=== PATIENT | male | born 1950 | race Caucasian/White ===

== ENCOUNTER 2017-04-13 09:53 | Inpatient (IN) | payer MEDICARE ==
[2017-04-13 11:23] LABS: Basophils # (A) 0.1 k/uL (0-0.2); Basophils % (A) 1 %; Eosinophils # (A) 0.4 k/uL (0-0.7); Eosinophils % (A) 2 %; HCT 37.6 % (39.0-53.0); HGB 11.6 gm/dL (13.0-17.5); Hypochromasia Slight; Lymphocytes # (A) 0.9 k/uL (1.0-4.8); Lymphocytes % (A) 6 %; MCH 28.6 pg (25.0-35.0); MCHC 30.7 g/dL (31.0-37.0); Mean Platelet Volume 7.8; Monocytes # (A) 0.9 k/uL (0-1.0); Monocytes % (A) 6 %; Neutrophils # (A) 11.9 k/uL (1.3-7.7); Neutrophils % (A) 84 %; Platelet Count 211 k/uL (150-450); RBC 4.04 m/uL (4.30-5.90); RDW 14.7 % (11.5-15.5); WBC 14.3 k/uL (3.8-10.6)
[2017-04-13 11:35] LABS: Albumin 3.3 g/dL (3.5-5.0); Calcium 9.5 mg/dL (8.4-10.2); Potassium 5.4 mmol/L (3.5-5.1); Total Bilirubin 0.5 mg/dL (0.2-1.3); Total Protein 6.1 g/dL (6.3-8.2)
[2017-04-13] MEDS: methylPREDNISolone SOD SUCCI 125 MG/2 ML VIAL IV SCH ×3 (12:45→23:51)
[2017-04-13] MEDS ORDERED: HYDROcodone/APAP 7.5-325MG 1 EACH TAB PO PRN (12:45)
[2017-04-13 13:02] LABS: Glucose,Whole Blood 105 mg/dL (75-99)
[2017-04-13] MEDS: LEVOFLOXACIN 250MG-D5W PMX 250 MG in DEXTROSE/WATER 1 50ML.BAG IVPB SCH (14:10)
[2017-04-13] MEDS: IPRATROPIUM-ALBUTEROL 3 ML NEB INHALATION SCH ×3 (15:46→20:05)
[2017-04-13] MEDS: SYMBICORT 160-4.5 MCG INHALER INHALATION SCH ×3 (15:48→20:10)
[2017-04-13] MEDS: PIPERACILLIN-TAZOBACTAM 3.375 GM in DEXTROSE/WATER 1 50ML.BAG IVPB SCH ×2 (15:50→23:51)
[2017-04-13] MEDS: SODIUM CHLORIDE 0.9% 1,000 ML IV SCH (15:50)
[2017-04-13] MEDS: guaiFENesin 600 MG TABLET.ER PO SCH ×2 (15:52→20:50)
[2017-04-13] MEDS ORDERED: ONDANSETRON 4 MG/2 ML VIAL IVP PRN (17:05)
[2017-04-13] MEDS ORDERED: LORazepam 0.5 MG TAB PO PRN (17:05)
[2017-04-13] MEDS ORDERED: NALOXONE 0.4 MG/ML 1 ML VIAL IV PRN (17:05)
[2017-04-13] MEDS ORDERED: MELATONIN 3 MG TABLET PO PRN (17:05)
[2017-04-13] MEDS ORDERED: traMADol 50 MG TAB PO PRN (17:05)
[2017-04-13] MEDS ORDERED: CALCIUM CARBONATE 500 MG CHEWABLE PO PRN (17:05)
[2017-04-13] MEDS ORDERED: LACTULOSE 20 GM/30 ML CUP PO PRN (17:05)
[2017-04-13] MEDS ORDERED: ACETAMINOPHEN TAB 325 MG TAB PO PRN (17:05)
--- NOTE | 2017-04-13 17:10 | XR ---
EXAMINATION TYPE: XR chest 2V DATE OF EXAM: 04/13/2017 COMPARISON: 05/09/2010 HISTORY: Weakness and short of breath TECHNIQUE: Frontal and lateral views of the chest are obtained. FINDINGS: There are bilateral moderate patchy pulmonary infiltrates. Pulmonary vascularity is diffic ult to evaluate because of the lung disease. There is slight blunting of costophrenic angles. Thoraci c aorta is atheromatous. IMPRESSION: New bilateral patchy pulmonary infiltrates compared to old exam and probably due to pneu monia. Congestive heart failure is possible.
[2017-04-13 17:31] LABS: Glucose,Whole Blood 117 mg/dL (75-99)
[2017-04-13] MEDS: INSULIN ASPART 100 UNIT/ML 1 ML 10 ML VIAL SQ SCH ×2 (17:46→20:51)
[2017-04-13] MEDS: GABAPENTIN 300 MG CAP PO SCH ×2 (18:03→21:03)
--- NOTE | 2017-04-13 18:17 | HP ---
HISTORY AND PHYSICAL DATE OF ADMISSION: April 13, 2017. PRESENTING COMPLAINT: Short of breath and cough. HISTORY OF PRESENTING COMPLAINT: This is a pleasant 66-year-old patient of Dr. Yin. Also follows with Dr. Jensen. The patient's chronic stable medical conditions include diabetes, GERD, hypertension, osteoarthritis, pretty much uses a wheelchair, peripheral neuropathy, chronic kidney disease, iron deficiency anemia. The patient does use 2 L of oxygen at home. The patient is here with his . For about 2 weeks, patient has been having an increasing amount of cough, clear sputum, some blood in the same. Denies any fever. Decreased appetite, tired, run down. The patient has chronic edema in the lower extremity, but much getting worse recently. Patient is an ex-smoker. The patient was sent down for admission as he is getting worse. REVIEW OF SYSTEMS: Constitutional: Weak and tired. HEENT none. Respiratory as above. Cardiovascular as above. No chest pain. Gastrointestinal none. Genitourinary none. Musculoskeletal: Aches and pains in different joints. Dermatological: The patient has some weeping from lower extremities. Hematologic, lymphatics none. Psychiatry none. Neurological: Numbness and tingling in the feet. PAST MEDICAL HISTORY: COPD, diabetes, GERD, hypertension, osteoarthritis, peripheral neuropathy, chronic kidney disease, iron deficiency anemia, chronic hypoxic respiratory failure, medical debility, uses a wheelchair. PAST SURGICAL HISTORY: Right-sided diaphragm surgery done at [facility] in 2008, vocal cord polyps removed, fatty tumor removed from back, debridement of right leg ulcer, cyst removed from 1 ankle, colonoscopy, fluid removed from the right eye. SOCIAL HISTORY: Lives with his , use oxygen at night. Has a rolling walker and a wheelchair, pretty much uses a wheelchair. The patient smoked for about 22 years. Stopped in 1984. No alcohol. FAMILY HISTORY: Diabetes, liver disease. Father was an alcoholic. HOME MEDICATIONS: 1. Lasix 20 mg p.o. daily. 2. Humalog Mix 75/25 3 times a day. 3. Calcitriol 0.25 mcg at 6:00 pm. 4. Guaifenesin 1 tab q.12h p.r.n. 5. Norvasc 5 mg p.o. b.i.d. 6. Aldactone 12.5 p.o. daily. 7. Silvadene cream topical daily p.r.n. 8. Promethazine with codeine 5 mL q.i.d. p.r.n. 9. Prilosec 20 mg p.o. daily. 10.Nystatin 5-10 mL daily p.r.n. 11.Dulera 200/5 2 puffs b.i.d. 12.Toprol-XL 25 mg p.o. daily. 13.Magnesium oxide 800 mg p.o. daily. 14.DuoNeb q.4h p.r.n. 15.Humalog quick pen q.h.s. 16.[place] 7.5 one tab q.8h p.r.n. 17.Neurontin 300 mg p.o. b.i.d. 18.Lasix 40 mg p.o. daily. 19.Proscar mg p.o. daily. 20.Iron 325 p.o. b.i.d. 21.Clotrimazole 1% topical daily p.r.n. 22.Clobetasol 1 application topical daily p.r.n. 23.Vitamin D3 2000 units p.o. with supper. 24.Aspirin 81 mg p.o. daily. 25.Allopurinol 200 mg p.o. daily. ALLERGIES: TO IBUPROFEN. PHYSICAL EXAMINATION: Temperature 97.4, pulse 91, respiratory 18, blood pressure 125/86, pulse ox 96% on 2 L. well built, BMI 43.5 sitting up, tired appearing. Eyes pupils equal. Conjunctivae normal. HEENT: External appearance of nose and ears normal. Oral cavity normal. Neck: Short thick, JVD unable to assess. Mass not palpable. RESPIRATORY: Effort increased. LUNGS: Diminished breath sounds. Cardiovascular: HEART: Heart sounds muffled. Gross edema present. Abdomen distended, soft, liver and spleen not palpable. Lymphatics: No lymph nodes palpable in the neck or axilla. Psychiatry: Alert and oriented x3. Mood and affect normal. Neurological: Pupils equal. Cranial nerves grossly intact. Decreased sensation distally. Dermatological: Patient has got superficial bruising of both lower extremities with some oozing of the fluid. INVESTIGATIONS: White count 14.3, hemoglobin 11.6, potassium 5.4, BUN 99, creatinine 2.10, lactic acid 0.5, albumin 3.3. Chest x-ray pending. ASSESSMENT: 1. This is a patient who presents with pneumonia with cough, sputum production for 2 weeks. Some blood in the sputum, suspect gram-negative organism. 2. Acute chronic obstructive pulmonary disease exacerbation in an ex-smoker. 3. Suspect underlying cor pulmonale. 4. Primary osteoarthritis multiple joints, especially the knees. 5. Chronic gait dysfunction, pretty much uses seat and a walker. 6. Diabetes mellitus type 2, chronically on insulin. 7. Gastroesophageal reflux disease. 8. Essential hypertension. 9. Peripheral neuropathy secondary to diabetes. 10.Chronic kidney disease stage 3 from diabetic nephropathy and hypertensive nephrosclerosis. 11.Chronic iron deficiency anemia. 12.Morbid obesity BMI 43.5. 13.Chronic hypoxic respiratory failure secondary to underlying chronic obstructive pulmonary disease. PLAN: The patient was seen earlier by Dr. Prince. The patient has been put on IV Solu-Medrol, nebulized bronchodilators, IV Zosyn and IV Levaquin Levaquin. We will get a 2-D echocardiogram. We will DC patient's Aldactone given that patient's potassium is 5.4. Patient will be put on a renal diet. Copy to Dr. Yin and Dr. Jensen. MMODL / IJN: [id number] /
[2017-04-13] MEDS ORDERED: NYSTATIN 100,000 UNIT/ML SUSP 500,000 UNIT/5 ML CUP PO PRN (18:35)
[2017-04-13 20:44] LABS: Hemoglobin A1C 6.4 % (4.0-6.0)
[2017-04-13 20:48] LABS: Glucose,Whole Blood 231 mg/dL (75-99)
[2017-04-13] MEDS: HEPARIN SODIUM,PORCINE 5,000 UNIT/ML 1 ML VIAL SQ SCH (20:50)
[2017-04-13] MEDS: FUROSEMIDE 10 MG/ML 4 ML VIAL IV SCH (20:51)
[2017-04-14] MEDS: methylPREDNISolone SOD SUCCI 125 MG/2 ML VIAL IV SCH ×2 (05:38→13:03)
[2017-04-14 07:01] LABS: Glucose,Whole Blood 228 mg/dL (75-99)
[2017-04-14] MEDS: SYMBICORT 160-4.5 MCG INHALER INHALATION SCH ×4 (07:25→20:47)
[2017-04-14] MEDS: IPRATROPIUM-ALBUTEROL 3 ML NEB INHALATION SCH ×4 (07:26→20:05)
[2017-04-14] MEDS: PIPERACILLIN-TAZOBACTAM 3.375 GM in DEXTROSE/WATER 1 50ML.BAG IVPB SCH ×3 (07:53→23:51)
[2017-04-14] MEDS: PANTOPRAZOLE 40 MG TABLET PO SCH (07:53)
[2017-04-14] MEDS: METOPROLOL TARTRATE 25 MG TAB PO SCH (07:54)
[2017-04-14] MEDS: INSULIN ASPART 100 UNIT/ML 1 ML 10 ML VIAL SQ SCH ×4 (07:54→20:48)
[2017-04-14] MEDS: HEPARIN SODIUM,PORCINE 5,000 UNIT/ML 1 ML VIAL SQ SCH ×2 (07:54→20:48)
[2017-04-14] MEDS: FINASTERIDE 5 MG TAB PO SCH (07:55)
[2017-04-14] MEDS: FUROSEMIDE 10 MG/ML 4 ML VIAL IV SCH (07:55)
[2017-04-14] MEDS: ASPIRIN 81 MG PO SCH (07:55)
[2017-04-14] MEDS: amLODIPine 5 MG TAB PO SCH (07:55)
[2017-04-14] MEDS: TAMSULOSIN 0.4 MG CAP.ER.24H PO SCH (07:55)
[2017-04-14] MEDS: guaiFENesin 600 MG TABLET.ER PO SCH ×2 (07:56→20:47)
[2017-04-14] MEDS: GABAPENTIN 300 MG CAP PO SCH ×3 (07:56→21:19)
--- NOTE | 2017-04-14 08:41 | US ---
EXAMINATION TYPE: US kidneys/renal and bladder DATE OF EXAM: 04/14/2017 COMPARISON: NONE CLINICAL HISTORY: renal failure. Difficult study due to patient body habitus and patient's inability to take a deep breath in and hold EXAM MEASUREMENTS: Right Kidney: 11.4 x 5.9 x 5.8 cm Left Kidney: 12.5 x 5.6 x 4.7 cm Right Kidney: No hydronephrosis. Echogenic focus measuring 0.7 cm at the midpole level the renal pelv is Left Kidney: No hydronephrosis or masses seen Bladder: Not distended, patient states he had just emptied his bladder Bilateral Jets seen: No Cortical medullary differentiation is maintained. There is cortical thinning bilaterally. IMPRESSION: Suspect right nephrolithiasis. Cortical thinning bilaterally.
[2017-04-14] MEDS ORDERED: SPIRONOLACTONE 25 MG TAB PO SCH (09:00)
--- NOTE | 2017-04-14 10:06 | P.CNPUL ---
History of Present Illness Consult date: 04/14/17 Reason for consult: dyspnea, cough, hypoxemia, pneumonia Chief complaint: Shortness of breath and cough, hemoptysis, pneumonia. History of present illness: Consult dated 04/14/2017 This is a 66-year-old male who sees one of the family doctors in [place]. He also sees my partner for his chronic lung disease. The patient presented to my office yesterday with complaints of shortness of breath coughing chest congestion phlegm production the phlegm was yellow green. In addition, he had maybe half-dozen episodes of bright red hemoptysis. There about dime size. When my partner saw him, the patient was admitted to the hospital. We actually saw him yesterday in the emergency room. The patient was on oxygen therapy. He is in room 15 in the ER. Still coughing up a little bit of blood. This morning, he still coughing up phlegm. Is clearly yellow. He has a sample on his desk in front of him. There is a small amount of bright red blood-tinged with it. He is feeling better. Chest x-ray reveals bilateral patchy infiltrates. Another chest x-ray was ordered for today. The patient was admitted to the hospital service. The patient states that he is feeling a bit better. He is on nasal O2. He uses at home as well. His appetite is poor. States he just feels fatigued and weak. No fever no chills. The patient denies any chest pain or chest discomfort. No palpitations. No nausea vomiting or diarrhea. He is an ex-smoker. Review of Systems A 12 point review of system is positive for cough shortness of breath chest congestion phlegm production and hemoptysis. In addition, the patient's feels weak and fatigued. Past Medical History Past Medical History: Asthma, COPD, Diabetes Mellitus, Eye Disorder, GERD/Reflux , Hypertension, Osteoarthritis (OA), Pneumonia, Renal Disease Additional Past Medical History / Comment(s): Bronchitis, R lung not able to fully expand so had R sided diaphragm repair at [facility], home O2 normally prn but the past 2 weeks ATC, sleeps in a recliner, IDDM type II, bilateral foot numbness and R hand finger numbness, chronic kidney disease, iron deficiency anemia with iron infusions prn, bilateral lower leg edema, current bilateral lower leg blisters, gout bilateral feet/knees, arthritis multiple joints, past R leg ulcer-treated in [facility], past sacral ulcer, abdominal hernia, bilateral cataracts forming and believes he has been told 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 History of Any Multi-Drug Resistant Organisms: None Reported Additional Past Surgical History / Comment(s): R side of diaphragm surgery done at [facility] in 2008, vocal cord polyps removed, fatty tumor removed from back, debridements R leg ulcer, cyst removed from one ankle (laterality unknown), colonoscopies, fluid removed from R eye. Past Anesthesia/Blood Transfusion Reactions: No Reported Reaction Smoking Status: Former smoker - Past Family History Father Family Medical History: Diabetes Mellitus, Liver Disease Additional Family Medical History / Comment(s): Father was an alcoholic and smoked. He at the age of 55 yrs. Mother Family Medical History: CVA/TIA Medications and Allergies Home Medications Medication Instructions Recorded Confirmed Type Allopurinol [Zyloprim] 200 mg PO DAILY 08/03/16 04/13/17 History Aspirin 81 mg PO DAILY 08/03/16 04/13/17 History Calcitriol 0.25 mcg PO SA@1800 08/03/16 04/13/17 History Cholecalciferol (Vitamin D3) 2,000 units PO W/SUPPER 08/03/16 04/13/17 History [Vitamin D3] Clobetasol Propionate/Emoll 1 applic TOPICAL DAILY PRN 08/03/16 04/13/17 History [Olux-E 0.05% Foam] Clotrimazole [Clotrimazole 1%] 1 cream TOPICAL DAILY PRN 08/03/16 04/13/17 History Finasteride 1 mg PO DAILY 08/03/16 04/13/17 History Furosemide [Lasix] 40 mg PO DAILY 08/03/16 04/13/17 History HYDROcodone/APAP 7.5-325MG [[place] 1 tab PO Q8H PRN 08/03/16 04/13/17 History 7.5-325] Insulin Lispro Protamin/Lispro See Protocol SQ AC-TID 08/03/16 04/13/17 History [humaLOG Mix 75-25 Kwikpen] Insulin Lispro [humaLOG Kwikpen] 4 - 15 unit SQ HS 08/03/16 04/13/17 History Ipratropium-Albuterol Nebulize 3 ml INHALATION RT-Q4H PRN 08/03/16 04/13/17 History [Duoneb 0.5 mg-3 mg/3 ml Soln] Magnesium Oxide 400 mg PO DAILY 08/03/16 04/13/17 History Metoprolol Succinate (ER) [Toprol 25 mg PO DAILY 08/03/16 04/13/17 History XL] Mometasone/Formoterol [Dulera 200 2 inhaler INHALATION RT-BID 08/03/16 04/13/17 History Mcg/5 Mcg Inhaler] Nystatin 5 - 10 ml PO DAILY PRN 08/03/16 04/13/17 History Omeprazole [PriLOSEC] 20 mg PO DAILY 08/03/16 04/13/17 History Promethazine/Phenyleph/Codeine 5 ml PO QID PRN 08/03/16 04/13/17 History [Promethazine Vc-Codeine Syrup] SILVER sulfADIAZINE CREAM 1 applic TOPICAL DAILY PRN 08/03/16 04/13/17 History [Silvadene Cream] Spironolactone 12.5 mg PO DAILY 08/03/16 04/13/17 History amLODIPine [Norvasc] 5 mg PO BID 08/03/16 04/13/17 History guaiFENesin-DM 600/30MG [Mucinex 1 tab PO Q12H PRN 08/03/16 04/13/17 History Dm] Ferrous Sulfate [Feosol] 325 mg PO BID 01/21/17 04/13/17 History Furosemide [Lasix] 20 mg PO DAILY@1500 04/13/17 04/13/17 History Gabapentin [Neurontin] 300 mg PO BID 04/13/17 04/13/17 History Insulin Lispro Protamin/Lispro See Protocol SQ PC-TID 04/13/17 04/13/17 History [humaLOG Mix 75-25 Kwikpen] Allergies Allergy/AdvReac Type Severity Reaction Status Date / Time ibuprofen [From Motrin] AdvReac Confusion Verified 04/13/17 10:12 Physical Exam Osteopathic Statement: *. No significant issues noted on an osteopathic structural exam other than those noted in the History and Physical/Consult. Vitals: Vital Signs Temp Pulse Pulse Resp BP BP Pulse Ox 04/14/17 07:42 96 04/14/17 07:26 92 02/28/18 07:00 98 16 159/103 92 L 04/13/17 23:00 97.4 F L 94 16 159/80 91 L 04/13/17 20:16 88 04/13/17 20:04 84 04/13/17 16:00 86 96 04/13/17 15:47 88 04/13/17 15:00 97.6 F 90 20 176/77 92 L 04/13/17 14:40 97.4 F L 91 18 125/86 96 04/13/17 14:11 96.7 F L 81 20 165/77 96 04/13/17 13:20 84 20 160/77 95 04/13/17 12:57 97.1 F L 80 19 176/79 96 04/13/17 11:49 84 20 173/83 94 L Intake and Output 04/13/17 04/14/17 04/14/17 22:59 06:59 14:59 Intake Total 35 90 Balance 35 90 Intake: Intake, IV Titration 35 90 Amount Piperacillin-Tazobactam 3 50 .375 gm In Dextrose/Water 1 50ml.bag @ 12.5 mls/hr IVPB Q8HR EVELYNE Rx#: [id number] Sodium Chloride 0.9% 1, 35 40 000 ml @ 10 mls/hr IV . Q24H EVELYNE Rx#:[id number] Other: # Voids 2 3 No acute distress, oriented 3. Nasal O2 in place. HEENT examination is grossly unremarkable. Mucous membranes are moist. No oral lesions. Neck supple. Full range of motion. No adenopathy thyromegaly or neck vein distention. Cardiovascular examination reveals regular rhythm rate. S1-S2 normal. No S3 or S4. No discernible murmur noted. Lungs reveal coarse expiratory rhonchi. No wheezes. A few scattered crackles bilaterally. Breath sounds are equal. Slight prolongation on forced maneuver. The patient coughs on forced maneuver.. Abdomen soft bowel sounds are heard. No masses or tenderness. Extremities are intact. No cyanosis clubbing or edema. Skin is without rash or lesion. Neurologic examination is brief but nonfocal. Results - Laboratory Findings CBC and BMP: 04/13/17 10:46 04/13/17 10:46 Abnormal lab findings: Abnormal Labs 04/13/17 04/13/17 04/13/17 10:46 10:46 10:46 WBC 14.3 H RBC 4.04 L Hgb 11.6 L Hct 37.6 L MCHC 30.7 L Neutrophils # 11.9 H Lymphocytes # 0.9 L Potassium 5.4 H Carbon Dioxide 32 H BUN 99 H* Creatinine 2.10 H POC Glucose (mg/dL) Hemoglobin A1c Plasma Lactic Acid Barrett 0.5 L Total Protein 6.1 L Albumin 3.3 L 04/13/17 04/13/17 04/13/17 10:46 12:59 17:29 WBC RBC Hgb Hct MCHC Neutrophils # Lymphocytes # Potassium Carbon Dioxide BUN Creatinine POC Glucose (mg/dL) 105 H 117 H Hemoglobin A1c 6.4 H Plasma Lactic Acid Barrett Total Protein Albumin 04/13/17 04/14/17 20:41 06:59 WBC RBC Hgb Hct MCHC Neutrophils # Lymphocytes # Potassium Carbon Dioxide BUN Creatinine POC Glucose (mg/dL) 231 H 228 H Hemoglobin A1c Plasma Lactic Acid Brarett Total Protein Albumin - Diagnostic Findings Chest x-ray: image reviewed (X-ray labs and medications are all reviewed.) Assessment and Plan Assessment: Assessment COPD exacerbation complicated by bilateral patchy pneumonia. Her graft mild hemoptysis, improved Previous history of tobacco use History of GERD History of hypertension History of DJD 4 neuropathy. Chronic kidney disease Iron deficiency anemia Obesity Chronic hypoxemic respiratory failure General medical debility Plan: Plan dated 04/14/2017 Chest x-rays reviewed. It does reveal bilateral patchy infiltrates.. This is consistent with pneumonia. The patient's hemoptysis seems to have settled down. My partner road all the orders yesterday. They were put in by my nurse practitioner. We'll continue to follow. Prognosis is guarded. Hopeful discharge on Wednesday. No additional recommendations are made. Time with Patient: Greater than 30
[2017-04-14] MEDS ORDERED: ARTIFICIAL TEARS-HYPROMELLOSE DROPS 15 ML BTL BOTH EYES PRN (10:15)
[2017-04-14 11:27] LABS: Glucose,Whole Blood 394 mg/dL (75-99)
--- NOTE | 2017-04-14 11:28 | XR ---
EXAMINATION TYPE: XR chest 1V portable DATE OF EXAM: 04/14/2017 COMPARISON: Prior chest x-ray 04/13/2017 HISTORY: Pain TECHNIQUE: Single frontal view of the chest is obtained. FINDINGS: Patchy bilateral airspace disease is again noted as on prior. Lung volumes are low and the patient is rotated. Cardiomediastinal silhouette, pulmonary vascularity and prema are stable. IMPRESSION: There is no significant change. Correlate for pneumonia, pulmonary edema not excluded, c orrelate for congestive heart failure.
[2017-04-14] MEDS: NYSTATIN 100,000 UNIT/ML SUSP 500,000 UNIT/5 ML CUP PO SCH ×3 (11:48→20:48)
[2017-04-14 11:55] VITALS: BMI 43.4
[2017-04-14] MEDS: LEVOFLOXACIN 250MG-D5W PMX 250 MG in DEXTROSE/WATER 1 50ML.BAG IVPB SCH (11:56)
[2017-04-14] MEDS ORDERED: INSULIN NPH/REG INSULIN 70/30 300 UNIT/3 ML VIAL SQ ONE (12:25)
[2017-04-14] MEDS ORDERED: INSULN ASP PRT/INSULIN ASPART 100 UNIT/ML 10 ML VIAL SQ ONE (13:15)
[2017-04-14] MEDS ORDERED: SILVER sulfADIAZINE Cream 400 GM 1 APPLIC APPLIC TOPICAL PRN (13:42)
[2017-04-14] MEDS: SODIUM CHLORIDE 0.9% 1,000 ML IV SCH (16:05)
[2017-04-14] MEDS: CEVIMELINE 30 MG CAP PO SCH ×2 (16:16→20:47)
[2017-04-14 16:57] LABS: Glucose,Whole Blood 101 mg/dL (75-99)
[2017-04-14] MEDS: SILVER sulfADIAZINE Cream 400 GM 1 APPLIC APPLIC TOPICAL SCH ×2 (17:02→20:49)
[2017-04-14] MEDS: FUROSEMIDE 10 MG/ML 10 ML VIAL IV SCH ×2 (17:02→23:51)
--- NOTE | 2017-04-14 17:14 | PN ---
PROGRESS NOTE DATE OF SERVICE: 04/14/17 PRESENTING COMPLAINT: Short of breath, cough. INTERVAL HISTORY: This patient admitted with pneumonia. Cough is slightly better. Decreased sputum. Still has edema lower extremity. Also felt to have COPD exacerbation. 2D echo is pending. Did tolerate a diet. REVIEW OF SYSTEMS: Done for constitutional, cardiovascular, GI, pulmonary; relevant findings as above. CURRENT MEDICATIONS: Reviewed that include DuoNeb, p.o. Levaquin, IV Zosyn. EXAMINATION: On examination, temperature 97.8, pulse 83, respirations 16, blood pressure 115/77, pulse ox 94% on 2 L. GENERAL APPEARANCE: Sitting up in a chair. EYES: Pupils equal. Conjunctivae normal. HEENT: External appearance of nose and ears normal. Oral cavity normal. NECK: Short, thick, JVD unable to assess. Mass not palpable. RESPIRATORY: Effort increased. Lungs, diminished breath sounds. CARDIOVASCULAR: Heart sounds muffled. Gross edema present. ABDOMEN: Distended, soft, liver and spleen not palpable. PSYCHIATRY: Alert and oriented x3. Mood and affect normal. LOWER EXTREMITY: Superficial bruising with oozing of clear fluid. INVESTIGATIONS: Accu-Cheks are noted. BMP is pending. ASSESSMENT: 1. Pneumonia suspect gram-negative organism, present on admission. 2. Acute chronic obstructive pulmonary disease exacerbation in an ex-smoker. 3. Primary osteoarthritis multiple joints especially the knees. 4. Possible acute congestive heart failure exacerbation. Ejection fraction not known. 5. Chronic gait dysfunction, pretty much uses a seat walker. 6. Diabetes mellitus type 2, chronically on insulin. 7. Gastroesophageal reflux disease. 8. Essential hypertension. 9. Peripheral neuropathy secondary to diabetes. 10.Chronic kidney disease stage III from diabetic nephropathy and hypertensive nephrosclerosis. 11.Chronic iron deficiency anemia. 12.Morbid obesity, BMI 43.5. 13.Chronic hypoxic respiratory failure secondary to underlying chronic obstructive pulmonary disease. PLAN: We will increase patient's IV Lasix to 80 q.8. BMP from today is pending. Awaiting 2D echocardiogram results. We will also put the patient on some fluid restriction. Use Silvadene cream with Kerlix and Yonny wrap of lower extremities. Do strict I and Os. Also get a nephrology opinion. MMODL / IJN: [id number] /
[2017-04-14 17:18] LABS: Calcium 9.6 mg/dL (8.4-10.2)
[2017-04-14] MEDS ORDERED: INSULIN NPH/REG INSULIN 70/30 300 UNIT/3 ML VIAL SQ SCH ×2 (17:30)
[2017-04-14] MEDS: INSULN ASP PRT/INSULIN ASPART 100 UNIT/ML 10 ML VIAL SQ SCH (18:04)
[2017-04-14 20:23] LABS: Glucose,Whole Blood 218 mg/dL (75-99)
[2017-04-14] MEDS: methylPREDNISolone SOD SUCCI 40 MG/ML 1 ML VIAL IV SCH (23:51)
[2017-04-15 00:12] LABS: Glucose,Whole Blood 313 mg/dL (75-99)
[2017-04-15 07:11] LABS: Glucose,Whole Blood 211 mg/dL (75-99)
[2017-04-15] MEDS: IPRATROPIUM-ALBUTEROL 3 ML NEB INHALATION SCH ×4 (07:25→18:57)
[2017-04-15] MEDS: SYMBICORT 160-4.5 MCG INHALER INHALATION SCH ×5 (07:25→19:10)
[2017-04-15 07:40] LABS: Calcium 9.4 mg/dL (8.4-10.2); Potassium 5.1 mmol/L (3.5-5.1)
[2017-04-15] MEDS: INSULIN ASPART 100 UNIT/ML 1 ML 10 ML VIAL SQ SCH ×4 (08:08→21:25)
[2017-04-15] MEDS: LEVOFLOXACIN 250 MG TAB PO SCH (08:10)
[2017-04-15] MEDS: NYSTATIN 100,000 UNIT/ML SUSP 500,000 UNIT/5 ML CUP PO SCH ×4 (08:11→21:28)
[2017-04-15] MEDS: CEVIMELINE 30 MG CAP PO SCH ×3 (08:12→21:27)
[2017-04-15] MEDS: FUROSEMIDE 10 MG/ML 10 ML VIAL IV SCH ×2 (08:14→21:26)
[2017-04-15] MEDS: guaiFENesin 600 MG TABLET.ER PO SCH ×2 (08:15→21:30)
[2017-04-15] MEDS: GABAPENTIN 300 MG CAP PO SCH ×3 (08:15→21:32)
[2017-04-15] MEDS: HEPARIN SODIUM,PORCINE 5,000 UNIT/ML 1 ML VIAL SQ SCH ×2 (08:15→21:31)
[2017-04-15] MEDS: FINASTERIDE 5 MG TAB PO SCH (08:16)
[2017-04-15] MEDS: ASPIRIN 81 MG PO SCH (08:16)
[2017-04-15] MEDS: PANTOPRAZOLE 40 MG TABLET PO SCH (08:16)
[2017-04-15] MEDS: TAMSULOSIN 0.4 MG CAP.ER.24H PO SCH (08:17)
[2017-04-15] MEDS: amLODIPine 5 MG TAB PO SCH ×2 (08:18→21:30)
[2017-04-15] MEDS: INSULN ASP PRT/INSULIN ASPART 100 UNIT/ML 10 ML VIAL SQ SCH ×2 (08:25→17:46)
[2017-04-15] MEDS: PIPERACILLIN-TAZOBACTAM 3.375 GM in DEXTROSE/WATER 1 50ML.BAG IVPB SCH ×3 (08:26→23:31)
[2017-04-15] MEDS: METOPROLOL TARTRATE 25 MG TAB PO SCH (08:34)
[2017-04-15] MEDS: methylPREDNISolone SOD SUCCI 40 MG/ML 1 ML VIAL IV SCH ×3 (08:35→23:31)
[2017-04-15] MEDS: SILVER sulfADIAZINE Cream 400 GM 1 APPLIC APPLIC TOPICAL SCH ×2 (08:38→21:31)
[2017-04-15] MEDS ORDERED: hydrALAZINE HCL 20 MG/ML 1 ML VIAL IVP PRN (10:13)
--- NOTE | 2017-04-15 10:15 | P.NPCON ---
History of Present Illness - Reason for Consult acute renal failure, chronic renal failure - History of Present Illness Reason for consultation: Acute kidney injury on chronic kidney disease History of present illness: Patient is a 66-year-old male seen in renal consultation for acute kidney injury on chronic kidney disease. Patient has chronic kidney disease stage IIIB secondary to biopsy-proven diabetic kidney disease with baseline creatinine in the range of 2-2.5. His creatinine today is 2.62. Patient presented to the hospital with dyspnea and a productive cough with yellow sputum. He was also having hemoptysis prior to admission. Overall he is feeling better. He denies any further hemoptysis. His cough is now nonproductive in nature. He does have lower extremity edema. He is currently maintained on Lasix 80 mg IV every 8 hours. Admits to good urine output. No vomiting or diarrhea. Oral intake is good. Denies chest pain. Denies use of NSAIDs. He is currently afebrile. Vital signs are stable. General: The patient appeared well nourished and normally developed. HEENT: Head exam is unremarkable. Neck is without jugular venous distension. LUNGS: Lungs are clear to auscultation and percussion. Breath sounds decreased. HEART: Rate and Rhythm are regular. First and second heart sounds normal. No murmurs, rubs or gallops. ABDOMEN: Abdominal exam reveals normal bowel sounds. Non-tender and non- distended. No evidence of peritonitis. EXTREMITITES: 1+ edema. Past Medical History Past Medical History: Asthma, COPD, Diabetes Mellitus, Eye Disorder, GERD/Reflux , Hypertension, Osteoarthritis (OA), Pneumonia, Renal Disease Additional Past Medical History / Comment(s): Bronchitis, R lung not able to fully expand so had R sided diaphragm repair at [facility], home O2 normally prn but the past 2 weeks ATC, sleeps in a recliner, IDDM type II, bilateral foot numbness and R hand finger numbness, chronic kidney disease, iron deficiency anemia with iron infusions prn, bilateral lower leg edema, current bilateral lower leg blisters, gout bilateral feet/knees, arthritis multiple joints, past R leg ulcer-treated in [facility], past sacral ulcer, abdominal hernia, bilateral cataracts forming and believes he has been told 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 History of Any Multi-Drug Resistant Organisms: None Reported Additional Past Surgical History / Comment(s): R side of diaphragm surgery done at [facility] in 2008, vocal cord polyps removed, fatty tumor removed from back, debridements R leg ulcer, cyst removed from one ankle (laterality unknown), colonoscopies, fluid removed from R eye. Past Anesthesia/Blood Transfusion Reactions: No Reported Reaction Smoking Status: Former smoker - Past Family History Father Family Medical History: Diabetes Mellitus, Liver Disease Additional Family Medical History / Comment(s): Father was an alcoholic and smoked. He at the age of 55 yrs. Mother Family Medical History: CVA/TIA Medications and Allergies Home Medications Medication Instructions Recorded Confirmed Type Allopurinol [Zyloprim] 200 mg PO DAILY 08/03/16 04/13/17 History Aspirin 81 mg PO DAILY 08/03/16 04/13/17 History Calcitriol 0.25 mcg PO SA@1800 08/03/16 04/13/17 History Cholecalciferol (Vitamin D3) 2,000 units PO W/SUPPER 08/03/16 04/13/17 History [Vitamin D3] Clobetasol Propionate/Emoll 1 applic TOPICAL DAILY PRN 08/03/16 04/13/17 History [Olux-E 0.05% Foam] Clotrimazole [Clotrimazole 1%] 1 cream TOPICAL DAILY PRN 08/03/16 04/13/17 History Finasteride 1 mg PO DAILY 08/03/16 04/13/17 History Furosemide [Lasix] 40 mg PO DAILY 08/03/16 04/13/17 History HYDROcodone/APAP 7.5-325MG [[place] 1 tab PO Q8H PRN 08/03/16 04/13/17 History 7.5-325] Insulin Lispro Protamin/Lispro See Protocol SQ AC-TID 08/03/16 04/13/17 History [humaLOG Mix 75-25 Kwikpen] Insulin Lispro [humaLOG Kwikpen] 4 - 15 unit SQ HS 08/03/16 04/13/17 History Ipratropium-Albuterol Nebulize 3 ml INHALATION RT-Q4H PRN 08/03/16 04/13/17 History [Duoneb 0.5 mg-3 mg/3 ml Soln] Magnesium Oxide 400 mg PO DAILY 08/03/16 04/13/17 History Metoprolol Succinate (ER) [Toprol 25 mg PO DAILY 08/03/16 04/13/17 History XL] Mometasone/Formoterol [Dulera 200 2 inhaler INHALATION RT-BID 08/03/16 04/13/17 History Mcg/5 Mcg Inhaler] Nystatin 5 - 10 ml PO DAILY PRN 08/03/16 04/13/17 History Omeprazole [PriLOSEC] 20 mg PO DAILY 08/03/16 04/13/17 History Promethazine/Phenyleph/Codeine 5 ml PO QID PRN 08/03/16 04/13/17 History [Promethazine Vc-Codeine Syrup] SILVER sulfADIAZINE CREAM 1 applic TOPICAL DAILY PRN 08/03/16 04/13/17 History [Silvadene Cream] Spironolactone 12.5 mg PO DAILY 08/03/16 04/13/17 History amLODIPine [Norvasc] 5 mg PO BID 08/03/16 04/13/17 History guaiFENesin-DM 600/30MG [Mucinex 1 tab PO Q12H PRN 08/03/16 04/13/17 History Dm] Ferrous Sulfate [Feosol] 325 mg PO BID 01/21/17 04/13/17 History Furosemide [Lasix] 20 mg PO DAILY@1500 04/13/17 04/13/17 History Gabapentin [Neurontin] 300 mg PO BID 04/13/17 04/13/17 History Insulin Lispro Protamin/Lispro See Protocol SQ PC-TID 04/13/17 04/13/17 History [humaLOG Mix 75-25 Kwikpen] Allergies Allergy/AdvReac Type Severity Reaction Status Date / Time ibuprofen [From Motrin] AdvReac Confusion Verified 04/13/17 10:12 Physical Exam Vitals: Vital Signs Temp Pulse Pulse Resp BP Pulse Ox 04/15/17 07:37 82 04/15/17 07:27 82 04/15/17 07:00 97.5 F L 98 18 179/90 97 04/14/17 20:24 76 04/14/17 20:05 72 04/14/17 20:00 96.6 F L 103 H 20 165/81 92 L 04/14/17 16:50 76 04/14/17 16:39 78 04/14/17 16:00 83 16 04/14/17 15:00 97.8 F 83 16 161/77 94 L 04/14/17 11:13 80 04/14/17 11:03 76 Intake and Output 04/14/17 04/15/17 04/15/17 22:59 06:59 14:59 Other: Voiding Method Toilet Toilet Weight 89 kg Results - Lab Results Most recent lab results Calcium 9.4 mg/dL (8.4-10.2) 04/15/17 06:46 04/13/17 10:46 04/15/17 06:46 Assessment and Plan Plan: assessment: #1. Acute kidney injury mostly prerenal secondary to diuresis. Creatinine 2.62 today. #2. Chronic kidney disease stage IIIB/4 secondary to biopsy-proven diabetic kidney disease. #3. Insulin-dependent diabetes mellitus. #4. Dyspnea secondary to pneumonia maintained on antibiotics. #5. Lower extremity edema maintained on diuretics. #6. Hypertension with chronic kidney disease. Partially related to IV steroids. Plan: I will decrease Lasix to 60 mg IV twice daily. Encouraged oral intake. Maintain low salt diet. Follow-up cultures. Continue with antibiotics. Increase amlodipine to 5 mg twice a day. Add hydralazine 10 mg IV every 4 hours if needed for systolic blood pressure greater than 160. Thank you for the consultation. I will continue to follow the patient with you during his hospital stay.
[2017-04-15 11:10] LABS: Glucose,Whole Blood 191 mg/dL (75-99)
--- NOTE | 2017-04-15 11:32 | P.PN ---
Subjective Progress Note Date: 04/15/17 Principal diagnosis: Acute COPD exacerbation complicated by bilateral patchy pneumonia Consult dated 04/14/2017 This is a 66-year-old male who sees one of the family doctors in [place]. He also sees my partner for his chronic lung disease. The patient presented to my office yesterday with complaints of shortness of breath coughing chest congestion phlegm production the phlegm was yellow green. In addition, he had maybe half-dozen episodes of bright red hemoptysis. There about dime size. When my partner saw him, the patient was admitted to the hospital. We actually saw him yesterday in the emergency room. The patient was on oxygen therapy. He is in room 15 in the ER. Still coughing up a little bit of blood. This morning, he still coughing up phlegm. Is clearly yellow. He has a sample on his desk in front of him. There is a small amount of bright red blood-tinged with it. He is feeling better. Chest x-ray reveals bilateral patchy infiltrates. Another chest x-ray was ordered for today. The patient was admitted to the hospital service. The patient states that he is feeling a bit better. He is on nasal O2. He uses at home as well. His appetite is poor. States he just feels fatigued and weak. No fever no chills. The patient denies any chest pain or chest discomfort. No palpitations. No nausea vomiting or diarrhea. He is an ex-smoker. On 04/15/2017 patient is seen in follow-up on medical surgical floor. Reports significant improvement in terms of his dyspnea. Means on 2 L per nasal cannula with O2 sat at 97%. He is hemodynamically stable, afebrile. Blood culture shows no growth at the 24-hour bran. Today's lab work showed normal electrolyte panel, however there is further worsening of his renal function, BUN is up to 106, and creatinine is up to 2.62. Nephrology consultation was noted. His Lasix was decreased to 60 mg IV twice daily. Patient is maintaining good oral intake. Patient continues on oral Levaquin, IV Zosyn, IV steroids, nebulized treatments. He is requesting to go home today, from pulmonary standpoint he is stable to go home, pending clearance from other consultants and admitting doctor. Objective - Vital Signs Vital signs: Vital Signs Temp 97.5 F L 04/15/17 07:00 Pulse 88 04/15/17 11:18 Resp 18 04/15/17 07:00 BP 124/75 04/15/17 10:48 Pulse Ox 97 04/15/17 07:00 Intake & Output 04/14/17 04/15/17 04/15/17 18:59 06:59 18:59 Intake Total 580 Balance 580 Weight 118.5 kg 89 kg Intake: Intake, IV Titration 220 Amount Levofloxacin 250Mg-D5w 50 Pmx 250 mg In Dextrose/ Water 1 50ml.bag @ 50 mls /hr IVPB DAILY [facility] Rx#: [id number] Piperacillin-Tazobactam 3 50 .375 gm In Dextrose/Water 1 50ml.bag @ 12.5 mls/hr IVPB Q8HR EVELYNE Rx#: [id number] Sodium Chloride 0.9% 1, 120 000 ml @ 10 mls/hr IV . Q24H EVELYNE Rx#:[id number] Oral 360 Other: Voiding Method Toilet Toilet Toilet # Voids 3 - Exam No acute distress, oriented 3. Nasal O2 in place. HEENT examination is grossly unremarkable. Mucous membranes are moist. No oral lesions. Neck supple. Full range of motion. No adenopathy thyromegaly or neck vein distention. Cardiovascular examination reveals regular rhythm rate. S1-S2 normal. No S3 or S4. No discernible murmur noted. Lungs reveal a few scattered rales. No wheezes. No rhonchi. Breath sounds are equal. Slight prolongation on forced maneuver. The patient coughs on forced maneuver.. Abdomen soft bowel sounds are heard. No masses or tenderness. Extremities are intact. No cyanosis clubbing. 1+ edema, Chronic venous stasis changes noted in bilateral lower extremities Skin is without rash or lesion. Neurologic examination is brief but nonfocal. - Labs CBC & Chem 7: 04/13/17 10:46 04/15/17 06:46 Labs: Abnormal Lab Results - Last 24 Hours (Table) 04/14/17 04/14/17 04/14/17 Range/Units 11:23 16:53 16:55 BUN 104 H* (9-20) mg/dL Creatinine 2.40 H (0.66-1.25) mg/dL Glucose 108 H (74-99) mg/dL POC Glucose (mg/dL) 394 H 101 H (75-99) mg/dL 04/14/17 04/15/17 04/15/17 Range/Units 20:22 00:04 06:46 BUN 106 H* (9-20) mg/dL Creatinine 2.62 H (0.66-1.25) mg/dL Glucose 228 H (74-99) mg/dL POC Glucose (mg/dL) 218 H 313 H (75-99) mg/dL 04/15/17 04/15/17 Range/Units 07:07 11:07 BUN (9-20) mg/dL Creatinine (0.66-1.25) mg/dL Glucose (74-99) mg/dL POC Glucose (mg/dL) 211 H 191 H (75-99) mg/dL Microbiology - Last 24 Hours (Table) 04/13/17 10:46 Blood Culture - Preliminary Blood No Growth after 24 hours Assessment and Plan Plan: Assessment: COPD exacerbation complicated by bilateral patchy pneumonia. Hemoptysis, mild, improved Previous history of tobacco use History of GERD History of hypertension History of DJD Diabetic neuropathy. Chronic kidney disease Iron deficiency anemia Obesity Chronic hypoxemic respiratory failure General medical debility Plan: Plan dated 04/14/2017 Chest x-rays reviewed. It does reveal bilateral patchy infiltrates.. This is consistent with pneumonia. The patient's hemoptysis seems to have settled down. My partner road all the orders yesterday. They were put in by my nurse practitioner. We'll continue to follow. Prognosis is guarded. Hopeful discharge on Wednesday. No additional recommendations are made. Plan dated 04/15/2017 Patient is improving, reports less dyspnea, the hemoptysis has resolved. Vital signs are stable, patient is afebrile. Continues on a combination of Levaquin and Zosyn. Lung sounds are only positive for some minimal crackles, no wheezes , no rhonchi, no signs of chest congestion, no fever, no chills, no chest wall tenderness. Continue with current plan of treatment, from pulmonary standpoint patient could be considered for discharge home today or tomorrow, pending clearance from other consultants. I performed a history & physical examination of the patient and discussed their management with my nurse practitioner, Cherry Lee. I reviewed the nurse practitioner's note and agree with the documented findings and plan of care. Lung sounds are positive for minimal crackles. The findings and the impression was discussed with the patient. I attest to the documentation by the nurse practitioner. Time with Patient: Less than 30
--- NOTE | 2017-04-15 11:35 | ECHOF ---
Referral Reason:chf MEASUREMENTS -------- HEIGHT: 165.1 cm WEIGHT: 127.0 kg BP: 173/79 RVIDd: 3.9 cm (< 3.3) IVSd: 1.4 cm (0.6 - 1.1) LVIDd: 6.4 cm (3.9 - 5.3) LVPWd: 1.4 cm (0.6 - 1.1) IVSs: 2.1 cm LVIDs: 3.8 cm LVPWs: 2.2 cm LA Diam: 3.8 cm (2.7 - 3.8) LAESV Index (A-L): 32.72 ml/m Ao Diam: 3.6 cm (2.0 - 3.7) AV Cusp: 1.5 cm (1.5 - 2.6) MV EXCURSION: 17.961 mm (> 18.000) MV EF SLOPE: 90 mm/s (70 - 150) EPSS: 1.1 cm MV E Femi: 1.00 m/s MV DecT: 208 ms MV A Femi: 0.99 m/s MV E/A Ratio: 1.01 AV maxP.73 mmHg AV meanP.81 mmHg RAP: 15.00 mmHg RVSP: 31.56 mmHg FINDINGS -------- Sinus rhythm with extra systolic beats. This was a technically difficult study with suboptimal views. The left ventricle is moderately dilated. There is moderate concentric left ventricular hypertrophy . Overall left ventricular systolic function is low-normal with, an EF between 50 - 55 %. The right ventricle is mild to moderately enlarged. LA is midly dilated 29-33ml/m2. The right atrium is normal in size. There is mild aortic valve sclerosis. There is mild aortic stenosis present. Peak/mean gradient a cross the Aortic Valve is 15.73mmHg / 7.81mmHg. Mild mitral annular calcification present. Mild tricuspid regurgitation present. Right ventricular systolic pressure is normal at < 35 mmHg. The pulmonic valve was not well visualized. The aortic root size is normal. The inferior vena cava is dilated with no significant inspiratory collapse which is consistent estima tia right atrial pressure of >20 mmHg. There is no pericardial effusion. CONCLUSIONS -------- 1. Sinus rhythm with extra systolic beats. 2. This was a technically difficult study with suboptimal views. 3. The left ventricle is moderately dilated. 4. There is moderate concentric left ventricular hypertrophy. 5. Overall left ventricular systolic function is low-normal with, an EF between 50 - 55 %. 6. The right ventricle is mild to moderately enlarged. 7. LA is midly dilated 29-33ml/m2. 8. The right atrium is normal in size. 9. 10. There is mild aortic valve sclerosis. 11. There is mild aortic stenosis present. 12. Peak/mean gradient across the Aortic Valve is 15.73mmHg / 7.81mmHg. 13. Mild mitral annular calcification present. 14. Mild tricuspid regurgitation present. 15. Right ventricular systolic pressure is normal at < 35 mmHg. 16. The pulmonic valve was not well visualized. 17. The aortic root size is normal. 18. The inferior vena cava is dilated with no significant inspiratory collapse which is consistent es timated right atrial pressure of >20 mmHg. 19. There is no pericardial effusion. [employer]ING [employer] HELPER: Lizeth Valentin RDCS
[2017-04-15 17:08] LABS: Glucose,Whole Blood 295 mg/dL (75-99)
[2017-04-15] MEDS: SODIUM CHLORIDE 0.9% 1,000 ML IV SCH (17:32)
[2017-04-15 20:24] LABS: Glucose,Whole Blood 222 mg/dL (75-99)
--- NOTE | 2017-04-15 21:04 | PN ---
PROGRESS NOTE DATE OF SERVICE: 04/15/2017. PRESENT COMPLAINT: Tired. INTERVAL HISTORY: This patient is admitted with pneumonia and also fluid overload and COPD exacerbation. 2D echo showed preserved LV function and no evidence of cor pulmonale. The patient did diurese well with IV Lasix. Edema did go down. Cough is much improved. at the bedside. REVIEW OF SYSTEMS: Done for constitutional, cardiovascular, GI, pulmonary; relevant findings as above. CURRENT MEDICATIONS: Reviewed that include: 1. IV Zosyn. 2. Levaquin. 3. IV Lasix 60 mg b.i.d. EXAMINATION: Temperature 97.5, pulse 90, respirations 18, blood pressure 139/90, pulse ox 97% on 2L. GENERAL APPEARANCE: Sitting up at the edge of the bed, more comfortable, breathing better. EYES: Pupils equal. Conjunctivae normal. HEENT: External nose and ears normal. Oral cavity normal. NECK: JVD unable to assess. Mass not palpable. Respiratory effort increased. LUNGS: Diminished breath sounds. CARDIOVASCULAR: Heart sounds muffled. Decreased edema. ABDOMEN: Distended, soft. Liver, spleen not palpable. PSYCHIATRY: Alert and oriented x3. Mood and affect normal. INVESTIGATION: 2D echocardiogram shows preserved LV function. No evidence of pulmonary hypertension. The patient's BUN is 106, creatinine is 2.62, up from 2.10. ASSESSMENT: 1. Pneumonia suspect gram-negative organism, present on admission with clinical improvement. The patient's cough and sputum production have gone down. 2. Acute chronic obstructive pulmonary disease exacerbation in an ex-smoker. 3. Primary osteoarthritis in multiple joints, especially the knees. 4. Acute congestive heart failure from diastolic dysfunction. Ejection fraction 55% with clinical improvement. 5. Chronic gait dysfunction, uses a walker. 6. Diabetes mellitus type 2, chronically on insulin. 7. Gastroesophageal reflux disease. 8. Essential hypertension. 9. Peripheral neuropathy secondary to diabetes. 10.Chronic kidney disease stage 3 from diabetic nephropathy and hypertensive nephrosclerosis. 11.Chronic iron deficiency anemia. 12.Morbid obesity, BMI of 43.5. 13.Chronic hypoxic respiratory failure secondary to chronic obstructive pulmonary disease. PLAN: Patient's Lasix has been cut back to 60 q.12h. Keep a close eye on the patient's renal function. Silvadene continues to the lower extremity. Care was discussed with the patient and . Follow electrolytes closely. Follow. MMODL / IJN: [id number] /
[2017-04-16 07:42] LABS: Glucose,Whole Blood 207 mg/dL (75-99)
[2017-04-16] MEDS: INSULN ASP PRT/INSULIN ASPART 100 UNIT/ML 10 ML VIAL SQ SCH ×2 (07:43→17:33)
[2017-04-16] MEDS: INSULIN ASPART 100 UNIT/ML 1 ML 10 ML VIAL SQ SCH ×4 (07:43→22:27)
[2017-04-16 07:59] VITALS: RESP 16
[2017-04-16] MEDS: NYSTATIN 100,000 UNIT/ML SUSP 500,000 UNIT/5 ML CUP PO SCH ×4 (08:00→22:28)
[2017-04-16] MEDS: guaiFENesin 600 MG TABLET.ER PO SCH ×2 (08:01→22:27)
[2017-04-16] MEDS: GABAPENTIN 300 MG CAP PO SCH ×3 (08:01→22:28)
[2017-04-16] MEDS: amLODIPine 5 MG TAB PO SCH ×2 (08:02→22:27)
[2017-04-16] MEDS: LEVOFLOXACIN 250 MG TAB PO SCH (08:02)
[2017-04-16] MEDS: HEPARIN SODIUM,PORCINE 5,000 UNIT/ML 1 ML VIAL SQ SCH ×2 (08:02→22:27)
[2017-04-16] MEDS: METOPROLOL TARTRATE 25 MG TAB PO SCH (08:02)
[2017-04-16] MEDS: TAMSULOSIN 0.4 MG CAP.ER.24H PO SCH (08:03)
[2017-04-16] MEDS: ASPIRIN 81 MG PO SCH (08:03)
[2017-04-16] MEDS: FINASTERIDE 5 MG TAB PO SCH (08:03)
[2017-04-16] MEDS: FUROSEMIDE 10 MG/ML 10 ML VIAL IV SCH (08:03)
[2017-04-16] MEDS: CEVIMELINE 30 MG CAP PO SCH ×3 (08:03→22:28)
[2017-04-16] MEDS: PANTOPRAZOLE 40 MG TABLET PO SCH (08:04)
[2017-04-16] MEDS: PIPERACILLIN-TAZOBACTAM 3.375 GM in DEXTROSE/WATER 1 50ML.BAG IVPB SCH ×3 (08:05→23:47)
[2017-04-16 08:37] LABS: Calcium 9.4 mg/dL (8.4-10.2); Potassium 4.5 mmol/L (3.5-5.1)
--- NOTE | 2017-04-16 09:39 | P.PN ---
Subjective Patient is seen in follow-up for acute kidney injury on chronic kidney disease. Patient has chronic kidney disease stage IV with baseline creatinine in the range of 2-2.5 secondary to biopsy-proven diabetic kidney disease. Patient presented to the hospital with dyspnea and cough. He is currently being treated for pneumonia. He was receiving Lasix 80 mg IV 3 times daily which was decreased to 60 mg IV twice daily yesterday. His creatinine is up to 3.1 today. Admits to good urine output. Oral intake is good. Dyspnea is improved. No vomiting or diarrhea. Vital signs are stable. General: The patient appeared well nourished and normally developed. HEENT: Head exam is unremarkable. Neck is without jugular venous distension. LUNGS: Lungs are clear to auscultation and percussion. Breath sounds decreased. HEART: Rate and Rhythm are regular. First and second heart sounds normal. No murmurs, rubs or gallops. ABDOMEN: Abdominal exam reveals normal bowel sounds. Non-tender and non- distended. No evidence of peritonitis. EXTREMITITES: 1+edema. Lower extremities wrapped. Objective - Vital Signs Vital signs: Vital Signs Temp 97.7 F 04/16/17 07:00 Pulse 98 04/16/17 07:00 Resp 16 04/16/17 07:00 BP 136/76 04/16/17 07:00 Pulse Ox 95 04/16/17 07:00 Intake & Output 04/15/17 04/16/17 04/16/17 18:59 06:59 18:59 Weight 89 kg Other: Voiding Method Toilet Toilet Toilet - Labs CBC & Chem 7: 04/13/17 10:46 04/16/17 07:28 Labs: Abnormal Lab Results - Last 24 Hours (Table) 04/15/17 04/15/17 04/15/17 Range/Units 11:07 17:05 20:18 Chloride (98-107) mmol/L Carbon Dioxide (22-30) mmol/L BUN (9-20) mg/dL Creatinine (0.66-1.25) mg/dL Glucose (74-99) mg/dL POC Glucose (mg/dL) 191 H 295 H 222 H (75-99) mg/dL 04/16/17 04/16/17 Range/Units 07:24 07:28 Chloride 97 L (98-107) mmol/L Carbon Dioxide 33 H (22-30) mmol/L BUN 119 H* (9-20) mg/dL Creatinine 3.11 H (0.66-1.25) mg/dL Glucose 199 H (74-99) mg/dL POC Glucose (mg/dL) 207 H (75-99) mg/dL Microbiology - Last 24 Hours (Table) 04/13/17 10:46 Blood Culture - Preliminary Blood No Growth after 48 hours Assessment and Plan Plan: assessment: #1. Acute kidney injury mostly prerenal secondary to diuresis. Creatinine up to 3.1 today. Rule out urinary retention. Elevated BUN related to acute kidney injury as well as IV steroids. No evidence of GI bleed. #2. Chronic kidney disease stage IIIB/4 secondary to biopsy-proven diabetic kidney disease. #3. Insulin-dependent diabetes mellitus. #4. Dyspnea secondary to pneumonia maintained on antibiotics. #5. Lower extremity edema maintained on diuretics. #6. Hypertension with chronic kidney disease. Partially related to IV steroids. Plan: I will decrease Lasix to 40 mg orally twice daily. Encouraged oral intake. Maintain low salt diet. Follow-up cultures. Continue with antibiotics. Maintain current antihypertensives. Dose of amlodipine was increased on April 15. Repeat electrolytes in the morning.
[2017-04-16] MEDS: methylPREDNISolone SOD SUCCI 40 MG/ML 1 ML VIAL IV SCH (10:01)
[2017-04-16] MEDS: SILVER sulfADIAZINE Cream 400 GM 1 APPLIC APPLIC TOPICAL SCH ×2 (10:02→22:28)
[2017-04-16] MEDS: SYMBICORT 160-4.5 MCG INHALER INHALATION SCH ×2 (10:38→19:17)
[2017-04-16] MEDS: IPRATROPIUM-ALBUTEROL 3 ML NEB INHALATION SCH ×4 (10:38→19:16)
[2017-04-16 12:18] LABS: Glucose,Whole Blood 109 mg/dL (75-99)
--- NOTE | 2017-04-16 12:21 | P.PN ---
Subjective Progress Note Date: 04/16/17 Principal diagnosis: Acute COPD exacerbation complicated by bilateral patchy pneumonia Consult dated 04/14/2017 This is a 66-year-old male who sees one of the family doctors in [place]. He also sees my partner for his chronic lung disease. The patient presented to my office yesterday with complaints of shortness of breath coughing chest congestion phlegm production the phlegm was yellow green. In addition, he had maybe half-dozen episodes of bright red hemoptysis. There about dime size. When my partner saw him, the patient was admitted to the hospital. We actually saw him yesterday in the emergency room. The patient was on oxygen therapy. He is in room 15 in the ER. Still coughing up a little bit of blood. This morning, he still coughing up phlegm. Is clearly yellow. He has a sample on his desk in front of him. There is a small amount of bright red blood-tinged with it. He is feeling better. Chest x-ray reveals bilateral patchy infiltrates. Another chest x-ray was ordered for today. The patient was admitted to the hospital service. The patient states that he is feeling a bit better. He is on nasal O2. He uses at home as well. His appetite is poor. States he just feels fatigued and weak. No fever no chills. The patient denies any chest pain or chest discomfort. No palpitations. No nausea vomiting or diarrhea. He is an ex-smoker. On 04/15/2017 patient is seen in follow-up on medical surgical floor. Reports significant improvement in terms of his dyspnea. Means on 2 L per nasal cannula with O2 sat at 97%. He is hemodynamically stable, afebrile. Blood culture shows no growth at the 24-hour bran. Today's lab work showed normal electrolyte panel, however there is further worsening of his renal function, BUN is up to 106, and creatinine is up to 2.62. Nephrology consultation was noted. His Lasix was decreased to 60 mg IV twice daily. Patient is maintaining good oral intake. Patient continues on oral Levaquin, IV Zosyn, IV steroids, nebulized treatments. He is requesting to go home today, from pulmonary standpoint he is stable to go home, pending clearance from other consultants and admitting doctor. On 04/16/2017 patient seen in follow-up. Denies any acute distress, his dyspnea is continuing to improve. Lung sounds are diminished, with only a few rails at the bases, no wheezing or rhonchi noted. He is on 3 L per nasal cannula with O2 sat 95%. Remains afebrile. Blood culture shows no growth at the 48 hour bran. Patient remains on Levaquin, IV Solu-Medrol, nebulized treatments. He is renal profile continues to worsen, with BUN up to 119, and creatinine at 3.11 today. Nephrology is following. Objective - Vital Signs Vital signs: Vital Signs Temp 97.7 F 04/16/17 07:00 Pulse 94 04/16/17 11:38 Resp 16 04/16/17 07:00 BP 136/76 04/16/17 07:00 Pulse Ox 95 04/16/17 11:25 Intake & Output 04/15/17 04/16/17 04/16/17 18:59 06:59 18:59 Weight 89 kg Other: Voiding Method Toilet Toilet Toilet - Exam No acute distress, oriented 3. Nasal O2 in place. HEENT examination is grossly unremarkable. Mucous membranes are moist. No oral lesions. Neck supple. Full range of motion. No adenopathy thyromegaly or neck vein distention. Cardiovascular examination reveals regular rhythm rate. S1-S2 normal. No S3 or S4. No discernible murmur noted. Lungs reveal a few scattered rales. No wheezes. No rhonchi. Breath sounds are equal. Slight prolongation on forced maneuver. The patient coughs on forced maneuver.. Abdomen soft bowel sounds are heard. No masses or tenderness. Extremities are intact. No cyanosis clubbing. 1+ edema, Chronic venous stasis changes noted in bilateral lower extremities Skin is without rash or lesion. Neurologic examination is brief but nonfocal. - Labs CBC & Chem 7: 04/13/17 10:46 04/16/17 07:28 Labs: Abnormal Lab Results - Last 24 Hours (Table) 04/15/17 04/15/17 04/16/17 Range/Units 17:05 20:18 07:24 Chloride (98-107) mmol/L Carbon Dioxide (22-30) mmol/L BUN (9-20) mg/dL Creatinine (0.66-1.25) mg/dL Glucose (74-99) mg/dL POC Glucose (mg/dL) 295 H 222 H 207 H (75-99) mg/dL 04/16/17 Range/Units 07:28 Chloride 97 L (98-107) mmol/L Carbon Dioxide 33 H (22-30) mmol/L BUN 119 H* (9-20) mg/dL Creatinine 3.11 H (0.66-1.25) mg/dL Glucose 199 H (74-99) mg/dL POC Glucose (mg/dL) (75-99) mg/dL Microbiology - Last 24 Hours (Table) 04/13/17 10:46 Blood Culture - Preliminary Blood No Growth after 48 hours Assessment and Plan Plan: Assessment: COPD exacerbation complicated by bilateral patchy pneumonia. Hemoptysis, mild, improved Previous history of tobacco use History of GERD History of hypertension History of DJD Diabetic neuropathy. Chronic kidney disease Iron deficiency anemia Obesity Chronic hypoxemic respiratory failure General medical debility Plan: Plan dated 04/14/2017 Chest x-rays reviewed. It does reveal bilateral patchy infiltrates.. This is consistent with pneumonia. The patient's hemoptysis seems to have settled down. My partner road all the orders yesterday. They were put in by my nurse practitioner. We'll continue to follow. Prognosis is guarded. Hopeful discharge on Wednesday. No additional recommendations are made. Plan dated 04/15/2017 Patient is improving, reports less dyspnea, the hemoptysis has resolved. Vital signs are stable, patient is afebrile. Continues on a combination of Levaquin and Zosyn. Lung sounds are only positive for some minimal crackles, no wheezes , no rhonchi, no signs of chest congestion, no fever, no chills, no chest wall tenderness. Continue with current plan of treatment, from pulmonary standpoint patient could be considered for discharge home today or tomorrow, pending clearance from other consultants. Plan dated 04/16/2017 Patient denies any dyspnea, denies any hemoptysis. Able to tolerate ambulation without significant respiratory distress. Blood culture remains negative. Nephrology is following regarding the worsening renal failure, patient is nonoliguric, tolerating oral intake. From pulmonary standpoint he remains stable, and continues to improve. We will discontinue the Solu-Medrol, and switch the patient to oral prednisone. Continue on Levaquin, continue nebulized treatments. Patient could be considered for discharge home once cleared by nephrology. I performed a history & physical examination of the patient and discussed their management with my nurse practitioner, Cherry Lee. I reviewed the nurse practitioner's note and agree with the documented findings and plan of care. Lung sounds are positive for minimal crackles. The findings and the impression was discussed with the patient. I attest to the documentation by the nurse practitioner. Time with Patient: Less than 30
[2017-04-16] MEDS: FUROSEMIDE 40 MG TAB PO SCH (16:06)
[2017-04-16] MEDS: SODIUM CHLORIDE 0.9% 1,000 ML IV SCH (16:11)
--- NOTE | 2017-04-16 16:25 | PN ---
PROGRESS NOTE DATE OF SERVICE: April 16, 2017. PRESENTING COMPLAINT: Tired. INTERVAL HISTORY: Patient admitted with pneumonia and also fluid overload and COPD exacerbation. Cor pulmonale was ruled out. The patient's renal function has been worsening with diuresis. Respiratory matias, patient doing much better. Cough is greatly improved. The patient's edema carlos also gone down. REVIEW OF SYSTEMS: Done for constitutional, cardiovascular, GI, pulmonary, relevant findings as above. Patient has been tolerating his diet rather well. CURRENT MEDICATIONS: Reviewed. Lasix was decreased to 40 p.o. b.i.d. EXAMINATION: Temperature 97.7, pulse 98, respirations 16, blood pressure 136/76, pulse ox 95% on 3 L. General appearance sitting on bed, comfortable. Eyes: Pupils equal. Conjunctivae normal. HEENT external appearance of nose and ears normal. Oral cavity normal. Neck JVD not raised. Mass not palpable. Respiratory effort increased. LUNGS: Diminished breath sounds cardiovascular. HEART: Heart sounds muffled. Decreased edema. Abdomen distended, soft. Liver and spleen not palpable. Psychiatry: Alert and oriented x3. Mood and affect normal. INVESTIGATIONS: Potassium 4.5, BUN 109, creatinine 3.11. ASSESSMENT: 1. Pneumonia suspect gram-negative organism present on admission much improved. 2. Acute chronic obstructive pulmonary disease exacerbation in an ex-smoker, improved. 3. Primary osteoarthritis of multiple joints specially the knees. 4. Acute congestive heart failure from diastolic dysfunction. EF 55%, now clinically stabilized. 5. Chronic gait dysfunction uses a walker. 6. Diabetes mellitus type 2, chronically on insulin. 7. Gastroesophageal reflux disease. 8. Essential hypertension. 9. Peripheral neuropathy secondary to diabetes. 10.Chronic kidney stage 3 from diabetic nephropathy and hypertensive nephrosclerosis. 11.Chronic iron deficiency anemia. 12.Morbid obesity BMI 43.5. 13.Chronic hypoxic respiratory failure secondary to chronic obstructive pulmonary disease. 14.Acute renal failure. Creatinine has gone from 2.1-3.11, likely prerenal from diuresis. PLAN: Lasix has been cut back by Nephrology to 40 b.i.d. Continue to use Silvadene on the lower extremity. Care was discussed with the patient and . Follow with Nephrology. MMODL / IJN: [id number] /
[2017-04-16 16:48] LABS: Glucose,Whole Blood 277 mg/dL (75-99)
[2017-04-16 20:31] LABS: Glucose,Whole Blood 236 mg/dL (75-99)
[2017-04-17 06:26] LABS: Potassium 4.1 mmol/L (3.5-5.1)
[2017-04-17 07:06] LABS: Glucose,Whole Blood 75 mg/dL (75-99)
[2017-04-17] MEDS: INSULIN ASPART 100 UNIT/ML 1 ML 10 ML VIAL SQ SCH ×2 (07:41→13:00)
[2017-04-17 07:53] LABS: Glucose,Whole Blood 76 mg/dL (75-99)
[2017-04-17 07:56] VITALS: TEMP 97.8
[2017-04-17] MEDS: FINASTERIDE 5 MG TAB PO SCH (08:45)
[2017-04-17] MEDS: ASPIRIN 81 MG PO SCH (08:45)
[2017-04-17] MEDS: CEVIMELINE 30 MG CAP PO SCH (08:45)
[2017-04-17] MEDS: PIPERACILLIN-TAZOBACTAM 3.375 GM in DEXTROSE/WATER 1 50ML.BAG IVPB SCH (08:46)
[2017-04-17] MEDS: amLODIPine 5 MG TAB PO SCH (08:46)
[2017-04-17] MEDS: GABAPENTIN 300 MG CAP PO SCH (08:46)
[2017-04-17] MEDS: HEPARIN SODIUM,PORCINE 5,000 UNIT/ML 1 ML VIAL SQ SCH (08:46)
[2017-04-17] MEDS: NYSTATIN 100,000 UNIT/ML SUSP 500,000 UNIT/5 ML CUP PO SCH ×2 (08:46→13:03)
[2017-04-17] MEDS: guaiFENesin 600 MG TABLET.ER PO SCH (08:46)
[2017-04-17] MEDS: FUROSEMIDE 40 MG TAB PO SCH (08:46)
[2017-04-17] MEDS: TAMSULOSIN 0.4 MG CAP.ER.24H PO SCH (08:46)
[2017-04-17] MEDS: PANTOPRAZOLE 40 MG TABLET PO SCH (08:46)
[2017-04-17] MEDS: METOPROLOL TARTRATE 25 MG TAB PO SCH (08:46)
[2017-04-17] MEDS: LEVOFLOXACIN 250 MG TAB PO SCH (08:46)
[2017-04-17] MEDS ORDERED: predniSONE 20 MG TAB PO SCH (09:00)
[2017-04-17 09:30] LABS: Glucose,Whole Blood 170 mg/dL (75-99)
[2017-04-17] MEDS: INSULN ASP PRT/INSULIN ASPART 100 UNIT/ML 10 ML VIAL SQ SCH (09:57)
[2017-04-17] MEDS: SILVER sulfADIAZINE Cream 400 GM 1 APPLIC APPLIC TOPICAL SCH (09:59)
[2017-04-17] MEDS: SYMBICORT 160-4.5 MCG INHALER INHALATION SCH (10:18)
[2017-04-17] MEDS: IPRATROPIUM-ALBUTEROL 3 ML NEB INHALATION SCH ×3 (10:18→15:25)
--- NOTE | 2017-04-17 10:51 | P.PN ---
Subjective Principal diagnosis: Patient is seen in follow-up for acute kidney injury on chronic kidney disease. Patient has chronic kidney disease stage IV with baseline creatinine in the range of 2-2.5 secondary to biopsy-proven diabetic kidney disease. Patient presented to the hospital with dyspnea and cough. He is currently being treated for pneumonia. He was receiving Lasix 80 mg IV 3 times daily which was decreased to 60 mg IV twice daily yesterday. His creatinine is up to 3.1 today. Admits to good urine output. Oral intake is good. Dyspnea is improved. No vomiting or diarrhea. Since admission creatinine has continued to worsen. Is up to 3.24 this morning. Subjectively though he is feeling better less short of breath has cough with dark brown sputum. No blood. No dizziness incontinence. No nausea vomiting diarrhea appetite is good. Is able to walk without any difficulty. Vital signs have been stable. Objective - Vital Signs Vital signs: Vital Signs Temp 97.8 F 04/17/17 07:00 Pulse 113 H 04/17/17 07:00 Resp 16 04/17/17 07:00 BP 149/79 04/17/17 07:00 Pulse Ox 96 04/17/17 07:00 Intake & Output 04/16/17 04/17/17 04/17/17 18:59 06:59 18:59 Intake Total 966 Balance 966 Weight 121.54 kg Intake: Oral 966 Other: Voiding Method Toilet Toilet On examination is awake alert oriented somewhat obese HEENT exam no JVP neck is supple no facial asymmetry Lungs are clear to auscultate and percussion in spite of bilateral pneumonia seen on x-ray. Heart sounds are unremarkable for any murmur rub gallop Abdomen soft nontender obese protuberant Extremity exam was no edema Neurologically awake alert oriented no asterixis. - Labs CBC & Chem 7: 04/13/17 10:46 04/17/17 05:24 Labs: Abnormal Lab Results - Last 24 Hours (Table) 04/16/17 04/16/17 04/16/17 Range/Units 12:17 16:45 20:30 Carbon Dioxide (22-30) mmol/L BUN (9-20) mg/dL Creatinine (0.66-1.25) mg/dL Glucose (74-99) mg/dL POC Glucose (mg/dL) 109 H 277 H 236 H (75-99) mg/dL 04/17/17 04/17/17 Range/Units 05:24 09:26 Carbon Dioxide 31 H (22-30) mmol/L BUN 132 H* (9-20) mg/dL Creatinine 3.24 H (0.66-1.25) mg/dL Glucose 68 L (74-99) mg/dL POC Glucose (mg/dL) 170 H (75-99) mg/dL Microbiology - Last 24 Hours (Table) 04/13/17 10:46 Blood Culture - Preliminary Blood No Growth after 72 hours Assessment and Plan Assessment: Impression 1. Acute kidney injury from pneumonia and likely ATN, creatinine went up 3.24 this morning. No evidence of uremic symptoms or signs. 2. Chronic kidney disease biopsy-proven diabetic nephropathy baseline creatinine is about 2.1 dated 04/13/2017. 3. Bilateral pneumonia subjectively better. 4. Anemia of chronic kidney disease, hemoglobin 11.6 on admission. Recommendation. 1. Patient is worried about his insurance coverage and the cost of staying in the hospital and would like to be discharged. 2. As long as he can come back for a office visit on Wednesday 2 days from now I am comfortable allowing him to go home. 3. I discussed with him the need for renal replacement therapy possibly in the near future in the next few weeks if his creatinine does not go up. He is aware of it. Again there are some financial constraints that he is expressing. I told him that we can see him in spite of this and adjust to his needs accordingly. 4. If he is in the hospital, and on discharge we'll repeat his labs tomorrow. 5. Hold any Lasix. 6. Check orthostatic changes 7. Check bladder scan.
[2017-04-17 11:27] VITALS: PULSE 105
[2017-04-17 11:37] LABS: Glucose,Whole Blood 90 mg/dL (75-99)
[2017-04-17 12:31] VITALS: BP 167/84
--- NOTE | 2017-04-17 15:37 | P.PN ---
Subjective Progress Note Date: 04/17/17 Principal diagnosis: Acute COPD exacerbation, complicated by bilateral patchy pneumonia Consult dated 04/14/2017 This is a 66-year-old male who sees one of the family doctors in [place]. He also sees my partner for his chronic lung disease. The patient presented to my office yesterday with complaints of shortness of breath coughing chest congestion phlegm production the phlegm was yellow green. In addition, he had maybe half-dozen episodes of bright red hemoptysis. There about dime size. When my partner saw him, the patient was admitted to the hospital. We actually saw him yesterday in the emergency room. The patient was on oxygen therapy. He is in room 15 in the ER. Still coughing up a little bit of blood. This morning, he still coughing up phlegm. Is clearly yellow. He has a sample on his desk in front of him. There is a small amount of bright red blood-tinged with it. He is feeling better. Chest x-ray reveals bilateral patchy infiltrates. Another chest x-ray was ordered for today. The patient was admitted to the hospital service. The patient states that he is feeling a bit better. He is on nasal O2. He uses at home as well. His appetite is poor. States he just feels fatigued and weak. No fever no chills. The patient denies any chest pain or chest discomfort. No palpitations. No nausea vomiting or diarrhea. He is an ex-smoker. On 04/15/2017 patient is seen in follow-up on medical surgical floor. Reports significant improvement in terms of his dyspnea. Means on 2 L per nasal cannula with O2 sat at 97%. He is hemodynamically stable, afebrile. Blood culture shows no growth at the 24-hour bran. Today's lab work showed normal electrolyte panel, however there is further worsening of his renal function, BUN is up to 106, and creatinine is up to 2.62. Nephrology consultation was noted. His Lasix was decreased to 60 mg IV twice daily. Patient is maintaining good oral intake. Patient continues on oral Levaquin, IV Zosyn, IV steroids, nebulized treatments. He is requesting to go home today, from pulmonary standpoint he is stable to go home, pending clearance from other consultants and admitting doctor. On 04/16/2017 patient seen in follow-up. Denies any acute distress, his dyspnea is continuing to improve. Lung sounds are diminished, with only a few rails at the bases, no wheezing or rhonchi noted. He is on 3 L per nasal cannula with O2 sat 95%. Remains afebrile. Blood culture shows no growth at the 48 hour bran. Patient remains on Levaquin, IV Solu-Medrol, nebulized treatments. He is renal profile continues to worsen, with BUN up to 119, and creatinine at 3.11 today. Nephrology is following. The patient is seen again today 04/17/2017 in follow-up on the regular medical floor. He is currently sitting up at the bedside. He is awake and alert in no acute distress. He states he is nearly back to his baseline. He is anxious to go home. He is maintaining good O2 saturations in the upper 90s on 2 L/m per nasal cannula. He is afebrile. Blood and sputum cultures reveal no growth. Objective - Vital Signs Vital signs: Vital Signs Temp 97.8 F 04/17/17 07:00 Pulse 105 H 04/17/17 11:26 Resp 16 04/17/17 08:00 BP 159/87 04/17/17 12:30 Pulse Ox 97 04/17/17 11:15 Intake & Output 04/16/17 04/17/17 04/17/17 18:59 06:59 18:59 Intake Total 966 Balance 966 Weight 121.54 kg Intake: Oral 966 Other: Voiding Method Toilet Toilet Toilet - Exam No acute distress, oriented 3. Nasal O2 in place. HEENT examination is grossly unremarkable. Mucous membranes are moist. No oral lesions. Neck supple. Full range of motion. No adenopathy thyromegaly or neck vein distention. Cardiovascular examination reveals regular rhythm rate. S1-S2 normal. No S3 or S4. No discernible murmur noted. Lungs reveal a few scattered rales. No wheezes. No rhonchi. Breath sounds are equal. Slight prolongation on forced maneuver. The patient coughs on forced maneuver.. Abdomen soft bowel sounds are heard. No masses or tenderness. Extremities are intact. No cyanosis clubbing. 1+ edema, Chronic venous stasis changes noted in bilateral lower extremities Skin is without rash or lesion. Neurologic examination is brief but nonfocal. - Labs CBC & Chem 7: 02/27/18 10:46 04/17/17 05:24 Labs: Abnormal Lab Results - Last 24 Hours (Table) 04/16/17 04/16/17 04/17/17 Range/Units 16:45 20:30 05:24 Carbon Dioxide 31 H (22-30) mmol/L BUN 132 H* (9-20) mg/dL Creatinine 3.24 H (0.66-1.25) mg/dL Glucose 68 L (74-99) mg/dL POC Glucose (mg/dL) 277 H 236 H (75-99) mg/dL 04/17/17 Range/Units 09:26 Carbon Dioxide (22-30) mmol/L BUN (9-20) mg/dL Creatinine (0.66-1.25) mg/dL Glucose (74-99) mg/dL POC Glucose (mg/dL) 170 H (75-99) mg/dL Microbiology - Last 24 Hours (Table) 04/17/17 11:20 Gram Stain - Final Sputum Sputum Culture - Final 04/13/17 10:46 Blood Culture - Preliminary Blood No Growth after 96 hours Assessment and Plan Assessment: Assessment: COPD exacerbation complicated by bilateral patchy pneumonia. Hemoptysis, mild, improved Previous history of tobacco use History of GERD History of hypertension History of DJD Diabetic neuropathy. Chronic kidney disease Iron deficiency anemia Obesity Chronic hypoxemic respiratory failure General medical debility Plan: The patient was seen and evaluated by Dr. Loza. He is cleared for discharge from the pulmonary standpoint. He'll complete his course of antibiotics and prednisone taper. Continue his home pulmonary medications. He should follow- up with Dr. Jensen in 1-2 weeks' time. He and his are both encouraged however to call sooner with any further questions or concerns. I, the cosigning physician, performed a history & physical examination of the patient. Lungs sounds are clear. Maintaining good O2 saturations in the 90s on 2 L/m per nasal cannula air. I discussed the assessment and plan of care with my nurse practitioner, Sarah oG. I attest to the above note as dictated by her.
[2017-04-17] MEDS: SODIUM CHLORIDE 0.9% 1,000 ML IV SCH (16:09)
--- NOTE | 2017-04-18 00:15 | DS ---
DISCHARGE SUMMARY DATE OF SERVICE: 04/17/2017. FINAL DIAGNOSES: 1. Pneumonia possibly gram-negative, improving. 2. Chronic obstructive pulmonary disease acute exacerbation. 3. History of nicotine dependence. 4. History of degenerative joint disease. 5. Congestive heart failure acute exacerbation. 6. Acute on chronic diastolic dysfunction, ejection fraction 50-55%. 7. Chronic gait dysfunction. 8. Diabetes type 2. 9. Gastroesophageal reflux disease. 10.Hypertension. 11.History of peripheral neuropathy secondary to diabetes. 12.Chronic kidney stage 3 from diabetic nephropathy and hypertensive nephrosclerosis. 13.Chronic iron deficiency anemia. 14.Morbid obesity. 15.Chronic hypoxic respiratory failure. 16.Acute renal failure. DISCHARGE DISPOSITION: The patient is being discharged in stable condition with guarded prognosis. HISTORY OF PRESENT ILLNESS: This 66-year-old with past medical history of multiple medical problems, admitted with features of feeling tired and weak and also some shortness of breath. Pneumonia was suspected. Treated conditions with Dr. Prince, improved simply. On exam, vitals are stable. Cardiovascular System: S1, S2. Respiration: A few rhonchi. Nervous system: No focal deficits. DISCHARGE ADVICE AND MEDICATIONS: 1. Diet is cardiac. 2. Activity limited until followup. 3. Follow up with Dr. Prince. 4. Follow up with Dr. Yin in 1 week. 5. Follow up with Dr. Caballero as advised. MEDICATIONS ARE: 1. Tylenol 650 q.6h p.r.n. 2. Zyloprim 100 mg p.o. 3. Norvasc 5 mg p.o. daily. 4. Aspirin 81 mg. 5. Symbicort 160/4.5 two puffs b.i.d. 6. Calcitriol 0.5 mg. 7. Vitamin D3 2000 daily. 8. Clobetasol 1 application daily. 9. Clotrimazole 30 mL t.i.d. p.r.n. 10.Iron sulfate 325 mg p.o. daily. 11.Finasteride 1 mg p.o. daily. 12.Lasix 40 mg p.o. b.i.d. 13.Neurontin 200 mg b.i.d. 14.Guaifenesin 1 p.o. b.i.d. 15.Tuttle 7.5 q.8h p.r.n. 16.Lispro for 4-5 units once daily. 17.Albuterol and Atrovent updraft q.i.d. and p.r.n. 18.Cephulac 20 mg p.o. daily. 19.Levaquin 250 mg p.o. daily for 5 days. 20.Magnesium oxide 400 mg p.o. 21.metoprolol 25 mg p.o. daily. 22.Dulera 2 puffs q.i.d. p.r.n. 23.Nystatin p.r.n. 24.Prilosec 20 mg p.o. daily. 25.Prednisone taper, that will be 40 mg daily for three days, 20 for three days , 10 for three days and then stop. 26.silvadene. 27.Aldactone 12.5 mg daily. 28.Flomax 0.4 daily. Please send a copy to my office, Dr. Yin's office. Followup labs CBC, BMP with Dr. Yin. Patient being discharged in stable condition with guarded prognosis. Total time taken 35 minutes. MMPALL / DENNYN: [id number] / MTDD
== END 2017-04-17 16:10 | disposition home or self-care (01) | DRG 177 ==
LOC: EC 09:53 → 5MS5E 14:09
PROVIDERS: ADMIT Hospitalist; ATTEND Hospitalist
DX: J15.6 Pneumonia due to other Gram-negative bacteria (principal); N17.0 Acute kidney failure with tubular necrosis; I50.33 Acute on chronic diastolic (congestive) heart failure; J96.11 Chronic respiratory failure with hypoxia; I13.0 Hypertensive heart and chronic kidney disease with heart failure and stage 1 through stage 4 chronic kidney disease, or unspecified chronic kidney disease; J44.0 Chronic obstructive pulmonary disease with (acute) lower respiratory infection; J44.1 Chronic obstructive pulmonary disease with (acute) exacerbation; N18.4 Chronic kidney disease, stage 4 (severe); E11.21 Type 2 diabetes mellitus with diabetic nephropathy; E11.42 Type 2 diabetes mellitus with diabetic polyneuropathy; D50.9 Iron deficiency anemia, unspecified; D63.1 Anemia in chronic kidney disease; E11.22 Type 2 diabetes mellitus with diabetic chronic kidney disease; E66.01 Morbid (severe) obesity due to excess calories; K21.9 Gastro-esophageal reflux disease without esophagitis; M15.9 Polyosteoarthritis, unspecified; T38.0X5A Adverse effect of glucocorticoids and synthetic analogues, initial encounter; T50.2X5A Adverse effect of carbonic-anhydrase inhibitors, benzothiadiazides and other diuretics, initial encounter; Z79.4 Long term (current) use of insulin; Z79.51 Long term (current) use of inhaled steroids; Z79.82 Long term (current) use of aspirin; Z79.899 Other long term (current) drug therapy; Z81.1 Family history of alcohol abuse and dependence; Z83.3 Family history of diabetes mellitus; Z87.891 Personal history of nicotine dependence; Z99.81 Dependence on supplemental oxygen; Z88.6 Allergy status to analgesic agent
CPT/HCPCS: 36415; 71045; 71046; 76770; 80048; 80053; 83036; 83605; 83880; 85025; 87040; 87070; 87205; 87449; 93005; 93306; 94640; 94760

== ENCOUNTER 2018-11-29 16:44 | Inpatient (IN) | payer MEDICARE ==
[2018-11-29] MEDS ORDERED: IPRATROPIUM 0.5 MG/2.5 ML NEBU INHALATION STA (17:45)
[2018-11-29] MEDS ORDERED: PIPERACILLIN-TAZOBACTAM 3.375 GM in SODIUM CHLORIDE 0.9% 100 ML IVPB STA (17:45)
[2018-11-29] MEDS ORDERED: ALBUTEROL NEBULIZED 2.5 MG/3 ML INHALATION STA (17:45)
[2018-11-29] MEDS ORDERED: methylPREDNISolone SOD SUCCI 125 MG/2 ML VIAL IV STA (17:45)
[2018-11-29 18:16] LABS: Anisocytosis Slight; Basophils # (A) 0.1 k/uL (0-0.2); Basophils % (A) 1 %; Eosinophils # (A) 0.5 k/uL (0-0.7); Eosinophils % (A) 5 %; HCT 32.1 % (39.0-53.0); Hypochromasia Marked; Lymphocytes # (A) 1.2 k/uL (1.0-4.8); Lymphocytes % (A) 12 %; MCH 27.9 pg (25.0-35.0); MCHC 31.1 g/dL (31.0-37.0); MCV 89.5 fL (80.0-100.0); Mean Platelet Volume 7.9; Monocytes # (A) 0.7 k/uL (0-1.0); Monocytes % (A) 7 %; Neutrophils # (A) 7.1 k/uL (1.3-7.7); Neutrophils % (A) 73 %; Platelet Count 206 k/uL (150-450); RBC 3.59 m/uL (4.30-5.90); RDW 16.8 % (11.5-15.5); WBC 9.8 k/uL (3.8-10.6)
--- NOTE | 2018-11-29 18:20 | ED ---
General Adult HPI - General Chief complaint: Shortness of Breath Stated complaint: SOB Time Seen by Provider: 11/29/18 17:00 Source: patient, RN notes reviewed Mode of arrival: wheelchair Limitations: no limitations - History of Present Illness Initial comments: This is a 68-year-old male who presents emergency Department with a complaint of shortness of breath. 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 Patient also has a history of COPD and diabetes. Patient denies any chest pain or palpitations. Patient denies any fever chills. Patient states he does have a cough but he has had no sputum production. Patient denies abdominal pain patient denies any nausea vomiting diarrhea. Patient denies lightheadedness dizziness or near syncopal episode. Patient denies headache patient denies numbness weakness. - Related Data Home Medications Medication Instructions Recorded Confirmed Allopurinol [Zyloprim] 200 mg PO QAM 08/03/16 11/29/18 Aspirin 81 mg PO HS 08/03/16 11/29/18 Calcitriol 0.25 mcg PO Q48H 08/03/16 11/29/18 Cholecalciferol (Vitamin D3) 2,000 units PO W/LUNCH 08/03/16 11/29/18 [Vitamin D3] Clobetasol Propionate/Emoll 1 applic TOPICAL DAILY PRN 08/03/16 11/29/18 [Olux-E 0.05% Foam] Clotrimazole [Clotrimazole 1%] 1 cream TOPICAL DAILY PRN 08/03/16 11/29/18 Finasteride 1 mg PO W/SUPPER 08/03/16 11/29/18 HYDROcodone/APAP 7.5-325MG [[place] 1 tab PO Q8H PRN 08/03/16 11/29/18 7.5-325] Insulin Lispro Protamin/Lispro 15 - 25 unit SQ PC-BID 08/03/16 11/29/18 [humaLOG Mix 75-25 Kwikpen] Insulin Lispro [humaLOG Kwikpen] 4 - 15 unit SQ DAILY 08/03/16 11/29/18 Ipratropium-Albuterol Nebulize 3 ml INHALATION RT-Q4H PRN 08/03/16 11/29/18 [Duoneb 0.5 mg-3 mg/3 ml Soln] Magnesium Oxide 400 mg PO QAM 08/03/16 11/29/18 Metoprolol Succinate (ER) [Toprol 25 mg PO BID 08/03/16 11/29/18 XL] Mometasone/Formoterol [Dulera 200 2 puff INHALATION RT-BID 08/03/16 11/29/18 Mcg/5 Mcg Inhaler] Omeprazole [PriLOSEC] 20 mg PO W/SUPPER 08/03/16 11/29/18 Promethazine/Phenyleph/Codeine 5 ml PO QID PRN 08/03/16 11/29/18 [Promethazine Vc-Codeine Syrup] SILVER sulfADIAZINE CREAM 1 applic TOPICAL DAILY PRN 08/03/16 11/29/18 [Silvadene Cream] guaiFENesin-DM 600/30MG [Mucinex 1 tab PO Q12H PRN 08/03/16 11/29/18 Dm] Ferrous Sulfate [Feosol] 325 mg PO BID 01/21/17 11/29/18 Gabapentin [Neurontin] 300 mg PO BID 04/13/17 11/29/18 Insulin Lispro Protamin/Lispro 20 - 25 unit SQ AC-BID 04/13/17 11/29/18 [humaLOG Mix 75-25 Kwikpen] Atorvastatin [Lipitor] 20 mg PO HS 11/29/18 11/29/18 Cetirizine HCl [Zyrtec] 10 mg PO W/LUNCH 11/29/18 11/29/18 Ergocalciferol [Vitamin D2] 50,000 unit PO Q14D 11/29/18 11/29/18 Furosemide [Lasix] 40 mg PO QAM 11/29/18 11/29/18 Nystatin 100,000 Unit/ml Susp 500,000 unit PO QID PRN 11/29/18 11/29/18 [Mycostatin Oral Susp] Sodium Bicarbonate Tab 650 mg PO QAM 11/29/18 11/29/18 Soothe Lubricant Eye Drops 1 drop BOTH EYES DAILY PRN 11/29/18 11/29/18 Tamsulosin [Flomax] 0.4 mg PO QAM 11/29/18 11/29/18 amLODIPine [Norvasc] 10 mg PO W/LUNCH 11/29/18 11/29/18 Previous Rx's Medication Instructions Recorded Lactulose [Cephulac] 20 gm PO DAILY PRN #200 ml 04/17/17 Allergies Allergy/AdvReac Type Severity Reaction Status Date / Time ibuprofen [From Motrin] AdvReac Confusion Verified 11/29/18 17:29 Review of Systems ROS Statement: Those systems with pertinent positive or pertinent negative responses have been documented in the HPI. ROS Other: All systems not noted in ROS Statement are negative. Past Medical History Past Medical History: Asthma, COPD, Diabetes Mellitus, Eye Disorder, GERD/Reflux, Hypertension, Osteoarthritis (OA), Pneumonia, Renal Disease Additional Past Medical History / Comment(s): Bronchitis, R lung not able to fully expand so had R sided diaphragm repair at [facility], home O2 normally prn but the past 2 weeks ATC, sleeps in a recliner, IDDM type II, bilateral foot numbness and R hand finger numbness, chronic kidney disease, iron deficiency anemia with iron infusions prn, bilateral lower leg edema, current bilateral lower leg blisters, gout bilateral feet/knees, arthritis multiple joints, past R leg ulcer-treated in [facility], past sacral ulcer, abdominal hernia, bilateral cataracts forming and believes he has been told 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 History of Any Multi-Drug Resistant Organisms: None Reported Additional Past Surgical History / Comment(s): R side of diaphragm surgery done at [facility] in 2008, vocal cord polyps removed, fatty tumor removed from back, debridements R leg ulcer, cyst removed from one ankle (laterality unknown), colonoscopies, fluid removed from R eye. Past Anesthesia/Blood Transfusion Reactions: No Reported Reaction Past Psychological History: No Psychological Hx Reported Smoking Status: Former smoker - Past Family History Father Family Medical History: Diabetes Mellitus, Liver Disease Additional Family Medical History / Comment(s): Father was an alcoholic and smoked. He at the age of 55 yrs. Mother Family Medical History: CVA/TIA General Exam - General Exam Comments Initial Comments: GENERAL: Patient is well-developed and well-nourished. Patient is nontoxic and well- hydrated and is in mild distress. Patient's pulse ox is 88 on 2 L. ENT: Neck is soft and supple. No significant lymphadenopathy is noted. Oropharynx is clear. Moist mucous membranes. Neck has full range of motion without eliciting any pain. EYES: The sclera were anicteric and conjunctiva were pink and moist. Extraocular movements were intact and pupils were equal round and reactive to light. Eyelids were unremarkable. PULMONARY: Patient has diminished breath sounds throughout. Symmetric very wheezing and crackles bilaterally CARDIOVASCULAR: There is a regular rate and rhythm without any murmurs gallops or rubs. ABDOMEN: Soft and nontender with normal bowel sounds. No palpable organomegaly was noted. There is no palpable pulsatile mass. SKIN: Skin is clear with no lesions or rashes and otherwise unremarkable. NEUROLOGIC: Patient is alert and oriented x3. Cranial nerves II through XII are grossly intact. Motor and sensory are also intact. Normal speech, volume and content. Symmetrical smile. MUSCULOSKELETAL: Normal extremities with adequate strength and full range of motion. No lower extremity swelling or edema. No calf tenderness. LYMPHATICS: No significant lymphadenopathy is noted PSYCHIATRIC: Normal psychiatric evaluation. Limitations: no limitations Course Vital Signs 11/29/18 11/29/18 11/29/18 16:54 18:12 18:31 Temperature 97.3 F L Pulse Rate 87 87 Respiratory 24 20 Rate Blood Pressure 118/63 O2 Sat by Pulse 91 L Oximetry 11/29/18 11/29/18 18:39 19:32 Temperature Pulse Rate 87 92 Respiratory 20 Rate Blood Pressure 127/63 O2 Sat by Pulse 89 L Oximetry Medical Decision Making - Medical Decision Making EKG shows sinus rhythm at 85 bpm [place] interval 334 QRS is 150 QT interval 442 QTC is 525. Patient's EKG shows right bundle branch block. There is no ST segment elevation or depression. Chest x-ray showed possible infiltrate as well as congestive heart failure. Dr. Jensen and sent the patient over from his office and told the patient that he had pneumonia. I started the patient on Zosyn. Patient was given albuterol and Solu-Medrol. I went into the room to reevaluate him. He was oxygenating at 94% on 2 L at this point and feeling better. I gave the patient Lasix and Nitropaste after I saw the chest x-ray. I spoke with Dr. Navarro he agreed to admit the patient admitted the patient wrote admitting orders I consulted Dr. Jensen - Lab Data Result diagrams: 11/29/18 17:56 11/29/18 17:56 Lab Results 10/15/19 10/15/19 10/15/19 Range/Units 17:56 17:56 17:56 WBC 9.8 (3.8-10.6) k/uL RBC 3.59 L (4.30-5.90) m/uL Hgb 10.0 L (13.0-17.5) gm/dL Hct 32.1 L (39.0-53.0) % MCV 89.5 (80.0-100.0) fL MCH 27.9 (25.0-35.0) pg MCHC 31.1 (31.0-37.0) g/dL RDW 16.8 H (11.5-15.5) % Plt Count 206 (150-450) k/uL Neutrophils % 73 % Lymphocytes % 12 % Monocytes % 7 % Eosinophils % 5 % Basophils % 1 % Neutrophils # 7.1 (1.3-7.7) k/uL Lymphocytes # 1.2 (1.0-4.8) k/uL Monocytes # 0.7 (0-1.0) k/uL Eosinophils # 0.5 (0-0.7) k/uL Basophils # 0.1 (0-0.2) k/uL Hypochromasia Marked Anisocytosis Slight PT (9.0-12.0) sec INR (<1.2) APTT (22.0-30.0) sec Sodium 138 (137-145) mmol/L Potassium 5.1 (3.5-5.1) mmol/L Chloride 98 (98-107) mmol/L Carbon Dioxide 29 (22-30) mmol/L Anion Gap 11 mmol/L BUN 106 H* (9-20) mg/dL Creatinine 3.80 H (0.66-1.25) mg/dL Est GFR (CKD-EPI)AfAm 17 (>60 ml/min/1.73 sqM) Est GFR (CKD-EPI)NonAf 15 (>60 ml/min/1.73 sqM) Glucose 122 H (74-99) mg/dL Plasma Lactic Acid Barrett (0.7-2.0) mmol/L Calcium 9.0 (8.4-10.2) mg/dL Magnesium 2.8 H (1.6-2.3) mg/dL Total Bilirubin 0.4 (0.2-1.3) mg/dL AST 25 (17-59) U/L ALT 21 (21-72) U/L Alkaline Phosphatase 125 (38-126) U/L Troponin I (0.000-0.034) ng/mL NT-Pro-B Natriuret Pep 8940 pg/mL Total Protein 6.5 (6.3-8.2) g/dL Albumin 3.4 L (3.5-5.0) g/dL 11/29/18 11/29/18 11/29/18 Range/Units 17:56 17:56 17:56 WBC (3.8-10.6) k/uL RBC (4.30-5.90) m/uL Hgb (13.0-17.5) gm/dL Hct (39.0-53.0) % MCV (80.0-100.0) fL MCH (25.0-35.0) pg MCHC (31.0-37.0) g/dL RDW (11.5-15.5) % Plt Count (150-450) k/uL Neutrophils % % Lymphocytes % % Monocytes % % Eosinophils % % Basophils % % Neutrophils # (1.3-7.7) k/uL Lymphocytes # (1.0-4.8) k/uL Monocytes # (0-1.0) k/uL Eosinophils # (0-0.7) k/uL Basophils # (0-0.2) k/uL Hypochromasia Anisocytosis PT 10.7 (9.0-12.0) sec INR 1.0 (<1.2) APTT 30.0 (22.0-30.0) sec Sodium (137-145) mmol/L Potassium (3.5-5.1) mmol/L Chloride (98-107) mmol/L Carbon Dioxide (22-30) mmol/L Anion Gap mmol/L BUN (9-20) mg/dL Creatinine (0.66-1.25) mg/dL Est GFR (CKD-EPI)AfAm (>60 ml/min/1.73 sqM) Est GFR (CKD-EPI)NonAf (>60 ml/min/1.73 sqM) Glucose (74-99) mg/dL Plasma Lactic Acid Barrett 0.8 (0.7-2.0) mmol/L Calcium (8.4-10.2) mg/dL Magnesium (1.6-2.3) mg/dL Total Bilirubin (0.2-1.3) mg/dL AST (17-59) U/L ALT (21-72) U/L Alkaline Phosphatase (38-126) U/L Troponin I <0.012 (0.000-0.034) ng/mL NT-Pro-B Natriuret Pep pg/mL Total Protein (6.3-8.2) g/dL Albumin (3.5-5.0) g/dL Critical Care Time Critical Care Time: Yes Total Critical Care Time: 35 Disposition Clinical Impression: Pneumonia, Pulmonary edema, acute, COPD with acute exacerbation Disposition: ADMITTED IP TO THIS HOSP Referrals: Derrick Yin MD [Primary Care Provider] - 1-2 days Time of Disposition: 20:09
[2018-11-29 18:25] LABS: Prothrombin Time 10.7 sec (9.0-12.0)
[2018-11-29 18:28] LABS: Albumin 3.4 g/dL (3.5-5.0); Magnesium 2.8 mg/dL (1.6-2.3); Potassium 5.1 mmol/L (3.5-5.1); Total Bilirubin 0.4 mg/dL (0.2-1.3); Total Protein 6.5 g/dL (6.3-8.2)
--- NOTE | 2018-11-29 19:54 | XR ---
EXAMINATION TYPE: XR chest 2V DATE OF EXAM: 11/29/2018 COMPARISON: Prior chest x-ray June 07, 2018. HISTORY: Difficulty in breathing. History of COPD and diaphragm are clear. TECHNIQUE: Frontal and lateral views of the chest are obtained. FINDINGS: Exam suboptimal due to patient's large body habitus. Persistent cardiomegaly without descr ibed thoracic aorta. Persistent low lung volumes with poor inspiration versus prior study. New right hilar opacity. Small bilateral pleural effusions appreciated on lateral view with additional left bas ilar opacity. IMPRESSION: Suspected CHF exacerbation as there is cardiomegaly with new small bilateral pleural eff usions. Correlate clinically. In addition there is suspicious right hilar and left basilar acute infi ltrate and/or atelectasis noted.
[2018-11-29] MEDS ORDERED: NITROGLYCERIN OINT 1 INCH/GM PACKET TOPICAL STA (20:04)
[2018-11-29] MEDS ORDERED: FUROSEMIDE 10 MG/ML 4 ML VIAL IV STA (20:04)
[2018-11-29] MEDS ORDERED: ASPIRIN 325 MG TAB PO STA (20:10)
[2018-11-29] MEDS ORDERED: IPRATROPIUM-ALBUTEROL 3 ML NEB INHALATION PRN (20:13)
[2018-11-29 21:10] LABS: Glucose,Whole Blood 175 mg/dL (75-99)
[2018-11-29 22:20] LABS: Glucose,Whole Blood 219 mg/dL (75-99)
[2018-11-29] MEDS: NITROGLYCERIN OINT 1 INCH/GM PACKET TOPICAL SCH (22:25)
[2018-11-29] MEDS ORDERED: ASPIRIN 81 MG ONE (22:59)
[2018-11-29] MEDS ORDERED: PANTOPRAZOLE 40 MG TABLET PO ONE (23:01)
[2018-11-29] MEDS: METOPROLOL SUCCINATE (ER) 25 MG TAB.ER.24H PO SCH (23:02)
[2018-11-29] MEDS: GABAPENTIN 300 MG CAP PO SCH (23:03)
[2018-11-29] MEDS: PANTOPRAZOLE 40 MG TABLET PO SCH (23:03)
[2018-11-29] MEDS: ASPIRIN 81 MG PO SCH (23:03)
[2018-11-29] MEDS: methylPREDNISolone SOD SUCCI 125 MG/2 ML VIAL IV SCH (23:03)
[2018-11-29] MEDS: ATORVASTATIN 20 MG TAB PO SCH (23:04)
[2018-11-30] MEDS ORDERED: FUROSEMIDE 10 MG/ML 4 ML VIAL ONE (06:00)
[2018-11-30] MEDS ORDERED: methylPREDNISolone SOD SUCCI 125 MG/2 ML VIAL ONE (06:00)
[2018-11-30 07:18] LABS: Glucose,Whole Blood 272 mg/dL (75-99)
[2018-11-30] MEDS ORDERED: INSULIN ASPART (NovoLOG) 100 UNIT/ML VIAL SQ SCH (07:30)
--- NOTE | 2018-11-30 07:49 | P.HPIM ---
History of Present Illness H&P Date: 11/29/18 Chief Complaint: SOB Patient has chronic hypoxic respiratory failure on 2 L [place] home oxygen. He reports that he has been having worsening SOB over the past couple weeks , and got worse for the past week as now he is having SOB with minimal exertion. He cant sleep flat for other reasons, so cant comment on orthopnea. These symptoms has been associated with some occasional coughing that has been worsening but non productive, denies any hemoptysis or recent traveling. Denies any calf tenderness. He also reports wheezing and feeling congested. He went to see his PCP who sent him to pulmonary , Dr. Jensen saw him and suspected pneumonia and sent him to the hospital for further evaluation. In the ED, he was found to be hyopoxic despite supplemental oxygen , CXR suggested pulmonary edema. Patient denies any history of CHF, most recent LVEF 50-55% 2017. Labs showed anemia, VINNIE on CKD. Patient responded to breathing treatment and his oxygenation improved. He was admitted for IV diuresis , pulmonary and cardiology evaluation for CHF. Patient otherwise, denies any fevers, chills, recent hospitalization , recent use of ABx, sick contact, chest pain, headache, focal neuro deficits, sore throat, abd pain, urinary or bowel changes. Review of Systems Pertinent positives as noted in HPI. All other systems were reviewed and are negative Past Medical History Past Medical History: Asthma, COPD, Diabetes Mellitus, Eye Disorder, GERD/Reflux, Hypertension, Osteoarthritis (OA), Pneumonia, Renal Disease Additional Past Medical History / Comment(s): Bronchitis, R lung not able to fully expand so had R sided diaphragm repair at [facility], home O2 normally prn but the past 2 weeks ATC, sleeps in a recliner, IDDM type II, bilateral foot numbness and R hand finger numbness, chronic kidney disease, iron deficiency anemia with iron infusions prn, bilateral lower leg edema, current bilateral lower leg blisters, gout bilateral feet/knees, arthritis multiple joints, past R leg ulcer-treated in [facility], past sacral ulcer, abdominal hernia, bilateral cataracts forming and believes he has been told 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 History of Any Multi-Drug Resistant Organisms: None Reported Additional Past Surgical History / Comment(s): R side of diaphragm surgery done at [facility] in 2008, vocal cord polyps removed, fatty tumor removed from back, debridements R leg ulcer, cyst removed from one ankle (laterality unknown), colonoscopies, fluid removed from R eye. Past Anesthesia/Blood Transfusion Reactions: No Reported Reaction Past Psychological History: No Psychological Hx Reported Additional Psychological History / Comment(s): Pt resides with his spouse. He uses O2 prn but the past couple weeks he has used it ATC. He has a rolling walker, a standard walker and a wheelchair. He has not driven lately, spouse drives. Smoking Status: Former smoker Past Alcohol Use History: None Reported Additional Past Alcohol Use History / Comment(s): Pt started smoking in 1962 and quit in 1984. Past Drug Use History: None Reported - Past Family History Father Family Medical History: Diabetes Mellitus, Liver Disease Additional Family Medical History / Comment(s): Father was an alcoholic and smoked. He at the age of 55 yrs. Mother Family Medical History: CVA/TIA Medications and Allergies Home Medications Medication Instructions Recorded Confirmed Type Allopurinol [Zyloprim] 200 mg PO QAM 08/03/16 11/29/18 History Aspirin 81 mg PO HS 08/03/16 11/29/18 History Calcitriol 0.25 mcg PO Q48H 08/03/16 11/29/18 History Cholecalciferol (Vitamin D3) 2,000 units PO W/LUNCH 08/03/16 11/29/18 History [Vitamin D3] Clobetasol Propionate/Emoll 1 applic TOPICAL DAILY PRN 08/03/16 11/29/18 History [Olux-E 0.05% Foam] Clotrimazole [Clotrimazole 1%] 1 cream TOPICAL DAILY PRN 08/03/16 11/29/18 History Finasteride 1 mg PO W/SUPPER 08/03/16 11/29/18 History HYDROcodone/APAP 7.5-325MG [[place] 1 tab PO Q8H PRN 08/03/16 11/29/18 History 7.5-325] Insulin Lispro Protamin/Lispro 15 - 25 unit SQ PC-BID 08/03/16 11/29/18 History [humaLOG Mix 75-25 Kwikpen] Insulin Lispro [humaLOG Kwikpen] 4 - 15 unit SQ DAILY 08/03/16 11/29/18 History Ipratropium-Albuterol Nebulize 3 ml INHALATION RT-Q4H PRN 08/03/16 11/29/18 History [Duoneb 0.5 mg-3 mg/3 ml Soln] Magnesium Oxide 400 mg PO QAM 08/03/16 11/29/18 History Metoprolol Succinate (ER) [Toprol 25 mg PO BID 08/03/16 11/29/18 History XL] Mometasone/Formoterol [Dulera 200 2 puff INHALATION RT-BID 08/03/16 11/29/18 History Mcg/5 Mcg Inhaler] Omeprazole [PriLOSEC] 20 mg PO W/SUPPER 08/03/16 11/29/18 History Promethazine/Phenyleph/Codeine 5 ml PO QID PRN 08/03/16 11/29/18 History [Promethazine Vc-Codeine Syrup] SILVER sulfADIAZINE CREAM 1 applic TOPICAL DAILY PRN 08/03/16 11/29/18 History [Silvadene Cream] guaiFENesin-DM 600/30MG [Mucinex 1 tab PO Q12H PRN 08/03/16 11/29/18 History Dm] Ferrous Sulfate [Feosol] 325 mg PO BID 01/21/17 11/29/18 History Gabapentin [Neurontin] 300 mg PO BID 04/13/17 11/29/18 History Insulin Lispro Protamin/Lispro 20 - 25 unit SQ AC-BID 04/13/17 11/29/18 History [humaLOG Mix 75-25 Kwikpen] Lactulose [Cephulac] 20 gm PO DAILY PRN #200 ml 04/17/17 11/29/18 Rx Atorvastatin [Lipitor] 20 mg PO HS 11/29/18 11/29/18 History Cetirizine HCl [Zyrtec] 10 mg PO W/LUNCH 11/29/18 11/29/18 History Ergocalciferol [Vitamin D2] 50,000 unit PO Q14D 11/29/18 11/29/18 History Furosemide [Lasix] 40 mg PO QAM 11/29/18 11/29/18 History Nystatin 100,000 Unit/ml Susp 500,000 unit PO QID PRN 11/29/18 11/29/18 History [Mycostatin Oral Susp] Sodium Bicarbonate Tab 650 mg PO QAM 11/29/18 11/29/18 History Soothe Lubricant Eye Drops 1 drop BOTH EYES DAILY PRN 11/29/18 11/29/18 History Tamsulosin [Flomax] 0.4 mg PO QAM 11/29/18 11/29/18 History amLODIPine [Norvasc] 10 mg PO W/LUNCH 11/29/18 11/29/18 History Allergies Allergy/AdvReac Type Severity Reaction Status Date / Time ibuprofen [From Motrin] AdvReac Confusion Verified 11/29/18 17:29 Physical Exam Vitals: Vital Signs Temp Pulse Resp BP Pulse Ox 11/29/18 21:05 92 20 133/64 95 11/29/18 19:32 92 20 127/63 89 L 11/29/18 18:39 87 11/29/18 18:31 20 11/29/18 18:12 87 11/29/18 16:54 97.3 F L 87 24 118/63 91 L Intake and Output 11/29/18 11/29/18 11/29/18 06:59 14:59 22:59 Output Total 100 Balance -100 Output: Urine 100 Other: Weight 131.542 kg Constitutional: No acute distress, conversant, pleasant, on oxygen via NC Eyes: Anicteric sclerae, moist conjunctiva, no lid-lag Pupils equal round reactive to light ENMT: NC/AT Oropharynx clear, no erythema, exudates Neck: Supple, FROM, no masses, or JVD No carotid bruits No thyromegaly Lungs: decrease breath sounds throughout, with expiratory wheezing Clear to percussion Normal respiratory effort, no accessory muscle use Cardiovascular: Heart regular in rate and rhythm, No murmurs, gallops, or rubs +2 peripheral edema bilaterally Abdominal: Soft Nontender, no guarding, rebound or rigidity Abdomen moving with respiration Normoactive bowel sounds No hepatomegaly, No splenomegaly No palpable mass No abdominal wall hernia noted Skin: chronic skin changes over bilateral lower third of the legs Normal temperature, tone, texture, turgor No induration No subcutaneous nodules No rash, lesions No ulcers Extremities: No digital cyanosis No clubbing Pedal pulses intact and symmetrical Radial pulses intact and symmetrical No calf tenderness Psychiatric: Alert and oriented to person, place and time Appropriate affect fair judgment Neuro Muscles Strength 5/5 in all 4 extremities Sensation to light touch grossly present throughout Cranial nerves II-XII grossly intact No focal sensory deficits Lymphatics: no palpable cervical or supraclavicular , or inguinal lymph nodes Results CBC & Chem 7: 11/29/18 17:56 11/29/18 17:56 Labs: Abnormal Lab Results - Last 24 Hours (Table) 11/29/18 11/29/18 11/29/18 Range/Units 17:56 17:56 21:08 RBC 3.59 L (4.30-5.90) m/uL Hgb 10.0 L (13.0-17.5) gm/dL Hct 32.1 L (39.0-53.0) % RDW 16.8 H (11.5-15.5) % BUN 106 H* (9-20) mg/dL Creatinine 3.80 H (0.66-1.25) mg/dL Glucose 122 H (74-99) mg/dL POC Glucose (mg/dL) 175 H (75-99) mg/dL Magnesium 2.8 H (1.6-2.3) mg/dL Albumin 3.4 L (3.5-5.0) g/dL 11/29/18 Range/Units 22:19 RBC (4.30-5.90) m/uL Hgb (13.0-17.5) gm/dL Hct (39.0-53.0) % RDW (11.5-15.5) % BUN (9-20) mg/dL Creatinine (0.66-1.25) mg/dL Glucose (74-99) mg/dL POC Glucose (mg/dL) 219 H (75-99) mg/dL Magnesium (1.6-2.3) mg/dL Albumin (3.5-5.0) g/dL Thrombosis Risk Factor Assmnt - Choose All That Apply Any of the Below Risk Factors Present?: Yes Each Factor Represents 1 point: Abnormal pulmonary function (COPD), Medical pt on bed rest, Obesity (BMI >25), Swollen legs (current) Other Risk Factors: Yes Each Risk Factor Represents 2 Points: Age 61-74 years Other congenital or acquired thrombophilia - If yes, enter type in comment: No Thrombosis Risk Factor Assessment Total Risk Factor Score: 6 Thrombosis Risk Factor Assessment Level: High Risk Assessment and Plan Assessment: 68 year old male with history of COPD and chronic hypoxic respiratory failure on home oxygen . admitted as inpatient with anticipated length of stay more than two midnights. for acute on chronic hypoxic respiratory failure with copd exacerbation and possible underlying pneumonia. CXR showed some component of pulmonary edema , most recent echo showed LVEF of 50-55% 2018. patient responded well to breathing treatment and lasix, admitted for pulm eval and cardiology evaluation. 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 Follow up vital signs DM , with hyperglycemia Insulin sliding scale Anemia of chronic disease Monitor hgb No evidence of bleeding at this point VINNIE on CKD Avoid nephrotoxic meds Monitor urine output DVT PPX heparin sc tid Preformed a thorough record review from recent hospitalization echocardiogram back in 2018 showed LVEF of 50-55% CODE STATUS full code Discussed with: Patient, ER, RN Anticipated length of stay more than [address]: home A total of 60 minutes was spent on the care of this complex patient more than 50% of the time was spent in counseling and care coordination.
[2018-11-30] MEDS: FUROSEMIDE 10 MG/ML 4 ML VIAL IV SCH ×2 (07:51→14:01)
[2018-11-30] MEDS: methylPREDNISolone SOD SUCCI 125 MG/2 ML VIAL IV SCH ×2 (07:51→12:08)
[2018-11-30] MEDS: HEPARIN SODIUM,PORCINE 5,000 UNIT/ML 1 ML VIAL SQ SCH ×3 (07:51→16:41)
[2018-11-30] MEDS: PIPERACILLIN-TAZOBACTAM 3.375 GM in SODIUM CHLORIDE 0.9% 100 ML IVPB SCH ×2 (07:53→17:39)
[2018-11-30 08:04] LABS: Albumin 3.4 g/dL (3.5-5.0); Potassium 5.4 mmol/L (3.5-5.1); Total Bilirubin 0.3 mg/dL (0.2-1.3); Total Protein 6.5 g/dL (6.3-8.2)
[2018-11-30 08:05] LABS: Anisocytosis Slight; Basophils % (A) 0 %; Eosinophils % (A) 0 %; HCT 30.6 % (39.0-53.0); HGB 9.3 gm/dL (13.0-17.5); Hypochromasia Marked; Lymphocytes # (A) 0.3 k/uL (1.0-4.8); Lymphocytes % (A) 5 %; MCH 27.5 pg (25.0-35.0); MCHC 30.5 g/dL (31.0-37.0); MCV 90.2 fL (80.0-100.0); Mean Platelet Volume 7.9; Monocytes # (A) 0.1 k/uL (0-1.0); Monocytes % (A) 2 %; Neutrophils # (A) 5.9 k/uL (1.3-7.7); Neutrophils % (A) 92 %; Platelet Count 177 k/uL (150-450); RBC 3.39 m/uL (4.30-5.90); RDW 16.2 % (11.5-15.5); WBC 6.5 k/uL (3.8-10.6)
[2018-11-30] MEDS: INSULIN ASPART (NovoLOG) 100 UNIT/ML VIAL SQ SCH ×4 (08:10→20:48)
[2018-11-30] MEDS: TAMSULOSIN 0.4 MG CAP.ER.24H PO SCH (08:11)
[2018-11-30] MEDS: FERROUS SULFATE 325 MG TAB PO SCH ×2 (08:11→20:43)
[2018-11-30] MEDS: CALCITRIOL 0.25 MCG CAP PO SCH (08:11)
[2018-11-30] MEDS: SODIUM BICARBONATE TAB 650 MG TAB PO SCH (08:11)
[2018-11-30] MEDS: NITROGLYCERIN OINT 1 INCH/GM PACKET TOPICAL SCH ×2 (08:11→12:08)
[2018-11-30] MEDS: GABAPENTIN 300 MG CAP PO SCH ×2 (08:11→20:43)
[2018-11-30] MEDS: METOPROLOL SUCCINATE (ER) 25 MG TAB.ER.24H PO SCH ×2 (08:11→20:43)
[2018-11-30] MEDS: SYMBICORT 160-4.5 MCG INHALER INHALATION SCH ×2 (08:34→19:50)
[2018-11-30] MEDS: IPRATROPIUM-ALBUTEROL 3 ML NEB INHALATION SCH ×4 (08:34→19:50)
--- NOTE | 2018-11-30 08:56 | CDI ---
Documentation Clarification Form Date: 11/30/2018 8:28:43 AM From: Deena Jacob RN CCDS Admit Date: 11/29/2018 8:10:00 PM Patient Name: Garcia Huff Visit Number: [id number] Discharge Date: ATTENTION: The Clinical Documentation Specialists (CDI) and [facility] Coding Staff appreciate your assistance in clarifying documentation. Please respond to the clarification below the line at the bottom and electronically sign. The CDI & [facility] Coding staff will review the response and follow-up if needed. Please note: Queries are made part of the Legal Health Record. If you have any questions, please contact the author of this message via ITS. Dr. Daniel Navarro Pulmonary edema, 2/2 underlying diastolic CHF is documented in your H & P 11/29/2018 History/Risk Factors: 68-year-old male presents to the ED via EMS for Shortness of Breath with exertion. Medical History Diastolic CHF; COPD Clinical Indicators: VS/Pulse OX: 11/29/2018 118/63 87 97.3 24 91% 2L nc BNP: 8940 Echocardiogram Results: per H & P most recent echo showed LVEF of 50-55% 2018. Chest X Ray: 11/29/2018 some component of pulmonary edema Treatment: 11/29/2018 ED Lasix 40 mg Ivp x1; Scheduled meds Toprol Xl 25mg Bid; Lasix 40mg Ivp q 8 Hrs In your professional opinion, can you please clarify the acuity and type of CHF if known? * Acute on Chronic Diastolic Heart Failure * Chronic Diastolic Heart Failure * Unable to Determine * Other, please specify (Last Revision: May 2017) unable to determine , repeat echocardiogram needed to rule out new onset systolic CHF , vs diastolic chf MTDD
[2018-11-30] MEDS ORDERED: ASPIRIN 325 MG TAB PO SCH (09:00)
[2018-11-30 11:39] LABS: Glucose,Whole Blood 333 mg/dL (75-99)
[2018-11-30] MEDS: LORATADINE 10 MG TAB PO SCH (12:08)
[2018-11-30] MEDS: amLODIPine 10 MG TAB PO SCH (12:08)
--- NOTE | 2018-11-30 14:01 | P.CRDCN ---
History of Present Illness History of present illness: This is Nancy Solorzano PA-C dictating a consult on this patient The patient was interviewed and examined by me as well as by Dr. Dominique Case discussed with Dr. 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 Patient has had worsening shortness of breath on exertion for the last few weeks. He walks with a walker and become short of breath with minimal exertion. He has also had a cough with production of a small amount of phlegm. He has had chronic orthopnea for the last several years and sleeps in a recliner secondary to right diaphragm paralysis. Denies chest pain, palpitations dizziness or lightheadedness. No fevers. He went to see his microelectronics engineer who was concerned for pneumonia and sent him in for further evaluation. Upon presentation his oxygen saturation was 91% and dropped down to 89% on 3 L nasal cannula. Chest x-ray showed new small bilateral pleural effusions and suspicious right hilar and left basilar acute infiltrate and/or atelectasis. EKG showed sinus mechanism with a prolonged PA right bundle branch block pattern and isolated Q in lead 3. Labs were significant for BUN 106 and creatinine 3.8. Troponin was negative. He was started on Lasix and antibiotics. Patient seen and examined sitting up in bed. States his breathing has improved somewhat but he remains short of breath. No chest pain, dizziness, lightheadedness or palpitations. ROS: No fevers, chills or rigors, Positive productive cough with small amount of phlegm no nausea, vomiting or diarrhea, no hematuria, dysuria, no musculoskeletal complaints, no strokes or seizures, no skin lesions. EXAMINATION: Temperature 98.3F, pulse 92, respirations 20, blood pressure 137/62, oxygen saturation 91% on 3 L nasal cannula Patient seen and examined resting in bed, tachypnic, no acute distress Breath sounds are reduced bilaterally, few scattered crackles and expiratory wheezes Heart is regular, systolic murmur noted No elevated JVD appreciated however neck exam is difficult secondary to body habitus Mild lower extremity edema bilaterally REVIEW OF LABS, ECG & MEDICAL DATA WBC 6.5, hemoglobin 9.3, platelets 177, potassium 5.4, BUN 113, creatinine 4.15, magnesium 2.8 BNP 8940 Previous echocardiogram in 2018 showed EF 50-55%, moderate concentric LVH, mild aortic stenosis Past Medical History Past Medical History: Asthma, COPD, Diabetes Mellitus, Eye Disorder, GERD/Reflux , Hypertension, Osteoarthritis (OA), Pneumonia, Renal Disease Additional Past Medical History / Comment(s): Bronchitis, R lung not able to fully expand so had R sided diaphragm repair at 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 History of Any Multi-Drug Resistant Organisms: None Reported Additional Past Surgical History / Comment(s): R side of diaphragm surgery done at [facility] in 2008, vocal cord polyps removed, fatty tumor removed from back, debridements R leg ulcer, cyst removed from one ankle (laterality unknown), colonoscopies, fluid removed from R eye. Past Anesthesia/Blood Transfusion Reactions: No Reported Reaction Past Psychological History: No Psychological Hx Reported Additional Psychological History / Comment(s): Pt resides with his spouse. He uses O2 prn but the past couple weeks he has used it ATC. He has a rolling walker, a standard walker and a wheelchair. He has not driven lately, spouse drives. Smoking Status: Former smoker Past Alcohol Use History: None Reported Additional Past Alcohol Use History / Comment(s): Pt started smoking in 1962 and quit in 1984. Past Drug Use History: None Reported - Past Family History Father Family Medical History: Diabetes Mellitus, Liver Disease Additional Family Medical History / Comment(s): Father was an alcoholic and smoked. He at the age of 55 yrs. Mother Family Medical History: CVA/TIA Medications and Allergies Home Medications Medication Instructions Recorded Confirmed Type Allopurinol [Zyloprim] 200 mg PO QAM 08/03/16 11/29/18 History Aspirin 81 mg PO HS 08/03/16 11/29/18 History Calcitriol 0.25 mcg PO Q48H 08/03/16 11/29/18 History Cholecalciferol (Vitamin D3) 2,000 units PO W/LUNCH 08/03/16 11/29/18 History [Vitamin D3] Clobetasol Propionate/Emoll 1 applic TOPICAL DAILY PRN 08/03/16 11/29/18 History [Olux-E 0.05% Foam] Clotrimazole [Clotrimazole 1%] 1 cream TOPICAL DAILY PRN 08/03/16 11/29/18 History Finasteride 1 mg PO W/SUPPER 08/03/16 11/29/18 History HYDROcodone/APAP 7.5-325MG [[place] 1 tab PO Q8H PRN 08/03/16 11/29/18 History 7.5-325] Insulin Lispro Protamin/Lispro 15 - 25 unit SQ PC-BID 08/03/16 11/29/18 History [humaLOG Mix 75-25 Kwikpen] Insulin Lispro [humaLOG Kwikpen] 4 - 15 unit SQ DAILY 08/03/16 11/29/18 History Ipratropium-Albuterol Nebulize 3 ml INHALATION RT-Q4H PRN 08/03/16 11/29/18 Hi story [Duoneb 0.5 mg-3 mg/3 ml Soln] Magnesium Oxide 400 mg PO QAM 08/03/16 11/29/18 History Metoprolol Succinate (ER) [Toprol 25 mg PO BID 08/03/16 11/29/18 History XL] Mometasone/Formoterol [Dulera 200 2 puff INHALATION RT-BID 08/03/16 11/29/18 History Mcg/5 Mcg Inhaler] Omeprazole [PriLOSEC] 20 mg PO W/SUPPER 08/03/16 11/29/18 History Promethazine/Phenyleph/Codeine 5 ml PO QID PRN 08/03/16 11/29/18 History [Promethazine Vc-Codeine Syrup] SILVER sulfADIAZINE CREAM 1 applic TOPICAL DAILY PRN 08/03/16 11/29/18 History [Silvadene Cream] guaiFENesin-DM 600/30MG [Mucinex 1 tab PO Q12H PRN 08/03/16 11/29/18 History Dm] Ferrous Sulfate [Feosol] 325 mg PO BID 01/21/17 11/29/18 History Gabapentin [Neurontin] 300 mg PO BID 04/13/17 11/29/18 History Insulin Lispro Protamin/Lispro 20 - 25 unit SQ AC-BID 04/13/17 11/29/18 History [humaLOG Mix 75-25 Kwikpen] Lactulose [Cephulac] 20 gm PO DAILY PRN #200 ml 04/17/17 11/29/18 Rx Atorvastatin [Lipitor] 20 mg PO HS 11/29/18 11/29/18 History Cetirizine HCl [Zyrtec] 10 mg PO W/LUNCH 11/29/18 11/29/18 History Ergocalciferol [Vitamin D2] 50,000 unit PO Q14D 11/29/18 11/29/18 History Furosemide [Lasix] 40 mg PO QAM 11/29/18 11/29/18 History Nystatin 100,000 Unit/ml Susp 500,000 unit PO QID PRN 11/29/18 11/29/18 History [Mycostatin Oral Susp] Sodium Bicarbonate Tab 650 mg PO QAM 11/29/18 11/29/18 History Soothe Lubricant Eye Drops 1 drop BOTH EYES DAILY PRN 11/29/18 11/29/18 History Tamsulosin [Flomax] 0.4 mg PO QAM 11/29/18 11/29/18 History amLODIPine [Norvasc] 10 mg PO W/LUNCH 11/29/18 11/29/18 History Allergies Allergy/AdvReac Type Severity Reaction Status Date / Time ibuprofen [From Motrin] AdvReac Confusion Verified 11/29/18 17:29 Physical Exam Vitals: Vital Signs Temp Pulse Pulse Resp BP BP Pulse Ox 11/30/18 12:32 90 11/30/18 12:23 88 11/30/18 12:00 98.3 F 92 20 137/62 91 L 11/30/18 08:45 92 11/30/18 08:35 88 11/30/18 08:00 98.1 F 89 24 136/63 93 L 11/29/18 22:46 98 F 98 22 163/75 93 L 11/29/18 21:05 92 20 133/64 95 11/29/18 19:32 92 20 127/63 89 L 11/29/18 18:39 87 11/29/18 18:31 20 11/29/18 18:12 87 11/29/18 16:54 97.3 F L 87 24 118/63 91 L Intake and Output 11/29/18 11/30/18 11/30/18 22:59 06:59 14:59 Intake Total 1086 Output Total 100 100 Balance -100 986 Intake: Oral 1086 Output: Urine 100 100 Other: Voiding Method Urinal Weight 131.542 kg Results 11/30/18 05:30 11/30/18 05:30 Cardiac Enzymes 11/29/18 11/29/18 11/30/18 Range/Units 17:56 17:56 05:30 AST 25 23 (17-59) U/L Troponin I <0.012 (0.000-0.034) ng/mL Coagulation 11/29/18 Range/Units 17:56 PT 10.7 (9.0-12.0) sec APTT 30.0 (22.0-30.0) sec CBC 11/29/18 11/30/18 Range/Units 17:56 05:30 WBC 9.8 6.5 (3.8-10.6) k/uL RBC 3.59 L 3.39 L (4.30-5.90) m/uL Hgb 10.0 L 9.3 L (13.0-17.5) gm/dL Hct 32.1 L 30.6 L (39.0-53.0) % Plt Count 206 177 (150-450) k/uL Comprehensive Metabolic Panel 11/29/18 11/30/18 Range/Units 17:56 05:30 Sodium 138 137 (137-145) mmol/L Potassium 5.1 5.4 H (3.5-5.1) mmol/L Chloride 98 97 L (98-107) mmol/L Carbon Dioxide 29 28 (22-30) mmol/L BUN 106 H* 113 H* (9-20) mg/dL Creatinine 3.80 H 4.15 H (0.66-1.25) mg/dL Glucose 122 H 258 H (74-99) mg/dL Calcium 9.0 9.0 (8.4-10.2) mg/dL AST 25 23 (17-59) U/L ALT 21 25 (21-72) U/L Alkaline Phosphatase 125 122 (38-126) U/L Total Protein 6.5 6.5 (6.3-8.2) g/dL Albumin 3.4 L 3.4 L (3.5-5.0) g/dL Current Medications Generic Name Dose Route Start Last Admin Trade Name Freq PRN Reason Stop Dose Admin Hydrocodone Bitart/Acetaminophen 1 each 11/29/18 22:44 [place] 7.5-325 PO Q8H PRN Pain Albuterol/Ipratropium 3 ml 11/29/18 20:13 Duoneb 0.5 Mg-3 Mg/3 Ml Soln INHALATION RT-QID PRN Shortness Of Breath Or Wheezing Albuterol/Ipratropium 3 ml 11/30/18 08:00 11/30/18 12:23 Duoneb 0.5 Mg-3 Mg/3 Ml Soln INHALATION 3 ml RT-QID EVELYNE Administration Amlodipine Besylate 10 mg 11/30/18 12:30 11/30/18 12:08 Norvasc PO 10 mg W/LUNCH EVELYNE Administration Aspirin 325 mg 11/30/18 09:00 11/30/18 08:11 Aspirin PO 325 mg DAILY EVELYNE Administration Aspirin 81 mg 11/29/18 22:45 11/29/18 23:03 Aspirin PO 81 mg HS EVELYNE Administration Atorvastatin Calcium 20 mg 11/29/18 22:45 11/29/18 23:04 Lipitor PO 20 mg HS EVELYNE Administration Budesonide/Formoterol Fumarate 2 puff 11/30/18 08:00 11/30/18 08:34 Symbicort 160-4.5 Mcg Inhaler INHALATION Not Given RT-BID EVELYNE Calcitriol 0.25 mcg 11/30/18 09:00 11/30/18 08:11 Rocaltrol PO 0.25 mcg Q48H EVELYNE Administration Ferrous Sulfate 325 mg 11/30/18 09:00 11/30/18 08:11 Feosol PO 325 mg BID EVELYNE Administration Furosemide 40 mg 11/30/18 06:00 11/30/18 07:51 Lasix IV Not Given Q8H [facility] Gabapentin 300 mg 11/29/18 22:45 11/30/18 08:11 Neurontin PO 300 mg BID EVELYNE Administration Heparin Sodium (Porcine) 5,000 unit 11/30/18 00:00 11/30/18 08:11 Heparin SQ 5,000 unit Q8HR EVELYNE Administration Piperacillin Sod/Tazobactam 100 mls @ 25 mls/hr 11/30/18 06:00 11/30/18 07:53 Sod 3.375 gm/ Sodium Chloride IVPB Not Given Q12H [facility] Insulin Aspart 0 unit 11/30/18 07:30 11/30/18 12:06 Novolog SQ 11 unit ACHS [facility] Administration Protocol Loratadine 10 mg 11/30/18 12:30 11/30/18 12:08 Claritin PO 10 mg W/LUNCH [facility] Administration Methylprednisolone Sodium Succinate 60 mg 11/30/18 00:00 11/30/18 12:08 Solu-Medrol IV 60 mg Q6HR [facility] Administration Metoprolol Succinate 25 mg 11/29/18 22:45 11/30/18 08:11 Toprol Xl PO 25 mg BID [facility] Administration Nitroglycerin 1 inch 11/29/18 22:00 11/30/18 12:08 Nitro-Bid Oint TOPICAL 1 inch QID [facility] Administration Finasteride 1 Mg 1 mg 11/30/18 17:30 PO W/SUPPER EVELYNE Pantoprazole Sodium 40 mg 11/29/18 23:00 11/29/18 23:03 Protonix PO 40 mg W/SUPPER EVELYNE Administration Sodium Bicarbonate 650 mg 11/30/18 09:00 11/30/18 08:11 Sodium Bicarbonate Tab PO 650 mg QAM [facility] Administration Tamsulosin HCl 0.4 mg 11/30/18 09:00 11/30/18 08:11 Flomax PO 0.4 mg QAM EVELYNE Administration Intake and Output 11/29/18 11/30/18 11/30/18 22:59 06:59 14:59 Intake Total 1086 Output Total 100 100 Balance -100 986 Intake: Oral 1086 Output: Urine 100 100 Other: Voiding Method Urinal Weight 131.542 kg 11/30/18 05:30 11/30/18 05:30
[2018-11-30] MEDS: PANTOPRAZOLE 40 MG TABLET PO SCH (16:41)
[2018-11-30] MEDS: CEFEPIME 2 GM in SODIUM CHLORIDE 0.9% 100 ML IVPB SCH (16:49)
[2018-11-30 16:59] LABS: Glucose,Whole Blood 304 mg/dL (75-99)
[2018-11-30] MEDS: FUROSEMIDE 100 MG in SODIUM CHLORIDE 0.9% 90 ML IV SCH (17:27)
--- NOTE | 2018-11-30 19:07 | ECHOF ---
Referral Reason:sob MEASUREMENTS -------- HEIGHT: 165.1 cm WEIGHT: 131.5 kg BP: 136/63 IVSd: 1.6 cm (0.6 - 1.1) LVIDd: 5.2 cm (3.9 - 5.3) LVPWd: 1.7 cm (0.6 - 1.1) IVSs: 2.0 cm LVIDs: 3.7 cm LVPWs: 1.6 cm LAESV Index (A-L): 28.11 ml/m Ao Diam: 2.9 cm (2.0 - 3.7) AV Cusp: 1.9 cm (1.5 - 2.6) LA Diam: 4.8 cm (2.7 - 3.8) AV maxP.15 mmHg AV meanP.28 mmHg RAP: 5.00 mmHg RVSP: 29.49 mmHg FINDINGS -------- Undetermined rhythm. Morbid Obesity, Lumason used. The left ventricular size is normal. There is severe concentric left ventricular hypertrophy. Ove rall left ventricular systolic function is mild-moderately impaired with, an EF between 40 - 45 %. [place] Hypokinesis. The RV was not well visualized. Normal LA size by volume 22+/-6 ml/m2. The right atrium was not well visualized. Interatrial and interventricular septum intact. The aortic valve was not well visualized. There is moderate aortic stenosis present. Peak/mean gr adient across the Aortic Valve is 37.15mmHg / 23.28mmHg. No mitral regurgitation. The tricuspid valve was not well visualized. Mild tricuspid regurgitation present. There is no ev idence of pulmonary hypertension. The right ventricular systolic pressure, as measured by Doppler, is 29.49mmHg. The aortic root size is normal. IVC Not well visulized. There is no pericardial effusion. CONCLUSIONS -------- 1. Undetermined rhythm. 2. Morbid Obesity, Lumason used. 3. The left ventricular size is normal. 4. There is severe concentric left ventricular hypertrophy. 5. [place] Hypokinesis. 6. The RV was not well visualized. 7. Normal LA size by volume 22+/-6 ml/m2. 8. The right atrium was not well visualized. 9. Interatrial and interventricular septum intact. 10. The aortic valve was not well visualized. 11. There is moderate aortic stenosis present. 12. Peak/mean gradient across the Aortic Valve is 37.15mmHg / 23.28mmHg. 13. No mitral regurgitation. 14. The tricuspid valve was not well visualized. 15. Mild tricuspid regurgitation present. 16. There is no evidence of pulmonary hypertension. 17. The right ventricular systolic pressure, as measured by Doppler, is 29.49mmHg. 18. The aortic root size is normal. 19. IVC Not well visulized. 20. There is no pericardial effusion. CUSTOMER SERVICE REPRESENTATIVE TELLER: Isa Hebert RDCS
[2018-11-30 20:27] LABS: Glucose,Whole Blood 313 mg/dL (75-99)
[2018-11-30] MEDS: ASPIRIN 81 MG PO SCH (20:43)
[2018-11-30] MEDS: ATORVASTATIN 20 MG TAB PO SCH (20:43)
[2018-11-30] MEDS ORDERED: INSULIN ASPART (NovoLOG) 100 UNIT/ML VIAL SQ ONE (20:46)
--- NOTE | 2018-11-30 21:09 | P.PN ---
Progress Note - Text Progress Note Date: 11/30/18 Interval history: This is a 68-year-old patient of Dr. bonilla from [place] whose chronic st able medical conditions include primary osteoarthritis, chronic kidney dysfunction uses a walker, diabetes mellitus on insulin, GERD, essential hypertension, diabetic peripheral neuropathy, chronic kidney disease stage III, chronic hypoxic respiratory failure. Presented with increasing shortness of breath, Center by Dr. rossi for possible pneumonia. Patient has been bringing up yellow-green sputum. Also very short of breath and wheezing. Distended abdomen increasing edema. Started on IV antibiotics. Today-still quite a bit short of breath at rest. Cough or sputum present. Eating smaller amounts. Daughter is present. Tired. Not making much urine. On IV Lasix 40 mg bolus. Bladder scan showed only reported 50 mL of urine. Review of systems: Was done for constitutional, cardiovascular, GI, pulmonary. relevant finding as above Active Medications Hydrocodone Bitart/Acetaminophen ([place] 7.5-325) 1 each PO Q8H PRN PRN Reason: Pain Albuterol/Ipratropium (Duoneb 0.5 Mg-3 Mg/3 Ml Soln) 3 ml INHALATION RT-QID PRN PRN Reason: Shortness Of Breath Or Wheezing Albuterol/Ipratropium (Duoneb 0.5 Mg-3 Mg/3 Ml Soln) 3 ml INHALATION RT-QID [facility] Last Admin: 11/30/18 19:50 Dose: 3 ml Documented by: Amlodipine Besylate (Norvasc) 10 mg PO W/LUNCH [facility] Last Admin: 11/30/18 12:08 Dose: 10 mg Documented by: Aspirin (Aspirin) 81 mg PO [facility] Last Admin: 11/30/18 20:43 Dose: 81 mg Documented by: Atorvastatin Calcium (Lipitor) 20 mg PO [facility] Last Admin: 11/30/18 20:43 Dose: 20 mg Documented by: Budesonide/Formoterol Fumarate (Symbicort 160-4.5 Mcg Inhaler) 2 puff INHALATION RT-BID [facility] Last Admin: 11/30/18 19:50 Dose: 2 puff Documented by: Calcitriol (Rocaltrol) 0.25 mcg PO Q48H [facility] Last Admin: 11/30/18 08:11 Dose: 0.25 mcg Documented by: Ferrous Sulfate (Feosol) 325 mg PO BID [facility] Last Admin: 11/30/18 20:43 Dose: 325 mg Documented by: Gabapentin (Neurontin) 300 mg PO BID [facility] Last Admin: 11/30/18 20:43 Dose: 300 mg Documented by: Heparin Sodium (Porcine) (Heparin) 5,000 unit SQ Q8HR [facility] Last Admin: 11/30/18 16:41 Dose: 5,000 unit Documented by: Piperacillin Sod/Tazobactam (Sod 3.375 gm/ Sodium Chloride) 100 mls @ 25 mls/hr IVPB Q12H [facility] Last Admin: 11/30/18 17:39 Dose: 25 mls/hr Documented by: Furosemide 100 mg/ Sodium (Chloride) 100 mls @ 10 mls/hr IV .Q10H [facility] Last Admin: 11/30/18 17:27 Dose: 10 mg/hr, 10 mls/hr Documented by: Cefepime HCl 2 gm/ Sodium (Chloride) 100 mls @ 200 mls/hr IVPB DAILY [facility] Last Admin: 11/30/18 16:49 Dose: 200 mls/hr Documented by: Insulin Aspart (Novolog) [address] [facility]; Protocol Last Admin: 11/30/18 20:48 Dose: 8 unit Documented by: Loratadine (Claritin) 10 mg PO W/LUNCH [facility] Last Admin: 11/30/18 12:08 Dose: 10 mg Documented by: Methylprednisolone Sodium Succinate (Solu-Medrol) 40 mg IV Q8HR [facility] Metoprolol Succinate (Toprol Xl) 25 mg PO BID [facility] Last Admin: 11/30/18 20:43 Dose: 25 mg Documented by: Finasteride 1 Mg 1 mg PO W/SUPPER [facility] Last Admin: 11/30/18 15:59 Dose: Not Given Documented by: Pantoprazole Sodium (Protonix) 40 mg PO W/SUPPER [facility] Last Admin: 11/30/18 16:41 Dose: 40 mg Documented by: Sodium Bicarbonate (Sodium Bicarbonate Tab) 650 mg PO [facility] Last Admin: 11/30/18 08:11 Dose: 650 mg Documented by: Tamsulosin HCl (Flomax) 0.4 mg PO QAM [facility] Last Admin: 11/30/18 08:11 Dose: 0.4 mg Documented by: Physical examination: VITAL SIGNS: 98.3, 22, 20, 137/62, 91% on 3 L GENERAL: BMI 48.3, propped up in bed, short of breath at rest. EYES: Pupils equal. Conjunctiva normal. HEENT: External appearance of nose and ears normal, oral cavity grossly normal. NECK: JVD unable to assess; masses not palpable. HEART: First and second heart sounds are normal; edema present. LUNGS: Respiratory rate increased, not able to speak in full sentences, excessive muscle walking, diminished breath sounds prolonged expiration. ABDOMEN: Soft, distended, nontender, liver spleen not palpable, no masses palpa ble. PSYCH: Alert and oriented x3; mood and affect anxiousl. INVESTIGATIONS, reviewed in the clinical context: White count 6.5 hemoglobin 9.3 potassium 4.4 bun 113 creatine 4.15 Glucose 258 EKG tracing personally reviewed by me-right bundle-branch block Chest x-ray film personally reviewed by me-possibly fluid overload and infiltrate 2-D echocardiogram-shows EF of 40-45%, severe concentric left ventricular hypertrophy, moderate aortic stenosis Assessment: -Pneumonia, suspect gram-negative organism, slow to respond -Acute on chronic congestive heart failure exacerbation from systolic and diastolic dysfunction EF 40-45% -Hypertensive heart disease -Acute COPD exacerbation in an ex-smoker, not improving -Primary osteoarthritis -Chronic gait dysfunction uses a walker -Diabetes mellitus type 2, uncontrolled with hypoglycemia, chronically on insulin -GERD -Essential hypertension -Diabetic peripheral neuropathy -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 We'll try the patient on Lasix drip. Strict I's and O's. Patient is on IV Solu-Medrol and bronchodilators. Follow electrolytes closely. We'll switch the patient from IV Zosyn to IV cefepime. With renal correction dose. We'll also consult nephrology. Follow electrolytes closely.
[2018-11-30] MEDS ORDERED: INSULIN NPH 300 UNIT/3 ML VIAL SQ SCH (22:00)
[2018-11-30 22:42] LABS: Glucose,Whole Blood 320 mg/dL (75-99)
[2018-12-01] MEDS: HEPARIN SODIUM,PORCINE 5,000 UNIT/ML 1 ML VIAL SQ SCH ×4 (00:58→23:30)
[2018-12-01] MEDS: methylPREDNISolone SOD SUCCI 40 MG/ML 1 ML VIAL IV SCH ×4 (00:58→23:30)
[2018-12-01] MEDS: FUROSEMIDE 100 MG in SODIUM CHLORIDE 0.9% 90 ML IV SCH ×3 (00:58→23:24)
[2018-12-01 06:35] LABS: Glucose,Whole Blood 284 mg/dL (75-99)
[2018-12-01] MEDS ORDERED: INSULIN ASPART (NovoLOG) 100 UNIT/ML VIAL SQ ONE (06:44)
[2018-12-01] MEDS: INSULIN ASPART (NovoLOG) 100 UNIT/ML VIAL SQ SCH ×4 (06:46→21:01)
[2018-12-01] MEDS: IPRATROPIUM-ALBUTEROL 3 ML NEB INHALATION SCH ×4 (07:16→19:22)
[2018-12-01] MEDS: SYMBICORT 160-4.5 MCG INHALER INHALATION SCH ×2 (07:16→19:22)
[2018-12-01] MEDS: INSULN ASP PRT/INSULIN ASPART 100 UNIT/ML 10 ML VIAL SQ SCH ×3 (08:43→17:10)
[2018-12-01] MEDS: METOPROLOL SUCCINATE (ER) 25 MG TAB.ER.24H PO SCH (08:47)
[2018-12-01] MEDS: TAMSULOSIN 0.4 MG CAP.ER.24H PO SCH (08:47)
[2018-12-01] MEDS: FERROUS SULFATE 325 MG TAB PO SCH ×2 (08:47→20:54)
[2018-12-01] MEDS: SODIUM BICARBONATE TAB 650 MG TAB PO SCH (08:47)
[2018-12-01] MEDS: GABAPENTIN 300 MG CAP PO SCH ×2 (08:47→20:54)
[2018-12-01] MEDS: CEFEPIME 2 GM in SODIUM CHLORIDE 0.9% 100 ML IVPB SCH (08:48)
--- NOTE | 2018-12-01 09:10 | P.CNPUL ---
History of Present Illness Consult date: 11/30/18 Reason for consult: dyspnea, pneumonia History of present illness: Morbidly obese 68-year-old here patient with known history of COPD and previous history of right hemidiaphragmatic paralysis requiring surgical repair mild addition to morbid obesity, diabetes mellitus, chronic stage III kidney disease, chronic hypoxic respiratory failure, hypertension. The patient's based on pulmonary function test shows an FEV1 of 5 2% of predicted in addition to a total lung capacity of 73% of predicted and diffusion capacity of 77% of predicted. This is based on the pulmonary function test as well as some back in 2015. The patient came in yesterday to Dr. Sheridan's office complaining of worsening shortness of breath. Apparently received antibiotics to the primary care and the patient received 2 rounds of antibiotics without any much relief. For that reason he came into Dr. Sheridan's office and he was admitted to the hospital for further evaluation. There is some limited infiltration lung bases bilaterally. The patient had at least 20 pounds weight gain and he had increased lower extremity edema. On his blood work, the patient had developed an acute on top of his chronic kidney injury and his GFR was down to 50 with a creatinine of 3.8. He was started on IV Zosyn. He was started on IV Lasix. His proBNP level was elevated. No chest pain. Altered mentation. He has difficulty with mobility and gait. He has a congested cough. Unable to bring up much sputum. No chest pain. No pleurisy. No altered mentation. Review of Systems Constitutional: Reports daytime sleepiness, Reports fatigue, Reports weakness, Reports weight gain Eyes: denies blurred vision, denies bulging eye, denies decreased vision Ears: deny: decreased hearing, ear discharge, earache, tinnitus Ears, nose, mouth and throat: Denies headache, Denies sore throat Cardiovascular: Reports decreased exercise tolerance, Reports dyspnea on exertion, Reports leg edema, Reports shortness of breath Respiratory: Reports cough, Reports cough with sputum, Reports dyspnea, Reports home oxygen Gastrointestinal: Reports as per HPI Genitourinary: Reports as per HPI Musculoskeletal: Reports as per HPI Musculoskeletal: bilateral: ankle swelling, absent: ankle pain, ankle stiffness Integumentary: Denies pruritus, Denies rash Neurological: Reports as per HPI, Reports weakness Psychiatric: Reports as per HPI Endocrine: Reports as per HPI, Reports fatigue Hematologic/Lymphatic: Reports as per HPI Allergic/Immunologic: Reports as per HPI Past Medical History Past Medical History: COPD, Diabetes Mellitus, Eye Disorder, GERD/Reflux, Hypertension, Osteoarthritis (OA), Pneumonia, Renal Disease Additional Past Medical History / Comment(s): , Peripheral neuropathy, COPD, chronic hypoxic respiratory failure, morbid obesity, history of right hemidiaphragmatic paralysis requiring surgical repair, diabetes mellitus type 2 , chronic stage III kidney disease, iron deficiency anemia, chronic lower extremity edema, gout, degenerative arthritis, coma,past R leg ulcer-treated in [facility], past sacral ulcer, abdominal hernia, bilateral cataracts forming and believes he has been told 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 History of Any Multi-Drug Resistant Organisms: None Reported Additional Past Surgical History / Comment(s): R side of diaphragm surgery done at [facility] in 2008, vocal cord polyps removed, fatty tumor removed from back, debridements R leg ulcer, cyst removed from one ankle (laterality unknown), colonoscopies, fluid removed from R eye. Past Anesthesia/Blood Transfusion Reactions: No Reported Reaction Past Psychological History: No Psychological Hx Reported Additional Psychological History / Comment(s): Pt resides with his spouse. He uses O2 prn but the past couple weeks he has used it ATC. He has a rolling walker, a standard walker and a wheelchair. He has not driven lately, spouse drives. Smoking Status: Former smoker Past Alcohol Use History: None Reported Additional Past Alcohol Use History / Comment(s): Pt started smoking in 1962 and quit in 1984. Past Drug Use History: None Reported - Past Family History Father Family Medical History: Diabetes Mellitus, Liver Disease Additional Family Medical History / Comment(s): Father was an alcoholic and smoked. He at the age of 55 yrs. Mother Family Medical History: CVA/TIA Medications and Allergies Home Medications Medication Instructions Recorded Confirmed Type Allopurinol [Zyloprim] 200 mg PO QAM 08/03/16 11/29/18 History Aspirin 81 mg PO HS 08/03/16 11/29/18 History Calcitriol 0.25 mcg PO Q48H 08/03/16 11/29/18 History Cholecalciferol (Vitamin D3) 2,000 units PO W/LUNCH 08/03/16 11/29/18 History [Vitamin D3] Clobetasol Propionate/Emoll 1 applic TOPICAL DAILY PRN 08/03/16 11/29/18 History [Olux-E 0.05% Foam] Clotrimazole [Clotrimazole 1%] 1 cream TOPICAL DAILY PRN 08/03/16 11/29/18 History Finasteride 1 mg PO W/SUPPER 08/03/16 11/29/18 History HYDROcodone/APAP 7.5-325MG [[place] 1 tab PO Q8H PRN 08/03/16 11/29/18 History 7.5-325] Insulin Lispro Protamin/Lispro 15 - 25 unit SQ PC-BID 08/03/16 11/29/18 History [humaLOG Mix 75-25 Kwikpen] Insulin Lispro [humaLOG Kwikpen] 4 - 15 unit SQ DAILY 08/03/16 11/29/18 History Ipratropium-Albuterol Nebulize 3 ml INHALATION RT-Q4H PRN 08/03/16 11/29/18 History [Duoneb 0.5 mg-3 mg/3 ml Soln] Magnesium Oxide 400 mg PO QAM 08/03/16 11/29/18 History Metoprolol Succinate (ER) [Toprol 25 mg PO BID 08/03/16 11/29/18 History XL] Mometasone/Formoterol [[place]era 200 2 puff INHALATION RT-BID 08/03/16 11/29/18 History Mcg/5 Mcg Inhaler] Omeprazole [PriLOSEC] 20 mg PO W/SUPPER 08/03/16 11/29/18 History Promethazine/Phenyleph/Codeine 5 ml PO QID PRN 08/03/16 11/29/18 History [Promethazine Vc-Codeine Syrup] SILVER sulfADIAZINE CREAM 1 applic TOPICAL DAILY PRN 08/03/16 11/29/18 History [Silvadene Cream] guaiFENesin-DM 600/30MG [Mucinex 1 tab PO Q12H PRN 08/03/16 11/29/18 History Dm] Ferrous Sulfate [Feosol] 325 mg PO BID 01/21/17 11/29/18 History Gabapentin [Neurontin] 300 mg PO BID 04/13/17 11/29/18 History Insulin Lispro Protamin/Lispro 20 - 25 unit SQ AC-BID 04/13/17 11/29/18 History [humaLOG Mix 75-25 Kwikpen] Lactulose [Cephulac] 20 gm PO DAILY PRN #200 ml 04/17/17 11/29/18 Rx Atorvastatin [Lipitor] 20 mg PO HS 11/29/18 11/29/18 History Cetirizine HCl [Zyrtec] 10 mg PO W/LUNCH 11/29/18 11/29/18 History Ergocalciferol [Vitamin D2] 50,000 unit PO Q14D 11/29/18 11/29/18 History Furosemide [Lasix] 40 mg PO QAM 11/29/18 11/29/18 History Nystatin 100,000 Unit/ml Susp 500,000 unit PO QID PRN 11/29/18 11/29/18 History [Mycostatin Oral Susp] Sodium Bicarbonate Tab 650 mg PO QAM 11/29/18 11/29/18 History Soothe Lubricant Eye Drops 1 drop BOTH EYES DAILY PRN 11/29/18 11/29/18 History Tamsulosin [Flomax] 0.4 mg PO QAM 11/29/18 11/29/18 History amLODIPine [Norvasc] 10 mg PO W/LUNCH 11/29/18 11/29/18 History Allergies Allergy/AdvReac Type Severity Reaction Status Date / Time ibuprofen [From Motrin] AdvReac Confusion Verified 11/29/18 17:29 Physical Exam Physical exam revealed a 68-year-old white male in adding episodic cough and some mild respiratory distress even at rest. HEENT: Anicteric sclerae, pink and moist conjunctivae. Extraocular movements intact, pupils are reactive to light they are round and equal. External inspection of ears and nose showed normal mucosa. Oral mucosa, soft and hard palate tongue and posterior pharynx are intact. Neck: Supple no neck masses, no JVD, no thyroid enlargement, no adenopathy. Lungs: Symmetrical expansion ,Crackles at the bases especially at the left base, some wheezing on forced expiratory maneuver only. Overall air entry is markedly diminished in lung bases bilaterally CVS: Regular rate and rhythm, normal S1 and S2, no gallops, no murmur, no rubs. Abdomen: Soft, nontender, no megaly, no rebound, no guarding, positive bowel sounds., The patient is morbidly obese and orders cannot be Extremities: No clubbing, No edema, no cyanosis, Diminished distal pulses in lower extremities bilaterally.Superficial ulcerations and venous stasis changes noted. Musculoskeletal: Muscle strength and tone normal. Neurologic: Alert and oriented 3, normal affect, no focal neurologic deficits. Psychiatric: Normal mood, affect and mental status examination. Skin: No rashes. Results - Laboratory Findings CBC and BMP: 11/30/18 05:30 11/30/18 17:01 - Diagnostic Findings Chest x-ray: image reviewed Assessment and Plan Plan: 1 acute on chronic hypoxic respiratory failure along with shortness of breath secondary to involving bilateral lower lobe pneumonia and possibly fluid overload/CHF 2 CHF with diastolic heart failure 3 chronic stage III kidney disease with interval worsening of the renal function and GFR is down to 15 4 diabetes mellitus 5 chronic hypoxic respiratory failure maintained on oxygen 6 history of right hemidiaphragmatic paralysis requiring surgical repair 7 morbid obesity 8 diffuse arthritis 9 gout 10Glucoma 11 hypertension 12 peripheral neuropathy Agree on the current treatment. Continue IV Lasix. Continue IV Zosyn. Bronchodilators [id number]. Sputum Gram stain and culture if possible. Blood culture. Repeat echocardiogram. Nephrology follow-up regarding the worsening renal function. Cardiology consultation. We'll continue to follow.
[2018-12-01 11:00] LABS: Calcium 9.1 mg/dL (8.4-10.2)
[2018-12-01] MEDS: HYDROcodone/APAP 7.5-325MG 1 EACH TAB PO PRN (11:35)
[2018-12-01] MEDS: CARVEDILOL 3.125 MG TAB PO SCH ×2 (11:35→17:13)
[2018-12-01 11:43] LABS: Potassium 6.5 mmol/L (3.5-5.1)
[2018-12-01 11:58] LABS: Glucose,Whole Blood 269 mg/dL (75-99)
--- NOTE | 2018-12-01 12:06 | CONS ---
CONSULTATION REASON FOR CONSULT: Renal failure. HISTORY OF PRESENT ILLNESS: Patient is a 68-year-old male who was admitted to the hospital with complaints of increasing shortness of breath. He was not able to sleep. Patient also had cough. He denied any fever or chills. There was concern for pneumonia as outpatient. Chest x- ray on admission showed evidence of pulmonary vascular congestion. Patient has been diuresed. He is currently maintained on a Lasix drip. However, he has not had much urine output. Patient's serum creatinine was 4.1 mg/dL on 11/30 which was up from 3.8 on 11/29. We do not have any labs back from today. Prior creatinine have been 3.1 to 3.6 mg/dL in 2018. Blood pressure has not been low. Patient was not on any nonsteroidal anti-inflammatory agents at home. He has not received any IV contrast. Patient does have underlying COPD. PAST MEDICAL HISTORY: Significant for CKD NKF stage IV with previous creatinine around 3.1 to 3.2 in April of 2017. Past medical history also significant for COPD, type 2 diabetes, gastroesophageal reflux disease, obesity, hypertension, osteoarthritis, peripheral neuropathy, chronic lower extremity edema. PAST SURGICAL HISTORY: Surgery on the right diaphragm, vocal cord polyps removed, debridements on the right leg ulcer, cyst removed from the ankle, colonoscopies, cataract surgeries. SOCIAL HISTORY: Negative for smoking, drug abuse or alcohol abuse. MEDICATIONS: At home prior to admission included Zyloprim, aspirin, Calcitriol, vitamin D3, finasteride, insulin, metoprolol, magnesium, omeprazole, iron, gabapentin, insulin, Lipitor, Zyrtec, Lasix, vitamin D2, sodium bicarb, Flomax, Norvasc. ALLERGIES: Include IBUPROFEN which causes confusion. REVIEW OF SYSTEMS: As per HPI. Other systems negative. PHYSICAL EXAMINATION: Patient is comfortable. He is not in any acute distress. He is mildly short of breath. Blood pressure is 137/66, heart rate 92 per minute, he is afebrile. Examination of the heart S1, S2. Examination of the lungs, decreased breath sounds at bases. Abdomen is soft, nontender. Examination of the lower extremities shows chronic skin changes. Edema is noted. Abdomen is morbidly obese. LABS: Shows from 11/30, sodium 137, potassium 5.4, chloride 113, CO2 is 28, chloride is 97, BUN 113, creatinine 4.15, calcium 9.0. ASSESSMENT: 1. Acute kidney injury currently oliguric, most likely acute tubular necrosis versus cardiorenal syndrome. Need to rule out obstructive uropathy. Check a postvoid residual. We will also insert a Witt catheter for accurate I and Os. Repeat labs today. 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 2. Mild hyperkalemia associated with acute kidney injury. 3. CKD mineral bone disorder, maintained on Rocaltrol at home. 4. Chronic kidney disease stage IV. Previous creatinine 3.1 to 3.2 in 2018. I will check the office records. Check a urinalysis as well. 5. Possible pneumonia. 6. Gastroesophageal reflux disease. 7. Diastolic heart failure. PLAN: DC sodium bicarb. Insert Witt catheter. Check labs today. Continue with the antibiotics. Continue with the Lasix drip for now. Thank you for this consultation. Will continue to follow the patient with you during his hospitalization. Repeat chest x-ray today. MMODL / IJN: [id number] /
[2018-12-01] MEDS: amLODIPine 10 MG TAB PO SCH (12:23)
[2018-12-01] MEDS: LORATADINE 10 MG TAB PO SCH (12:23)
[2018-12-01 14:20] LABS: Glucose,Whole Blood 292 mg/dL (75-99)
[2018-12-01] MEDS ORDERED: INSULIN REGULAR 100 UNIT/ML VIAL IV ONE (14:23)
[2018-12-01 16:50] LABS: Glucose,Whole Blood 248 mg/dL (75-99)
[2018-12-01] MEDS: PANTOPRAZOLE 40 MG TABLET PO SCH (17:09)
--- NOTE | 2018-12-01 17:33 | P.PN ---
Progress Note - Text Progress Note Date: 12/01/18 Interval history: This is a 68-year-old patient of Dr. bonilla from [place] whose chronic st able medical conditions include primary osteoarthritis, chronic kidney dysfunction uses a walker, diabetes mellitus on insulin, GERD, essential hypertension, diabetic peripheral neuropathy, chronic kidney disease stage III, chronic hypoxic respiratory failure. Presented with increasing shortness of breath, Center by Dr. rossi for possible pneumonia. Patient has been bringing up yellow-green sputum. Also very short of breath and wheezing. Distended abdomen increasing edema. Started on IV antibiotics. Admitted with pneumonia, CHF exacerbation, COPD exacerbation. On November 30 was put on a Lasix drip. Today-breathing is somewhat better today. No sputum production. Did tolerate some diet. Kidney function is worsening. Hyperkalemic. Family the bedside. Unclear about the urine output. Witt catheter was put in clinic today. Urine does appear to be cleared not concentrated. Review of systems: Was done for constitutional, cardiovascular, GI, pulmonary. relevant finding as above Active Medications Hydrocodone Bitart/Acetaminophen ([place] 7.5-325) 1 each PO Q8H PRN PRN Reason: Pain Last Admin: 12/01/18 11:35 Dose: 1 each Documented by: Albuterol/Ipratropium (Duoneb 0.5 Mg-3 Mg/3 Ml Soln) 3 ml INHALATION RT-QID PRN PRN Reason: Shortness Of Breath Or Wheezing Albuterol/Ipratropium (Duoneb 0.5 Mg-3 Mg/3 Ml Soln) 3 ml INHALATION RT-QID [facility] Last Admin: 12/01/18 16:31 Dose: 3 ml Documented by: Amlodipine Besylate (Norvasc) 10 mg PO W/LUNCH [facility] Last Admin: 12/01/18 12:23 Dose: 10 mg Documented by: Aspirin (Aspirin) 81 mg PO HS [facility] Last Admin: 11/30/18 20:43 Dose: 81 mg Documented by: Atorvastatin Calcium (Lipitor) 40 mg PO HS [facility] Budesonide/Formoterol Fumarate (Symbicort 160-4.5 Mcg Inhaler) 2 puff INHALATION RT-BID [facility] Last Admin: 12/01/18 07:16 Dose: 2 puff Documented by: Calcitriol (Rocaltrol) 0.25 mcg PO Q48H [facility] Last Admin: 11/30/18 08:11 Dose: 0.25 mcg Documented by: Carvedilol (Coreg) 3.125 mg PO BID-W/MEALS [facility] Last Admin: 12/01/18 17:13 Dose: 3.125 mg Documented by: Ferrous Sulfate (Feosol) 325 mg PO BID [facility] Last Admin: 12/01/18 08:47 Dose: 325 mg Documented by: Gabapentin (Neurontin) 300 mg PO BID [facility] Last Admin: 12/01/18 08:47 Dose: 300 mg Documented by: Heparin Sodium (Porcine) (Heparin) 5,000 unit SQ Q8HR [facility] Last Admin: 12/01/18 17:09 Dose: 5,000 unit Documented by: Furosemide 100 mg/ Sodium (Chloride) 100 mls @ 10 mls/hr IV .Q10H [facility] Last Admin: 12/01/18 11:35 Dose: 10 mg/hr, 10 mls/hr Documented by: Cefepime HCl 2 gm/ Sodium (Chloride) 100 mls @ 200 mls/hr IVPB DAILY [facility] Last Admin: 12/01/18 08:48 Dose: 200 mls/hr Documented by: Insulin Aspart (Novolog) 0 unit SQ ACHS [facility]; Protocol Last Admin: 12/01/18 17:11 Dose: 8 unit Documented by: Insulin Aspart (Novolog Mix 70-30 Vial) 20 unit SQ AC-BID [facility] Last Admin: 12/01/18 17:10 Dose: 20 unit Documented by: Insulin Aspart (Novolog Mix 70-30 Vial) 10 unit SQ AC-LUNCH [facility] Last Admin: 12/01/18 12:23 Dose: 10 unit Documented by: Loratadine (Claritin) 10 mg PO W/LUNCH [facility] Last Admin: 12/01/18 12:23 Dose: 10 mg Documented by: Methylprednisolone Sodium Succinate (Solu-Medrol) 40 mg IV Q8HR [facility] Last Admin: 12/01/18 17:09 Dose: 40 mg Documented by: Finasteride 1 Mg 1 mg PO W/SUPPER [facility] Last Admin: 12/01/18 17:08 Dose: 1 mg Documented by: Pantoprazole Sodium (Protonix) 40 mg PO W/SUPPER [facility] Last Admin: 12/01/18 17:09 Dose: 40 mg Documented by: Tamsulosin HCl (Flomax) 0.4 mg PO QAM [facility] Last Admin: 12/01/18 08:47 Dose: 0.4 mg Documented by: Physical examination: VITAL SIGNS: 97.6, 86, 24, 11 1/51, 92% on 3 L GENERAL: Propped up in bed, a little bit less short of breath today EYES: Pupils equal. Conjunctiva normal. HEENT: External appearance of nose and ears normal, oral cavity grossly normal. NECK: JVD unable to assess; masses not palpable. HEART: First and second heart sounds are normal; edema present. LUNGS: Respiratory rate increased, not able to speak in full sentences, excessive muscle walking, diminished breath sounds prolonged expiration. ABDOMEN: Soft, distended, nontender, liver spleen not palpable, no masses palpable. PSYCH: Alert and oriented x3; mood and affect anxious. INVESTIGATIONS, reviewed in the clinical context: Potassium 6.5, bun 131, creatinine were 5.33 Ibal-[id number], 284, 269 Previous testing: White count 6.5 hemoglobin 9.3 potassium 4.4 bun 113 creatine 4.15 Glucose 258 EKG tracing personally reviewed by me-right bundle-branch block Chest x-ray film personally reviewed by me-possibly fluid overload and infiltrate 2-D echocardiogram-shows EF of 40-45%, severe concentric left ventricular hypertrophy, moderate aortic stenosis Assessment: -Pneumonia, suspect gram-negative organism, slow to respond -Acute on chronic congestive heart failure exacerbation from systolic and diastolic dysfunction EF 40-45%, slow to respond -Hypertensive heart disease -Acute COPD exacerbation in an ex-smoker, slow to respond -Primary osteoarthritis -Chronic gait dysfunction uses a walker -Diabetes mellitus type 2, uncontrolled with hypoglycemia, chronically on insulin -GERD -Essential hypertension -Diabetic peripheral neuropathy -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 Nephrology was consulted. Prognosis guarded. She may be heading towards renal replacement therapy. Discussed case with the patient and family the bedside. Did tell the nurse , to discuss with Dr. Caballero about the hyperkalemia in the setting of renal failure. Prognosis guarded.
--- NOTE | 2018-12-01 17:50 | P.PN ---
Subjective This is Nancy Solorzano PA-C dictating a progress note on this patient The patient was interviewed and examined by me as well as by Dr. Dominique Case discussed with Dr. Dominique and he agrees with the plan of care IMPRESSION / ASSESSMENT: Unit on chronic hypoxic respiratory failure likely secondary to combination of COPD, fluid overload, chronic diaphragmatic paralysis, and CHF Acute combined systolic and diastolic heart failure, EF 40-45% VINNIE on CKD, nephrology has been consulted Hypertension blood pressure is been fairly well controlled Chronic right diaphragmatic paralysis COPD on home oxygen Hyperkalemia, nephrology is on consult PLAN: Patient should have a coronary angiogram to evaluate his cardiomyopathy, we will have to wait until his kidneys improve Management of hyperkalemia per primary medicine team and nephrology Management of diuretics per nephrology Switch From metoprolol to carvedilol for cardiomyopathy and blood pressure control Increase atorvastatin to 40 mg daily we will increase his beta blockers as tolerated and decrease his amlodipine HPI/interval history Patient is a 68-year-old female with a past medical history is significant for COPD, hypertension, diabetes, kidney disease and diaphragmatic paralysis who presented with complaints of worsening shortness of breath. He was found to be an VINNIE. Chest x-ray showed small pleural effusions and possible infiltrate. He has been started on Lasix and antibiotics. Echocardiogram showed LV systolic function mild to moderately impaired, EF 40-45%, apex hypokinetic, severe concentric LVH. Patient seen and examined resting in bed. States he is still short of breath, hasn't improved much with the Lasix. No chest pain. No dizziness. EXAMINATION Temperature 97.4F, pulse 83, respirations 20, blood pressure 127/65, oxygen saturation 90% on 3 L nasal cannula Patient seen and examined sitting in bed, tachypnea, oral mucosa appears dry Lungs diminished bilaterally Heart is regular, soft, soft systolic murmur noted No elevated JVD appreciated Mild lower extremity edema bilaterally REVIEW OF LABS, ECG Telemetry revealed sinus rhythm overnight, no significant pauses or arrhythmias Potassium 6.5, BUN 131, creatinine 5.33 Objective - Vital Signs Vital signs: Vital Signs Temp 97.6 F 12/01/18 16:00 Pulse 101 H 12/01/18 16:40 Resp 24 12/01/18 16:00 BP 111/51 12/01/18 16:00 Pulse Ox 92 L 12/01/18 16:33 Intake & Output 11/30/18 12/01/18 12/01/18 18:59 06:59 18:59 Intake Total 1086 795.167 100 Output Total 200 65 25 Balance 886 730.167 75 Weight 131.542 kg Intake: Intake, IV Titration 75.167 100 Amount Furosemide 100 mg In 75.167 100 Sodium Chloride 0.9% 90 ml @ 10 MG/HR 10 mls/hr IV .Q10H [facility] Rx#: [id number] Oral 1086 720 Output: Urine 200 65 25 Other: Voiding Method Urinal Urinal Indwelling Catheter - Labs CBC & Chem 7: 11/30/18 05:30 12/01/18 05:52 Labs: Abnormal Lab Results - Last 24 Hours (Table) 11/30/18 11/30/18 11/30/18 Range/Units 17:01 20:25 22:41 Sodium (137-145) mmol/L Potassium 5.4 H (3.5-5.1) mmol/L Chloride (98-107) mmol/L BUN (9-20) mg/dL Creatinine (0.66-1.25) mg/dL Glucose (74-99) mg/dL POC Glucose (mg/dL) 313 H 320 H (75-99) mg/dL Magnesium (1.6-2.3) mg/dL 12/01/18 12/01/18 12/01/18 Range/Units 05:52 05:52 06:33 Sodium 136 L (137-145) mmol/L Potassium 6.5 H* (3.5-5.1) mmol/L Chloride 97 L (98-107) mmol/L BUN 131 H* (9-20) mg/dL Creatinine 5.33 H (0.66-1.25) mg/dL Glucose 289 H (74-99) mg/dL POC Glucose (mg/dL) 284 H (75-99) mg/dL Magnesium 3.1 H (1.6-2.3) mg/dL 12/01/18 12/01/18 12/01/18 Range/Units 11:56 14:19 16:48 Sodium (137-145) mmol/L Potassium (3.5-5.1) mmol/L Chloride (98-107) mmol/L BUN (9-20) mg/dL Creatinine (0.66-1.25) mg/dL Glucose (74-99) mg/dL POC Glucose (mg/dL) 269 H 292 H 248 H (75-99) mg/dL Magnesium (1.6-2.3) mg/dL Microbiology - Last 24 Hours (Table) 11/29/18 17:56 Blood Culture - Preliminary Blood No Growth after 24 hours
[2018-12-01] MEDS: ATORVASTATIN 40 MG TAB PO SCH (20:54)
[2018-12-01] MEDS: ASPIRIN 81 MG PO SCH (20:55)
[2018-12-01 20:57] LABS: Glucose,Whole Blood 197 mg/dL (75-99)
[2018-12-02 06:28] LABS: Glucose,Whole Blood 310 mg/dL (75-99)
[2018-12-02] MEDS ORDERED: INSULIN ASPART (NovoLOG) 100 UNIT/ML VIAL SQ ONE (06:46)
[2018-12-02] MEDS: CARVEDILOL 3.125 MG TAB PO SCH ×2 (06:51→18:05)
[2018-12-02] MEDS: INSULIN ASPART (NovoLOG) 100 UNIT/ML VIAL SQ SCH ×4 (06:51→20:42)
[2018-12-02] MEDS: INSULN ASP PRT/INSULIN ASPART 100 UNIT/ML 10 ML VIAL SQ SCH ×3 (06:58→18:37)
[2018-12-02 07:23] LABS: Glucose,Whole Blood 231 mg/dL (75-99)
[2018-12-02 07:37] LABS: ABG Base Excess -3.8 mmol/L; ABG HCO3 25 mmol/L (21-25); ABG PO2 61 mmHg (83-108); ABG TCO2 27 mmol/L (19-24); Allen Test Performed? Yes
[2018-12-02 07:40] LABS: Anisocytosis Slight; HCT 32.7 % (39.0-53.0); HGB 9.3 gm/dL (13.0-17.5); Hypochromasia Marked; MCH 26.4 pg (25.0-35.0); MCHC 28.3 g/dL (31.0-37.0); MCV 93.2 fL (80.0-100.0); Mean Platelet Volume 8.6; Platelet Count 215 k/uL (150-450); RBC 3.51 m/uL (4.30-5.90); RDW 16.7 % (11.5-15.5); WBC 11.9 k/uL (3.8-10.6)
[2018-12-02 07:43] LABS: ABG PCO2 71 mmHg (35-45); ABG PH 7.15 (7.35-7.45)
[2018-12-02 07:54] LABS: Albumin 3.8 g/dL (3.5-5.0); Calcium 8.9 mg/dL (8.4-10.2); Total Bilirubin 0.4 mg/dL (0.2-1.3); Total Protein 6.8 g/dL (6.3-8.2)
--- NOTE | 2018-12-02 07:57 | XR ---
EXAMINATION TYPE: XR chest 1V portable DATE OF EXAM: 12/02/2018 CLINICAL HISTORY: Difficulty breathing, acute pulmonary edema and COPD exacerbation TECHNIQUE: Single AP portable upright view of the chest is obtained. COMPARISON: Chest x-ray from 3 days earlier and older studies. FINDINGS: Exam suboptimal due to portable technique and patient's large body habitus. Persistent low lung volumes. Persistent elevated right hemidiaphragm. Persistent cardiomegaly with atherosclerotic thoracic aorta. New Right basilar opacity. Improved aeration right mid lung felt to be localized to t he inferior right upper lobe. Persistent patchy left basilar opacity. Mild central vascular congestio n thought improved. Osseous structures are intact. IMPRESSION: Persistent low lung volumes and cardiomegaly. Improved central vascular congestion and ri ght mid lung infiltrate/edema. Stable patchy left basilar atelectasis and/or infiltrate. New or worse nelida right basilar acute infiltrate and/or atelectasis.
[2018-12-02 08:00] LABS: Glucose,Whole Blood 286 mg/dL (75-99)
[2018-12-02 08:03] LABS: Potassium 6.2 mmol/L (3.5-5.1)
[2018-12-02] MEDS: IPRATROPIUM-ALBUTEROL 3 ML NEB INHALATION SCH ×4 (08:08→19:59)
[2018-12-02] MEDS ORDERED: INSULIN REGULAR 100 UNIT/ML VIAL IV ONE (08:30)
[2018-12-02] MEDS ORDERED: CALCIUM GLUCONATE 1 GM in SODIUM CHLORIDE 0.9% 100 ML IVPB ONE (08:30)
[2018-12-02] MEDS: SYMBICORT 160-4.5 MCG INHALER INHALATION SCH (08:48)
[2018-12-02] MEDS: FERROUS SULFATE 325 MG TAB PO SCH ×2 (09:15→20:41)
[2018-12-02] MEDS: GABAPENTIN 300 MG CAP PO SCH ×2 (09:15→20:41)
[2018-12-02] MEDS: CALCITRIOL 0.25 MCG CAP PO SCH (09:15)
[2018-12-02] MEDS: TAMSULOSIN 0.4 MG CAP.ER.24H PO SCH (09:15)
[2018-12-02] MEDS: HEPARIN SODIUM,PORCINE 5,000 UNIT/ML 1 ML VIAL SQ SCH ×2 (09:19→18:36)
[2018-12-02] MEDS: methylPREDNISolone SOD SUCCI 40 MG/ML 1 ML VIAL IV SCH (09:19)
[2018-12-02] MEDS: CEFEPIME 2 GM in SODIUM CHLORIDE 0.9% 100 ML IVPB SCH (09:19)
[2018-12-02 10:41] LABS: Allen Test Performed? Yes
[2018-12-02 10:52] LABS: ABG Base Excess -2.3 mmol/L; ABG HCO3 26 mmol/L (21-25); ABG Oxygen Saturation 91.9 % (94-97); ABG PCO2 68 mmHg (35-45); ABG PO2 72 mmHg (83-108); ABG TCO2 28 mmol/L (19-24)
[2018-12-02 10:55] LABS: ABG PH 7.19 (7.35-7.45)
[2018-12-02] MEDS ORDERED: IPRATROPIUM-ALBUTEROL 3 ML NEB INHALATION PRN (11:11)
--- NOTE | 2018-12-02 11:27 | XR ---
EXAMINATION TYPE: XR chest 1V portable DATE OF EXAM: 12/02/2018 COMPARISON: Prior chest x-ray 12/02/2018 HISTORY: Status post central venous catheter placement TECHNIQUE: Single frontal view of the chest is obtained. FINDINGS: There is been interval placement of a left subclavian central venous catheter, distal tip is overlying the distal region of the superior vena cava. There is no evident pneumothorax. Patient i s rotated. Bibasilar density is noted. There may be spinal curvature. There are overlying cardiac cassandra ds. Aorta is dense. Heart size may be accentuated by rotation. IMPRESSION: No evident comp occasions status post central venous catheter placement.
[2018-12-02] MEDS ORDERED: LIDOCAINE 1% INJ 10MG/ML (20 ML MDV) ONE (12:00)
--- NOTE | 2018-12-02 12:22 | P.OP ---
Date of Procedure: 12/02/18 Preoperative Diagnosis: Acute renal failure with need for urgent hemodialysis. Postoperative Diagnosis: Same. Procedure(s) Performed: Insertion of a non-tunneled hemodialysis catheter via the right femoral vein approach with ultrasound guidance. Implants: None. Anesthesia: local (1% Xylocaine 10 mL) Surgeon: Nabil Baeza Estimated Blood Loss (ml): 10 Urine output (ml): 0 Pathology: none sent Condition: critical Disposition: ICU Description of Procedure: Urgent placement of the non-tunneled hemodialysis catheter was requested to the patient's non-oliguric state and worsening fluid overload/respiratory insufficiency. Description of procedure: Patient was placed in the supine position. The abdominal pannus was taped out of the inguinal area. The right inguinal area sterilely prepped and draped in usual manner. 1% Xylocaine was utilized for local anesthesia tissues overlying the right femoral vein as identified on ultrasound. Through this anesthetized area and with the aid of ultrasound a micropuncture needle was utilized to enter the vein. Venous return was noted and a guidewire was advanced through the needle and into the vein. The needle was withdrawn and a micropuncture sheath and dilator advanced over the guidewire. The guidewire and dilator withdrawn and a 0.035 inch J-tipped guidewire is advanced through the micropuncture sheath. The sheath was withdrawn. Vessel dilators were then advanced withdrawn from over the guidewire. Subsequently the non-tunneled hemodialysis catheter was advanced over the guidewire. The guidewire was withdrawn. Blood was easily return through both ports. The catheter was secured to skin with nylon suture and appropriately dressed. Hemodialysis technicians were at bedside and the patient was immediately connected to the hemodialysis unit. Patient tolerated procedure well.
[2018-12-02 13:01] LABS: Glucose,Whole Blood 183 mg/dL (75-99)
--- NOTE | 2018-12-02 13:18 | P.PN ---
Subjective Patient is seen in follow-up for acute kidney injury on chronic kidney disease. 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 Patient presented with dyspnea. Patient was started on Lasix drip yesterday and is oliguric. He also remains hyperkalemic. He was started on hemodialysis today. Patient is somewhat confused at this time. He has been transferred to the intensive care unit. Vital signs are stable. General: The patient appeared well nourished and normally developed. HEENT: Head exam is unremarkable. Neck is without jugular venous distension. LUNGS: Lungs are clear to auscultation and percussion. Breath sounds decreased. HEART: Rate and Rhythm are regular. First and second heart sounds normal. No murmurs, rubs or gallops. ABDOMEN: Abdominal exam reveals normal bowel sounds. Non-tender and non- distended. EXTREMITITES: Trace edema. Objective - Vital Signs Vital signs: Vital Signs Temp 98.1 F 12/02/18 12:00 Pulse 76 12/02/18 12:14 Resp 15 12/02/18 12:00 BP 126/66 12/02/18 12:00 Pulse Ox 91 L 12/02/18 12:00 Intake & Output 12/01/18 12/02/18 12/02/18 18:59 06:59 18:59 Intake Total 100 100 200 Output Total 25 0 Balance 75 100 200 Weight 120.5 kg Intake: IV 200 Calcium Gluconate 1 gm In 100 Sodium Chloride 0.9% 100 ml @ 100 mls/hr IVPB ONCE ONE Rx#:[id number] Cefepime 2 gm In Sodium 100 Chloride 0.9% 100 ml @ 200 mls/hr IVPB DAILY [facility] Rx#:[id number] Intake, IV Titration 100 100 Amount Furosemide 100 mg In 100 100 Sodium Chloride 0.9% 90 ml @ 10 MG/HR 10 mls/hr IV .Q10H [facility] Rx#: [id number] Output: Urine 25 0 Other: Voiding Method Indwelling Catheter Indwelling Catheter Indwelling Catheter - Labs CBC & Chem 7: 12/02/18 07:18 12/02/18 07:18 Labs: Abnormal Lab Results - Last 24 Hours (Table) 12/01/18 12/01/18 12/01/18 Range/Units 14:19 16:48 18:10 WBC (3.8-10.6) k/uL RBC (4.30-5.90) m/uL Hgb (13.0-17.5) gm/dL Hct (39.0-53.0) % MCHC (31.0-37.0) g/dL RDW (11.5-15.5) % ABG pH (7.35-7.45) ABG pCO2 (35-45) mmHg ABG pO2 (83-108) mmHg ABG HCO3 (21-25) mmol/L ABG Total CO2 (19-24) mmol/L ABG O2 Saturation (94-97) % Sodium (137-145) mmol/L Potassium 5.7 H (3.5-5.1) mmol/L Chloride (98-107) mmol/L Carbon Dioxide (22-30) mmol/L BUN (9-20) mg/dL Creatinine (0.66-1.25) mg/dL Glucose (74-99) mg/dL POC Glucose (mg/dL) 292 H 248 H (75-99) mg/dL 12/01/18 12/02/18 12/02/18 Range/Units 20:56 06:26 07:18 WBC 11.9 H (3.8-10.6) k/uL RBC 3.51 L (4.30-5.90) m/uL Hgb 9.3 L (13.0-17.5) gm/dL Hct 32.7 L (39.0-53.0) % MCHC 28.3 L (31.0-37.0) g/dL RDW 16.7 H (11.5-15.5) % ABG pH (7.35-7.45) ABG pCO2 (35-45) mmHg ABG pO2 (83-108) mmHg ABG HCO3 (21-25) mmol/L ABG Total CO2 (19-24) mmol/L ABG O2 Saturation (94-97) % Sodium (137-145) mmol/L Potassium (3.5-5.1) mmol/L Chloride (98-107) mmol/L Carbon Dioxide (22-30) mmol/L BUN (9-20) mg/dL Creatinine (0.66-1.25) mg/dL Glucose (74-99) mg/dL POC Glucose (mg/dL) 197 H 310 H (75-99) mg/dL 12/02/18 12/02/18 12/02/18 Range/Units 07:18 07:20 07:32 WBC (3.8-10.6) k/uL RBC (4.30-5.90) m/uL Hgb (13.0-17.5) gm/dL Hct (39.0-53.0) % MCHC (31.0-37.0) g/dL RDW (11.5-15.5) % ABG pH 7.15 L* (7.35-7.45) ABG pCO2 71 H* (35-45) mmHg ABG pO2 61 L (83-108) mmHg ABG HCO3 (21-25) mmol/L ABG Total CO2 27 H (19-24) mmol/L ABG O2 Saturation 86.0 L (94-97) % Sodium 133 L (137-145) mmol/L Potassium 6.2 H* (3.5-5.1) mmol/L Chloride 93 L (98-107) mmol/L Carbon Dioxide 21 L (22-30) mmol/L BUN 142 H* (9-20) mg/dL Creatinine 6.86 H (0.66-1.25) mg/dL Glucose 222 H (74-99) mg/dL POC Glucose (mg/dL) 231 H (75-99) mg/dL 12/02/18 12/02/18 12/02/18 Range/Units 07:48 10:50 12:49 WBC (3.8-10.6) k/uL RBC (4.30-5.90) m/uL Hgb (13.0-17.5) gm/dL Hct (39.0-53.0) % MCHC (31.0-37.0) g/dL RDW (11.5-15.5) % ABG pH 7.19 L* (7.35-7.45) ABG pCO2 68 H (35-45) mmHg ABG pO2 72 L (83-108) mmHg ABG HCO3 26 H (21-25) mmol/L ABG Total CO2 28 H (19-24) mmol/L ABG O2 Saturation 91.9 L (94-97) % Sodium (137-145) mmol/L Potassium (3.5-5.1) mmol/L Chloride (98-107) mmol/L Carbon Dioxide (22-30) mmol/L BUN (9-20) mg/dL Creatinine (0.66-1.25) mg/dL Glucose (74-99) mg/dL POC Glucose (mg/dL) 286 H 183 H (75-99) mg/dL Microbiology - Last 24 Hours (Table) 11/29/18 17:56 Blood Culture - Preliminary Blood No Growth after 48 hours Assessment and Plan Plan: Assessment: 1. Acute kidney injury secondary to ATN secondary to cardiorenal syndrome. Renal function continues to worsen. Creatinine 6.86 today. 2. Hyperkalemia secondary to acute kidney injury. 3. Volume overload. 4. Chronic kidney disease stage IV secondary to diabetic kidney disease with baseline creatinine in the range of 3-3.5. 5. Insulin-dependent diabetes mellitus. 6. Chronic kidney disease mineral bone disease maintained on calcitriol. 7. Acute on chronic systolic CHF with ejection fraction of 40-45%. 8. Possible pneumonia maintained on antibiotics. Plan: Currently seen while undergoing hemodialysis. Another treatment tomorrow. Lasix drip has been discontinued. Continue to monitor renal function and urine output. Avoid nephrotoxins.
--- NOTE | 2018-12-02 13:26 | PCN ---
PROCEDURE NOTE PROCEDURE: Insertion of triple-lumen catheter. PREOPERATIVE DIAGNOSIS: Acute kidney injury, respiratory failure. POSTOPERATIVE DIAGNOSIS: Acute kidney injury, respiratory failure. TRIPLE LUMEN CATHETER PLACEMENT: Indication Hemodynamic monitoring/Intravenous access. A time-out was completed verifying correct patient, procedure, site, positioning, and implant(s) or special equipment if applicable. The patient was placed in a dependent position appropriate for triple lumen catheter placement based on the vein to be cannulated. The patient's left shoulder was prepped and draped in sterile fashion. 1% Lidocaine was used to anesthetize the surrounding skin area. A triple lumen 9F Cordis catheter was introduced into the left subclavian vein using Seldinger technique. The catheter was threaded smoothly over the guide wire and appropriate blood return was obtained. Each lumen of the catheter was evacuated of air and flushed with sterile saline. The catheter was then sutured in place to the skin and a sterile dressing applied. Perfusion to the extremity distal to the point of catheter insertion was checked and found to be adequate. No complications. No pneumothorax on the chest x-ray. MMODL / IJN: [id number] /
[2018-12-02] MEDS: HYDROcodone/APAP 7.5-325MG 1 EACH TAB PO PRN (14:50)
--- NOTE | 2018-12-02 14:51 | P.PN ---
Subjective This is Nancy Solorzano PA-C dictating a progress note on this patient The patient was interviewed and examined by me as well as by Dr. Dominique Case discussed with Dr. Dominique and he agrees with the plan of care IMPRESSION / ASSESSMENT: Acute on chronic hypoxic respiratory failure likely secondary to combination of COPD, fluid overload, chronic diaphragmatic paralysis, and CHF, currently on BiPAP Acute combined systolic and diastolic heart failure, EF 40-45% VINNIE on CKD, patient is being started on dialysis Hypertension blood pressure is been fairly well controlled Chronic right diaphragmatic paralysis COPD on home oxygen Hyperkalemia, being started on dialysis PLAN: Slowly maximize medical management of cardiomyopathy as tolerated Patient will need a coronary angiogram once his kidneys and breathing are stabilized HPI/interval history Patient is a 68-year-old female with a past medical history is significant for COPD, hypertension, diabetes, kidney disease and diaphragmatic paralysis who presented with complaints of worsening shortness of breath. He was found to be an VINNIE. Chest x-ray showed small pleural effusions and possible infiltrate. He was started on Lasix and antibiotics. Echocardiogram showed LV systolic f unction mild to moderately impaired, EF 40-45%, apex hypokinetic, severe concentric LVH. His BUN and creatinine continued to rise and he became hyperkalemic so he was started on dialysis. This morning the patient was started on BiPAP and transferred to the ICU. Patient seen and examined resting in bed, receiving hemodialysis, on BiPAP. EXAMINATION Temperature 90.8F, pulse 76, respirations 20, blood pressure 103/83, oxygen saturation 91% on BiPAP Patient seen and examined resting in bed, on BiPAP Lungs diminished bilaterally Heart is regular, soft systolic murmur noted No elevated JVD appreciated Mild lower extremity edema bilaterally REVIEW OF LABS, ECG WBC 11.9, hemoglobin 9.3, platelets 1 215, potassium 6.2, BUN 142, creatinine 6.86 Objective - Vital Signs Vital signs: Vital Signs Temp 98 F 12/02/18 14:14 Pulse 76 12/02/18 14:14 Resp 20 12/02/18 14:14 BP 103/83 12/02/18 14:14 Pulse Ox 91 L 12/02/18 12:00 Intake & Output 12/01/18 12/02/18 12/02/18 18:59 06:59 18:59 Intake Total 100 100 200 Output Total 25 2000 Balance 75 100 -1800 Weight 120.5 kg Intake: IV 200 Calcium Gluconate 1 gm In 100 Sodium Chloride 0.9% 100 ml @ 100 mls/hr IVPB ONCE ONE Rx#:[id number] Cefepime 2 gm In Sodium 100 Chloride 0.9% 100 ml @ 200 mls/hr IVPB DAILY [facility] Rx#:[id number] Intake, IV Titration 100 100 Amount Furosemide 100 mg In 100 100 Sodium Chloride 0.9% 90 ml @ 10 MG/HR 10 mls/hr IV .Q10H [facility] Rx#: [id number] Output: Urine 25 0 Hemodialysis 1999 Other: Voiding Method Indwelling Catheter Indwelling Catheter Indwelling Catheter - Labs CBC & Chem 7: 12/02/18 07:18 12/02/18 07:18 Labs: Abnormal Lab Results - Last 24 Hours (Table) 12/01/18 12/01/18 12/01/18 Range/Units 16:48 18:10 20:56 WBC (3.8-10.6) k/uL RBC (4.30-5.90) m/uL Hgb (13.0-17.5) gm/dL Hct (39.0-53.0) % MCHC (31.0-37.0) g/dL RDW (11.5-15.5) % ABG pH (7.35-7.45) ABG pCO2 (35-45) mmHg ABG pO2 (83-108) mmHg ABG HCO3 (21-25) mmol/L ABG Total CO2 (19-24) mmol/L ABG O2 Saturation (94-97) % Sodium (137-145) mmol/L Potassium 5.7 H (3.5-5.1) mmol/L Chloride (98-107) mmol/L Carbon Dioxide (22-30) mmol/L BUN (9-20) mg/dL Creatinine (0.66-1.25) mg/dL Glucose (74-99) mg/dL POC Glucose (mg/dL) 248 H 197 H (75-99) mg/dL 12/02/18 12/02/18 12/02/18 Range/Units 06:26 07:18 07:18 WBC 11.9 H (3.8-10.6) k/uL RBC 3.51 L (4.30-5.90) m/uL Hgb 9.3 L (13.0-17.5) gm/dL Hct 32.7 L (39.0-53.0) % MCHC 28.3 L (31.0-37.0) g/dL RDW 16.7 H (11.5-15.5) % ABG pH (7.35-7.45) ABG pCO2 (35-45) mmHg ABG pO2 (83-108) mmHg ABG HCO3 (21-25) mmol/L ABG Total CO2 (19-24) mmol/L ABG O2 Saturation (94-97) % Sodium 133 L (137-145) mmol/L Potassium 6.2 H* (3.5-5.1) mmol/L Chloride 93 L (98-107) mmol/L Carbon Dioxide 21 L (22-30) mmol/L BUN 142 H* (9-20) mg/dL Creatinine 6.86 H (0.66-1.25) mg/dL Glucose 222 H (74-99) mg/dL POC Glucose (mg/dL) 310 H (75-99) mg/dL 12/02/18 12/02/18 12/02/18 Range/Units 07:20 07:32 07:48 WBC (3.8-10.6) k/uL RBC (4.30-5.90) m/uL Hgb (13.0-17.5) gm/dL Hct (39.0-53.0) % MCHC (31.0-37.0) g/dL RDW (11.5-15.5) % ABG pH 7.15 L* (7.35-7.45) ABG pCO2 71 H* (35-45) mmHg ABG pO2 61 L (83-108) mmHg ABG HCO3 (21-25) mmol/L ABG Total CO2 27 H (19-24) mmol/L ABG O2 Saturation 86.0 L (94-97) % Sodium (137-145) mmol/L Potassium (3.5-5.1) mmol/L Chloride (98-107) mmol/L Carbon Dioxide (22-30) mmol/L BUN (9-20) mg/dL Creatinine (0.66-1.25) mg/dL Glucose (74-99) mg/dL POC Glucose (mg/dL) 231 H 286 H (75-99) mg/dL 12/02/18 12/02/18 Range/Units 10:50 12:49 WBC (3.8-10.6) k/uL RBC (4.30-5.90) m/uL Hgb (13.0-17.5) gm/dL Hct (39.0-53.0) % MCHC (31.0-37.0) g/dL RDW (11.5-15.5) % ABG pH 7.19 L* (7.35-7.45) ABG pCO2 68 H (35-45) mmHg ABG pO2 72 L (83-108) mmHg ABG HCO3 26 H (21-25) mmol/L ABG Total CO2 28 H (19-24) mmol/L ABG O2 Saturation 91.9 L (94-97) % Sodium (137-145) mmol/L Potassium (3.5-5.1) mmol/L Chloride (98-107) mmol/L Carbon Dioxide (22-30) mmol/L BUN (9-20) mg/dL Creatinine (0.66-1.25) mg/dL Glucose (74-99) mg/dL POC Glucose (mg/dL) 183 H (75-99) mg/dL Microbiology - Last 24 Hours (Table) 11/29/18 17:56 Blood Culture - Preliminary Blood No Growth after 48 hours
[2018-12-02] MEDS: FUROSEMIDE 100 MG in SODIUM CHLORIDE 0.9% 90 ML IV SCH (15:26)
[2018-12-02] MEDS: amLODIPine 10 MG TAB PO SCH (15:30)
[2018-12-02] MEDS: LORATADINE 10 MG TAB PO SCH (15:31)
--- NOTE | 2018-12-02 16:05 | P.PN ---
Subjective Progress Note Date: 12/02/18 Morbidly obese 68-year-old here patient with known history of COPD and previous history of right hemidiaphragmatic paralysis requiring surgical repair mild addition to morbid obesity, diabetes mellitus, chronic stage III kidney disease, chronic hypoxic respiratory failure, hypertension. The patient's based on pulmonary function test shows an FEV1 of 5 2% of predicted in addition to a total lung capacity of 73% of predicted and diffusion capacity of 77% of predicted. This is based on the pulmonary function test as well as some back in 2015. The patient came in yesterday to Dr. Sheridan's office complaining of worsening shortness of breath. Apparently received antibiotics to the primary care and the patient received 2 rounds of antibiotics without any much relief. For that reason he came into Dr. Sheridan's office and he was admitted to the hospital for further evaluation. There is some limited infiltration lung bases bilaterally. The patient had at least 20 pounds weight gain and he had i ncreased lower extremity edema. On his blood work, the patient had developed an acute on top of his chronic kidney injury and his GFR was down to 50 with a creatinine of 3.8. He was started on IV Zosyn. He was started on IV Lasix. His proBNP level was elevated. No chest pain. Altered mentation. He has difficulty with mobility and gait. He has a congested cough. Unable to bring up much sputum. No chest pain. No pleurisy. No altered mentation. 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 The patient was becoming progressively more obtunded and short of breath and lethargic. He was not producing any urine output. The blood work from this morning were markedly abnormal. Woody being on Lasix. The patient was not producing any urine output. A blood gas was done that showed a pH of 7.15 with a pCO2 of 71 and pO2 of 61. The blood work from this morning showed a potassium level of 6.2 with a BUN of 142 and a creatinine of 6.8. The patient also had a anion gap of 19. Chest x-ray showed small lung volumes and atelectatic changes small effusion the lung bases. He had increased lower extremity edema. At this point, the patient got transferred to the intensive care unit and he was placed on BiPAP for respiratory support. Currently on a BiPAP pressure of 12/5 cm of water. Based on this, the patient got transferred to the intensive care unit. The patient had a triple lumen catheter inserted in the left subclavian. A dialysis catheter was inserted in the right femoral vein and the patient was started on hemodialysis. A total of 2 L of fluid was pulled off during the dialysis. Following that the patient was weaned off the BiPAP and he was placed on oxygen at 2 L per minute nasal cannu la. He seems to much more alert and communicating at this point in time. No significant urine output. No fever. No chills. No chest pain. He does have a hematoma formation in the right groin area the site of the puncture and we have a fem stop in the hematomas controllable at this point in time. The patient is on empiric antibiotic coverage with IV cefepime. The patient on DuoNeb nebulized treatments around the clock. Blood sugar is at 180 and the patient is currently septic. Insulin by serial coverage. Family has been updated on his condition. Objective - Vital Signs Vital signs: Vital Signs Temp 98 F 12/02/18 14:14 Pulse 79 12/02/18 15:30 Resp 14 12/02/18 15:30 BP 108/72 12/02/18 15:30 Pulse Ox 92 L 12/02/18 15:30 Intake & Output 12/01/18 12/02/18 12/02/18 18:59 06:59 18:59 Intake Total 100 100 220 Output Total 25 2000 Balance 75 100 -1780 Weight 120.5 kg Intake: IV 220 0.9 20 Calcium Gluconate 1 gm In 100 Sodium Chloride 0.9% 100 ml @ 100 mls/hr IVPB ONCE ONE Rx#:[id number] Cefepime 2 gm In Sodium 100 Chloride 0.9% 100 ml @ 200 mls/hr IVPB DAILY [facility] Rx#:[id number] Intake, IV Titration 100 100 Amount Furosemide 100 mg In 100 100 Sodium Chloride 0.9% 90 ml @ 10 MG/HR 10 mls/hr IV .Q10H [facility] Rx#: [id number] Output: Urine 25 0 Hemodialysis 2000 Other: Voiding Method Indwelling Catheter Indwelling Catheter Indwelling Catheter - Exam Physical exam revealed a 68-year-old white male calm and comfortable and seems to much more comfortable compared to earlier this morning as the patient got dialyzed on emergent basis. He is currently on 2 L of oxygen by nasal cannula. No signs of any respiratory distress on today's evaluation this afternoon. Head exam was generally normal. There was no scleral icterus or corneal arcus. Mucous membranes were moist. HEENT: Anicteric sclerae, pink and moist conjunctivae. Extraocular movements intact, pupils are reactive to light they are round and equal. External inspection of ears and nose showed normal mucosa. Oral mucosa, soft and hard palate tongue and posterior pharynx are intact. Neck: Supple no neck masses, no JVD, no thyroid enlargement, no adenopathy. Lungs: Symmetrical expansion ,Crackles at the bases especially at the left base, some wheezing on forced expiratory maneuver only. Overall air entry is markedly diminished in lung bases bilaterally CVS: Regular rate and rhythm, normal S1 and S2, no gallops, no murmur, no rubs. Abdomen: Soft, nontender, no megaly, no rebound, no guarding, positive bowel tevin nds., The patient is morbidly obese and orders cannot be Extremities: No clubbing, No edema, no cyanosis, Diminished distal pulses in lower extremities bilaterally.Superficial ulcerations and venous stasis changes noted. Musculoskeletal: Muscle strength and tone normal. Neurologic: Alert and oriented 3, normal affect, no focal neurologic deficits. Psychiatric: Normal mood, affect and mental status examination. - Labs CBC & Chem 7: 12/02/18 07:18 12/02/18 07:18 Labs: Abnormal Lab Results - Last 24 Hours (Table) 12/01/18 12/01/18 12/01/18 Range/Units 16:48 18:10 20:56 WBC (3.8-10.6) k/uL RBC (4.30-5.90) m/uL Hgb (13.0-17.5) gm/dL Hct (39.0-53.0) % MCHC (31.0-37.0) g/dL RDW (11.5-15.5) % ABG pH (7.35-7.45) ABG pCO2 (35-45) mmHg ABG pO2 (83-108) mmHg ABG HCO3 (21-25) mmol/L ABG Total CO2 (19-24) mmol/L ABG O2 Saturation (94-97) % Sodium (137-145) mmol/L Potassium 5.7 H (3.5-5.1) mmol/L Chloride (98-107) mmol/L Carbon Dioxide (22-30) mmol/L BUN (9-20) mg/dL Creatinine (0.66-1.25) mg/dL Glucose (74-99) mg/dL POC Glucose (mg/dL) 248 H 197 H (75-99) mg/dL 12/02/18 12/02/18 12/02/18 Range/Units 06:26 07:18 07:18 WBC 11.9 H (3.8-10.6) k/uL RBC 3.51 L (4.30-5.90) m/uL Hgb 9.3 L (13.0-17.5) gm/dL Hct 32.7 L (39.0-53.0) % MCHC 28.3 L (31.0-37.0) g/dL RDW 16.7 H (11.5-15.5) % ABG pH (7.35-7.45) ABG pCO2 (35-45) mmHg ABG pO2 (83-108) mmHg ABG HCO3 (21-25) mmol/L ABG Total CO2 (19-24) mmol/L ABG O2 Saturation (94-97) % Sodium 133 L (137-145) mmol/L Potassium 6.2 H* (3.5-5.1) mmol/L Chloride 93 L (98-107) mmol/L Carbon Dioxide 21 L (22-30) mmol/L BUN 142 H* (9-20) mg/dL Creatinine 6.86 H (0.66-1.25) mg/dL Glucose 222 H (74-99) mg/dL POC Glucose (mg/dL) 310 H (75-99) mg/dL 12/02/18 12/02/18 12/02/18 Range/Units 07:20 07:32 07:48 WBC (3.8-10.6) k/uL RBC (4.30-5.90) m/uL Hgb (13.0-17.5) gm/dL Hct (39.0-53.0) % MCHC (31.0-37.0) g/dL RDW (11.5-15.5) % ABG pH 7.15 L* (7.35-7.45) ABG pCO2 71 H* (35-45) mmHg ABG pO2 61 L (83-108) mmHg ABG HCO3 (21-25) mmol/L ABG Total CO2 27 H (19-24) mmol/L ABG O2 Saturation 86.0 L (94-97) % Sodium (137-145) mmol/L Potassium (3.5-5.1) mmol/L Chloride (98-107) mmol/L Carbon Dioxide (22-30) mmol/L BUN (9-20) mg/dL Creatinine (0.66-1.25) mg/dL Glucose (74-99) mg/dL POC Glucose (mg/dL) 231 H 286 H (75-99) mg/dL 12/02/18 12/02/18 Range/Units 10:50 12:49 WBC (3.8-10.6) k/uL RBC (4.30-5.90) m/uL Hgb (13.0-17.5) gm/dL Hct (39.0-53.0) % MCHC (31.0-37.0) g/dL RDW (11.5-15.5) % ABG pH 7.19 L* (7.35-7.45) ABG pCO2 68 H (35-45) mmHg ABG pO2 72 L (83-108) mmHg ABG HCO3 26 H (21-25) mmol/L ABG Total CO2 28 H (19-24) mmol/L ABG O2 Saturation 91.9 L (94-97) % Sodium (137-145) mmol/L Potassium (3.5-5.1) mmol/L Chloride (98-107) mmol/L Carbon Dioxide (22-30) mmol/L BUN (9-20) mg/dL Creatinine (0.66-1.25) mg/dL Glucose (74-99) mg/dL POC Glucose (mg/dL) 183 H (75-99) mg/dL Microbiology - Last 24 Hours (Table) 11/29/18 17:56 Blood Culture - Preliminary Blood No Growth after 48 hours Assessment and Plan Plan: 1 acute on chronic hypoxic respiratory failure along with shortness of breath secondary to involving bilateral lower lobe pneumonia and possibly fluid overload/CHF . The patient developed an acute respiratory and metabolic acidosis and he got transferred to the intensive care unit where he was placed on BiPAP for respiratory support. He underwent the first session of hemodialysis and following that he was weaned down to 30s about 2 by nasal cannula. Chest x-ray still showing small lung volumes along with atelectatic changes and infiltrates in lung bases bilaterally. 2 CHF with diastolic heart failure 3 acute on top of chronic stage III kidney disease and the patient is currently an aortic and the patient was started on hemodialysis receiving first session he a temporary catheter that was inserted in the right femoral vein. 4 diabetes mellitus 5 chronic hypoxic respiratory failure maintained on oxygen 6 history of right hemidiaphragmatic paralysis requiring surgical repair 7 morbid obesity 8 diffuse arthritis 9 gout 10 Glucoma 11 hypertension 12 peripheral neuropathy Plan We intend to dialyze this patient again tomorrow. Continue supportive care. BiPAP overnight if needed. Otherwise oxygen 2 L per minute nasal cannula. Monitor urine output. Lasix drip has been discontinued. The findings on the case. Monitor the blood sugar and treat accordingly with sliding scale coverage. Control the blood pressure. May provide some dinner at a later stage as the patient seems to be much more comfortable. We'll keep him in ICU for now. Case was discussed with vascular surgery and nephrology. We'll make further recommendations based on his progress. This is a critically care evaluation. We'll continue to follow. Evaluation was done and morning 30 minutes. Time with Patient: Greater than 30
[2018-12-02] MEDS ORDERED: NALOXONE 0.4 MG/ML 1 ML VIAL IV PRN (16:24)
[2018-12-02 17:17] LABS: Glucose,Whole Blood 123 mg/dL (75-99)
[2018-12-02] MEDS: PANTOPRAZOLE 40 MG TABLET PO SCH (18:37)
[2018-12-02 18:52] LABS: Hepatitis B Surface AB- Quant 3.5 mIU/mL; Hepatitis B Surface Antibody Non-Reactive (Non-Reactive); Hepatitis B Surface Antigen Non-Reactive (Non-Reactive)
[2018-12-02] MEDS: ATORVASTATIN 40 MG TAB PO SCH (20:41)
[2018-12-02] MEDS: ASPIRIN 81 MG PO SCH (20:41)
[2018-12-02 20:50] LABS: Glucose,Whole Blood 125 mg/dL (75-99)
--- NOTE | 2018-12-02 22:10 | P.PN ---
Progress Note - Text Progress Note Date: 12/02/18 Interval history: This is a 68-year-old patient of Dr. bonilla from [place] whose chronic st able medical conditions include primary osteoarthritis, chronic kidney dysfunction uses a walker, diabetes mellitus on insulin, GERD, essential hypertension, diabetic peripheral neuropathy, chronic kidney disease stage III, chronic hypoxic respiratory failure. Presented with increasing shortness of breath, Center by Dr. rossi for possible pneumonia. Patient has been bringing up yellow-green sputum. Also very short of breath and wheezing. Distended abdomen increasing edema. Started on IV antibiotics. Admitted with pneumonia, CHF exacerbation, COPD exacerbation. On November 30 was put on a Lasix drip. Kidney function was worsening. Today-earlier today renal function was worsening. Patient should remain hyperkalemic. Becoming more acidotic. Patient was transferred to the ICU. Right groin hemodialysis catheter was placed by Dr. Hu. Nephrology did carry acute hemodialysis. Patient rather weak and tired. Review of systems: Was done for constitutional, cardiovascular, GI, pulmonary. relevant finding as above Physical examination: VITAL SIGNS: Afebrile, 80, 20, 106/60, 92% on 4 L GENERAL: Propped up in bed, lethargic but arousable EYES: Pupils equal. Conjunctiva normal. HEENT: External appearance of nose and ears normal, oral cavity grossly normal. NECK: JVD unable to assess, no masses palpable HEART: First and second heart sounds are normal; edema present. LUNGS: Respiratory rate increased, not able to speak in full sentences, excessive muscle walking, diminished breath sounds prolonged expiration. ABDOMEN: Soft, distended, nontender, liver spleen not palpable, no masses palpable. Fem-stop in the right groin over the hemodialysis catheter PSYCH: Lethargic but arousable. INVESTIGATIONS, reviewed in the clinical context: White count 11.9 hemoglobin 9.3bicarb of 25 potassium 6.2 bun 142 creatinine 6.86 Previous testing: White count 6.5 hemoglobin 9.3 potassium 4.4 bun 113 creatine 4.15 Glucose 258 EKG tracing personally reviewed by me-right bundle-branch block Chest x-ray film personally reviewed by me-possibly fluid overload and infiltrate 2-D echocardiogram-shows EF of 40-45%, severe concentric left ventricular hypertrophy, moderate aortic stenosis Assessment: -Pneumonia, suspect gram-negative organism, slow to respond -Acute on chronic congestive heart failure exacerbation from systolic and diastolic dysfunction EF 40-45%, slow to respond -Hypertensive heart disease -Acute COPD exacerbation in an ex-smoker, slow to respond -Primary osteoarthritis -Chronic gait dysfunction uses a walker -Diabetes mellitus type 2, uncontrolled with hypoglycemia, chronically on insulin -GERD -Essential hypertension -Diabetic peripheral neuropathy -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 Right groin hematemesis. Did get a first round of hemodialysis. Patient also tired. Being followed by other consultants.. Prognosis guarded. The ICU.
[2018-12-03] MEDS: HEPARIN SODIUM,PORCINE 5,000 UNIT/ML 1 ML VIAL SQ SCH ×3 (02:04→19:45)
[2018-12-03 05:02] LABS: Anisocytosis Slight; Basophils # (A) 0.2 k/uL (0-0.2); Basophils % (A) 2 %; Eosinophils % (A) 0 %; HCT 28.2 % (39.0-53.0); HGB 8.4 gm/dL (13.0-17.5); Hypochromasia Marked; Lymphocytes # (A) 0.4 k/uL (1.0-4.8); Lymphocytes % (A) 3 %; MCH 26.3 pg (25.0-35.0); MCHC 29.6 g/dL (31.0-37.0); Mean Platelet Volume 10.3; Monocytes # (A) 1.1 k/uL (0-1.0); Monocytes % (A) 9 %; Neutrophils # (A) 10.4 k/uL (1.3-7.7); Neutrophils % (A) 85 %; Platelet Count 168 k/uL (150-450); RBC 3.17 m/uL (4.30-5.90); RDW 16.9 % (11.5-15.5); WBC 12.3 k/uL (3.8-10.6)
[2018-12-03 05:11] LABS: Calcium 8.6 mg/dL (8.4-10.2)
[2018-12-03 05:47] LABS: Potassium 6.2 mmol/L (3.5-5.1)
--- NOTE | 2018-12-03 06:18 | XR ---
EXAMINATION TYPE: XR chest 1V DATE OF EXAM: 12/03/2018 HISTORY: shortness of breath. REFERENCE: Previous study dated 12/02/2018. FINDINGS: A left subclavian catheter is in place. Its tip is at the cavoatrial junction. Heart size upper limits of normal. There is bibasilar airspace disease. There are small, bilateral ef fusions. There is vascular congestion and mild edema. IMPRESSION: CONTINUING CHANGES OF CONGESTIVE HEART FAILURE.
[2018-12-03] MEDS: IPRATROPIUM-ALBUTEROL 3 ML NEB INHALATION SCH ×4 (07:23→19:49)
[2018-12-03 07:28] LABS: Glucose,Whole Blood 147 mg/dL (75-99)
[2018-12-03] MEDS: TAMSULOSIN 0.4 MG CAP.ER.24H PO SCH (08:53)
[2018-12-03] MEDS: FERROUS SULFATE 325 MG TAB PO SCH ×2 (08:53→20:49)
[2018-12-03] MEDS: GABAPENTIN 300 MG CAP PO SCH ×2 (08:53→20:49)
[2018-12-03] MEDS: INSULIN ASPART (NovoLOG) 100 UNIT/ML VIAL SQ SCH ×4 (08:56→20:49)
[2018-12-03] MEDS: INSULN ASP PRT/INSULIN ASPART 100 UNIT/ML 10 ML VIAL SQ SCH ×3 (08:56→19:43)
[2018-12-03] MEDS: CARVEDILOL 3.125 MG TAB PO SCH ×2 (08:56→19:45)
[2018-12-03] MEDS: CEFEPIME 1 GM in SODIUM CHLORIDE 0.9% 50 ML IVPB SCH (08:56)
--- NOTE | 2018-12-03 09:38 | P.PN ---
Subjective Progress Note Date: 12/03/18 Seen and examined for the follow-up off acute kidney injury on hemodialysis. Had 1 session of dialysis yesterday. Still oliguric. Electrolytes are abnormal and he still has difficulty breathing. No nausea vomiting. He is thinking about stopping medical treatment. Objective - Vital Signs Vital signs: Vital Signs Temp 97.1 F L 12/03/18 08:00 Pulse 69 12/03/18 08:00 Resp 14 12/03/18 08:00 BP 109/63 12/03/18 08:00 Pulse Ox 95 12/03/18 08:00 Intake & Output 12/02/18 12/03/18 12/03/18 18:59 06:59 18:59 Intake Total 230 105 5 Output Total 2030 106 25 Balance -1799 Weight 141.3 kg Intake: IV 230 55 5 0.9 30 55 5 Calcium Gluconate 1 gm In 100 Sodium Chloride 0.9% 100 ml @ 100 mls/hr IVPB ONCE ONE Rx#:[id number] Cefepime 2 gm In Sodium 100 Chloride 0.9% 100 ml @ 200 mls/hr IVPB DAILY [facility] Rx#:[id number] Oral 50 Output: Urine 30 106 25 Hemodialysis 1999 Other: Voiding Method Indwelling Catheter Indwelling Catheter - Exam No acute distress S1-S2 heard decreased breath sounds Edema - Labs CBC & Chem 7: 12/03/18 04:53 12/03/18 04:53 Labs: Abnormal Lab Results - Last 24 Hours (Table) 12/02/18 12/02/18 12/02/18 Range/Units 10:50 12:49 17:05 WBC (3.8-10.6) k/uL RBC (4.30-5.90) m/uL Hgb (13.0-17.5) gm/dL Hct (39.0-53.0) % MCHC (31.0-37.0) g/dL RDW (11.5-15.5) % Neutrophils # (1.3-7.7) k/uL Lymphocytes # (1.0-4.8) k/uL Monocytes # (0-1.0) k/uL ABG pH 7.19 L* (7.35-7.45) ABG pCO2 68 H (35-45) mmHg ABG pO2 72 L (83-108) mmHg ABG HCO3 26 H (21-25) mmol/L ABG Total CO2 28 H (19-24) mmol/L ABG O2 Saturation 91.9 L (94-97) % Sodium (137-145) mmol/L Potassium (3.5-5.1) mmol/L Chloride (98-107) mmol/L BUN (9-20) mg/dL Creatinine (0.66-1.25) mg/dL Glucose (74-99) mg/dL POC Glucose (mg/dL) 183 H 123 H (75-99) mg/dL 12/02/18 12/03/18 12/03/18 Range/Units 20:39 04:53 04:53 WBC 12.3 H (3.8-10.6) k/uL RBC 3.17 L (4.30-5.90) m/uL Hgb 8.4 L (13.0-17.5) gm/dL Hct 28.2 L (39.0-53.0) % MCHC 29.6 L (31.0-37.0) g/dL RDW 16.9 H (11.5-15.5) % Neutrophils # 10.4 H (1.3-7.7) k/uL Lymphocytes # 0.4 L (1.0-4.8) k/uL Monocytes # 1.1 H (0-1.0) k/uL ABG pH (7.35-7.45) ABG pCO2 (35-45) mmHg ABG pO2 (83-108) mmHg ABG HCO3 (21-25) mmol/L ABG Total CO2 (19-24) mmol/L ABG O2 Saturation (94-97) % Sodium 132 L (137-145) mmol/L Potassium 6.2 H* (3.5-5.1) mmol/L Chloride 93 L (98-107) mmol/L BUN 131 H* (9-20) mg/dL Creatinine 6.24 H (0.66-1.25) mg/dL Glucose 127 H (74-99) mg/dL POC Glucose (mg/dL) 125 H (75-99) mg/dL 12/03/18 Range/Units 06:57 WBC (3.8-10.6) k/uL RBC (4.30-5.90) m/uL Hgb (13.0-17.5) gm/dL Hct (39.0-53.0) % MCHC (31.0-37.0) g/dL RDW (11.5-15.5) % Neutrophils # (1.3-7.7) k/uL Lymphocytes # (1.0-4.8) k/uL Monocytes # (0-1.0) k/uL ABG pH (7.35-7.45) ABG pCO2 (35-45) mmHg ABG pO2 (83-108) mmHg ABG HCO3 (21-25) mmol/L ABG Total CO2 (19-24) mmol/L ABG O2 Saturation (94-97) % Sodium (137-145) mmol/L Potassium (3.5-5.1) mmol/L Chloride (98-107) mmol/L BUN (9-20) mg/dL Creatinine (0.66-1.25) mg/dL Glucose (74-99) mg/dL POC Glucose (mg/dL) 147 H (75-99) mg/dL Microbiology - Last 24 Hours (Table) 11/29/18 17:56 Blood Culture - Preliminary Blood No Growth after 72 hours Assessment and Plan Assessment: #1 oliguric acute kidney injury secondary to type I cardiorenal syndrome. Started on hemodialysis yesterday for volume overload and hyperkalemia. #2 hyperkalemia refractory to medical management currently on dialysis. #3 chronic kidney disease stage IV secondary to diabetic nephropathy with a baseline creatinine of 3.0-3.5 MG per DL. #4 volume overload. #5 acute on chronic systolic CHF with a EF of 40%. #6 hypertension with chronic kidney disease. Plan: #1 hemodialysis today and plan tomorrow. #2 medical management of hyperkalemia in between dialysis. #3 avoid nephrotoxic agents and hypotensive episodes. #4 explained to the patient in detail, to try dialysis over the weekend. If he still seems that after lowering his toxins and volume improvement, if he still feels unwell and doesn't want to continue dialysis, we will stop dialysis. Patient's RN was at the bedside during this conversation.
--- NOTE | 2018-12-03 10:01 | P.PN ---
Subjective Progress Note Date: 12/03/18 Morbidly obese 68-year-old here patient with known history of COPD and previous history of right hemidiaphragmatic paralysis requiring surgical repair mild addition to morbid obesity, diabetes mellitus, chronic stage III kidney disease, chronic hypoxic respiratory failure, hypertension. The patient's based on pulmonary function test shows an FEV1 of 5 2% of predicted in addition to a total lung capacity of 73% of predicted and diffusion capacity of 77% of predicted. This is based on the pulmonary function test as well as some back in 2015. The patient came in yesterday to Dr. Sheridan's office complaining of worsening shortness of breath. Apparently received antibiotics to the primary care and the patient received 2 rounds of antibiotics without any much relief. For that reason he came into Dr. Sheridan's office and he was admitted to the hospital for further evaluation. There is some limited infiltration lung bases bilaterally. The patient had at least 20 pounds weight gain and he had i ncreased lower extremity edema. On his blood work, the patient had developed an acute on top of his chronic kidney injury and his GFR was down to 50 with a creatinine of 3.8. He was started on IV Zosyn. He was started on IV Lasix. His proBNP level was elevated. No chest pain. Altered mentation. He has difficulty with mobility and gait. He has a congested cough. Unable to bring up much sputum. No chest pain. No pleurisy. No altered mentation. 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 The patient was becoming progressively more obtunded and short of breath and lethargic. He was not producing any urine output. The blood work from this morning were markedly abnormal. Woody being on Lasix. The patient was not producing any urine output. A blood gas was done that showed a pH of 7.15 with a pCO2 of 71 and pO2 of 61. The blood work from this morning showed a potassium level of 6.2 with a BUN of 142 and a creatinine of 6.8. The patient also had a anion gap of 19. Chest x-ray showed small lung volumes and atelectatic changes small effusion the lung bases. He had increased lower extremity edema. At this point, the patient got transferred to the intensive care unit and he was placed on BiPAP for respiratory support. Currently on a BiPAP pressure of 12/5 cm of water. Based on this, the patient got transferred to the intensive care unit. The patient had a triple lumen catheter inserted in the left subclavian. A dialysis catheter was inserted in the right femoral vein and the patient was started on hemodialysis. A total of 2 L of fluid was pulled off during the dialysis. Following that the patient was weaned off the BiPAP and he was placed on oxygen at 2 L per minute nasal cannu la. He seems to much more alert and communicating at this point in time. No significant urine output. No fever. No chills. No chest pain. He does have a hematoma formation in the right groin area the site of the puncture and we have a fem stop in the hematomas controllable at this point in time. The patient is on empiric antibiotic coverage with IV cefepime. The patient on DuoNeb nebulized treatments around the clock. Blood sugar is at 180 and the patient is currently septic. Insulin by serial coverage. Family has been updated on his condition. On today's evaluation of 12/03/2018, the patient is awake and alert. He is not very much happy with his condition. He is not happy with dialysis. A second dialysis session is being done today. The goal is to remove 2-3 L and he is going to use a 2K bath as the patient's potassium level is again elevated at 6.2. His chest x-ray still showing fluid overload most on the right. Is currently on oxygen at 12 L high flow and his pulse ox is 91%. No major edema lower extremities. No fever. No chills. He is off the BiPAP this morning and he uses overnight at the pressure of 12/5 cm of water and FiO2 of 40%. He has a subclavian triple-lumen catheter. His dialysis catheter is in the groin. No chest pain. He is moving all 4 extremities without any limitation. Objective - Vital Signs Vital signs: Vital Signs Temp 97.1 F L 12/03/18 08:00 Pulse 69 12/03/18 08:00 Resp 14 12/03/18 08:00 BP 109/63 12/03/18 08:00 Pulse Ox 95 12/03/18 08:00 Intake & Output 12/02/18 12/03/18 12/03/18 18:59 06:59 18:59 Intake Total 230 105 5 Output Total 2030 106 25 Balance -1799 Weight 141.3 kg Intake: IV 230 55 5 0.9 30 55 5 Calcium Gluconate 1 gm In 100 Sodium Chloride 0.9% 100 ml @ 100 mls/hr IVPB ONCE ONE Rx#:[id number] Cefepime 2 gm In Sodium 100 Chloride 0.9% 100 ml @ 200 mls/hr IVPB DAILY [facility] Rx#:[id number] Oral 50 Output: Urine 30 106 25 Hemodialysis 1999 Other: Voiding Method Indwelling Catheter Indwelling Catheter - Exam Physical exam revealed a 68-year-old white male calm and comfortable and seems to much more comfortable compared to earlier this morning as the patient got dialyzed on emergent basis. He is currently on 12 L of oxygen by nasal cannula. No signs of any respiratory distress on today's evaluation this afternoon. Head exam was generally normal. There was no scleral icterus or corneal arcus. Mucous membranes were moist. HEENT: Anicteric sclerae, pink and moist conjunctivae. Extraocular movements intact, pupils are reactive to light they are round and equal. External inspection of ears and nose showed normal mucosa. Oral mucosa, soft and hard palate tongue and posterior pharynx are intact. Neck: Supple no neck masses, no JVD, no thyroid enlargement, no adenopathy. Lungs: Symmetrical expansion ,Crackles at the bases especially at the left base, some wheezing on forced expiratory maneuver only. Overall air entry is markedly diminished in lung bases bilaterally CVS: Regular rate and rhythm, normal S1 and S2, no gallops, no murmur, no rubs. Abdomen: Soft, nontender, no megaly, no rebound, no guarding, positive bowel sounds., The patient is morbidly obese and orders cannot be Extremities: No clubbing, No edema, no cyanosis, Diminished distal pulses in lower extremities bilaterally.Superficial ulcerations and venous stasis changes noted. Musculoskeletal: Muscle strength and tone normal. Neurologic: Alert and oriented 3, normal affect, no focal neurologic deficits. Psychiatric: Normal mood, affect and mental status examination. - Labs CBC & Chem 7: 12/03/18 04:53 12/03/18 04:53 Labs: Abnormal Lab Results - Last 24 Hours (Table) 12/02/18 12/02/18 12/02/18 Range/Units 10:50 12:49 17:05 WBC (3.8-10.6) k/uL RBC (4.30-5.90) m/uL Hgb (13.0-17.5) gm/dL Hct (39.0-53.0) % MCHC (31.0-37.0) g/dL RDW (11.5-15.5) % Neutrophils # (1.3-7.7) k/uL Lymphocytes # (1.0-4.8) k/uL Monocytes # (0-1.0) k/uL ABG pH 7.19 L* (7.35-7.45) ABG pCO2 68 H (35-45) mmHg ABG pO2 72 L (83-108) mmHg ABG HCO3 26 H (21-25) mmol/L ABG Total CO2 28 H (19-24) mmol/L ABG O2 Saturation 91.9 L (94-97) % Sodium (137-145) mmol/L Potassium (3.5-5.1) mmol/L Chloride (98-107) mmol/L BUN (9-20) mg/dL Creatinine (0.66-1.25) mg/dL Glucose (74-99) mg/dL POC Glucose (mg/dL) 183 H 123 H (75-99) mg/dL 12/02/18 12/03/18 12/03/18 Range/Units 20:39 04:53 04:53 WBC 12.3 H (3.8-10.6) k/uL RBC 3.17 L (4.30-5.90) m/uL Hgb 8.4 L (13.0-17.5) gm/dL Hct 28.2 L (39.0-53.0) % MCHC 29.6 L (31.0-37.0) g/dL RDW 16.9 H (11.5-15.5) % Neutrophils # 10.4 H (1.3-7.7) k/uL Lymphocytes # 0.4 L (1.0-4.8) k/uL Monocytes # 1.1 H (0-1.0) k/uL ABG pH (7.35-7.45) ABG pCO2 (35-45) mmHg ABG pO2 (83-108) mmHg ABG HCO3 (21-25) mmol/L ABG Total CO2 (19-24) mmol/L ABG O2 Saturation (94-97) % Sodium 132 L (137-145) mmol/L Potassium 6.2 H* (3.5-5.1) mmol/L Chloride 93 L (98-107) mmol/L BUN 131 H* (9-20) mg/dL Creatinine 6.24 H (0.66-1.25) mg/dL Glucose 127 H (74-99) mg/dL POC Glucose (mg/dL) 125 H (75-99) mg/dL 12/03/18 Range/Units 06:57 WBC (3.8-10.6) k/uL RBC (4.30-5.90) m/uL Hgb (13.0-17.5) gm/dL Hct (39.0-53.0) % MCHC (31.0-37.0) g/dL RDW (11.5-15.5) % Neutrophils # (1.3-7.7) k/uL Lymphocytes # (1.0-4.8) k/uL Monocytes # (0-1.0) k/uL ABG pH (7.35-7.45) ABG pCO2 (35-45) mmHg ABG pO2 (83-108) mmHg ABG HCO3 (21-25) mmol/L ABG Total CO2 (19-24) mmol/L ABG O2 Saturation (94-97) % Sodium (137-145) mmol/L Potassium (3.5-5.1) mmol/L Chloride (98-107) mmol/L BUN (9-20) mg/dL Creatinine (0.66-1.25) mg/dL Glucose (74-99) mg/dL POC Glucose (mg/dL) 147 H (75-99) mg/dL Microbiology - Last 24 Hours (Table) 11/29/18 17:56 Blood Culture - Preliminary Blood No Growth after 72 hours Assessment and Plan Plan: 1 acute on chronic hypoxic respiratory failure along with shortness of breath secondary to involving bilateral lower lobe pneumonia and possibly fluid overload/CHF . The patient developed an acute respiratory and metabolic acidosis and he got transferred to the intensive care unit where he was placed on BiPAP for respiratory support. He underwent the first session of hemodialysis yesterday and he is having a second session today with a goal of all of 2-3 L. 2 CHF with diastolic heart failure 3 acute on top of chronic stage III kidney disease and the patient is currently an aortic and the patient was started on hemodialysis receiving first session he a temporary catheter that was inserted in the right femoral vein. He underwent dialysis today and second session will be done today. Potassium level is elevated and will monitor the 11th after the dialysis. 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 The second session will be done today. Mammography department potassium level. We'll monitor the potassium level. We'll wean down the FiO2 as tolerated to maintain a saturation above 90%. The nephrology is on the case. We'll continue to follow. The patient will be kept in ICU for now. Repeat chest x-ray in the morning. We'll continue to follow.
[2018-12-03 12:29] LABS: Glucose,Whole Blood 94 mg/dL (75-99)
--- NOTE | 2018-12-03 12:38 | P.PN ---
Subjective Progress Note Date: 12/03/18 Patient is evaluated today in follow-up care proximally one day status post placement of a non-tunneled urinalysis catheter placed via the right femoral vein approach. The patient is much more awake alert today than yesterday at time of original exam. He is currently undergoing dialysis and dialysis farrah hnician indicates there are no issues with the catheter flow. The right groin area is stable. There is no pulsatile mass or other sign or symptom of pseudoaneurysm or other significant issue. Because the patient's pannus I've asked nursing to place Inter-dry to the right groin area to help wick away any moisture. Please notify us should the need for a tunneled he med dialysis catheter occur for scheduling of placement. Objective - Vital Signs Vital signs: Vital Signs Temp 97.1 F L 12/03/18 08:00 Pulse 72 12/03/18 12:28 Resp 14 12/03/18 08:00 BP 109/63 12/03/18 08:00 Pulse Ox 95 12/03/18 08:00 Intake & Output 12/02/18 12/03/18 12/03/18 18:59 06:59 18:59 Intake Total 230 105 5 Output Total 2030 106 25 Balance -1800 - -20 Weight 141.3 kg Intake: IV 230 55 5 0.9 30 55 5 Calcium Gluconate 1 gm In 100 Sodium Chloride 0.9% 100 ml @ 100 mls/hr IVPB ONCE ONE Rx#:[id number] Cefepime 2 gm In Sodium 100 Chloride 0.9% 100 ml @ 200 mls/hr IVPB DAILY [facility] Rx#:[id number] Oral 50 Output: Urine 30 106 25 Hemodialysis 2000 Other: Voiding Method Indwelling Catheter Indwelling Catheter - Labs CBC & Chem 7: 12/03/18 04:53 12/03/18 04:53 Labs: Abnormal Lab Results - Last 24 Hours (Table) 12/02/18 12/02/18 12/02/18 Range/Units 12:49 17:05 20:39 WBC (3.8-10.6) k/uL RBC (4.30-5.90) m/uL Hgb (13.0-17.5) gm/dL Hct (39.0-53.0) % MCHC (31.0-37.0) g/dL RDW (11.5-15.5) % Neutrophils # (1.3-7.7) k/uL Lymphocytes # (1.0-4.8) k/uL Monocytes # (0-1.0) k/uL Sodium (137-145) mmol/L Potassium (3.5-5.1) mmol/L Chloride (98-107) mmol/L BUN (9-20) mg/dL Creatinine (0.66-1.25) mg/dL Glucose (74-99) mg/dL POC Glucose (mg/dL) 183 H 123 H 125 H (75-99) mg/dL 12/03/18 12/03/18 12/03/18 Range/Units 04:53 04:53 06:57 WBC 12.3 H (3.8-10.6) k/uL RBC 3.17 L (4.30-5.90) m/uL Hgb 8.4 L (13.0-17.5) gm/dL Hct 28.2 L (39.0-53.0) % MCHC 29.6 L (31.0-37.0) g/dL RDW 16.9 H (11.5-15.5) % Neutrophils # 10.4 H (1.3-7.7) k/uL Lymphocytes # 0.4 L (1.0-4.8) k/uL Monocytes # 1.1 H (0-1.0) k/uL Sodium 132 L (137-145) mmol/L Potassium 6.2 H* (3.5-5.1) mmol/L Chloride 93 L (98-107) mmol/L BUN 131 H* (9-20) mg/dL Creatinine 6.24 H (0.66-1.25) mg/dL Glucose 127 H (74-99) mg/dL POC Glucose (mg/dL) 147 H (75-99) mg/dL Microbiology - Last 24 Hours (Table) 11/29/18 17:56 Blood Culture - Preliminary Blood No Growth after 72 hours
[2018-12-03] MEDS: amLODIPine 10 MG TAB PO SCH (13:59)
[2018-12-03] MEDS: LORATADINE 10 MG TAB PO SCH (14:01)
[2018-12-03] MEDS: HYDROcodone/APAP 7.5-325MG 1 EACH TAB PO PRN (14:56)
--- NOTE | 2018-12-03 16:12 | P.PN ---
Subjective This is Nancy Solorzano PA-C dictating a progress note on this patient The patient was interviewed and examined by me as well as by Dr. Dominique Case discussed with Dr. Dominique and he agrees with the plan of care IMPRESSION / ASSESSMENT: Acute on chronic hypoxic respiratory failure requiring BiPAP, likely secondary to combination of COPD, fluid overload, chronic diaphragmatic paralysis, and CHF, breathing seems to be improving, has been taken off BiPAP Acute combined systolic and diastolic heart failure, EF 40-45% VINNIE on CKD, currently on hemodialysis Hypertension, blood pressure well controlled Chronic right diaphragmatic paralysis COPD on home oxygen Hyperkalemia, on dialysis PLAN: Continue aspirin and statin and beta blockers, Slowly maximize medical management of cardiomyopathy as tolerated Patient will need a coronary angiogram once his kidneys and breathing are stabilized HPI/interval history Patient is a 68-year-old male with a past medical history is significant for COPD, hypertension, diabetes, kidney disease and diaphragmatic paralysis who presented with complaints of worsening shortness of breath. He was found to be an VINNIE. Chest x-ray showed small pleural effusions and possible infiltrate. He was started on Lasix and antibiotics. Echocardiogram showed LV systolic function mild to moderately impaired, EF 40-45%, apex hypokinetic, severe concentric LVH. His BUN and creatinine continued to rise and he became hyperkalemic so he was started on dialysis. He developed worsening respiratory failure requiring BiPAP and was transferred to the ICU. Patient seen and examined sitting up in bed. He is off the BiPAP and on only nasal cannula. States his breathing has improved. Denies any chest pain. He will be getting dialysis again today. EXAMINATION Temperature 97.8F, pulse 82, respirations 15, blood pressure 107/57, oxygen saturation 95% on 12 L nasal cannula Patient seen and examined resting in bed, in no acute distress Lungs diminished bilaterally Heart sounds are soft, regular, very soft systolic murmur No elevated JVD appreciated Mild lower extremity edema bilaterally REVIEW OF LABS, ECG WBC 12.3, hemoglobin 8.4, platelets 168, potassium 6.2, BUN 131, creatinine 6.24 Objective - Vital Signs Vital signs: Vital Signs Temp 97.8 F 12/03/18 13:45 Pulse 75 12/03/18 14:00 Resp 15 12/03/18 14:00 BP 107/57 12/03/18 14:00 Pulse Ox 93 L 12/03/18 14:00 Intake & Output 12/02/18 12/03/18 12/03/18 18:59 06:59 18:59 Intake Total 230 105 435 Output Total 2030 106 3500 Balance -1799 Weight 141.3 kg Intake: IV 230 55 35 0.9 30 55 35 Calcium Gluconate 1 gm In 100 Sodium Chloride 0.9% 100 ml @ 100 mls/hr IVPB ONCE ONE Rx#:[id number] Cefepime 2 gm In Sodium 100 Chloride 0.9% 100 ml @ 200 mls/hr IVPB DAILY [facility] Rx#:[id number] Oral 50 Hemodialysis 400 Output: Urine 30 106 100 Hemodialysis 2000 3400 Other: Voiding Method Indwelling Catheter Indwelling Catheter - Labs CBC & Chem 7: 12/03/18 04:53 12/03/18 04:53 Labs: Abnormal Lab Results - Last 24 Hours (Table) 12/02/18 12/02/18 12/03/18 Range/Units 17:05 20:39 04:53 WBC 12.3 H (3.8-10.6) k/uL RBC 3.17 L (4.30-5.90) m/uL Hgb 8.4 L (13.0-17.5) gm/dL Hct 28.2 L (39.0-53.0) % MCHC 29.6 L (31.0-37.0) g/dL RDW 16.9 H (11.5-15.5) % Neutrophils # 10.4 H (1.3-7.7) k/uL Lymphocytes # 0.4 L (1.0-4.8) k/uL Monocytes # 1.1 H (0-1.0) k/uL Sodium (137-145) mmol/L Potassium (3.5-5.1) mmol/L Chloride (98-107) mmol/L BUN (9-20) mg/dL Creatinine (0.66-1.25) mg/dL Glucose (74-99) mg/dL POC Glucose (mg/dL) 123 H 125 H (75-99) mg/dL 12/03/18 12/03/18 Range/Units 04:53 06:57 WBC (3.8-10.6) k/uL RBC (4.30-5.90) m/uL Hgb (13.0-17.5) gm/dL Hct (39.0-53.0) % MCHC (31.0-37.0) g/dL RDW (11.5-15.5) % Neutrophils # (1.3-7.7) k/uL Lymphocytes # (1.0-4.8) k/uL Monocytes # (0-1.0) k/uL Sodium 132 L (137-145) mmol/L Potassium 6.2 H* (3.5-5.1) mmol/L Chloride 93 L (98-107) mmol/L BUN 131 H* (9-20) mg/dL Creatinine 6.24 H (0.66-1.25) mg/dL Glucose 127 H (74-99) mg/dL POC Glucose (mg/dL) 147 H (75-99) mg/dL Microbiology - Last 24 Hours (Table) 11/29/18 17:56 Blood Culture - Preliminary Blood No Growth after 72 hours
--- NOTE | 2018-12-03 17:00 | P.PN ---
Progress Note - Text Progress Note Date: 12/03/18 Interval history: This is a 68-year-old patient of Dr. bonilla from [place] whose chronic st able medical conditions include primary osteoarthritis, chronic kidney dysfunction uses a walker, diabetes mellitus on insulin, GERD, essential hypertension, diabetic peripheral neuropathy, chronic kidney disease stage III, chronic hypoxic respiratory failure. Presented with increasing shortness of breath, Center by Dr. rossi for possible pneumonia. Patient has been bringing up yellow-green sputum. Also very short of breath and wheezing. Distended abdomen increasing edema. Started on IV antibiotics. Admitted with pneumonia, CHF exacerbation, COPD exacerbation. On November 30 was put on a Lasix drip. Kidney function was worsening. On December 02, moved to ICU and hemodialysis catheter was placed. And hemodialysis was started. Today-to the ICU. Getting dialyzed today. About 3 L removed. Tired. Did spend rundown. Breathing is a bit better. Did require BiPAP overnight. Edema is gone down.. Review of systems: Was done for constitutional, cardiovascular, GI, pulmonary. relevant finding as above Active Medications Hydrocodone Bitart/Acetaminophen ([place] 7.5-325) 1 each PO Q8H PRN PRN Reason: Pain Last Admin: 12/03/18 14:56 Dose: 1 each Documented by: Albuterol/Ipratropium (Duoneb 0.5 Mg-3 Mg/3 Ml Soln) 3 ml INHALATION RT-QID PRN PRN Reason: Shortness Of Breath Or Wheezing Albuterol/Ipratropium (Duoneb 0.5 Mg-3 Mg/3 Ml Soln) 3 ml INHALATION RT-QID [facility] Last Admin: 12/03/18 16:24 Dose: 3 ml Documented by: Amlodipine Besylate (Norvasc) 10 mg PO W/LUNCH [facility] Last Admin: 12/03/18 13:59 Dose: Not Given Documented by: Aspirin (Aspirin) 81 mg PO HS [facility] Last Admin: 12/02/18 20:41 Dose: 81 mg Documented by: Atorvastatin Calcium (Lipitor) 40 mg PO HS [facility] Last Admin: 12/02/18 20:41 Dose: 40 mg Documented by: Calcitriol (Rocaltrol) 0.25 mcg PO Q48H [facility] Last Admin: 12/02/18 09:15 Dose: Not Given Documented by: Carvedilol (Coreg) 3.125 mg PO BID-W/MEALS [facility] Last Admin: 12/03/18 08:56 Dose: 3.125 mg Documented by: Ferrous Sulfate (Feosol) 325 mg PO BID [facility] Last Admin: 12/03/18 08:53 Dose: 325 mg Documented by: Gabapentin (Neurontin) 300 mg PO BID [facility] Last Admin: 12/03/18 08:53 Dose: 300 mg Documented by: Heparin Sodium (Porcine) (Heparin) 5,000 unit SQ Q8HR [facility] Last Admin: 12/03/18 08:57 Dose: 5,000 unit Documented by: Cefepime HCl 1 gm/ Sodium (Chloride) 50 mls @ 100 mls/hr IVPB DAILY [facility] Last Admin: 12/03/18 08:56 Dose: 100 mls/hr Documented by: Insulin Aspart (Novolog) 0 unit SQ ACHS [facility]; Protocol Last Admin: 12/03/18 12:50 Dose: Not Given Documented by: Insulin Aspart (Novolog Mix 70-30 Vial) 20 unit SQ AC-BID [facility] Last Admin: 12/03/18 08:56 Dose: 20 unit Documented by: Insulin Aspart (Novolog Mix 70-30 Vial) 10 unit SQ AC-LUNCH [facility] Last Admin: 12/03/18 12:51 Dose: Not Given Documented by: Loratadine (Claritin) 10 mg PO W/LUNCH [facility] Last Admin: 12/03/18 14:01 Dose: 10 mg Documented by: Naloxone HCl (Narcan) 0.2 mg IV Q2M PRN PRN Reason: Opioid Reversal Finasteride 1 Mg 1 mg PO W/SUPPER [facility] Last Admin: 12/02/18 18:05 Dose: Not Given Documented by: Pantoprazole Sodium (Protonix) 40 mg PO W/SUPPER [facility] Last Admin: 12/02/18 18:37 Dose: 40 mg Documented by: Tamsulosin HCl (Flomax) 0.4 mg PO QAM [facility] Last Admin: 12/03/18 08:53 Dose: 0.4 mg Documented by: Physical examination: VITAL SIGNS: 97.8, 82, 16, 121/79, 95% on high flow oxygen GENERAL: Propped up in bed, lethargic EYES: Pupils equal. Conjunctiva normal. HEENT: External appearance of nose and ears normal, oral cavity grossly normal. NECK: JVD unable to assess, no masses palpable HEART: First and second heart sounds are normal; edema much improved. LUNGS: Respiratory rate increased, , diminished breath sounds prolonged expiration. ABDOMEN: Soft, distended, nontender, liver spleen not palpable, no masses palpable. Right groin hemodialysis catheter PSYCH: Tired but answering questions INVESTIGATIONS, reviewed in the clinical context: White count 12.3 hemoglobin 8.4 percussion 6.2 bun 131 creatinine 6.24 Chest x-ray report CHF findings Previous testing: White count 6.5 hemoglobin 9.3 potassium 4.4 bun 113 creatine 4.15 Glucose 258 EKG tracing personally reviewed by me-right bundle-branch block Chest x-ray film personally reviewed by me-possibly fluid overload and infiltrate 2-D echocardiogram-shows EF of 40-45%, severe concentric left ventricular hyp ertrophy, moderate aortic stenosis Assessment: -Pneumonia, suspect gram-negative organism, -Acute on chronic congestive heart failure exacerbation from systolic and diastolic dysfunction EF 40-45%, slow to respond -Hypertensive heart disease -Acute COPD exacerbation in an ex-smoker, slow to respond -Primary osteoarthritis -Chronic gait dysfunction uses a walker -Diabetes mellitus type 2, uncontrolled with hypoglycemia, chronically on insulin -GERD -Essential hypertension -Diabetic peripheral neuropathy -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 Prognosis remains guarded. Patient getting second hemodialysis today. Continue with antibiotics. Follows all the consultants. Remains in the ICU.
[2018-12-03 18:46] LABS: Glucose,Whole Blood 90 mg/dL (75-99)
[2018-12-03] MEDS: PANTOPRAZOLE 40 MG TABLET PO SCH (19:46)
[2018-12-03 20:48] LABS: Glucose,Whole Blood 92 mg/dL (75-99)
[2018-12-03] MEDS: ASPIRIN 81 MG PO SCH (20:49)
[2018-12-03] MEDS: ATORVASTATIN 40 MG TAB PO SCH (20:49)
[2018-12-04] MEDS: HEPARIN SODIUM,PORCINE 5,000 UNIT/ML 1 ML VIAL SQ SCH ×4 (00:15→23:45)
[2018-12-04 04:53] LABS: Anisocytosis Slight; Basophils # (A) 0.1 k/uL (0-0.2); Basophils % (A) 1 %; Eosinophils % (A) 0 %; HCT 25.1 % (39.0-53.0); HGB 7.8 gm/dL (13.0-17.5); Hypochromasia Marked; Lymphocytes # (A) 0.9 k/uL (1.0-4.8); Lymphocytes % (A) 7 %; MCH 27.3 pg (25.0-35.0); MCHC 31.2 g/dL (31.0-37.0); MCV 87.4 fL (80.0-100.0); Mean Platelet Volume 10.4; Monocytes # (A) 1.3 k/uL (0-1.0); Monocytes % (A) 10 %; Neutrophils # (A) 10.6 k/uL (1.3-7.7); Neutrophils % (A) 80 %; Platelet Count 125 k/uL (150-450); RBC 2.87 m/uL (4.30-5.90); RDW 16.5 % (11.5-15.5); WBC 13.3 k/uL (3.8-10.6)
[2018-12-04 05:07] LABS: Calcium 8.2 mg/dL (8.4-10.2); Potassium 5.7 mmol/L (3.5-5.1)
[2018-12-04 07:17] LABS: Glucose,Whole Blood 151 mg/dL (75-99)
[2018-12-04] MEDS: INSULN ASP PRT/INSULIN ASPART 100 UNIT/ML 10 ML VIAL SQ SCH ×3 (07:50→17:47)
[2018-12-04] MEDS: CALCITRIOL 0.25 MCG CAP PO SCH (07:53)
[2018-12-04] MEDS: TAMSULOSIN 0.4 MG CAP.ER.24H PO SCH (07:53)
[2018-12-04] MEDS: GABAPENTIN 300 MG CAP PO SCH ×2 (07:53→21:28)
[2018-12-04] MEDS: INSULIN ASPART (NovoLOG) 100 UNIT/ML VIAL SQ SCH ×4 (07:54→21:28)
[2018-12-04] MEDS: CARVEDILOL 3.125 MG TAB PO SCH ×2 (07:54→18:52)
[2018-12-04] MEDS: FERROUS SULFATE 325 MG TAB PO SCH ×2 (07:55→21:28)
[2018-12-04] MEDS: IPRATROPIUM-ALBUTEROL 3 ML NEB INHALATION SCH ×4 (08:03→21:11)
[2018-12-04 08:21] LABS: INR 1.1 (<1.2); Prothrombin Time 11.7 sec (9.0-12.0)
[2018-12-04] MEDS: CEFEPIME 1 GM in SODIUM CHLORIDE 0.9% 50 ML IVPB SCH (09:45)
[2018-12-04] MEDS ORDERED: DESMOPRESSIN ACETATE 28 MCG in SODIUM CHLORIDE 0.9% 50 ML IVPB ONE (10:04)
--- NOTE | 2018-12-04 10:09 | P.PN ---
Subjective Progress Note Date: 12/04/18 Seen and examined for the follow-up of acute kidney injury on hemodialysis. Started on dialysis on Wednesday and had treatment [id number] for the last 2 days and today is his third treatment. Tolerating dialysis well. Developed right groin hematoma around the catheter site. No nausea vomiting diarrhea. Still oliguric. Very minimally communicative today. Objective - Vital Signs Vital signs: Vital Signs Temp 97.6 F 12/04/18 07:00 Pulse 67 12/04/18 09:00 Resp 14 12/04/18 09:00 BP 113/58 12/04/18 09:00 Pulse Ox 96 12/04/18 09:00 Intake & Output 12/03/18 12/04/18 12/04/18 18:59 06:59 18:59 Intake Total 455 60 60 Output Total 6520 99 Balance -6065 -39 60 Weight 136.2 kg Intake: IV 55 60 10 0.9 55 60 10 Oral 50 Hemodialysis 400 Output: Urine 120 99 Hemodialysis 3400 Other 3000 Other: Voiding Method Indwelling Catheter Indwelling Catheter - Exam No acute distress S1-S2 heard decreased breath sounds Edema Right groin Gilson with hematoma. - Labs CBC & Chem 7: 12/04/18 04:40 12/04/18 04:40 Labs: Abnormal Lab Results - Last 24 Hours (Table) 12/04/18 12/04/18 12/04/18 Range/Units 04:40 04:40 07:05 WBC 13.3 H (3.8-10.6) k/uL RBC 2.87 L (4.30-5.90) m/uL Hgb 7.8 L (13.0-17.5) gm/dL Hct 25.1 L (39.0-53.0) % RDW 16.5 H (11.5-15.5) % Plt Count 125 L (150-450) k/uL Neutrophils # 10.6 H (1.3-7.7) k/uL Lymphocytes # 0.9 L (1.0-4.8) k/uL Monocytes # 1.3 H (0-1.0) k/uL Sodium 132 L (137-145) mmol/L Potassium 5.7 H (3.5-5.1) mmol/L Chloride 94 L (98-107) mmol/L BUN 106 H* (9-20) mg/dL Creatinine 5.56 H (0.66-1.25) mg/dL Glucose 121 H (74-99) mg/dL POC Glucose (mg/dL) 151 H (75-99) mg/dL Calcium 8.2 L (8.4-10.2) mg/dL Microbiology - Last 24 Hours (Table) 11/29/18 17:56 Blood Culture - Preliminary Blood No Growth after 96 hours Assessment and Plan Assessment: #1 oliguric acute kidney injury secondary to type I cardiorenal syndrome. Started on hemodialysis secondary to worsening renal function/hyperkalemia and volume overload. #2 hyperkalemia refractory to medical management currently on dialysis. #3 chronic kidney disease stage IV secondary to diabetic nephropathy with a baseline creatinine of 3.0-3.5 MG per DL. #4 volume overload. #5 acute on chronic systolic CHF with a EF of 40%. #6 hypertension with chronic kidney disease. Plan: #1 hemodialysis today and plan tomorrow. #2 avoid nephrotoxic agents and hypotensive episodes. #3 DDAVP for developing hematoma around the groin site.
--- NOTE | 2018-12-04 11:30 | P.PN ---
Subjective Progress Note Date: 12/04/18 Morbidly obese 68-year-old here patient with known history of COPD and previous history of right hemidiaphragmatic paralysis requiring surgical repair mild addition to morbid obesity, diabetes mellitus, chronic stage III kidney disease, chronic hypoxic respiratory failure, hypertension. The patient's based on pulmonary function test shows an FEV1 of 5 2% of predicted in addition to a total lung capacity of 73% of predicted and diffusion capacity of 77% of predicted. This is based on the pulmonary function test as well as some back in 2015. The patient came in yesterday to Dr. Sheridan's office complaining of worsening shortness of breath. Apparently received antibiotics to the primary care and the patient received 2 rounds of antibiotics without any much relief. For that reason he came into Dr. Sheridan's office and he was admitted to the hospital for further evaluation. There is some limited infiltration lung bases bilaterally. The patient had at least 20 pounds weight gain and he had i ncreased lower extremity edema. On his blood work, the patient had developed an acute on top of his chronic kidney injury and his GFR was down to 50 with a creatinine of 3.8. He was started on IV Zosyn. He was started on IV Lasix. His proBNP level was elevated. No chest pain. Altered mentation. He has difficulty with mobility and gait. He has a congested cough. Unable to bring up much sputum. No chest pain. No pleurisy. No altered mentation. On today's evaluation of 12/02/2018 the patient got transferred to the intensive care unit in the environmental programs manager hours. The patient was becoming progressively more obtunded and short of breath and lethargic. He was not producing any urine output. The blood work from this morning were markedly abnormal. Woody being on Lasix. The patient was not producing any urine output. A blood gas was done that showed a pH of 7.15 with a pCO2 of 71 and pO2 of 61. The blood work from this morning showed a potassium level of 6.2 with a BUN of 142 and a creatinine of 6.8. The patient also had a anion gap of 19. Chest x-ray showed small lung volumes and atelectatic changes small effusion the lung bases. He had increased lower extremity edema. At this point, the patient got transferred to the intensive care unit and he was placed on BiPAP for respiratory support. Currently on a BiPAP pressure of 12/5 cm of water. Based on this, the patient got transferred to the intensive care unit. The patient had a triple lumen catheter inserted in the left subclavian. A dialysis catheter was inserted in the right femoral vein and the patient was started on hemodialysis. A total of 2 L of fluid was pulled off during the dialysis. Following that the patient was weaned off the BiPAP and he was placed on oxygen at 2 L per minute nasal cannu la. He seems to much more alert and communicating at this point in time. No significant urine output. No fever. No chills. No chest pain. He does have a hematoma formation in the right groin area the site of the puncture and we have a fem stop in the hematomas controllable at this point in time. The patient is on empiric antibiotic coverage with IV cefepime. The patient on DuoNeb nebulized treatments around the clock. Blood sugar is at 180 and the patient is currently septic. Insulin by serial coverage. Family has been updated on his condition. On today's evaluation of 12/03/2018, the patient is awake and alert. He is not very much happy with his condition. He is not happy with dialysis. A second dialysis session is being done today. The goal is to remove 2-3 L and he is going to use a 2K bath as the patient's potassium level is again elevated at 6.2. His chest x-ray still showing fluid overload most on the right. Is currently on oxygen at 12 L high flow and his pulse ox is 91%. No major edema lower extremities. No fever. No chills. He is off the BiPAP this morning and he uses overnight at the pressure of 12/5 cm of water and FiO2 of 40%. He has a subclavian triple-lumen catheter. His dialysis catheter is in the groin. No chest pain. He is moving all 4 extremities without any limitation. Today's evaluation of 12/04/2018, the patient is somewhat depressed. He does not like the fact that he is going to be on dialysis on a chronic basis. He feels that this is likely a sentence. He underwent 2 sessions of hemodialysis, during yesterday's session a total of 3 L of fluid was removed and is currently undergoing another session of dialysis. He is awake and alert. No significant respiratory difficulties. In oxygen 10 L high flow. He is having difficulties in laying down flat. Note that yesterday she was on 12 L of oxygen. No altered mentation. No chest pain. He is having no cough or sputum production. Edema in general is improving. The sodium level is at 132. Potassium level from this morning was at 5.7 after having issues with hyperkalemia today before. Coagulation profile is within normal. Hemoglobin is at 7.8. Patient has a hematoma in his hemodialysis catheter site insertion. He'll be given DDAVP and his hemoglobin is down to 7.8. Objective - Vital Signs Vital signs: Vital Signs Temp 97.6 F 12/04/18 07:00 Pulse 67 12/04/18 09:00 Resp 14 12/04/18 09:00 BP 113/58 12/04/18 09:00 Pulse Ox 96 12/04/18 09:00 Intake & Output 12/03/18 12/04/18 12/04/18 18:59 06:59 18:59 Intake Total 455 60 60 Output Total 6520 99 Balance -6065 -39 60 Weight 136.2 kg Intake: IV 55 60 10 0.9 55 60 10 Oral 50 Hemodialysis 400 Output: Urine 120 99 Hemodialysis 3400 Other 3000 Other: Voiding Method Indwelling Catheter Indwelling Catheter Indwelling Catheter - Exam Physical exam revealed a 68-year-old white male calm and comfortable and seems to much more comfortable compared to earlier this morning as the patient got dialyzed on emergent basis. He is currently on 10 L of oxygen by nasal cannula. No signs of any respiratory distress on today's evaluation this afternoon. Head exam was generally normal. There was no scleral icterus or corneal arcus. Mucous membranes were moist. HEENT: Anicteric sclerae, pink and moist conjunctivae. Extraocular movements intact, pupils are reactive to light they are round and equal. External inspection of ears and nose showed normal mucosa. Oral mucosa, soft and hard palate tongue and posterior pharynx are intact. Neck: Supple no neck masses, no JVD, no thyroid enlargement, no adenopathy. Lungs: Symmetrical expansion ,Crackles at the bases especially at the left base, some wheezing on forced expiratory maneuver only. Overall air entry is markedly diminished in lung bases bilaterally CVS: Regular rate and rhythm, normal S1 and S2, no gallops, no murmur, no rubs. Abdomen: Soft, nontender, no megaly, no rebound, no guarding, positive bowel sounds., The patient is morbidly obese and orders cannot be Extremities: No clubbing, No edema, no cyanosis, Diminished distal pulses in lower extremities bilaterally.Superficial ulcerations and venous stasis changes noted. Musculoskeletal: Muscle strength and tone normal. Neurologic: Alert and oriented 3, normal affect, no focal neurologic deficits. Psychiatric: Normal mood, affect and mental status examination. - Labs CBC & Chem 7: 12/04/18 04:40 12/04/18 04:40 Labs: Abnormal Lab Results - Last 24 Hours (Table) 12/04/18 12/04/18 12/04/18 Range/Units 04:40 04:40 07:05 WBC 13.3 H (3.8-10.6) k/uL RBC 2.87 L (4.30-5.90) m/uL Hgb 7.8 L (13.0-17.5) gm/dL Hct 25.1 L (39.0-53.0) % RDW 16.5 H (11.5-15.5) % Plt Count 125 L (150-450) k/uL Neutrophils # 10.6 H (1.3-7.7) k/uL Lymphocytes # 0.9 L (1.0-4.8) k/uL Monocytes # 1.3 H (0-1.0) k/uL Sodium 132 L (137-145) mmol/L Potassium 5.7 H (3.5-5.1) mmol/L Chloride 94 L (98-107) mmol/L BUN 106 H* (9-20) mg/dL Creatinine 5.56 H (0.66-1.25) mg/dL Glucose 121 H (74-99) mg/dL POC Glucose (mg/dL) 151 H (75-99) mg/dL Calcium 8.2 L (8.4-10.2) mg/dL Microbiology - Last 24 Hours (Table) 11/29/18 17:56 Blood Culture - Preliminary Blood No Growth after 96 hours Assessment and Plan Plan: 1 acute on chronic hypoxic respiratory failure along with shortness of breath secondary to involving bilateral lower lobe pneumonia and possibly fluid overload/CHF . The patient developed an acute respiratory and metabolic acidosis and he got transferred to the intensive care unit where he was placed on BiPAP for respiratory support. He underwent sessions of hemodialysis with total removal of 5 L. He is having another session of hemodialysis. 2 CHF with diastolic heart failure, with secondary acute hypoxic respiratory failure. Superimposed pneumonia is doubtful. 3 acute on top of chronic stage III kidney disease and the patient is currently an aortic and the patient was started on hemodialysis receiving first session he a temporary catheter that was inserted in the right femoral vein. The patient is undergoing daily dialysis 4 diabetes mellitus 5 chronic hypoxic respiratory failure maintained on oxygen 6 history of right hemidiaphragmatic paralysis requiring surgical repair 7 morbid obesity 8 diffuse arthritis 9 gout 10 Glucoma 11 hypertension 12 peripheral neuropathy 13 depression 14 hematoma around his hemodialysis catheter Plan Continue hemodialysis. The 3rd session will be done today. Monitor the fluid balance and electrolytes. Wean down the FiO2 as tolerated and I'm confident that his oxygenation will improve as the patient is being dialyzed and fluid is being removed. Antibiotic coverage is empiric at this point. Monitor the hematoma in his groin and the patient has a FemoStop and the patient was given a dose of DDAVP 28 g. Will continue to FU the patient in the MICU
[2018-12-04] MEDS ORDERED: DARBEPOETIN ALFA 40 MCG/0.4 ML SYRINGE SQ SCH (12:00)
[2018-12-04 13:36] LABS: Glucose,Whole Blood 120 mg/dL (75-99)
[2018-12-04] MEDS: amLODIPine 10 MG TAB PO SCH (13:50)
[2018-12-04] MEDS: LORATADINE 10 MG TAB PO SCH (13:50)
--- NOTE | 2018-12-04 13:58 | P.PN ---
Subjective This is Nancy Solorzano PA-C dictating a progress note on this patient The patient was interviewed and examined by me as well as by Dr. Dominique Case discussed with Dr. Dominique and he agrees with the plan of care IMPRESSION / ASSESSMENT: Acute on chronic hypoxic respiratory failure requiring BiPAP, likely secondary to combination of COPD, fluid overload, chronic diaphragmatic paralysis, and CHF, breathing seems to be improving, has been off BiPAP Acute combined systolic and diastolic heart failure, EF 40-45% Paroxysmal atrial fibrillation, rate controlled, anticoagulation on hold secondary to anemia, thrombocytopenia, and hematoma/oozing from dialysis catheter site VINNIE on CKD, currently on hemodialysis Hypertension, blood pressure well controlled Chronic right diaphragmatic paralysis COPD on home oxygen Hyperkalemia, on dialysis PLAN: Patient is rate controlled with carvedilol, hold anticoagulation at this time, once hematoma issue is resolved we will anticoagulate him Continue aspirin and statin and beta blockers, Slowly maximize medical management of cardiomyopathy as tolerated Patient will need a coronary angiogram once his kidneys and breathing are stabilized HPI/interval history Patient is a 68-year-old male with a past medical history is significant for COPD, hypertension, diabetes, kidney disease and diaphragmatic paralysis who presented with complaints of worsening shortness of breath. He was found to be an VINNIE. Chest x-ray showed small pleural effusions and possible infiltrate. He was started on Lasix and antibiotics. Echocardiogram showed LV systolic function mild to moderately impaired, EF 40-45%, apex hypokinetic, severe concentric LVH. His BUN and creatinine continued to rise and he became hyperkalemic so he was started on dialysis. He developed worsening respiratory failure requiring BiPAP and was transferred to the ICU. Yesterday he went into atrial fibrillation with controlled ventricular response. Telemetry reveals A. fib with controlled ventricular response. Patient seen and examined resting in bed. Breathing seems to have improved somewhat. denies any palpitations or mara st pain. EXAMINATION Temperature 97.8F, pulse 85, respirations 11, blood pressure 101/58, oxygen s aturation 96% on 10 L nasal cannula Patient seen and examined resting in bed, in no acute distress Lungs diminished bilaterally Heart is irregular, very soft systolic murmur No elevated JVD appreciated Mild lower extremity edema bilaterally REVIEW OF LABS, ECG WBC 13.3, hemoglobin 7.8, platelets 125, potassium 5.7, BUN 106, creatinine 5.5 Objective - Vital Signs Vital signs: Vital Signs Temp 97.8 F 12/04/18 12:00 Pulse 84 12/04/18 13:00 Resp 15 12/04/18 13:00 BP 107/67 12/04/18 13:00 Pulse Ox 94 L 12/04/18 13:00 Intake & Output 12/03/18 12/04/18 12/04/18 18:59 06:59 18:59 Intake Total 455 60 75 Output Total 6520 99 10 Balance -6065 -39 65 Weight 136.2 kg Intake: IV 55 60 25 0.9 55 60 25 Oral 50 Hemodialysis 400 Output: Urine 120 99 10 Hemodialysis 3400 Other 3000 Other: Voiding Method Indwelling Catheter Indwelling Catheter Indwelling Catheter - Labs CBC & Chem 7: 12/04/18 04:40 12/04/18 04:40 Labs: Abnormal Lab Results - Last 24 Hours (Table) 12/04/18 12/04/18 12/04/18 Range/Units 04:40 04:40 07:05 WBC 13.3 H (3.8-10.6) k/uL RBC 2.87 L (4.30-5.90) m/uL Hgb 7.8 L (13.0-17.5) gm/dL Hct 25.1 L (39.0-53.0) % RDW 16.5 H (11.5-15.5) % Plt Count 125 L (150-450) k/uL Neutrophils # 10.6 H (1.3-7.7) k/uL Lymphocytes # 0.9 L (1.0-4.8) k/uL Monocytes # 1.3 H (0-1.0) k/uL Sodium 132 L (137-145) mmol/L Potassium 5.7 H (3.5-5.1) mmol/L Chloride 94 L (98-107) mmol/L BUN 106 H* (9-20) mg/dL Creatinine 5.56 H (0.66-1.25) mg/dL Glucose 121 H (74-99) mg/dL POC Glucose (mg/dL) 151 H (75-99) mg/dL Calcium 8.2 L (8.4-10.2) mg/dL 12/04/18 Range/Units 13:25 WBC (3.8-10.6) k/uL RBC (4.30-5.90) m/uL Hgb (13.0-17.5) gm/dL Hct (39.0-53.0) % RDW (11.5-15.5) % Plt Count (150-450) k/uL Neutrophils # (1.3-7.7) k/uL Lymphocytes # (1.0-4.8) k/uL Monocytes # (0-1.0) k/uL Sodium (137-145) mmol/L Potassium (3.5-5.1) mmol/L Chloride (98-107) mmol/L BUN (9-20) mg/dL Creatinine (0.66-1.25) mg/dL Glucose (74-99) mg/dL POC Glucose (mg/dL) 120 H (75-99) mg/dL Calcium (8.4-10.2) mg/dL Microbiology - Last 24 Hours (Table) 11/29/18 17:56 Blood Culture - Preliminary Blood No Growth after 96 hours
[2018-12-04 16:54] LABS: Glucose,Whole Blood 131 mg/dL (75-99)
[2018-12-04] MEDS: PANTOPRAZOLE 40 MG TABLET PO SCH (19:04)
[2018-12-04] MEDS: NYSTATIN 100,000 UNIT/ML SUSP 500,000 UNIT/5 ML CUP PO SCH ×2 (19:05→21:28)
[2018-12-04] MEDS: ASPIRIN 81 MG PO SCH (21:28)
[2018-12-04] MEDS: ATORVASTATIN 40 MG TAB PO SCH (21:28)
[2018-12-04 21:32] LABS: Glucose,Whole Blood 203 mg/dL (75-99)
--- NOTE | 2018-12-04 22:15 | P.PN ---
Progress Note - Text Progress Note Date: 12/04/18 Interval history: This is a 68-year-old patient of Dr. bonilla from [place] whose chronic st able medical conditions include primary osteoarthritis, chronic kidney dysfunction uses a walker, diabetes mellitus on insulin, GERD, essential hypertension, diabetic peripheral neuropathy, chronic kidney disease stage III, chronic hypoxic respiratory failure. Presented with increasing shortness of breath, Center by Dr. rossi for possible pneumonia. Patient has been bringing up yellow-green sputum. Also very short of breath and wheezing. Distended abdomen increasing edema. Started on IV antibiotics. Admitted with pneumonia, CHF exacerbation, COPD exacerbation. On November 30 was put on a Lasix drip. Kidney function was worsening. On December 02, moved to ICU and hemodialysis catheter was placed. And hemodialysis was started. Today-in the ICU. Getting hemodialyzed again today. Tired. Making little urine. Breathing is Better. Slight cough. Review of systems: Was done for constitutional, cardiovascular, GI, pulmonary. relevant finding as above Active Medications Hydrocodone Bitart/Acetaminophen ([place] 7.5-325) 1 each PO Q8H PRN PRN Reason: Pain Last Admin: 12/03/18 14:56 Dose: 1 each Documented by: Albuterol/Ipratropium (Duoneb 0.5 Mg-3 Mg/3 Ml Soln) 3 ml INHALATION RT-QID PRN PRN Reason: Shortness Of Breath Or Wheezing Albuterol/Ipratropium (Duoneb 0.5 Mg-3 Mg/3 Ml Soln) 3 ml INHALATION RT-QID EVELYNE Last Admin: 12/04/18 21:11 Dose: 3 ml Documented by: Amlodipine Besylate (Norvasc) 5 mg PO W/LUNCH [facility] Last Admin: 12/04/18 13:50 Dose: Not Given Documented by: Aspirin (Aspirin) 81 mg PO HS EVELYNE Last Admin: 12/04/18 21:28 Dose: 81 mg Documented by: Atorvastatin Calcium (Lipitor) 40 mg PO HS EVELYNE Last Admin: 12/04/18 21:28 Dose: 40 mg Documented by: Calcitriol (Rocaltrol) 0.25 mcg PO Q48H EVELYNE Last Admin: 12/04/18 07:53 Dose: 0.25 mcg Documented by: Carvedilol (Coreg) 3.125 mg PO BID-W/MEALS [facility] Last Admin: 12/04/18 18:52 Dose: 3.125 mg Documented by: Darbepoetin Jaswinder (Aranesp) 40 mcg SQ Q7D [facility] Last Admin: 12/04/18 13:53 Dose: 40 mcg Documented by: Ferrous Sulfate (Feosol) 325 mg PO BID [facility] Last Admin: 12/04/18 21:28 Dose: 325 mg Documented by: Gabapentin (Neurontin) 300 mg PO BID [facility] Last Admin: 12/04/18 21:28 Dose: 300 mg Documented by: Heparin Sodium (Porcine) (Heparin) 5,000 unit SQ Q8HR [facility] Last Admin: 12/04/18 19:05 Dose: 5,000 unit Documented by: Cefepime HCl 1 gm/ Sodium (Chloride) 50 mls @ 100 mls/hr IVPB DAILY [facility] Last Admin: 12/04/18 09:45 Dose: 100 mls/hr Documented by: Insulin Aspart (Novolog) 0 unit SQ ACHS [facility]; Protocol Last Admin: 12/04/18 21:28 Dose: 6 unit Documented by: Insulin Aspart (Novolog Mix 70-30 Vial) 20 unit SQ AC-BID [facility] Last Admin: 12/04/18 17:47 Dose: Not Given Documented by: Insulin Aspart (Novolog Mix 70-30 Vial) 10 unit SQ AC-LUNCH [facility] Last Admin: 12/04/18 13:45 Dose: Not Given Documented by: Loratadine (Claritin) 10 mg PO W/LUNCH [facility] Last Admin: 12/04/18 13:50 Dose: 10 mg Documented by: Naloxone HCl (Narcan) 0.2 mg IV Q2M PRN PRN Reason: Opioid Reversal Finasteride 1 Mg 1 mg PO W/SUPPER [facility] Last Admin: 12/04/18 19:03 Dose: Not Given Documented by: Nystatin (Mycostatin Oral Susp) 500,000 unit PO QID [facility] Last Admin: 12/04/18 21:28 Dose: 500,000 unit Documented by: Pantoprazole Sodium (Protonix) 40 mg PO W/SUPPER [facility] Last Admin: 12/04/18 19:04 Dose: Not Given Documented by: Tamsulosin HCl (Flomax) 0.4 mg PO QAM [facility] Last Admin: 12/04/18 07:53 Dose: 0.4 mg Documented by: Physical examination: VITAL SIGNS: 97.8, 85, 11, 101/58, with 96% on 10 L GENERAL: Propped up in bed, lethargic, but arousable EYES: Pupils equal. Conjunctiva normal. HEENT: External appearance of nose and ears normal, oral cavity grossly normal. NECK: JVD unable to assess, no masses palpable HEART: First and second heart sounds are normal; edema gone down LUNGS: Respiratory rate increased, , diminished breath sounds prolonged expiration. ABDOMEN: Soft, distended, nontender, liver spleen not palpable, no masses palpable. Right groin hemodialysis catheter PSYCH: Tired, unable to assess INVESTIGATIONS, reviewed in the clinical context: White count 13.3 hemoglobin 7.8 platelets 125 potassium 5.7 on 106 creatinine 5.56 Previous testing: White count 6.5 hemoglobin 9.3 potassium 4.4 bun 113 creatine 4.15 Glucose 258 EKG tracing personally reviewed by me-right bundle-branch block Chest x-ray film personally reviewed by me-possibly fluid overload and infiltrate 2-D echocardiogram-shows EF of 40-45%, severe concentric left ventricular hypertrophy, moderate aortic stenosis Assessment: -Pneumonia, suspect gram-negative organism, improving -Acute on chronic congestive heart failure exacerbation from systolic and diastolic dysfunction EF 40-45%, slow to respond -Hypertensive heart disease -Acute COPD exacerbation in an ex-smoker, slow to respond -Primary osteoarthritis -Chronic gait dysfunction uses a walker -Diabetes mellitus type 2, uncontrolled with hypoglycemia, chronically on insulin -GERD -Essential hypertension -Diabetic peripheral neuropathy -Chronic kidney disease stage III from diabetic nephropathy and hypertensive nephrosclerosis -Acute kidney injury, could be prerenal, new onset, requiring renal replacement therapy -Hyperkalemia secondary to renal failure, -Morbid obesity BMI 40.3 -Mineral bone disease -Acute metabolic encephalopathy from worsening renal failure -Metabolic acidosis from renal failure Plan: Remains in the ICU. Prognosis guarded. Getting daily hemodialysis. Care was discussed with the daughter the bedside.
[2018-12-05 04:33] LABS: Anisocytosis Slight; Eosinophils # (A) 0.1 k/uL (0-0.7); Eosinophils % (A) 1 %; HCT 24.3 % (39.0-53.0); HGB 7.6 gm/dL (13.0-17.5); Hypochromasia Moderate; Lymphocytes # (A) 0.9 k/uL (1.0-4.8); Lymphocytes % (A) 8 %; MCH 27.6 pg (25.0-35.0); MCHC 31.3 g/dL (31.0-37.0); MCV 88.2 fL (80.0-100.0); Mean Platelet Volume 9.2; Monocytes # (A) 1.2 k/uL (0-1.0); Monocytes % (A) 11 %; Neutrophils # (A) 7.9 k/uL (1.3-7.7); Neutrophils % (A) 74 %; Platelet Count 142 k/uL (150-450); RBC 2.76 m/uL (4.30-5.90); RDW 17.3 % (11.5-15.5); WBC 10.8 k/uL (3.8-10.6)
[2018-12-05 04:36] LABS: Basophils % (A) 4 %
[2018-12-05 04:37] LABS: Basophils # (A) 0.5 k/uL (0-0.2)
[2018-12-05 04:54] LABS: Calcium 8.1 mg/dL (8.4-10.2); Potassium 5.3 mmol/L (3.5-5.1)
[2018-12-05] MEDS: INSULN ASP PRT/INSULIN ASPART 100 UNIT/ML 10 ML VIAL SQ SCH ×3 (06:57→17:18)
[2018-12-05] MEDS: INSULIN ASPART (NovoLOG) 100 UNIT/ML VIAL SQ SCH ×4 (06:58→21:05)
[2018-12-05] MEDS: CARVEDILOL 3.125 MG TAB PO SCH ×2 (07:00→19:43)
[2018-12-05 07:05] LABS: Glucose,Whole Blood 139 mg/dL (75-99)
[2018-12-05] MEDS: IPRATROPIUM-ALBUTEROL 3 ML NEB INHALATION SCH ×4 (07:40→19:22)
--- NOTE | 2018-12-05 09:13 | P.PN ---
Subjective Patient is seen in follow-up for acute kidney injury on chronic kidney disease. 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 Patient presented with dyspnea. Currently hemodialysis dependent. Patient states he wants to stop all medical treatment. Vital signs are stable. General: The patient appeared well nourished and normally developed. HEENT: Head exam is unremarkable. Neck is without jugular venous distension. LUNGS:Breath sounds decreased. HEART: Rate and Rhythm are regular. First and second heart sounds normal. No murmurs, rubs or gallops. ABDOMEN: Abdominal exam reveals normal bowel sounds. Non-tender and non- distended. EXTREMITITES: Trace edema. Objective - Vital Signs Vital signs: Vital Signs Temp 98.1 F 12/05/18 04:00 Pulse 73 12/05/18 07:42 Resp 18 12/05/18 07:00 BP 105/55 12/05/18 07:00 Pulse Ox 94 L 12/05/18 07:43 Intake & Output 12/04/18 12/05/18 12/05/18 18:59 06:59 18:59 Intake Total 100 60 5 Output Total 3010 115 45 Balance -2910 -55 -40 Weight 132.4 kg Intake: IV 50 60 5 0.9 50 60 5 Oral 50 Output: Urine 10 115 45 Other 3000 Other: Voiding Method Indwelling Catheter Indwelling Catheter Indwelling Catheter - Labs CBC & Chem 7: 12/05/18 04:34 12/05/18 05:04 Labs: Abnormal Lab Results - Last 24 Hours (Table) 12/04/18 12/04/18 12/04/18 Range/Units 13:25 16:41 21:20 WBC (3.8-10.6) k/uL RBC (4.30-5.90) m/uL Hgb (13.0-17.5) gm/dL Hct (39.0-53.0) % RDW (11.5-15.5) % Plt Count (150-450) k/uL Neutrophils # (1.3-7.7) k/uL Lymphocytes # (1.0-4.8) k/uL Monocytes # (0-1.0) k/uL Basophils # (0-0.2) k/uL Sodium (137-145) mmol/L Potassium (3.5-5.1) mmol/L Chloride (98-107) mmol/L BUN (9-20) mg/dL Creatinine (0.66-1.25) mg/dL Glucose (74-99) mg/dL POC Glucose (mg/dL) 120 H 131 H 203 H (75-99) mg/dL Calcium (8.4-10.2) mg/dL 12/05/18 12/05/18 12/05/18 Range/Units 04:34 05:04 06:54 WBC 10.8 H (3.8-10.6) k/uL RBC 2.76 L (4.30-5.90) m/uL Hgb 7.6 L (13.0-17.5) gm/dL Hct 24.3 L (39.0-53.0) % RDW 17.3 H (11.5-15.5) % Plt Count 142 L (150-450) k/uL Neutrophils # 7.9 H (1.3-7.7) k/uL Lymphocytes # 0.9 L (1.0-4.8) k/uL Monocytes # 1.2 H (0-1.0) k/uL Basophils # 0.5 H (0-0.2) k/uL Sodium 130 L (137-145) mmol/L Potassium 5.3 H (3.5-5.1) mmol/L Chloride 94 L (98-107) mmol/L BUN 90 H (9-20) mg/dL Creatinine 4.44 H (0.66-1.25) mg/dL Glucose 134 H (74-99) mg/dL POC Glucose (mg/dL) 139 H (75-99) mg/dL Calcium 8.1 L (8.4-10.2) mg/dL Microbiology - Last 24 Hours (Table) 11/29/18 17:56 Blood Culture - Preliminary Blood No Growth after 120 hours Assessment and Plan Plan: Assessment: 1. Acute kidney injury secondary to ATN secondary to cardiorenal syndrome. Currently hemodialysis dependent. 2. Hyperkalemia secondary to acute kidney injury. Improved postdialysis. 3. Volume overload. Improving with ultrafiltration. 4. Chronic kidney disease stage IV secondary to diabetic kidney disease with b aseline creatinine in the range of 3-3.5. 5. Insulin-dependent diabetes mellitus. 6. Chronic kidney disease mineral bone disease maintained on calcitriol. 7. Acute on chronic systolic CHF with ejection fraction of 40-45%. 8. Pneumonia maintained on antibiotics. 9. Anemia of chronic kidney disease maintained on Aranesp. 10. Hypervolemic hyponatremia. Plan: Currently seen while undergoing hemodialysis. Another treatment tomorrow. Lasix 80 mg IV once this afternoon. Continue to monitor renal function and urine output. Avoid nephrotoxins. Check iron studies.
[2018-12-05] MEDS: HEPARIN SODIUM,PORCINE 5,000 UNIT/ML 1 ML VIAL SQ SCH ×3 (10:55→23:10)
[2018-12-05] MEDS: CEFEPIME 1 GM in SODIUM CHLORIDE 0.9% 50 ML IVPB SCH (10:56)
[2018-12-05] MEDS: FERROUS SULFATE 325 MG TAB PO SCH ×2 (10:57→20:02)
[2018-12-05] MEDS: GABAPENTIN 300 MG CAP PO SCH ×2 (10:58→20:02)
[2018-12-05] MEDS: TAMSULOSIN 0.4 MG CAP.ER.24H PO SCH (10:58)
[2018-12-05] MEDS: NYSTATIN 100,000 UNIT/ML SUSP 500,000 UNIT/5 ML CUP PO SCH ×4 (10:58→20:02)
--- NOTE | 2018-12-05 11:40 | XR ---
EXAMINATION TYPE: XR chest 1V DATE OF EXAM: 12/05/2018 COMPARISON: Chest x-ray 12/03/2018 HISTORY: Shortness of breath TECHNIQUE: Single frontal view of the chest is obtained. FINDINGS: Findings are similar to prior exam. Left subclavian central venous catheter shows the dist al tip overlying the cavoatrial junction level. There is no pneumothorax. Bibasilar increased density is noted, patient is again rotated which may cause accentuation in the appearance of the heart. Cent ral vascularity is increased, interstitium is prominent. The aorta is dense. IMPRESSION: Correlate for congestive heart failure.
[2018-12-05 12:02] LABS: Glucose,Whole Blood 134 mg/dL (75-99)
[2018-12-05] MEDS: LORATADINE 10 MG TAB PO SCH (12:21)
[2018-12-05] MEDS: amLODIPine 10 MG TAB PO SCH (12:21)
--- NOTE | 2018-12-05 13:37 | P.PN ---
Subjective Progress Note Date: 12/05/18 Principal diagnosis: Diastolic congestive heart failure, possible community-acquired pneumonia failed outpatient treatment. Morbidly obese 68-year-old here patient with known history of COPD and previous history of right hemidiaphragmatic paralysis requiring surgical repair mild addition to morbid obesity, diabetes mellitus, chronic stage III kidney disease, chronic hypoxic respiratory failure, hypertension. The patient's based on pulmonary function test shows an FEV1 of 5 2% of predicted in addition to a total lung capacity of 73% of predicted and diffusion capacity of 77% of predicted. This is based on the pulmonary function test as well as some back in 2015. The patient came in yesterday to Dr. Sheridan's office complaining of worsening shortness of breath. Apparently received antibiotics to the primary care and the patient received 2 rounds of antibiotics without any much relief. For that reason he came into Dr. Sheridan's office and he was admitted to the [facility] for further evaluation. There is some limited infiltration lung bases bilaterally. The patient had at least 20 pounds weight gain and he had increased lower extremity edema. On his blood work, the patient had developed an acute on top of his chronic kidney injury and his GFR was down to 50 with a creatinine of 3.8. He was started on IV Zosyn. He was started on IV Lasix. His proBNP level was elevated. No chest pain. Altered mentation. He has difficulty with mobility and gait. He has a congested cough. Unable to bring up much sputum. No chest pain. No pleurisy. No altered mentation. 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 The patient was becoming progressively more obtunded and short of breath and lethargic. He was not producing any urine output. The blood work from this morning were markedly abnormal. Woody being on Lasix. The patient was not producing any urine output. A blood gas was done that showed a pH of 7.15 with a pCO2 of 71 and pO2 of 61. The blood work from this morning showed a potassium level of 6.2 with a BUN of 142 and a creatinine of 6.8. The patient also had a anion gap of 19. Chest x-ray showed small lung volumes and atelectatic changes small effusion the lung bases. He had increased lower extremity edema. At this point, the patient got transferred to the intensive care unit and he was placed on BiPAP for respiratory support. Currently on a BiPAP pressure of 12/5 cm of water. Based on this, the patient got transferred to the intensive care unit. The patient had a triple lumen catheter inserted in the left subclavian. A dialysis catheter was inserted in the right femoral vein and the patient was started on hemodialysis. A total of 2 L of fluid was pulled off during the dialysis. Following that the patient was weaned off the BiPAP and he was placed on oxygen at 2 L per minute nasal cannula. He seems to much more alert and communicating at this point in time. No significant urine output. No fever. No chills. No chest pain. He does have a hematoma formation in the right groin area the site of the puncture and we have a fem stop in the hematomas controllable at this point in time. The patient is on empiric antibiotic coverage with IV cefepime. The patient on DuoNeb nebulized treatments around the clock. Blood sugar is at 180 and the patient is currently septic. Insulin by serial coverage. Family has been updated on his condition. On today's evaluation of 12/03/2018, the patient is awake and alert. He is not very much happy with his condition. He is not happy with dialysis. A second dialysis session is being done today. The goal is to remove 2-3 L and he is going to use a 2K bath as the patient's potassium level is again elevated at 6.2. His chest x-ray still showing fluid overload most on the right. Is currently on oxygen at 12 L high flow and his pulse ox is 91%. No major edema lower extremities. No fever. No chills. He is off the BiPAP this morning and he uses overnight at the pressure of 12/5 cm of water and FiO2 of 40%. He has a subclavian triple-lumen catheter. His dialysis catheter is in the groin. No chest pain. He is moving all 4 extremities without any limitation. Today's evaluation of 12/04/2018, the patient is somewhat depressed. He does not like the fact that he is going to be on dialysis on a chronic basis. He feels that this is likely a sentence. He underwent 2 sessions of hemodialysis, during yesterday's session a total of 3 L of fluid was removed and is currently undergoing another session of dialysis. He is awake and alert. No significant respiratory difficulties. In oxygen 10 L high flow. He is having difficulties in laying down flat. Note that yesterday she was on 12 L of oxygen. No altered mentation. No chest pain. He is having no cough or sputum production. Edema in general is improving. The sodium level is at 132. Potassium level from this morning was at 5.7 after having issues with hyperkalemia today before. Coagulation profile is within normal. Hemoglobin is at 7.8. Patient has a hematoma in his hemodialysis catheter site insertion. He'll be given DDAVP and his hemoglobin is down to 7.8. Patient was reevaluated today on 12/05/2018, patient feels depressed, has a psychiatric consultation was initiated. He keeps saying I am dying and let me . Patient is presently on hemodialysis, discussed briefly the CODE STATUS with him, patient is agreeable to no CODE STATUS, and I will confirm this with his sometime today. Patient remains on high flow nasal cannula, receiving dialysis, he looks very comfortable, in no distress. His labs were all reviewed, potassium is a bit elevated at 5.3 BUN is 90 creatinine 4.44 hemoglobin is 7.6. WBC count is 10.8. Chest x-ray is showing evidence of bibasilar interstitial densities, correlate for possible congestive heart failure, doubt pneumonia. Objective - Vital Signs Vital signs: Vital Signs Temp 97.5 F L 12/05/18 12:00 Pulse 68 12/05/18 13:00 Resp 17 12/05/18 13:00 BP 99/53 12/05/18 13:00 Pulse Ox 96 12/05/18 13:00 Intake & Output 12/04/18 12/05/18 12/05/18 18:59 06:59 18:59 Intake Total 100 60 5 Output Total 3010 115 3545 Balance -6848 -55 -3540 Weight 132.4 kg Intake: IV 50 60 5 0.9 50 60 5 Oral 50 Output: Urine 10 115 45 Hemodialysis 3500 Other 3000 Other: Voiding Method Indwelling Catheter Indwelling Catheter Indwelling Catheter - Exam Physical Exam: Revealed 68-year-old white male in no form of respiratory distress. Head: Atraumatic normocephalic. HEENT:[Neck is supple.] [No neck masses.] [No thyromegaly.] [No JVD.] Dry mucous membranes. Chest: [Symmetrical chest expansion, crackles at the bases bilaterally no rhonchi and no wheezes..] Cardiac Exam: [Normal S1 and S2, no S3 gallop, no murmur.] Abdomen: [Obese, Soft, nontender, no megaly, no rebound, no guarding, normal bowel sounds.] Extremities: [No clubbing, 1+ bipedal edema, no cyanosis.] Neurological Exam: [No focal neurologic deficit.] Alert oriented 3. Psychiatric: Depressed mood, blunt affect, otherwise normal mental status examination. Skin: No rashes. - Labs CBC & Chem 7: 12/05/18 04:34 12/05/18 05:04 Labs: Abnormal Lab Results - Last 24 Hours (Table) 12/04/18 12/04/18 12/04/18 Range/Units 13:25 16:41 21:20 WBC (3.8-10.6) k/uL RBC (4.30-5.90) m/uL Hgb (13.0-17.5) gm/dL Hct (39.0-53.0) % RDW (11.5-15.5) % Plt Count (150-450) k/uL Neutrophils # (1.3-7.7) k/uL Lymphocytes # (1.0-4.8) k/uL Monocytes # (0-1.0) k/uL Basophils # (0-0.2) k/uL Sodium (137-145) mmol/L Potassium (3.5-5.1) mmol/L Chloride (98-107) mmol/L BUN (9-20) mg/dL Creatinine (0.66-1.25) mg/dL Glucose (74-99) mg/dL POC Glucose (mg/dL) 120 H 131 H 203 H (75-99) mg/dL Calcium (8.4-10.2) mg/dL 12/05/18 12/05/18 12/05/18 Range/Units 04:34 05:04 06:54 WBC 10.8 H (3.8-10.6) k/uL RBC 2.76 L (4.30-5.90) m/uL Hgb 7.6 L (13.0-17.5) gm/dL Hct 24.3 L (39.0-53.0) % RDW 17.3 H (11.5-15.5) % Plt Count 142 L (150-450) k/uL Neutrophils # 7.9 H (1.3-7.7) k/uL Lymphocytes # 0.9 L (1.0-4.8) k/uL Monocytes # 1.2 H (0-1.0) k/uL Basophils # 0.5 H (0-0.2) k/uL Sodium 130 L (137-145) mmol/L Potassium 5.3 H (3.5-5.1) mmol/L Chloride 94 L (98-107) mmol/L BUN 90 H (9-20) mg/dL Creatinine 4.44 H (0.66-1.25) mg/dL Glucose 134 H (74-99) mg/dL POC Glucose (mg/dL) 139 H (75-99) mg/dL Calcium 8.1 L (8.4-10.2) mg/dL 12/05/18 Range/Units 11:50 WBC (3.8-10.6) k/uL RBC (4.30-5.90) m/uL Hgb (13.0-17.5) gm/dL Hct (39.0-53.0) % RDW (11.5-15.5) % Plt Count (150-450) k/uL Neutrophils # (1.3-7.7) k/uL Lymphocytes # (1.0-4.8) k/uL Monocytes # (0-1.0) k/uL Basophils # (0-0.2) k/uL Sodium (137-145) mmol/L Potassium (3.5-5.1) mmol/L Chloride (98-107) mmol/L BUN (9-20) mg/dL Creatinine (0.66-1.25) mg/dL Glucose (74-99) mg/dL POC Glucose (mg/dL) 134 H (75-99) mg/dL Calcium (8.4-10.2) mg/dL Microbiology - Last 24 Hours (Table) 11/29/18 17:56 Blood Culture - Preliminary Blood No Growth after 120 hours Assessment and Plan Assessment: Impression: Acute on chronic hypoxic respiratory failure secondary to diastolic congestive heart failure, possible superimposed pneumonia/community-acquired, supposedly failed outpatient therapy. Acute on chronic stage III kidney disease, presently patient is on hemodialysis. Chronic hypoxic respiratory failure and previous history of right hemidiaphragm paralysis requiring surgical repair Morbid obesity Multiple comorbidities including hypertension, peripheral neuropathy, degenerative joint disease, and glaucoma, gout, and type 2 diabetes. Major affective disorder. Psychiatric consultation was initiated. Recommendation: Continue hemodialysis, continue to monitor electrolytes daily, titrate FiO2 down to keep O2 saturation above 90%. Patient wishes DO NOT RESUSCITATE CODE STATUS, however I will confirm this with the , for his depression may consider psychiatric evaluation. Prognosis is definitely guarded, we'll continue to follow. Time with Patient: Less than 30
[2018-12-05] MEDS ORDERED: FUROSEMIDE 10 MG/ML 10 ML VIAL IV ONE (14:00)
[2018-12-05] MEDS: PANTOPRAZOLE 40 MG TABLET PO SCH (16:57)
--- NOTE | 2018-12-05 17:02 | P.PN ---
Subjective This is Nancy Solorzano PA-C dictating a progress note on this patient The patient was interviewed and examined by me as well as by Dr. Dominique Case discussed with Dr. Dominique and he agrees with the plan of care IMPRESSION / ASSESSMENT: Acute on chronic hypoxic respiratory failure requiring BiPAP, likely secondary to combination of COPD, fluid overload, chronic diaphragmatic paralysis, and CHF, breathing seems to be improving, has been off BiPAP Acute combined systolic and diastolic heart failure, EF 40-45% Paroxysmal atrial fibrillation, rate controlled, currently in atrial tachycardia with controlled ventricular response, anticoagulation was being held secondary to anemia and hematoma on catheter site, no further bleeding CKD, currently on hemodialysis Hypertension, blood pressure well controlled Chronic right diaphragmatic paralysis COPD on home oxygen Hyperkalemia, on dialysis PLAN: Start anticoagulation with Coumadin 2.5 mg daily Continue carvedilol Continue aspirin and statin and beta blockers, Slowly maximize medical management of cardiomyopathy as tolerated Patient will need a coronary angiogram once his kidneys and breathing are stabilized HPI/interval history Patient is a 68-year-old male with a past medical history is significant for COPD, hypertension, diabetes, kidney disease and diaphragmatic paralysis who presented with complaints of worsening shortness of breath. He was found to be an VINNIE. Chest x-ray showed small pleural effusions and possible infiltrate. He was started on Lasix and antibiotics. Echocardiogram showed LV systolic function mild to moderately impaired, EF 40-45%, apex hypokinetic, severe concentric LVH. His BUN and creatinine continued to rise and he became hyperkalemic so he was started on dialysis. He developed worsening respiratory failure requiring BiPAP and was transferred to the ICU. He has been off BiPAP. Telemetry today reveals atrial tachycardia controlled ventricular response. Patient seen and examined resting in bed. He expresses his frustration about his situation and being on dialysis. States his breathing is about the same. EXAMINATION Temperature 97.5F, pulse 69, respirations 16, blood pressure 101/69, oxygen saturation 96% on high flow nasal cannula Patient seen and examined resting in bed, in no acute distress Lungs diminished bilaterally Heart is irregular, very soft systolic murmur No elevated JVD appreciated Mild lower extremity edema bilaterally REVIEW OF LABS, ECG WBC 10.8, hemoglobin 7.6, platelets 142, potassium 5.3, BUN 90, creatinine 4.44 Objective - Vital Signs Vital signs: Vital Signs Temp 97.5 F L 12/05/18 12:00 Pulse 75 12/05/18 17:00 Resp 17 12/05/18 13:00 BP 99/53 12/05/18 13:00 Pulse Ox 96 12/05/18 13:00 Intake & Output 12/04/18 12/05/18 12/05/18 18:59 06:59 18:59 Intake Total 100 60 250 Output Total 3010 115 0124 Balance -4319 -24 -1698 Weight 132.4 kg Intake: IV 50 60 50 0.9 50 60 50 Intake, IV Titration 100 Amount Cefepime 2 gm In Sodium 100 Chloride 0.9% 100 ml @ 200 mls/hr IVPB DAILY [facility] Rx#:[id number] Oral 50 100 Output: Urine 10 115 94 Hemodialysis 3500 Other 3000 Other: Voiding Method Indwelling Catheter Indwelling Catheter Indwelling Catheter - Labs CBC & Chem 7: 12/05/18 04:34 12/05/18 05:04 Labs: Abnormal Lab Results - Last 24 Hours (Table) 12/04/18 12/05/18 12/05/18 Range/Units 21:20 04:34 05:04 WBC 10.8 H (3.8-10.6) k/uL RBC 2.76 L (4.30-5.90) m/uL Hgb 7.6 L (13.0-17.5) gm/dL Hct 24.3 L (39.0-53.0) % RDW 17.3 H (11.5-15.5) % Plt Count 142 L (150-450) k/uL Neutrophils # 7.9 H (1.3-7.7) k/uL Lymphocytes # 0.9 L (1.0-4.8) k/uL Monocytes # 1.2 H (0-1.0) k/uL Basophils # 0.5 H (0-0.2) k/uL Sodium 130 L (137-145) mmol/L Potassium 5.3 H (3.5-5.1) mmol/L Chloride 94 L (98-107) mmol/L BUN 90 H (9-20) mg/dL Creatinine 4.44 H (0.66-1.25) mg/dL Glucose 134 H (74-99) mg/dL POC Glucose (mg/dL) 203 H (75-99) mg/dL Calcium 8.1 L (8.4-10.2) mg/dL 12/05/18 12/05/18 Range/Units 06:54 11:50 WBC (3.8-10.6) k/uL RBC (4.30-5.90) m/uL Hgb (13.0-17.5) gm/dL Hct (39.0-53.0) % RDW (11.5-15.5) % Plt Count (150-450) k/uL Neutrophils # (1.3-7.7) k/uL Lymphocytes # (1.0-4.8) k/uL Monocytes # (0-1.0) k/uL Basophils # (0-0.2) k/uL Sodium (137-145) mmol/L Potassium (3.5-5.1) mmol/L Chloride (98-107) mmol/L BUN (9-20) mg/dL Creatinine (0.66-1.25) mg/dL Glucose (74-99) mg/dL POC Glucose (mg/dL) 139 H 134 H (75-99) mg/dL Calcium (8.4-10.2) mg/dL Microbiology - Last 24 Hours (Table) 11/29/18 17:56 Blood Culture - Preliminary Blood No Growth after 120 hours
[2018-12-05 17:06] LABS: Glucose,Whole Blood 149 mg/dL (75-99)
[2018-12-05 17:43] LABS: Ferritin 507.7 ng/mL (22.0-322.0); Iron Saturation 10.11 (15.00-50.00)
[2018-12-05 18:03] LABS: Hepatitis A Antibody IgM Non-Reactive (Non-Reactive); Hepatitis B Core IgM Non-Reactive (Non-Reactive); Hepatitis B Surface Antigen Non-Reactive (Non-Reactive); Hepatitis C IgG Antibody Non-Reactive (Non-Reactive)
--- NOTE | 2018-12-05 19:22 | P.CN ---
Psychiatric Consult - . Consult date: 12/05/18 Consult:: IDENTIFYING INFORMATION: Patient is a 68-year-old male who was admitted to ICU due to COPD exacerbation. The patient was seen while he was at ICU. Consultation was for psychiatric evaluation because patient has been fixated on . CHIEF COMPLAINT: "I ma going to ." HISTORY OF PRESENT ILLNESS: The patient was admitted to inpatient medication ICU because of COPD exacerbation. Psychiatric team was consulted by primary service because the patient has been talking about dying. The patient has no history of depression, and no reported previous psychiatric treatment or suicidal attempts. Patient was not goo historian and he couldn't communicate well but he was clearly talking about dying and it's time for him to leave. Even patient denies any current suicidal or homicidal thoughts, intention or plan to hurt self but he was repeatedly talking about "it's time to leave and gave up fighting". Patient reports symptoms of depression including feeling hopeless and helpless. He denies current thoughts or intent or hurt self. Patient could not give detailed history about his psychiatric symptoms and he frequently was starring at me or at the wall without responding to questions. No evidence of hallucinations or delusions could be elicited. No report of manic symptoms. Patient didn't present increasingly anxious, irritable or agitated. No report of panic attacks. No reports or any PTSD symptoms including flashbacks or nightmares. PAST PSYCHIATRIC HISTORY: Previous psychiatric Hospitalization: None reported Previous suicidal attempts: None reported Previous psychiatric treatment: None reported SUBSTANCE ABUSE HISTORY: Patient was not able to provide any further history, and he didn't answer questions. Social History: Patient was not able to provide any further history, and he didn't answer questions. FAMILY HISTORY: Patient was not able to provide any further history, and he didn't answer questions. MENTAL STATUS EVALUATION: Appearance: Appears older than stated age, lying in hospital bed and dressed in hospital gown. Gait/ posture: Not assessed. Attitude and Behavior: Not Engaged, very superficially cooperative, poor eye contact during course of interview Motor Activity: psychomotor retardation Speech: Slow rate,and sometimes selected not to answer questions. None pressured Mood: "depressed" Affect:Constricted to flat. Thought form: Thought blocking Thought content: No delusions elicited, denies suicidal thoughts but fixated on , denies homicidal thoughts, intentions, or plans. Perception: No report of auditory/ visual or tactile hallucinations. Attention: Responding and answering questions. Orientation: Patient couldn't answer questions about date but he is oriented to situation, persona and place. Insight: Limited Judgment: Limited Assessment: Unspecified depressive disorder rule out Major depressive disorder recurrent severe. TREATMENT PLAN/RECOMMENDATIONS: Addressed and ensured patient's safety, patient is fixated on . Even he denies active suicidal thoughts but he could be potentially at risk to harm self. Recommending: Place patient on 1:1 for safety. Please contact psychiatry team before discharging the patient. Psychiatric team will follow up with the patient daily. Medication Management: Start Zoloft 25 mg daily for depression symptoms Discussed the treatment plan with requesting physician/service. Thank you for permitting me to assist in this patients treatment. Please page author if addition psychiatric assistance is needed. 12/05/18 18:50
[2018-12-05] MEDS: ASPIRIN 81 MG PO SCH (20:02)
[2018-12-05] MEDS: ATORVASTATIN 40 MG TAB PO SCH (20:02)
[2018-12-05 20:51] LABS: Glucose,Whole Blood 130 mg/dL (75-99)
--- NOTE | 2018-12-06 00:12 | P.PN ---
Progress Note - Text Progress Note Date: 12/05/18 Interval history: This is a 68-year-old patient of Dr. bonilla from [place] whose chronic st able medical conditions include primary osteoarthritis, chronic kidney dysfunction uses a walker, diabetes mellitus on insulin, GERD, essential hypertension, diabetic peripheral neuropathy, chronic kidney disease stage III, chronic hypoxic respiratory failure. Presented with increasing shortness of breath, Center by Dr. rossi for possible pneumonia. Patient has been bringing up yellow-green sputum. Also very short of breath and wheezing. Distended abdomen increasing edema. Started on IV antibiotics. Admitted with pneumonia, CHF exacerbation, COPD exacerbation. On November 30 was put on a Lasix drip. Kidney function was worsening. On December 02, moved to ICU and hemodialysis catheter was placed. And hemodialysis was started. Today-in the ICU. Patient very depressed. Told pit operator Dr. rossi want to . Psychiatry was consulted. Hemodialysis today. Retired.. Review of systems: Was attempted for constitutional, cardiovascular, GI, pulmonary. relevant finding as above Active Medications Hydrocodone Bitart/Acetaminophen ([place] 7.5-325) 1 each PO Q8H PRN PRN Reason: Pain Last Admin: 12/03/18 14:56 Dose: 1 each Documented by: Albuterol/Ipratropium (Duoneb 0.5 Mg-3 Mg/3 Ml Soln) 3 ml INHALATION RT-QID PRN PRN Reason: Shortness Of Breath Or Wheezing Albuterol/Ipratropium (Duoneb 0.5 Mg-3 Mg/3 Ml Soln) 3 ml INHALATION RT-QID [facility] Last Admin: 12/05/18 19:22 Dose: 3 ml Documented by: Amlodipine Besylate (Norvasc) 5 mg PO W/LUNCH [facility] Last Admin: 12/05/18 12:21 Dose: 5 mg Documented by: Aspirin (Aspirin) 81 mg PO HS [facility] Last Admin: 12/05/18 20:02 Dose: 81 mg Documented by: Atorvastatin Calcium (Lipitor) 40 mg PO HS [facility] Last Admin: 12/05/18 20:02 Dose: 40 mg Documented by: Calcitriol (Rocaltrol) 0.25 mcg PO Q48H [facility] Last Admin: 12/04/18 07:53 Dose: 0.25 mcg Documented by: Carvedilol (Coreg) 3.125 mg PO BID-W/MEALS [facility] Last Admin: 12/05/18 19:43 Dose: Not Given Documented by: Darbepoetin Jaswinder (Aranesp) 40 mcg SQ Q7D [facility] Last Admin: 12/04/18 13:53 Dose: 40 mcg Documented by: Ferrous Sulfate (Feosol) 325 mg PO BID [facility] Last Admin: 12/05/18 20:02 Dose: 325 mg Documented by: Gabapentin (Neurontin) 300 mg PO BID [facility] Last Admin: 12/05/18 20:02 Dose: 300 mg Documented by: Heparin Sodium (Porcine) (Heparin) 5,000 unit SQ Q8HR [facility] Last Admin: 12/05/18 23:10 Dose: 5,000 unit Documented by: Cefepime HCl 2 gm/ Sodium (Chloride) 100 mls @ 200 mls/hr IVPB DAILY [facility] Insulin Aspart (Novolog) 0 unit SQ ACHS [facility]; Protocol Last Admin: 12/05/18 21:05 Dose: Not Given Documented by: Insulin Aspart (Novolog Mix 70-30 Vial) 20 unit SQ AC-BID [facility] Last Admin: 12/05/18 17:18 Dose: 20 unit Documented by: Insulin Aspart (Novolog Mix 70-30 Vial) 10 unit SQ AC-LUNCH [facility] Last Admin: 12/05/18 12:22 Dose: 10 unit Documented by: Loratadine (Claritin) 10 mg PO W/LUNCH [facility] Last Admin: 12/05/18 12:21 Dose: 10 mg Documented by: Naloxone HCl (Narcan) 0.2 mg IV Q2M PRN PRN Reason: Opioid Reversal Finasteride 1 Mg 1 mg PO W/SUPPER [facility] Last Admin: 12/05/18 17:03 Dose: 1 mg Documented by: Nystatin (Mycostatin Oral Susp) 500,000 unit PO QID [facility] Last Admin: 12/05/18 20:02 Dose: 500,000 unit Documented by: Pantoprazole Sodium (Protonix) 40 mg PO W/SUPPER [facility] Last Admin: 12/05/18 16:57 Dose: 40 mg Documented by: Sertraline HCl (Zoloft) 25 mg PO DAILY [facility] Tamsulosin HCl (Flomax) 0.4 mg PO QAM [facility] Last Admin: 12/05/18 10:58 Dose: 0.4 mg Documented by: Physical examination: VITAL SIGNS: 97.5, 71, 16, 11 1/57, 96% GENERAL: , lethargic, but arousable EYES: Pupils equal. Conjunctiva normal. HEENT: External appearance of nose and ears normal, oral cavity grossly normal. NECK: JVD unable to assess, no masses palpable HEART: First and second heart sounds are normal; edema gone down LUNGS: Respiratory rate increased, , diminished breath sounds prolonged expiration. ABDOMEN: Soft, distended, nontender, liver spleen not palpable, no masses palpable. Right groin hemodialysis catheter PSYCH: Depressed INVESTIGATIONS, reviewed in the clinical context: Sodium 1:30 potassium 4.3 bun 90 creatinine 4.4 Hepatitis screen negative Previous testing: White count 6.5 hemoglobin 9.3 potassium 4.4 bun 113 creatine 4.15 Glucose 258 EKG tracing personally reviewed by me-right bundle-branch block Chest x-ray film personally reviewed by me-possibly fluid overload and infiltrate 2-D echocardiogram-shows EF of 40-45%, severe concentric left ventricular hypertrophy, moderate aortic stenosis Assessment: -Pneumonia, suspect gram-negative organism, -Acute on chronic congestive heart failure exacerbation from systolic and diastolic dysfunction EF 40-45%, slow to respond -Hypertensive heart disease -Acute COPD exacerbation in an ex-smoker, -Primary osteoarthritis -Chronic gait dysfunction uses a walker -Diabetes mellitus type 2, uncontrolled with hypoglycemia, chronically on insulin -Moderate aortic stenosis, non- rheumatic -GERD -Essential hypertension -Diabetic peripheral neuropathy -Chronic kidney disease stage III from diabetic nephropathy and hypertensive nephrosclerosis -Acute kidney injury, could be prerenal, new onset, requiring renal replacement therapy -Hyperkalemia secondary to renal failure, -Morbid obesity BMI 40.3 -[place] bone disease -Acute metabolic encephalopathy from worsening renal failure -Metabolic acidosis from renal failure -Major depression, first episode Plan: Continue current medication treatment plan. Hemodialyze today. Psychiatry was consulted. One-to-one sitter was placed. Prognosis guarded.
[2018-12-06 06:03] LABS: Calcium 8.1 mg/dL (8.4-10.2); Potassium 4.6 mmol/L (3.5-5.1)
[2018-12-06 06:08] LABS: Anisocytosis Slight; Basophils # (A) 0.1 k/uL (0-0.2); Basophils % (A) 1 %; Eosinophils # (A) 0.2 k/uL (0-0.7); Eosinophils % (A) 1 %; HCT 23.7 % (39.0-53.0); HGB 7.3 gm/dL (13.0-17.5); Hypochromasia Marked; Lymphocytes % (A) 9 %; MCH 27.4 pg (25.0-35.0); MCHC 30.9 g/dL (31.0-37.0); MCV 88.7 fL (80.0-100.0); Mean Platelet Volume 8.4; Monocytes % (A) 9 %; Neutrophils # (A) 8.7 k/uL (1.3-7.7); Neutrophils % (A) 77 %; Platelet Count 143 k/uL (150-450); RBC 2.68 m/uL (4.30-5.90); RDW 16.9 % (11.5-15.5); WBC 11.3 k/uL (3.8-10.6)
[2018-12-06 06:46] LABS: Glucose,Whole Blood 142 mg/dL (75-99)
[2018-12-06] MEDS: CARVEDILOL 3.125 MG TAB PO SCH ×2 (06:53→17:09)
[2018-12-06] MEDS: INSULIN ASPART (NovoLOG) 100 UNIT/ML VIAL SQ SCH ×4 (06:54→20:24)
[2018-12-06] MEDS: IPRATROPIUM-ALBUTEROL 3 ML NEB INHALATION SCH ×4 (07:19→19:41)
[2018-12-06] MEDS: INSULN ASP PRT/INSULIN ASPART 100 UNIT/ML 10 ML VIAL SQ SCH ×3 (07:31→17:11)
[2018-12-06 08:12] LABS: Appearance,Urine Cloudy (Clear); Bacteria,Urine Few /hpf; Bilirubin,Urine Negative (Negative); Blood,Urine Moderate (Negative); Color,Urine Yellow; Glucose,Urine (UA) Negative (Negative); Ketones,Urine Trace (Negative); Leukocyte Esterase,Urine Small (Negative); Nitrite,Urine Negative (Negative); Protein,Urine 2+ (Negative); RBC,Urine >182 /hpf (0-5); Specific Gravity,Urine 1.016 (1.001-1.035); Urobilinogen,Urine <2.0 mg/dL (<2.0)
[2018-12-06] MEDS: CEFEPIME 2 GM in SODIUM CHLORIDE 0.9% 100 ML IVPB SCH (08:40)
[2018-12-06] MEDS: HEPARIN SODIUM,PORCINE 5,000 UNIT/ML 1 ML VIAL SQ SCH ×3 (08:41→17:09)
[2018-12-06] MEDS: GABAPENTIN 300 MG CAP PO SCH ×4 (08:42→20:23)
[2018-12-06] MEDS: CALCITRIOL 0.25 MCG CAP PO SCH ×3 (08:42→11:15)
[2018-12-06] MEDS: NYSTATIN 100,000 UNIT/ML SUSP 500,000 UNIT/5 ML CUP PO SCH ×5 (08:42→17:09)
[2018-12-06] MEDS: TAMSULOSIN 0.4 MG CAP.ER.24H PO SCH ×3 (08:42→11:15)
[2018-12-06] MEDS: FERROUS SULFATE 325 MG TAB PO SCH ×4 (08:42→20:24)
[2018-12-06] MEDS: SERTRALINE 25 MG TAB PO SCH ×2 (08:47→11:14)
--- NOTE | 2018-12-06 09:52 | XR ---
EXAMINATION TYPE: XR chest 1V portable DATE OF EXAM: 12/06/2018 COMPARISON: Prior chest x-ray 12/05/2018 HISTORY: Shortness of breath TECHNIQUE: Single frontal view of the chest is obtained. FINDINGS: Patient is rotated. Heart is stable and likely enlarged although it may be accentuated parth earance due to rotation. No pneumothorax. Bibasilar increased density is present. Prominence of the c entral vascularity is again noted, suspect there is some slight improvement in aeration in the upper lobes. Central venous catheter is stable. IMPRESSION: There may be some slight interval improvement in aeration, volume status. Additional fol low-up recommended.
--- NOTE | 2018-12-06 11:26 | P.PN ---
Subjective Progress Note Date: 12/06/18 Principal diagnosis: Diastolic congestive heart failure, possible community-acquired pneumonia failed outpatient treatment. Morbidly obese 68-year-old here patient with known history of COPD and previous history of right hemidiaphragmatic paralysis requiring surgical repair mild addition to morbid obesity, diabetes mellitus, chronic stage III kidney disease, chronic hypoxic respiratory failure, hypertension. The patient's based on pulmonary function test shows an FEV1 of 5 2% of predicted in addition to a total lung capacity of 73% of predicted and diffusion capacity of 77% of predicted. This is based on the pulmonary function test as well as some back in 2015. The patient came in yesterday to Dr. Sheridan's office complaining of worsening shortness of breath. Apparently received antibiotics to the primary care and the patient received 2 rounds of antibiotics without any much relief. For that reason he came into Dr. Sheridan's office and [facility]. There is some limited infiltration lung bases bilaterally. The patient had at least 20 pounds weight gain and he had increased lower extremity edema. On his blood work, the patient had developed an acute on top of his chronic kidney injury and his GFR was down to 50 with a creatinine of 3.8. He was started on IV Zosyn. He was started on IV Lasix. His proBNP level was elevated. No chest pain. Altered mentation. He has difficulty with mobility and gait. He has a congested cough. Unable to bring up much sputum. No chest pain. No pleurisy. No altered mentation. On today's evaluation of 12/02/2018 the patient got transferred to the intensive care unit in the brand designer hours. The patient was becoming progressively more obtunded and short of breath and lethargic. He was not producing any urine output. The blood work from this morning were markedly abnormal. Woody being on Lasix. The patient was not producing any urine output. A blood gas was done that showed a pH of 7.15 with a pCO2 of 71 and pO2 of 61. The blood work from this morning showed a potassium level of 6.2 with a BUN of 142 and a creatinine of 6.8. The patient also had a anion gap of 19. Chest x-ray showed small lung volumes and atelectatic changes small effusion the lung bases. He had increased lower extremity edema. At this point, the patient got transferred to the intensive care unit and he was placed on BiPAP for respiratory support. Currently on a BiPAP pressure of 12/5 cm of water. Based on this, the patient got transferred to the intensive care unit. The patient had a triple lumen catheter inserted in the left subclavian. A dialysis catheter was inserted in the right femoral vein and the patient was started on hemodialysis. A total of 2 L of fluid was pulled off during the dialysis. Following that the patient was weaned off the BiPAP and he was placed on oxygen at 2 L per minute nasal cannula. He seems to much more alert and communicating at this point in time. No significant urine output. No fever. No chills. No chest pain. He does have a hematoma formation in the right groin area the site of the puncture and we have a fem stop in the hematomas controllable at this point in time. The patient is on empiric antibiotic coverage with IV cefepime. The patient on DuoNeb nebulized treatments around the clock. Blood sugar is at 180 and the patient is currently septic. Insulin by serial coverage. Family has been updated on his condition. On today's evaluation of 12/03/2018, the patient is awake and alert. He is not very much happy with his condition. He is not happy with dialysis. A second dialysis session is being done today. The goal is to remove 2-3 L and he is going to use a 2K bath as the patient's potassium level is again elevated at 6.2. His chest x-ray still showing fluid overload most on the right. Is currently on oxygen at 12 L high flow and his pulse ox is 91%. No major edema lower extremities. No fever. No chills. He is off the BiPAP this morning and he uses overnight at the pressure of 12/5 cm of water and FiO2 of 40%. He has a subclavian triple-lumen catheter. His dialysis catheter is in the groin. No chest pain. He is moving all 4 extremities without any limitation. Today's evaluation of 12/04/2018, the patient is somewhat depressed. He does not like the fact that he is going to be on dialysis on a chronic basis. He feels that this is likely a sentence. He underwent 2 sessions of hemodialysis, during yesterday's session a total of 3 L of fluid was removed and is currently undergoing another session of dialysis. He is awake and alert. No significant respiratory difficulties. In oxygen 10 L high flow. He is having difficulties in laying down flat. Note that yesterday she was on 12 L of oxygen. No altered mentation. No chest pain. He is having no cough or sputum production. Edema in general is improving. The sodium level is at 132. Potassium level from this morning was at 5.7 after having issues with hyperkalemia today before. Coagulation profile is within normal. Hemoglobin is at 7.8. Patient has a hematoma in his hemodialysis catheter site insertion. He'll be given DDAVP and his hemoglobin is down to 7.8. Patient was reevaluated today on 12/05/2018, patient feels depressed, has a psychiatric consultation was initiated. He keeps saying I am dying and let me . Patient is presently on hemodialysis, discussed briefly the CODE STATUS with him, patient is agreeable to no CODE STATUS, and I will confirm this with his sometime today. Patient remains on high flow nasal cannula, receiving dialysis, he looks very comfortable, in no distress. His labs were all reviewed, potassium is a bit elevated at 5.3 BUN is 90 creatinine 4.44 hemoglobin is 7.6. WBC count is 10.8. Chest x-ray is showing evidence of bibasilar interstitial densities, correlate for possible congestive heart failure, doubt pneumonia. Reevaluated today on 12/06/2018, patient is obviously very depressed, wishing that he is left alone and let him . Patient is refusing to take his oral medication/Zoloft which was recommended by psychiatry. He is presently undergoing hemodialysis. I discussed his condition with the yesterday, and agreeable to DO NOT RESUSCITATE CODE STATUS. Patient is breathing easier, chest x-ray is showing interval improvement in aeration and volume status of both lungs. Labs were all reviewed hemoglobin is 7.3 BUN is 77 creatinine 4.25 electrolytes are normal. Objective - Vital Signs Vital signs: Vital Signs Temp 98 F 12/06/18 08:00 Pulse 69 12/06/18 11:17 Resp 20 12/06/18 10:00 BP 97/51 12/06/18 10:00 Pulse Ox 93 L 12/06/18 10:00 Intake & Output 12/05/18 12/06/18 12/06/18 18:59 06:59 18:59 Intake Total 260 60 185 Output Total 3598 0 215 Balance -3338 60 -30 Weight 129.7 kg Intake: IV 60 60 25 0.9 60 60 25 Intake, IV Titration 100 100 Amount Cefepime 2 gm In Sodium 100 100 Chloride 0.9% 100 ml @ 200 mls/hr IVPB DAILY [facility] Rx#:[id number] Oral 100 60 Output: Urine 98 0 215 Hemodialysis 3500 Other: Voiding Method Indwelling Catheter Indwelling Catheter Indwelling Catheter - Exam Physical Exam: Revealed 68-year-old white male in no form of respiratory distress. Head: Atraumatic normocephalic. HEENT:[Neck is supple.] [No neck masses.] [No thyromegaly.] [No JVD.] Dry mucous membranes. Chest: [Symmetrical chest expansion, diminished breath sounds at the bases no crackles or rhonchi or wheezes..] Cardiac Exam: [Normal S1 and S2, no S3 gallop, no murmur.] Abdomen: [Obese, Soft, nontender, no megaly, no rebound, no guarding, normal bowel sounds.] Extremities: [No clubbing, 1+ bipedal edema, no cyanosis.] Neurological Exam: [No focal neurologic deficit.] Alert oriented 3. Psychiatric: Depressed mood, blunt affect, otherwise normal mental status examination. Skin: No rashes. - Labs CBC & Chem 7: 12/06/18 05:35 12/06/18 05:35 Labs: Abnormal Lab Results - Last 24 Hours (Table) 12/05/18 12/05/18 12/05/18 Range/Units 05:04 11:50 16:55 WBC (3.8-10.6) k/uL RBC (4.30-5.90) m/uL Hgb (13.0-17.5) gm/dL Hct (39.0-53.0) % MCHC (31.0-37.0) g/dL RDW (11.5-15.5) % Plt Count (150-450) k/uL Neutrophils # (1.3-7.7) k/uL Sodium (137-145) mmol/L BUN (9-20) mg/dL Creatinine (0.66-1.25) mg/dL Glucose (74-99) mg/dL POC Glucose (mg/dL) 134 H 149 H (75-99) mg/dL Calcium (8.4-10.2) mg/dL Iron 18 L (65-175) ug/dL TIBC 178 L (228-460) ug/dL Iron Saturation 10.11 L (15.00-50.00) Ferritin 507.7 H (22.0-322.0) ng/mL Urine Protein (Negative) Urine Ketones (Negative) Urine Blood (Negative) Ur Leukocyte Esterase (Negative) Urine RBC (0-5) /hpf Urine Bacteria (None) /hpf 12/05/18 12/06/18 12/06/18 Range/Units 20:39 05:35 05:35 WBC 11.3 H (3.8-10.6) k/uL RBC 2.68 L (4.30-5.90) m/uL Hgb 7.3 L (13.0-17.5) gm/dL Hct 23.7 L (39.0-53.0) % MCHC 30.9 L (31.0-37.0) g/dL RDW 16.9 H (11.5-15.5) % Plt Count 143 L (150-450) k/uL Neutrophils # 8.7 H (1.3-7.7) k/uL Sodium 132 L (137-145) mmol/L BUN 77 H (9-20) mg/dL Creatinine 4.25 H (0.66-1.25) mg/dL Glucose 120 H (74-99) mg/dL POC Glucose (mg/dL) 130 H (75-99) mg/dL Calcium 8.1 L (8.4-10.2) mg/dL Iron (65-175) ug/dL TIBC (228-460) ug/dL Iron Saturation (15.00-50.00) Ferritin (22.0-322.0) ng/mL Urine Protein (Negative) Urine Ketones (Negative) Urine Blood (Negative) Ur Leukocyte Esterase (Negative) Urine RBC (0-5) /hpf Urine Bacteria (None) /hpf 12/06/18 12/06/18 Range/Units 06:34 07:45 WBC (3.8-10.6) k/uL RBC (4.30-5.90) m/uL Hgb (13.0-17.5) gm/dL Hct (39.0-53.0) % MCHC (31.0-37.0) g/dL RDW (11.5-15.5) % Plt Count (150-450) k/uL Neutrophils # (1.3-7.7) k/uL Sodium (137-145) mmol/L BUN (9-20) mg/dL Creatinine (0.66-1.25) mg/dL Glucose (74-99) mg/dL POC Glucose (mg/dL) 142 H (75-99) mg/dL Calcium (8.4-10.2) mg/dL Iron (65-175) ug/dL TIBC (228-460) ug/dL Iron Saturation (15.00-50.00) Ferritin (22.0-322.0) ng/mL Urine Protein 2+ H (Negative) Urine Ketones Trace H (Negative) Urine Blood Moderate H (Negative) Ur Leukocyte Esterase Small H (Negative) Urine RBC >182 H (0-5) /hpf Urine Bacteria Few H (None) /hpf Microbiology - Last 24 Hours (Table) 11/29/18 17:56 Blood Culture - Final Blood No Growth after 144 hours Assessment and Plan Assessment: Impression: Acute on chronic hypoxic respiratory failure secondary to diastolic congestive heart failure, possible superimposed pneumonia/community-acquired, supposedly failed outpatient therapy. However considering the dramatic improvement with hemodialysis, I believe the findings on the chest x-ray are mostly cardiogenic in nature and related to diastolic congestive heart failure. Strongly doubt pneumonia. Acute on chronic stage III kidney disease, presently patient is on hemodialysis. Chronic hypoxic respiratory failure and previous history of right hemidiaphragm paralysis requiring surgical repair Morbid obesity Multiple comorbidities including hypertension, peripheral neuropathy, degenerative joint disease, and glaucoma, gout, and type 2 diabetes. Major affective disorder. Being followed by psychiatry. Recommendation: Continue hemodialysis, continue to monitor electrolytes daily, titrate FiO2 down to keep O2 saturation above 90%. Continue DO NOT RESUSCITATE CODE STATUS as discussed with the patient and his . Likely transfer patient out of the ICU today. Patient could be transferred to a regular medical floor. Continue suicidal precautions. Patient continues to wish that he dies. Prognosis is clearly poor. Time with Patient: Less than 30
--- NOTE | 2018-12-06 11:52 | P.PN ---
Subjective Patient is seen in follow-up for acute kidney injury on chronic kidney disease. 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 Patient presented with dyspnea. Currently hemodialysis dependent. Remains oliguric. Vital signs are stable. General: The patient appeared well nourished and normally developed. HEENT: Head exam is unremarkable. Neck is without jugular venous distension. LUNGS: Breath sounds decreased. HEART: Rate and Rhythm are regular. First and second heart sounds normal. No murmurs, rubs or gallops. ABDOMEN: Abdominal exam reveals normal bowel sounds. Non-tender and non- distended. EXTREMITITES: Trace edema. Objective - Vital Signs Vital signs: Vital Signs Temp 98 F 12/06/18 08:00 Pulse 75 12/06/18 11:27 Resp 20 12/06/18 10:00 BP 97/51 12/06/18 10:00 Pulse Ox 93 L 12/06/18 10:00 Intake & Output 12/05/18 12/06/18 12/06/18 18:59 06:59 18:59 Intake Total 260 60 190 Output Total 3598 0 215 Balance -3338 60 -25 Weight 129.7 kg Intake: IV 60 60 30 0.9 60 60 30 Intake, IV Titration 100 100 Amount Cefepime 2 gm In Sodium 100 100 Chloride 0.9% 100 ml @ 200 mls/hr IVPB DAILY [facility] Rx#:[id number] Oral 100 60 Output: Urine 98 0 215 Hemodialysis 3500 Other: Voiding Method Indwelling Catheter Indwelling Catheter Indwelling Catheter - Labs CBC & Chem 7: 12/06/18 05:35 12/06/18 05:35 Labs: Abnormal Lab Results - Last 24 Hours (Table) 12/05/18 12/05/18 12/05/18 Range/Units 05:04 11:50 16:55 WBC (3.8-10.6) k/uL RBC (4.30-5.90) m/uL Hgb (13.0-17.5) gm/dL Hct (39.0-53.0) % MCHC (31.0-37.0) g/dL RDW (11.5-15.5) % Plt Count (150-450) k/uL Neutrophils # (1.3-7.7) k/uL Sodium (137-145) mmol/L BUN (9-20) mg/dL Creatinine (0.66-1.25) mg/dL Glucose (74-99) mg/dL POC Glucose (mg/dL) 134 H 149 H (75-99) mg/dL Calcium (8.4-10.2) mg/dL Iron 18 L (65-175) ug/dL TIBC 178 L (228-460) ug/dL Iron Saturation 10.11 L (15.00-50.00) Ferritin 507.7 H (22.0-322.0) ng/mL Urine Protein (Negative) Urine Ketones (Negative) Urine Blood (Negative) Ur Leukocyte Esterase (Negative) Urine RBC (0-5) /hpf Urine Bacteria (None) /hpf 12/05/18 12/06/18 12/06/18 Range/Units 20:39 05:35 05:35 WBC 11.3 H (3.8-10.6) k/uL RBC 2.68 L (4.30-5.90) m/uL Hgb 7.3 L (13.0-17.5) gm/dL Hct 23.7 L (39.0-53.0) % MCHC 30.9 L (31.0-37.0) g/dL RDW 16.9 H (11.5-15.5) % Plt Count 143 L (150-450) k/uL Neutrophils # 8.7 H (1.3-7.7) k/uL Sodium 132 L (137-145) mmol/L BUN 77 H (9-20) mg/dL Creatinine 4.25 H (0.66-1.25) mg/dL Glucose 120 H (74-99) mg/dL POC Glucose (mg/dL) 130 H (75-99) mg/dL Calcium 8.1 L (8.4-10.2) mg/dL Iron (65-175) ug/dL TIBC (228-460) ug/dL Iron Saturation (15.00-50.00) Ferritin (22.0-322.0) ng/mL Urine Protein (Negative) Urine Ketones (Negative) Urine Blood (Negative) Ur Leukocyte Esterase (Negative) Urine RBC (0-5) /hpf Urine Bacteria (None) /hpf 12/06/18 12/06/18 Range/Units 06:34 07:45 WBC (3.8-10.6) k/uL RBC (4.30-5.90) m/uL Hgb (13.0-17.5) gm/dL Hct (39.0-53.0) % MCHC (31.0-37.0) g/dL RDW (11.5-15.5) % Plt Count (150-450) k/uL Neutrophils # (1.3-7.7) k/uL Sodium (137-145) mmol/L BUN (9-20) mg/dL Creatinine (0.66-1.25) mg/dL Glucose (74-99) mg/dL POC Glucose (mg/dL) 142 H (75-99) mg/dL Calcium (8.4-10.2) mg/dL Iron (65-175) ug/dL TIBC (228-460) ug/dL Iron Saturation (15.00-50.00) Ferritin (22.0-322.0) ng/mL Urine Protein 2+ H (Negative) Urine Ketones Trace H (Negative) Urine Blood Moderate H (Negative) Ur Leukocyte Esterase Small H (Negative) Urine RBC >182 H (0-5) /hpf Urine Bacteria Few H (None) /hpf Microbiology - Last 24 Hours (Table) 11/29/18 17:56 Blood Culture - Final Blood No Growth after 144 hours Assessment and Plan Plan: Assessment: 1. Acute kidney injury secondary to ATN secondary to cardiorenal syndrome. Currently hemodialysis dependent. Remains oliguric. Diuretic unresponsive. 2. Hyperkalemia secondary to acute kidney injury. Improved postdialysis. 3. Volume overload. Improving with ultrafiltration. 4. Chronic kidney disease stage IV secondary to diabetic kidney disease with baseline creatinine in the range of 3-3.5. 5. Insulin-dependent diabetes mellitus. 6. Chronic kidney disease mineral bone disease maintained on calcitriol. 7. Acute on chronic systolic CHF with ejection fraction of 40-45%. 8. Pneumonia maintained on antibiotics. 9. Anemia of chronic kidney disease maintained on Aranesp. Iron deficiency noted. 10. Hypervolemic hyponatremia. Plan: Currently seen while undergoing hemodialysis. Continue with daily dialysis for now. Continue to monitor renal function and urine output. Avoid nephrotoxins. IV iron 3 doses. First dose today.
[2018-12-06] MEDS: amLODIPine 10 MG TAB PO SCH (12:26)
[2018-12-06] MEDS: LORATADINE 10 MG TAB PO SCH (12:26)
[2018-12-06 12:29] LABS: Glucose,Whole Blood 106 mg/dL (75-99)
[2018-12-06] MEDS: SODIUM FERRIC GLUCONAT-SUCROSE 125 MG in SODIUM CHLORIDE 0.9% 100 ML IVPB SCH (13:00)
--- NOTE | 2018-12-06 13:22 | P.PN ---
Progress Note - Text Progress Note Date: 12/06/18 Chief complaint: "I don't want to live like this " Subjective: The patient continued to report feeling depressed. As per nursing report the patient refused to take any medications since yesterday. Patient is still fixated on thoughts to and he gave up. Patient was more alert and able to communicate his thoughts with less thought blocking. Patient's came at bedside and we continue to encourage the patient to take his medications and other treatment. Patient was a started on dialysis today and as per nursing report the patient will continue dialysis at telemetry unit. According to the patient's patient has learning disabilities and he has difficulty to comprehend higher than eighth grade student. Patient denies any neck or psychotic symptoms. No delusions or hallucinations reported or elicited. Patient reports continued to have very poor sleep and very poor appetite. He denies any active thoughts to end his life but continued to talk about wishing to and he doesn't want to live with all of these devices and wires connected to him. Patient was explained with progress in treatment he would be less dependent on devices and he would learn how to cope with his medical problems. Mental status examination; Appearance: Appears older than stated age, lying in hospital bed and dressed in hospital gown. Gait/ posture: Not assessed. Attitude and Behavior: More engagement and more cooperative, better eye contact during course of interview Motor Activity: Less psychomotor retardation Speech: Slow rate,and sometimes. None pressured Mood: "depressed" Affect:Constricted. Thought form: Linear and goal directed but sometimes prompted Thought content: No delusions elicited, denies suicidal thoughts but fixated on , denies homicidal thoughts, intentions, or plans. Still expressing wishes. Perception: No report of auditory/ visual or tactile hallucinations. Attention: Responding and answering questions. Orientation: Patient is oriented to place, person, and situation, and not fully oriented to time. Insight: Limited Judgment: Limited Assessment: Major depressive disorder, single episode, without psychotic features. Plan: Continue 1:1 for safety. Please contact psychiatry team before discharging the patient. Psychiatric team will follow up with the patient. Medication Management: Zoloft 25 mg daily for depression symptoms. Encourage the patient to take medications. Discussed the treatment plan with requesting physician/service. Thank you for permitting me to assist in this patients treatment.
--- NOTE | 2018-12-06 13:26 | P.PN ---
Subjective This is Nancy Solorzano PA-C dictating a progress note on this patient The patient was interviewed and examined by me as well as by Dr. Dominique Case discussed with Dr. Dominique and he agrees with the plan of care IMPRESSION / ASSESSMENT: Acute on chronic hypoxic respiratory failure requiring BiPAP, likely secondary to combination of COPD, fluid overload, chronic diaphragmatic paralysis, and CHF, breathing seems to be improving, has been off BiPAP Acute combined systolic and diastolic heart failure, EF 40-45% Paroxysmal atrial fibrillation, rate controlled, currently in atrial tachycardia with controlled ventricular response, anticoagulation was being held secondary to anemia and hematoma on catheter site, no further bleeding CKD, currently on hemodialysis Hypertension, blood pressure well controlled Chronic right diaphragmatic paralysis COPD on home oxygen Hyperkalemia, on dialysis PLAN: continue current cardiac medication regimen Patient is being made DO NOT RESUSCITATE status, thank you kindly for this consult, we will sign off at this time HPI/interval history Patient is a 68-year-old male with a past medical history is significant for COPD, hypertension, diabetes, kidney disease and diaphragmatic paralysis who presented with complaints of worsening shortness of breath. He was found to be an VINNIE. Chest x-ray showed small pleural effusions and possible infiltrate. He was started on Lasix and antibiotics. Echocardiogram showed LV systolic function mild to moderately impaired, EF 40-45%, apex hypokinetic, severe concentric LVH. His BUN and creatinine continued to rise and he became hyperkalemic so he was started on dialysis. He developed worsening respiratory failure requiring BiPAP and was transferred to the ICU. He has been off BiPAP. Telemetry today reveals atrial tachycardia controlled ventricular response. He has been refusing his medications and would like to become a DO NOT RESUSCITATE status. Patient seen and examined resting in bed. Expresses wishes to . EXAMINATION Afebrile, pulse 68, respirations 16, blood pressure 116/53, oxygen saturation 93% on high flow nasal cannula Patient seen and examined resting in bed, in no acute distress Lungs diminished bilaterally Heart is irregular, very soft systolic murmur No elevated JVD appreciated Mild lower extremity edema bilaterally Objective - Vital Signs Vital signs: Vital Signs Temp 98.1 F 12/06/18 12:00 Pulse 80 12/06/18 12:00 Resp 16 12/06/18 12:00 BP 116/53 12/06/18 12:00 Pulse Ox 92 L 12/06/18 12:00 Intake & Output 12/05/18 12/06/18 12/06/18 18:59 06:59 18:59 Intake Total 260 60 380 Output Total 3598 0 3215 Balance -3338 60 -2835 Weight 129.7 kg Intake: IV 60 60 40 0.9 60 60 40 Intake, IV Titration 100 100 Amount Cefepime 2 gm In Sodium 100 100 Chloride 0.9% 100 ml @ 200 mls/hr IVPB DAILY [facility] Rx#:[id number] Oral 100 240 Output: Urine 98 0 215 Hemodialysis 3500 3000 Other: Voiding Method Indwelling Catheter Indwelling Catheter Indwelling Catheter - Labs CBC & Chem 7: 12/06/18 05:35 12/06/18 05:35 Labs: Abnormal Lab Results - Last 24 Hours (Table) 12/05/18 12/05/18 12/05/18 Range/Units 05:04 16:55 20:39 WBC (3.8-10.6) k/uL RBC (4.30-5.90) m/uL Hgb (13.0-17.5) gm/dL Hct (39.0-53.0) % MCHC (31.0-37.0) g/dL RDW (11.5-15.5) % Plt Count (150-450) k/uL Neutrophils # (1.3-7.7) k/uL Sodium (137-145) mmol/L BUN (9-20) mg/dL Creatinine (0.66-1.25) mg/dL Glucose (74-99) mg/dL POC Glucose (mg/dL) 149 H 130 H (75-99) mg/dL Calcium (8.4-10.2) mg/dL Iron 18 L (65-175) ug/dL TIBC 178 L (228-460) ug/dL Iron Saturation 10.11 L (15.00-50.00) Ferritin 507.7 H (22.0-322.0) ng/mL Urine Protein (Negative) Urine Ketones (Negative) Urine Blood (Negative) Ur Leukocyte Esterase (Negative) Urine RBC (0-5) /hpf Urine Bacteria (None) /hpf 12/06/18 12/06/18 12/06/18 Range/Units 05:35 05:35 06:34 WBC 11.3 H (3.8-10.6) k/uL RBC 2.68 L (4.30-5.90) m/uL Hgb 7.3 L (13.0-17.5) gm/dL Hct 23.7 L (39.0-53.0) % MCHC 30.9 L (31.0-37.0) g/dL RDW 16.9 H (11.5-15.5) % Plt Count 143 L (150-450) k/uL Neutrophils # 8.7 H (1.3-7.7) k/uL Sodium 132 L (137-145) mmol/L BUN 77 H (9-20) mg/dL Creatinine 4.25 H (0.66-1.25) mg/dL Glucose 120 H (74-99) mg/dL POC Glucose (mg/dL) 142 H (75-99) mg/dL Calcium 8.1 L (8.4-10.2) mg/dL Iron (65-175) ug/dL TIBC (228-460) ug/dL Iron Saturation (15.00-50.00) Ferritin (22.0-322.0) ng/mL Urine Protein (Negative) Urine Ketones (Negative) Urine Blood (Negative) Ur Leukocyte Esterase (Negative) Urine RBC (0-5) /hpf Urine Bacteria (None) /hpf 12/06/18 12/06/18 Range/Units 07:45 12:17 WBC (3.8-10.6) k/uL RBC (4.30-5.90) m/uL Hgb (13.0-17.5) gm/dL Hct (39.0-53.0) % MCHC (31.0-37.0) g/dL RDW (11.5-15.5) % Plt Count (150-450) k/uL Neutrophils # (1.3-7.7) k/uL Sodium (137-145) mmol/L BUN (9-20) mg/dL Creatinine (0.66-1.25) mg/dL Glucose (74-99) mg/dL POC Glucose (mg/dL) 106 H (75-99) mg/dL Calcium (8.4-10.2) mg/dL Iron (65-175) ug/dL TIBC (228-460) ug/dL Iron Saturation (15.00-50.00) Ferritin (22.0-322.0) ng/mL Urine Protein 2+ H (Negative) Urine Ketones Trace H (Negative) Urine Blood Moderate H (Negative) Ur Leukocyte Esterase Small H (Negative) Urine RBC >182 H (0-5) /hpf Urine Bacteria Few H (None) /hpf Microbiology - Last 24 Hours (Table) 11/29/18 17:56 Blood Culture - Final Blood No Growth after 144 hours
[2018-12-06 16:47] LABS: Glucose,Whole Blood 125 mg/dL (75-99)
[2018-12-06] MEDS: PANTOPRAZOLE 40 MG TABLET PO SCH (17:09)
[2018-12-06] MEDS: ATORVASTATIN 40 MG TAB PO SCH (20:23)
[2018-12-06] MEDS: ASPIRIN 81 MG PO SCH (20:24)
[2018-12-06 20:26] LABS: Glucose,Whole Blood 135 mg/dL (75-99)
--- NOTE | 2018-12-07 00:33 | P.PN ---
Progress Note - Text Progress Note Date: 12/06/18 Interval history: This is a 68-year-old patient of Dr. bonilla from [facility] whose chronic st able medical conditions include primary osteoarthritis, chronic kidney dysfunction uses a walker, diabetes mellitus on insulin, GERD, essential hypertension, diabetic peripheral neuropathy, chronic kidney disease stage III, chronic hypoxic respiratory failure. Presented with increasing shortness of breath, Center by Dr. rossi for possible pneumonia. Patient has been bringing up yellow-green sputum. Also very short of breath and wheezing. Distended abdomen increasing edema. Started on IV antibiotics. Admitted with pneumonia, CHF exacerbation, COPD exacerbation. On November 30 was put on a Lasix drip. Kidney function was worsening. On December 02, moved to ICU and hemodialysis catheter was placed. And hemodialysis was started. Patient very depressed. Has sitters the bedside. Today-. More awake today. Communicating. Did eat some wheezing. Breathing improving. Corticomedullary today. Review of systems: Was attempted for constitutional, cardiovascular, GI, pulmonary. relevant finding as above Active Medications Hydrocodone Bitart/Acetaminophen ([place] 7.5-325) 1 each PO Q8H PRN PRN Reason: Pain Last Admin: 12/03/18 14:56 Dose: 1 each Documented by: Albuterol/Ipratropium (Duoneb 0.5 Mg-3 Mg/3 Ml Soln) 3 ml INHALATION RT-QID PRN PRN Reason: Shortness Of Breath Or Wheezing Albuterol/Ipratropium (Duoneb 0.5 Mg-3 Mg/3 Ml Soln) 3 ml INHALATION RT-QID [facility] Last Admin: 12/06/18 19:41 Dose: Not Given Documented by: Amlodipine Besylate (Norvasc) 5 mg PO W/LUNCH [facility] Last Admin: 12/06/18 12:26 Dose: 5 mg Documented by: Aspirin (Aspirin) 81 mg PO HS [facility] Last Admin: 12/06/18 20:24 Dose: 81 mg Documented by: Atorvastatin Calcium (Lipitor) 40 mg PO HS [facility] Last Admin: 12/06/18 20:23 Dose: 40 mg Documented by: Calcitriol (Rocaltrol) 0.25 mcg PO Q48H [facility] Last Admin: 12/06/18 11:15 Dose: 0.25 mcg Documented by: Carvedilol (Coreg) 3.125 mg PO BID-W/MEALS [facility] Last Admin: 12/06/18 17:09 Dose: 3.125 mg Documented by: Darbepoetin Jaswinder (Aranesp) 40 mcg SQ Q7D [facility] Last Admin: 12/04/18 13:53 Dose: 40 mcg Documented by: Ferrous Sulfate (Feosol) 325 mg PO BID [facility] Last Admin: 12/06/18 20:24 Dose: 325 mg Documented by: Gabapentin (Neurontin) 300 mg PO BID [facility] Last Admin: 12/06/18 20:23 Dose: 300 mg Documented by: Heparin Sodium (Porcine) (Heparin) 5,000 unit SQ Q8HR [facility] Last Admin: 12/06/18 17:09 Dose: 5,000 unit Documented by: Cefepime HCl 2 gm/ Sodium (Chloride) 100 mls @ 200 mls/hr IVPB DAILY [facility] Last Admin: 12/06/18 08:40 Dose: 200 mls/hr Documented by: Ferric Sodium Gluconate 125 mg (/ Sodium Chloride) 110 mls @ 100 mls/hr IVPB DAILY [facility] Stop: 12/09/18 12:01 Last Admin: 12/06/18 13:00 Dose: 100 mls/hr Documented by: Insulin Aspart (Novolog) 0 unit SQ ACHS [facility]; Protocol Last Admin: 12/06/18 20:24 Dose: 1 unit Documented by: Insulin Aspart (Novolog Mix 70-30 Vial) 20 unit SQ AC-BID [facility] Last Admin: 12/06/18 17:11 Dose: Not Given Documented by: Insulin Aspart (Novolog Mix 70-30 Vial) 10 unit SQ AC-LUNCH [facility] Last Admin: 12/06/18 12:21 Dose: Not Given Documented by: Loratadine (Claritin) 10 mg PO W/LUNCH [facility] Last Admin: 12/06/18 12:26 Dose: 10 mg Documented by: Naloxone HCl (Narcan) 0.2 mg IV Q2M PRN PRN Reason: Opioid Reversal Finasteride 1 Mg 1 mg PO W/SUPPER [facility] Last Admin: 12/06/18 17:10 Dose: 1 mg Documented by: Nystatin (Mycostatin Oral Susp) 500,000 unit PO QID [facility] Last Admin: 12/06/18 17:09 Dose: 500,000 unit Documented by: Pantoprazole Sodium (Protonix) 40 mg PO W/SUPPER [facility] Last Admin: 12/06/18 17:09 Dose: 40 mg Documented by: Sertraline HCl (Zoloft) 25 mg PO DAILY [facility] Last Admin: 12/06/18 11:14 Dose: 25 mg Documented by: Tamsulosin HCl (Flomax) 0.4 mg PO QAM [facility] Last Admin: 12/06/18 11:15 Dose: 0.4 mg Documented by: Physical examination: VITAL SIGNS: 97.9, 72, 15, 107/54, 97% on high flow nasal cannula GENERAL: , Propped up more awake, answering questions is feeding him we'll EYES: Pupils equal. Conjunctiva normal. HEENT: External appearance of nose and ears normal, oral cavity grossly normal. NECK: JVD unable to assess, no masses palpable HEART: First and second heart sounds are normal; edema gone down LUNGS: Respiratory rate increased, , diminished breath sounds prolonged expiration. ABDOMEN: Soft, distended, nontender, liver spleen not palpable, no masses palpable. Right groin hemodialysis catheter PSYCH: Answering questions appropriately. More perky today. INVESTIGATIONS, reviewed in the clinical context: White count 10.3 hemoglobin 7.3 potassium 4.6 bun 77 creatine 4.25 Previous testing: White count 6.5 hemoglobin 9.3 potassium 4.4 bun 113 creatine 4.15 Glucose 258 EKG tracing personally reviewed by me-right bundle-branch block Chest x-ray film personally reviewed by me-possibly fluid overload and infiltrate 2-D echocardiogram-shows EF of 40-45%, severe concentric left ventricular hypertrophy, moderate aortic stenosis Assessment: -Pneumonia, suspect gram-negative organism, improving -Acute on chronic congestive heart failure exacerbation from systolic and diastolic dysfunction EF 40-45%, slow to respond -Hypertensive heart disease -Acute COPD exacerbation in an ex-smoker, -Primary osteoarthritis -Chronic gait dysfunction uses a walker -Diabetes mellitus type 2, uncontrolled with hypoglycemia, chronically on insulin -Moderate aortic stenosis, non- rheumatic -GERD -Essential hypertension -Diabetic peripheral neuropathy -Chronic kidney disease stage III from diabetic nephropathy and hypertensive nephrosclerosis -Acute kidney injury, could be prerenal, new onset, requiring renal replacement therapy -Hyperkalemia secondary to renal failure, -Morbid obesity BMI 40.3 -Mineral bone disease -Acute metabolic encephalopathy from worsening renal failure, improving -Metabolic acidosis from renal failure -Major depression, first episode Plan: Was hemodialyzed today. Started to eat better today. Soft diet. Has a sitter the bedside. Spoke to the and son the bedside. Prognosis guarded.
[2018-12-07] MEDS: NYSTATIN 100,000 UNIT/ML SUSP 500,000 UNIT/5 ML CUP PO SCH ×5 (00:43→22:33)
[2018-12-07] MEDS: HEPARIN SODIUM,PORCINE 5,000 UNIT/ML 1 ML VIAL SQ SCH ×4 (00:43→23:14)
[2018-12-07 04:36] LABS: Anisocytosis Slight; HCT 24.7 % (39.0-53.0); HGB 7.7 gm/dL (13.0-17.5); Hypochromasia Marked; MCH 27.5 pg (25.0-35.0); MCHC 31.1 g/dL (31.0-37.0); MCV 88.5 fL (80.0-100.0); Platelet Count 162 k/uL (150-450); RBC 2.79 m/uL (4.30-5.90); RDW 17.2 % (11.5-15.5); WBC 12.6 k/uL (3.8-10.6)
[2018-12-07 04:59] LABS: Albumin 2.9 g/dL (3.5-5.0); Calcium 8.6 mg/dL (8.4-10.2); Potassium 4.7 mmol/L (3.5-5.1); Total Bilirubin 0.5 mg/dL (0.2-1.3); Total Protein 5.5 g/dL (6.3-8.2)
[2018-12-07 07:08] LABS: Glucose,Whole Blood 119 mg/dL (75-99)
[2018-12-07] MEDS: INSULIN ASPART (NovoLOG) 100 UNIT/ML VIAL SQ SCH ×4 (07:13→20:32)
[2018-12-07] MEDS: INSULN ASP PRT/INSULIN ASPART 100 UNIT/ML 10 ML VIAL SQ SCH ×2 (07:13→13:19)
[2018-12-07] MEDS: CEFEPIME 2 GM in SODIUM CHLORIDE 0.9% 100 ML IVPB SCH (08:28)
[2018-12-07] MEDS: IPRATROPIUM-ALBUTEROL 3 ML NEB INHALATION SCH ×2 (08:38→12:35)
[2018-12-07] MEDS: SODIUM FERRIC GLUCONAT-SUCROSE 125 MG in SODIUM CHLORIDE 0.9% 100 ML IVPB SCH (09:39)
[2018-12-07] MEDS: SERTRALINE 25 MG TAB PO SCH (10:28)
[2018-12-07] MEDS: FERROUS SULFATE 325 MG TAB PO SCH ×2 (10:28→22:22)
[2018-12-07] MEDS: TAMSULOSIN 0.4 MG CAP.ER.24H PO SCH (10:28)
[2018-12-07] MEDS: CARVEDILOL 3.125 MG TAB PO SCH ×2 (10:28→18:41)
[2018-12-07] MEDS: GABAPENTIN 300 MG CAP PO SCH ×2 (10:28→22:21)
[2018-12-07 10:34] VITALS: BMI 46.2
--- NOTE | 2018-12-07 10:59 | P.PN ---
Subjective Patient is seen in follow-up for acute kidney injury on chronic kidney disease. 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 Patient presented with dyspnea. Currently hemodialysis dependent. Remains oliguric. He has been refusing to take some of the medications. Vital signs are stable. General: The patient appeared well nourished and normally developed. HEENT: Head exam is unremarkable. Neck is without jugular venous distension. LUNGS: Breath sounds decreased. HEART: Rate and Rhythm are regular. First and second heart sounds normal. No murmurs, rubs or gallops. ABDOMEN: Abdominal exam reveals normal bowel sounds. Non-tender and non- distended. EXTREMITITES: Trace edema. Objective - Vital Signs Vital signs: Vital Signs Temp 97.9 F 12/07/18 08:00 Pulse 69 12/07/18 08:00 Resp 16 12/07/18 10:00 BP 105/51 12/07/18 08:00 Pulse Ox 97 12/07/18 10:00 Intake & Output 12/06/18 12/07/18 12/07/18 18:59 06:59 18:59 Intake Total 565 60 220 Output Total 3235 110 10 Balance -2670 -50 210 Weight 126.1 kg 126.1 kg Intake: IV 65 60 20 0.9 65 60 20 Intake, IV Titration 200 200 Amount Cefepime 2 gm In Sodium 100 100 Chloride 0.9% 100 ml @ 200 mls/hr IVPB DAILY [facility] Rx#:[id number] Sodium Ferric Gluconat- 100 100 Sucrose 125 mg In Sodium Chloride 0.9% 100 ml @ 100 mls/hr IVPB DAILY [facility] Rx#:[id number] Oral 300 Output: Urine 235 110 10 Hemodialysis 3000 Other: Voiding Method Indwelling Catheter Indwelling Catheter Indwelling Catheter - Labs CBC & Chem 7: 12/07/18 04:20 12/07/18 04:20 Labs: Abnormal Lab Results - Last 24 Hours (Table) 12/06/18 12/06/18 12/06/18 Range/Units 12:17 16:36 20:15 WBC (3.8-10.6) k/uL RBC (4.30-5.90) m/uL Hgb (13.0-17.5) gm/dL Hct (39.0-53.0) % RDW (11.5-15.5) % Sodium (137-145) mmol/L BUN (9-20) mg/dL Creatinine (0.66-1.25) mg/dL Glucose (74-99) mg/dL POC Glucose (mg/dL) 106 H 125 H 135 H (75-99) mg/dL ALT (21-72) U/L Total Protein (6.3-8.2) g/dL Albumin (3.5-5.0) g/dL 12/07/18 12/07/18 12/07/18 Range/Units 04:20 04:20 06:58 WBC 12.6 H (3.8-10.6) k/uL RBC 2.79 L (4.30-5.90) m/uL Hgb 7.7 L (13.0-17.5) gm/dL Hct 24.7 L (39.0-53.0) % RDW 17.2 H (11.5-15.5) % Sodium 136 L (137-145) mmol/L BUN 66 H (9-20) mg/dL Creatinine 3.96 H (0.66-1.25) mg/dL Glucose 118 H (74-99) mg/dL POC Glucose (mg/dL) 119 H (75-99) mg/dL ALT 20 L (21-72) U/L Total Protein 5.5 L (6.3-8.2) g/dL Albumin 2.9 L (3.5-5.0) g/dL Assessment and Plan Plan: Assessment: 1. Acute kidney injury secondary to ATN secondary to cardiorenal syndrome. C urrently hemodialysis dependent. Remains oliguric. Diuretic unresponsive. 2. Hyperkalemia secondary to acute kidney injury. Improved postdialysis. 3. Volume overload. Improving with ultrafiltration. 4. Chronic kidney disease stage IV secondary to diabetic kidney disease with baseline creatinine in the range of 3-3.5. 5. Insulin-dependent diabetes mellitus. 6. Chronic kidney disease mineral bone disease maintained on calcitriol. 7. Acute on chronic systolic CHF with ejection fraction of 40-45%. 8. Pneumonia maintained on antibiotics. 9. Anemia of chronic kidney disease maintained on Aranesp. Iron deficiency noted. 10. Hypervolemic hyponatremia. Better. Plan: Hemodialysis today. Continue to monitor renal function and urine output. Avoid nephrotoxins. IV iron 3 doses. Second dose today. Add oral Lasix 80 mg twice daily. Hold amlodipine for systolic blood pressure less than 120.
--- NOTE | 2018-12-07 11:16 | P.PN ---
Subjective Progress Note Date: 12/07/18 Principal diagnosis: Diastolic congestive heart failure, possible community-acquired pneumonia failed outpatient treatment. Morbidly obese 68-year-old here patient with known history of COPD and previous history of right hemidiaphragmatic paralysis requiring surgical repair mild addition to morbid obesity, diabetes mellitus, chronic stage III kidney disease, chronic hypoxic respiratory failure, hypertension. The patient's based on pulmonary function test shows an FEV1 of 5 2% of predicted in addition to a total lung capacity of 73% of predicted and diffusion capacity of 77% of predicted. This is based on the pulmonary function test as well as some back in 2015. The patient came in yesterday to Dr. Sheridan's office complaining of worsening shortness of breath. Apparently received antibiotics to the primary care and the patient received 2 rounds of antibiotics without any much relief. For that reason he came into Dr. Sheridan's office and he was admitted to the [facility] for further evaluation. There is some limited infiltration lung bases bilaterally. The patient had at least 20 pounds weight gain and he had increased lower extremity edema. On his blood work, the patient had developed an acute on top of his chronic kidney injury and his GFR was down to 50 with a creatinine of 3.8. He was started on IV Zosyn. He was started on IV Lasix. His proBNP level was elevated. No chest pain. Altered mentation. He has difficulty with mobility and gait. He has a congested cough. Unable to bring up much sputum. No chest pain. No pleurisy. No altered mentation. On today's evaluation of 12/02/2018 the patient got transferred to the intensive care unit in the health analyst hours. The patient was becoming progressively more obtunded and short of breath and lethargic. He was not producing any urine output. The blood work from this morning were markedly abnormal. Woody being on Lasix. The patient was not producing any urine output. A blood gas was done that showed a pH of 7.15 with a pCO2 of 71 and pO2 of 61. The blood work from this morning showed a potassium level of 6.2 with a BUN of 142 and a creatinine of 6.8. The patient also had a anion gap of 19. Chest x-ray showed small lung volumes and atelectatic changes small effusion the lung bases. He had increased lower extremity edema. At this point, the patient got transferred to the intensive care unit and he was placed on BiPAP for respiratory support. Currently on a BiPAP pressure of 12/5 cm of water. Based on this, the patient got transferred to the intensive care unit. The patient had a triple lumen catheter inserted in the left subclavian. A dialysis catheter was inserted in the right femoral vein and the patient was started on hemodialysis. A total of 2 L of fluid was pulled off during the dialysis. Following that the patient was weaned off the BiPAP and he was placed on oxygen at 2 L per minute nasal cannula. He seems to much more alert and communicating at this point in time. No significant urine output. No fever. No chills. No chest pain. He does have a hematoma formation in the right groin area the site of the puncture and we have a fem stop in the hematomas controllable at this point in time. The patient is on empiric antibiotic coverage with IV cefepime. The patient on DuoNeb nebulized treatments around the clock. Blood sugar is at 180 and the patient is currently septic. Insulin by serial coverage. Family has been updated on his condition. On today's evaluation of 12/03/2018, the patient is awake and alert. He is not very much happy with his condition. He is not happy with dialysis. A second dialysis session is being done today. The goal is to remove 2-3 L and he is going to use a 2K bath as the patient's potassium level is again elevated at 6.2. His chest x-ray still showing fluid overload most on the right. Is currently on oxygen at 12 L high flow and his pulse ox is 91%. No major edema lower extremities. No fever. No chills. He is off the BiPAP this morning and he uses overnight at the pressure of 12/5 cm of water and FiO2 of 40%. He has a subclavian triple-lumen catheter. His dialysis catheter is in the groin. No chest pain. He is moving all 4 extremities without any limitation. Today's evaluation of 12/04/2018, the patient is somewhat depressed. He does not like the fact that he is going to be on dialysis on a chronic basis. He feels that this is likely a sentence. He underwent 2 sessions of hemodialysis, during yesterday's session a total of 3 L of fluid was removed and is currently undergoing another session of dialysis. He is awake and alert. No significant respiratory difficulties. In oxygen 10 L high flow. He is having difficulties in laying down flat. Note that yesterday she was on 12 L of oxygen. No altered mentation. No chest pain. He is having no cough or sputum production. Edema in general is improving. The sodium level is at 132. Potassium level from this morning was at 5.7 after having issues with hyperkalemia today before. Coagulation profile is within normal. Hemoglobin is at 7.8. Patient has a hematoma in his hemodialysis catheter site insertion. He'll be given DDAVP and his hemoglobin is down to 7.8. Patient was reevaluated today on 12/05/2018, patient feels depressed, has a psychiatric consultation was initiated. He keeps saying I am dying and let me . Patient is presently on hemodialysis, discussed briefly the CODE STATUS with him, patient is agreeable to no CODE STATUS, and I will confirm this with his sometime today. Patient remains on high flow nasal cannula, receiving dialysis, he looks very comfortable, in no distress. His labs were all reviewed, potassium is a bit elevated at 5.3 BUN is 90 creatinine 4.44 hemoglobin is 7.6. WBC count is 10.8. Chest x-ray is showing evidence of bibasilar interstitial densities, correlate for possible congestive heart failure, doubt pneumonia. Reevaluated today on 12/06/2018, patient is obviously very depressed, wishing that he is left alone and let him . Patient is refusing to take his oral medication/Zoloft which was recommended by psychiatry. He is presently undergoing hemodialysis. I discussed his condition with the yesterday, and agreeable to DO NOT RESUSCITATE CODE STATUS. Patient is breathing easier, chest x-ray is showing interval improvement in aeration and volume status of both lungs. Labs were all reviewed hemoglobin is 7.3 BUN is 77 creatinine 4.25 electrolytes are normal. Patient was reevaluated today on 12/07/2018, remains depressed, refusing his antidepressants again, patient is again requesting to be left alone and let him . CODE STATUS is DO NOT RESUSCITATE, however according to the , hospice is not an option at this point. Patient is still undergoing hemodialysis, and agreeable to continue hemodialysis. His chest x-ray showed improvement in his fluid status yesterday. Patient is being followed by psychiatry. All labs today were reviewed including his CBC and complete metabolic profile. Objective - Vital Signs Vital signs: Vital Signs Temp 97.9 F 12/07/18 08:00 Pulse 69 12/07/18 08:00 Resp 16 12/07/18 10:00 BP 105/51 12/07/18 08:00 Pulse Ox 97 12/07/18 10:00 Intake & Output 12/06/18 12/07/18 12/07/18 18:59 06:59 18:59 Intake Total 565 60 220 Output Total 3235 110 10 Balance -2670 -50 210 Weight 126.1 kg 126.1 kg Intake: IV 65 60 20 0.9 65 60 20 Intake, IV Titration 200 200 Amount Cefepime 2 gm In Sodium 100 100 Chloride 0.9% 100 ml @ 200 mls/hr IVPB DAILY [facility] Rx#:[id number] Sodium Ferric Gluconat- 100 100 Sucrose 125 mg In Sodium Chloride 0.9% 100 ml @ 100 mls/hr IVPB DAILY [facility] Rx#:[id number] Oral 300 Output: Urine 235 110 10 Hemodialysis 3000 Other: Voiding Method Indwelling Catheter Indwelling Catheter Indwelling Catheter - Exam Physical Exam: Revealed 68-year-old white male in no form of respiratory distress. Head: Atraumatic normocephalic. HEENT:[Neck is supple.] [No neck masses.] [No thyromegaly.] [No JVD.] Dry mucous membranes. Chest: [Symmetrical chest expansion, diminished breath sounds at the bases no crackles or rhonchi or wheezes..] Cardiac Exam: [Normal S1 and S2, no S3 gallop, no murmur.] Abdomen: [Obese, Soft, nontender, no megaly, no rebound, no guarding, normal bowel sounds.] Extremities: [No clubbing, 1+ bipedal edema, no cyanosis.] Neurological Exam: [No focal neurologic deficit.] Alert oriented 3. Psychiatric: Depressed mood, blunt affect, otherwise normal mental status examination. Skin: No rashes. - Labs CBC & Chem 7: 12/07/18 04:20 12/07/18 04:20 Labs: Abnormal Lab Results - Last 24 Hours (Table) 12/06/18 12/06/18 12/06/18 Range/Units 12:17 16:36 20:15 WBC (3.8-10.6) k/uL RBC (4.30-5.90) m/uL Hgb (13.0-17.5) gm/dL Hct (39.0-53.0) % RDW (11.5-15.5) % Sodium (137-145) mmol/L BUN (9-20) mg/dL Creatinine (0.66-1.25) mg/dL Glucose (74-99) mg/dL POC Glucose (mg/dL) 106 H 125 H 135 H (75-99) mg/dL ALT (21-72) U/L Total Protein (6.3-8.2) g/dL Albumin (3.5-5.0) g/dL 12/07/18 12/07/18 12/07/18 Range/Units 04:20 04:20 06:58 WBC 12.6 H (3.8-10.6) k/uL RBC 2.79 L (4.30-5.90) m/uL Hgb 7.7 L (13.0-17.5) gm/dL Hct 24.7 L (39.0-53.0) % RDW 17.2 H (11.5-15.5) % Sodium 136 L (137-145) mmol/L BUN 66 H (9-20) mg/dL Creatinine 3.96 H (0.66-1.25) mg/dL Glucose 118 H (74-99) mg/dL POC Glucose (mg/dL) 119 H (75-99) mg/dL ALT 20 L (21-72) U/L Total Protein 5.5 L (6.3-8.2) g/dL Albumin 2.9 L (3.5-5.0) g/dL Assessment and Plan Assessment: Impression: Acute on chronic hypoxic respiratory failure secondary to diastolic congestive heart failure, possible superimposed pneumonia/community-acquired, supposedly failed outpatient therapy. However considering the dramatic improvement with hemodialysis, I believe the findings on the chest x-ray are mostly cardiogenic in nature and related to diastolic congestive heart failure. Strongly doubt pneumonia. Acute on chronic stage III kidney disease, presently patient is on hemodialysis. Chronic hypoxic respiratory failure and previous history of right hemidiaphragm paralysis requiring surgical repair Morbid obesity Multiple comorbidities including hypertension, peripheral neuropathy, degenerative joint disease, and glaucoma, gout, and type 2 diabetes. Major affective disorder. Being followed by psychiatry. Recommendation: Continue hemodialysis, Continue present supportive care measures, will transfer the patient out of the ICU to regular medical floor, continue bedside sitter although the patient is no t suicidal at this point. But he is clearly depressed. Psychiatry continues to follow. Overall prognosis is extremely poor and guarded. Time with Patient: Less than 30
[2018-12-07 11:58] LABS: Glucose,Whole Blood 163 mg/dL (75-99)
[2018-12-07 12:07] LABS: T4, Free (Free Thyroxine) 1.06 ng/dL (0.78-2.19)
[2018-12-07] MEDS: LORATADINE 10 MG TAB PO SCH (13:18)
[2018-12-07] MEDS: amLODIPine 10 MG TAB PO SCH (13:18)
--- NOTE | 2018-12-07 14:39 | P.PN ---
Progress Note - Text Progress Note Date: 12/07/18 Chief complaint: "I'm here" Subjective: patient was seen in the ICU. He presents today with less distress and to some degree better affect. Nursing report that patient took his medications since yesterday and he ate some of his meals. Patient continued to report feeling depressed and having wishes to . He denies any intent or plan to end his life and he denies any active suicidal thoughts. He reports continued to have poor sleep and appetite. He denies any manic or psychotic symptoms. Patient has very poor energy level and diminished motivation. Mental status examination; Appearance: Appears older than stated age, lying in hospital bed and dressed in hospital gown. Gait/ posture: Not assessed. Attitude and Behavior: More engagement and more cooperative, better eye contact during course of interview Motor Activity: Less psychomotor retardation Speech: Slow rate,and sometimes. None pressured Mood: "depressed" Affect:Constricted. Thought form: Linear and goal directed but sometimes prompted Thought content: No delusions elicited, denies active suicidal thoughts but having wishes to , denies homicidal thoughts, intentions, or plans. Still expressing wishes. Perception: No report of auditory/ visual or tactile hallucinations. Attention: Responding and answering questions. Orientation: Patient is oriented to place, person, and situation, and not fully oriented to time. Insight: Limited Judgment: Limited Assessment: Major depressive disorder, single episode, without psychotic features. Plan: Continue 1:1 for safety. Please contact psychiatry team before discharging the patient. Psychiatric team will follow up with the patient. Medication Management: Increase Zoloft 25 mg daily for depression symptoms. start Remeron 7.5 mg at bedtime to help was a depression and poor sleep and appetite. Encourage the patient to take medications. Discussed the treatment plan with requesting physician/service. Thank you for permitting me to assist in this patients treatment.
[2018-12-07 17:15] LABS: Glucose,Whole Blood 137 mg/dL (75-99)
[2018-12-07] MEDS: FUROSEMIDE 80 MG TAB PO SCH (18:41)
[2018-12-07] MEDS: PANTOPRAZOLE 40 MG TABLET PO SCH (18:41)
[2018-12-07 20:17] LABS: Glucose,Whole Blood 152 mg/dL (75-99)
--- NOTE | 2018-12-07 21:30 | P.PN ---
Progress Note - Text Progress Note Date: 12/07/18 Interval history: This is a 68-year-old patient of Dr. bonilla from [place] whose chronic st able medical conditions include primary osteoarthritis, chronic kidney dysfunction uses a walker, diabetes mellitus on insulin, GERD, essential hypertension, diabetic peripheral neuropathy, chronic kidney disease stage III, chronic hypoxic respiratory failure. Presented with increasing shortness of breath, Center by Dr. rossi for possible pneumonia. Patient has been bringing up yellow-green sputum. Also very short of breath and wheezing. Distended abdomen increasing edema. Started on IV antibiotics. Admitted with pneumonia, CHF exacerbation, COPD exacerbation. On November 30 was put on a Lasix drip. Kidney function was worsening. On December 02, moved to ICU and hemodialysis catheter was placed. And hemodialysis was started. Patient very depressed. Has sitters the bedside. Patient has been getting daily hemodialysis since December 02. Today-. The ICU. Getting hemodialyzed today. Daughter the bedside. Patient refused his medications earlier. At lunchtime the to make him take his medications. Patient not too keen to eat. States he has had enough. Seen by psychiatry. We'll increase the dose of Zoloft. Etc. the bedside.. Review of systems: Was attempted for constitutional, cardiovascular, GI, pulmonary. Psychiatry, relevant finding as above Active Medications Hydrocodone Bitart/Acetaminophen ([place] 7.5-325) 1 each PO Q8H PRN PRN Reason: Pain Last Admin: 12/03/18 14:56 Dose: 1 each Documented by: Albuterol/Ipratropium (Duoneb 0.5 Mg-3 Mg/3 Ml Soln) 3 ml INHALATION RT-QID PRN PRN Reason: Shortness Of Breath Or Wheezing Amlodipine Besylate (Norvasc) 5 mg PO W/LUNCH [facility] Last Admin: 12/07/18 13:18 Dose: 5 mg Documented by: Aspirin (Aspirin) 81 mg PO HS [facility] Last Admin: 12/06/18 20:24 Dose: 81 mg Documented by: Atorvastatin Calcium (Lipitor) 40 mg PO HS [facility] Last Admin: 12/06/18 20:23 Dose: 40 mg Documented by: Calcitriol (Rocaltrol) 0.25 mcg PO Q48H [facility] Last Admin: 12/06/18 11:15 Dose: 0.25 mcg Documented by: Carvedilol (Coreg) 3.125 mg PO BID-W/MEALS [facility] Last Admin: 12/07/18 18:41 Dose: 3.125 mg Documented by: Darbepoetin Jaswinder (Aranesp) 40 mcg SQ Q7D [facility] Last Admin: 12/04/18 13:53 Dose: 40 mcg Documented by: Ferrous Sulfate (Feosol) 325 mg PO BID [facility] Last Admin: 12/07/18 10:28 Dose: 325 mg Documented by: Furosemide (Lasix) 80 mg PO BID@0900,1600 [facility] Last Admin: 12/07/18 18:41 Dose: 80 mg Documented by: Gabapentin (Neurontin) 300 mg PO BID [facility] Last Admin: 12/07/18 10:28 Dose: 300 mg Documented by: Heparin Sodium (Porcine) (Heparin) 5,000 unit SQ Q8HR [facility] Last Admin: 12/07/18 18:41 Dose: 5,000 unit Documented by: Cefepime HCl 2 gm/ Sodium (Chloride) 100 mls @ 200 mls/hr IVPB DAILY [facility] Last Admin: 12/07/18 08:28 Dose: 200 mls/hr Documented by: Ferric Sodium Gluconate 125 mg (/ Sodium Chloride) 110 mls @ 100 mls/hr IVPB DAILY [facility] Stop: 12/09/18 12:01 Last Admin: 12/07/18 09:39 Dose: 100 mls/hr Documented by: Insulin Aspart (Novolog) 0 unit SQ ACHS [facility]; Protocol Last Admin: 12/07/18 20:32 Dose: 2 unit Documented by: Loratadine (Claritin) 10 mg PO W/LUNCH [facility] Last Admin: 12/07/18 13:18 Dose: 10 mg Documented by: Mirtazapine (Remeron) 7.5 mg PO HS [facility] Naloxone HCl (Narcan) 0.2 mg IV Q2M PRN PRN Reason: Opioid Reversal Finasteride 1 Mg 1 mg PO W/SUPPER [facility] Last Admin: 12/07/18 18:42 Dose: 1 mg Documented by: Nystatin (Mycostatin Oral Susp) 500,000 unit PO QID [facility] Last Admin: 12/07/18 18:42 Dose: 500,000 unit Documented by: Pantoprazole Sodium (Protonix) 40 mg PO W/SUPPER [facility] Last Admin: 12/07/18 18:41 Dose: 40 mg Documented by: Sertraline HCl (Zoloft) 50 mg PO DAILY [facility] Tamsulosin [facility] (Flomax) [facility] Last Admin: 12/07/18 10:28 Dose: 0.4 mg Documented by: Physical examination: VITAL SIGNS: 97.7, 70, 16, 109/47, 97% on 6 L GENERAL: , Propped up awake but tired appearing EYES: Pupils equal. Conjunctiva pale HEENT: External appearance of nose and ears normal, oral cavity grossly normal. NECK: JVD unable to assess, no masses palpable HEART: First and second heart sounds are normal; edema gone down LUNGS: Respiratory rate increased, , diminished breath sounds prolonged expirati on. ABDOMEN: Soft, distended, nontender, liver spleen not palpable, no masses palpable. Right groin hemodialysis catheter PSYCH: Awake, answering questions but mood and affect was low INVESTIGATIONS, reviewed in the clinical context: White count 12.6 hemoglobin 7.7 bun 66 creatinine 3.96 Previous testing: White count 6.5 hemoglobin 9.3 potassium 4.4 bun 113 creatine 4.15 Glucose 258 EKG tracing personally reviewed by me-right bundle-branch block Chest x-ray film personally reviewed by me-possibly fluid overload and infiltrate 2-D echocardiogram-shows EF of 40-45%, severe concentric left ventricular hypertrophy, moderate aortic stenosis Assessment: -Pneumonia, suspect gram-negative organism, improving -Acute on chronic congestive heart failure exacerbation from systolic and diastolic dysfunction EF 40-45%, improving -Hypertensive heart disease -Acute COPD exacerbation in an ex-smoker, -Primary osteoarthritis -Chronic gait dysfunction uses a walker -Diabetes mellitus type 2, uncontrolled with hypoglycemia, chronically on insulin -Moderate aortic stenosis, non- rheumatic -GERD -Essential hypertension -Diabetic peripheral neuropathy -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 Dose of Zoloft was increased to 50 mg. Patient simply has decided to give.. Not keen to eat. A lengthy talk with the daughter. Did explain to her that patient has multiple comorbidities. And his condition is understandable. We'll try best see what we can do. Care was also discussed with the patient.
[2018-12-07] MEDS: ASPIRIN 81 MG PO SCH (22:21)
[2018-12-07] MEDS: ATORVASTATIN 40 MG TAB PO SCH (22:21)
[2018-12-07] MEDS: MIRTAZAPINE 15 MG TAB PO SCH (22:21)
[2018-12-08 05:43] LABS: Anisocytosis Slight; HCT 25.5 % (39.0-53.0); Hypochromasia Marked; MCH 27.7 pg (25.0-35.0); MCHC 31.2 g/dL (31.0-37.0); Mean Platelet Volume 8.3; Platelet Count 182 k/uL (150-450); RBC 2.87 m/uL (4.30-5.90); RDW 17.4 % (11.5-15.5); WBC 17.8 k/uL (3.8-10.6)
[2018-12-08 05:48] LABS: Calcium 8.6 mg/dL (8.4-10.2); Potassium 4.6 mmol/L (3.5-5.1); Total Bilirubin 0.7 mg/dL (0.2-1.3); Total Protein 5.7 g/dL (6.3-8.2)
[2018-12-08] MEDS: CARVEDILOL 3.125 MG TAB PO SCH ×3 (06:49→18:27)
[2018-12-08] MEDS: INSULIN ASPART (NovoLOG) 100 UNIT/ML VIAL SQ SCH ×4 (06:49→21:33)
[2018-12-08 06:56] LABS: Glucose,Whole Blood 143 mg/dL (75-99)
[2018-12-08] MEDS: CEFEPIME 2 GM in SODIUM CHLORIDE 0.9% 100 ML IVPB SCH (08:16)
[2018-12-08] MEDS: HEPARIN SODIUM,PORCINE 5,000 UNIT/ML 1 ML VIAL SQ SCH ×3 (08:17→23:14)
[2018-12-08] MEDS: FERROUS SULFATE 325 MG TAB PO SCH ×2 (08:17→21:14)
[2018-12-08] MEDS: GABAPENTIN 300 MG CAP PO SCH ×2 (08:17→21:14)
[2018-12-08] MEDS: TAMSULOSIN 0.4 MG CAP.ER.24H PO SCH (08:17)
[2018-12-08] MEDS: CALCITRIOL 0.25 MCG CAP PO SCH (08:18)
[2018-12-08] MEDS: NYSTATIN 100,000 UNIT/ML SUSP 500,000 UNIT/5 ML CUP PO SCH ×4 (08:18→21:36)
[2018-12-08] MEDS: FUROSEMIDE 80 MG TAB PO SCH ×2 (08:18→18:26)
[2018-12-08] MEDS: SERTRALINE 50 MG TAB PO SCH (08:21)
[2018-12-08] MEDS: SODIUM FERRIC GLUCONAT-SUCROSE 125 MG in SODIUM CHLORIDE 0.9% 100 ML IVPB SCH (09:55)
--- NOTE | 2018-12-08 10:01 | P.PN ---
Subjective Patient is seen in follow-up for acute kidney injury on chronic kidney disease. 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 Patient presented with dyspnea. Currently hemodialysis dependent. Urine output about 350 mL in the last 24 hours. Vital signs are stable. General: The patient appeared well nourished and normally developed. HEENT: Head exam is unremarkable. Neck is without jugular venous distension. LUNGS: Breath sounds decreased. HEART: Rate and Rhythm are regular. First and second heart sounds normal. No murmurs, rubs or gallops. ABDOMEN: Abdominal exam reveals normal bowel sounds. Non-tender and non- distended. EXTREMITITES: Trace edema. Objective - Vital Signs Vital signs: Vital Signs Temp 98.2 F 12/08/18 06:55 Pulse 72 12/08/18 06:55 Resp 18 12/08/18 06:55 BP 99/81 12/08/18 06:55 Pulse Ox 94 L 12/08/18 06:55 Intake & Output 12/07/18 12/08/18 12/08/18 18:59 06:59 18:59 Intake Total 500 60 Output Total 3110 60 Balance -2610 0 Weight 126.1 kg Intake: IV 60 60 0.9 60 60 Intake, IV Titration 200 Amount Cefepime 2 gm In Sodium 100 Chloride 0.9% 100 ml @ 200 mls/hr IVPB DAILY [facility] Rx#:[id number] Sodium Ferric Gluconat- 100 Sucrose 125 mg In Sodium Chloride 0.9% 100 ml @ 100 mls/hr IVPB DAILY [facility] Rx#:[id number] Oral 240 Output: Urine 110 60 Hemodialysis 3000 Other: Voiding Method Indwelling Catheter Indwelling Catheter # Voids 0 - Labs CBC & Chem 7: 12/08/18 04:45 12/08/18 04:45 Labs: Abnormal Lab Results - Last 24 Hours (Table) 12/07/18 12/07/18 12/07/18 Range/Units 11:47 17:01 20:05 WBC (3.8-10.6) k/uL RBC (4.30-5.90) m/uL Hgb (13.0-17.5) gm/dL Hct (39.0-53.0) % RDW (11.5-15.5) % BUN (9-20) mg/dL Creatinine (0.66-1.25) mg/dL Glucose (74-99) mg/dL POC Glucose (mg/dL) 163 H 137 H 152 H (75-99) mg/dL Total Protein (6.3-8.2) g/dL Albumin (3.5-5.0) g/dL 12/08/18 12/08/18 12/08/18 Range/Units 04:45 04:45 06:44 WBC 17.8 H (3.8-10.6) k/uL RBC 2.87 L (4.30-5.90) m/uL Hgb 8.0 L (13.0-17.5) gm/dL Hct 25.5 L (39.0-53.0) % RDW 17.4 H (11.5-15.5) % BUN 56 H (9-20) mg/dL Creatinine 3.75 H (0.66-1.25) mg/dL Glucose 146 H (74-99) mg/dL POC Glucose (mg/dL) 143 H (75-99) mg/dL Total Protein 5.7 L (6.3-8.2) g/dL Albumin 3.0 L (3.5-5.0) g/dL Assessment and Plan Plan: Assessment: 1. Acute kidney injury secondary to ATN secondary to cardiorenal syndrome. Currently hemodialysis dependent. Remains oliguric. Diuretic unresponsive. 2. Hyperkalemia secondary to acute kidney injury. Improved postdialysis. 3. Volume overload. Improving with ultrafiltration. 4. Chronic kidney disease stage IV secondary to diabetic kidney disease with baseline creatinine in the range of 3-3.5. 5. Insulin-dependent diabetes mellitus. 6. Chronic kidney disease mineral bone disease maintained on calcitriol. 7. Acute on chronic systolic CHF with ejection fraction of 40-45%. 8. Pneumonia maintained on antibiotics. 9. Anemia of chronic kidney disease maintained on Aranesp. Iron deficiency noted. 10. Hypervolemic hyponatremia. Better. Plan: Hold off on hemodialysis today. Continue to monitor renal function and urine output. Avoid nephrotoxins. IV iron 3 doses. Third dose today. Maintain oral Lasix 80 mg twice daily. Hold amlodipine for systolic blood pressure less than 120.
--- NOTE | 2018-12-08 10:32 | P.CRDCN ---
History of Present Illness History of present illness: This is Nancy Solorzano PA-C dictating a progress note on this patient The patient was interviewed and examined by me as well as by Dr. Dominique Case discussed with Dr. Dominique and he agrees with the plan of care IMPRESSION / ASSESSMENT: Acute on chronic hypoxic respiratory failure requiring BiPAP, likely secondary to combination of COPD, fluid overload, chronic diaphragmatic paralysis, and CHF, breathing seems to be improving, has been off BiPAP Acute on chronic combined systolic and diastolic heart failure, EF 40-45% Paroxysmal atrial fibrillation, rate controlled, anticoagulation was being held secondary to anemia and hematoma on dialysis catheter site, no further bleeding CKD, currently on hemodialysis Hypertension, blood pressure stable Chronic right diaphragmatic paralysis COPD on home oxygen Hyperkalemia, on dialysis PLAN: From a cardiology standpoint, continue carvedilol for rate control if the patient will take it, and anticoagulation would be indicated, since he is a hemodialysis patient we would suggest Coumadin if the patient is agreeable Continue medical management for cardiomyopathy with aspirin and statins and beta blockers Continue amlodipine for blood pressure control Patient may go to a regular medical floor without telemetry, thank you kindly for this consultation, we will sign off now and see the patient on an as-needed basis HPI/interval history Patient is a 68-year-old male with a past medical history is significant for COPD, hypertension, diabetes, kidney disease and diaphragmatic paralysis who presented with complaints of worsening shortness of breath. He was found to be an VINNIE. Chest x-ray showed small pleural effusions and possible infiltrate. He was started on Lasix and antibiotics. Echocardiogram showed LV systolic fun ction mild to moderately impaired, EF 40-45%, apex hypokinetic, severe concentric LVH. His BUN and creatinine continued to rise and he became hyperkalemic so he was started on dialysis. He developed worsening respiratory failure requiring BiPAP and was transferred to the ICU. While in the ICU he went into atrial fibrillation with controlled ventricular response. He has been off BiPAP. Patient has been made DO NOT RESUSCITATE CODE STATUS. Remains on hemodialysis. Has been refusing medications. Patient seen and examined resting comfortably in bed in the ICU. States his breathing is "ok" he is "just tired". No palpitations or chest pain. EXAMINATION Temperature 98.2F pulse 72, respirations 18, blood pressure 99/81, oxygen saturation 94% on 3 L nasal cannula Patient seen and examined resting in bed, appears comfortable, in no acute distress Lungs diminished bilaterally Heart is irregular, soft systolic murmur noted No elevated JVD appreciated Mild lower extremity edema bilaterally Labs WBC 17.8, hemoglobin 8, late limits 182, BUN 56, creatinine 3.75 Past Medical History Past Medical History: COPD, Diabetes Mellitus, Eye Disorder, GERD/Reflux, Hypertension, Osteoarthritis (OA), Pneumonia, Renal Disease Additional Past Medical History / Comment(s): , Peripheral neuropathy, COPD, chronic hypoxic respiratory failure, morbid obesity, history of right hemidiaphragmatic paralysis requiring surgical repair, diabetes mellitus type 2 , chronic stage III kidney disease, iron deficiency anemia, chronic lower extremity edema, gout, degenerative arthritis, coma,past R leg ulcer-treated in [facility], past sacral ulcer, abdominal hernia, bilateral cataracts forming and believes he has been told 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 History of Any Multi-Drug Resistant Organisms: None Reported Additional Past Surgical History / Comment(s): R side of diaphragm surgery done at [facility] in 2008, vocal cord polyps removed, fatty tumor removed from back, debridements R leg ulcer, cyst removed from one ankle (laterality unknown), colonoscopies, fluid removed from R eye. Past Anesthesia/Blood Transfusion Reactions: No Reported Reaction Past Psychological History: No Psychological Hx Reported Additional Psychological History / Comment(s): Pt resides with his spouse. He uses O2 prn but the past couple weeks he has used it ATC. He has a rolling walker, a standard walker and a wheelchair. He has not driven lately, spouse drives. Smoking Status: Former smoker Past Alcohol Use History: None Reported Additional Past Alcohol Use History / Comment(s): Pt started smoking in 1962 and quit in 1984. Past Drug Use History: None Reported - Past Family History Father Family Medical History: Diabetes Mellitus, Liver Disease Additional Family Medical History / Comment(s): Father was an alcoholic and smoked. He at the age of 55 yrs. Mother Family Medical History: CVA/TIA Medications and Allergies Home Medications Medication Instructions Recorded Confirmed Type Allopurinol [Zyloprim] 200 mg PO QAM 08/03/16 11/29/18 History Aspirin 81 mg PO HS 08/03/16 11/29/18 History Calcitriol 0.25 mcg PO Q48H 08/03/16 11/29/18 History Cholecalciferol (Vitamin D3) 2,000 units PO W/LUNCH 08/03/16 11/29/18 History [Vitamin D3] Clobetasol Propionate/Emoll 1 applic TOPICAL DAILY PRN 08/03/16 11/29/18 History [Olux-E 0.05% Foam] Clotrimazole [Clotrimazole 1%] 1 cream TOPICAL DAILY PRN 08/03/16 11/29/18 History Finasteride 1 mg PO W/SUPPER 08/03/16 11/29/18 History HYDROcodone/APAP 7.5-325MG [[place] 1 tab PO Q8H PRN 08/03/16 11/29/18 History 7.5-325] Insulin Lispro Protamin/Lispro 15 - 25 unit SQ PC-BID 08/03/16 11/29/18 History [humaLOG Mix 75-25 Kwikpen] Insulin Lispro [humaLOG Kwikpen] 4 - 15 unit SQ DAILY 08/03/16 11/29/18 History Ipratropium-Albuterol Nebulize 3 ml INHALATION RT-Q4H PRN 08/03/16 11/29/18 History [Duoneb 0.5 mg-3 mg/3 ml Soln] Magnesium Oxide 400 mg PO QAM 08/03/16 11/29/18 History Metoprolol Succinate (ER) [Toprol 25 mg PO BID 08/03/16 11/29/18 History XL] Mometasone/Formoterol [Dulera 200 2 puff INHALATION RT-BID 08/03/16 11/29/18 History Mcg/5 Mcg Inhaler] Omeprazole [PriLOSEC] 20 mg PO W/SUPPER 08/03/16 11/29/18 History Promethazine/Phenyleph/Codeine 5 ml PO QID PRN 08/03/16 11/29/18 History [Promethazine Vc-Codeine Syrup] SILVER sulfADIAZINE CREAM 1 applic TOPICAL DAILY PRN 08/03/16 11/29/18 History [Silvadene Cream] guaiFENesin-DM 600/30MG [Mucinex 1 tab PO Q12H PRN 08/03/16 11/29/18 History Dm] Ferrous Sulfate [Feosol] 325 mg PO BID 01/21/17 11/29/18 History Gabapentin [Neurontin] 300 mg PO BID 04/13/17 11/29/18 History Insulin Lispro Protamin/Lispro 20 - 25 unit SQ AC-BID 04/13/17 11/29/18 History [humaLOG Mix 75-25 Kwikpen] Lactulose [Cephulac] 20 gm PO DAILY PRN #200 ml 04/17/17 11/29/18 Rx Atorvastatin [Lipitor] 20 mg PO HS 11/29/18 11/29/18 History Cetirizine HCl [Zyrtec] 10 mg PO W/LUNCH 11/29/18 11/29/18 History Ergocalciferol [Vitamin D2] 50,000 unit PO Q14D 11/29/18 11/29/18 History Furosemide [Lasix] 40 mg PO QAM 11/29/18 11/29/18 History Nystatin 100,000 Unit/ml Susp 500,000 unit PO QID PRN 11/29/18 11/29/18 History [Mycostatin Oral Susp] Sodium Bicarbonate Tab 650 mg PO QAM 11/29/18 11/29/18 History Soothe Lubricant Eye Drops 1 drop BOTH EYES DAILY PRN 11/29/18 11/29/18 History Tamsulosin [Flomax] 0.4 mg PO QAM 11/29/18 11/29/18 History amLODIPine [Norvasc] 10 mg PO W/LUNCH 11/29/18 11/29/18 History Allergies Allergy/AdvReac Type Severity Reaction Status Date / Time ibuprofen [From Motrin] AdvReac Confusion Verified 11/29/18 17:29 Physical Exam Vitals: Vital Signs Temp Pulse Pulse Pulse Resp BP BP 12/08/18 06:55 98.2 F 72 18 99/81 12/07/18 22:39 98 F 73 18 96/52 12/07/18 18:11 98.1 F 77 16 122/73 12/07/18 16:00 98.1 F 75 16 101/56 12/07/18 15:51 12/07/18 12:00 97.7 F 70 16 109/47 Pulse Ox 12/08/18 06:55 94 L 12/07/18 22:39 96 12/07/18 18:11 12/07/18 16:00 94 L 12/07/18 15:51 93 L 12/07/18 12:00 97 Intake and Output 12/07/18 12/08/18 12/08/18 22:59 06:59 14:59 Intake Total 25 55 Output Total 3050 60 Balance -3025 -5 Intake: IV 25 55 0.9 25 55 Output: Urine 50 60 Hemodialysis 3000 Other: Voiding Method Indwelling Catheter Indwelling Catheter # Voids 0 Results 12/08/18 04:45 12/08/18 04:45 Cardiac Enzymes 12/08/18 Range/Units 04:45 AST 18 (17-59) U/L CBC 12/08/18 Range/Units 04:45 WBC 17.8 H (3.8-10.6) k/uL RBC 2.87 L (4.30-5.90) m/uL Hgb 8.0 L (13.0-17.5) gm/dL Hct 25.5 L (39.0-53.0) % Plt Count 182 (150-450) k/uL Comprehensive Metabolic Panel 12/08/18 Range/Units 04:45 Sodium 141 (137-145) mmol/L Potassium 4.6 (3.5-5.1) mmol/L Chloride 106 (98-107) mmol/L Carbon Dioxide 24 (22-30) mmol/L BUN 56 H (9-20) mg/dL Creatinine 3.75 H (0.66-1.25) mg/dL Glucose 146 H (74-99) mg/dL Calcium 8.6 (8.4-10.2) mg/dL AST 18 (17-59) U/L ALT 24 (21-72) U/L Alkaline Phosphatase 79 (38-126) U/L Total Protein 5.7 L (6.3-8.2) g/dL Albumin 3.0 L (3.5-5.0) g/dL Current Medications Generic Name Dose Route Start Last Admin Trade Name Freq PRN Reason Stop Dose Admin Hydrocodone Bitart/Acetaminophen 1 each 11/29/18 22:44 12/03/18 14:56 [place] 7.5-325 PO 1 each Q8H PRN Administration Pain Albuterol/Ipratropium 3 ml 11/29/18 20:13 Duoneb 0.5 Mg-3 Mg/3 Ml Soln INHALATION RT-QID PRN Shortness Of Breath Or Wheezing Amlodipine Besylate 5 mg 12/04/18 12:30 12/07/18 13:18 Norvasc PO 5 mg W/LUNCH EVELYEN Administration Aspirin 81 mg 11/29/18 22:45 12/07/18 22:21 Aspirin PO 81 mg HS EVELYNE Administration Atorvastatin Calcium 40 mg 12/01/18 21:00 12/07/18 22:21 Lipitor PO 40 mg HS EVELYNE Administration Calcitriol 0.25 mcg 11/30/18 09:00 12/08/18 08:18 Rocaltrol PO 0.25 mcg Q48H EVELYNE Administration Carvedilol 3.125 mg 12/01/18 09:45 12/08/18 06:55 Coreg PO Not Given BID-W/MEALS EVELYNE Darbepoetin Jaswinder 40 mcg 12/04/18 12:00 12/04/18 13:53 Aranesp SQ 40 mcg Q7D EVELYNE Administration Ferrous Sulfate 325 mg 11/30/18 09:00 12/08/18 08:17 Feosol PO 325 mg BID EVELYNE Administration Furosemide 80 mg 12/07/18 16:00 12/08/18 08:18 Lasix PO 80 mg BID@0900,1600 EVELYNE Administration Gabapentin 300 mg 11/29/18 22:45 12/08/18 08:17 Neurontin PO 300 mg BID EVELYNE Administration Heparin Sodium (Porcine) 5,000 unit 11/30/18 00:00 12/08/18 08:17 Heparin SQ 5,000 unit Q8HR EVELYNE Administration Cefepime HCl 2 gm/ Sodium 100 mls @ 200 mls/hr 12/06/18 09:00 12/08/18 08:16 Chloride IVPB 200 mls/hr DAILY EVELYNE Administration Ferric Sodium Gluconate 125 mg 110 mls @ 100 mls/hr 12/06/18 12:00 12/08/18 09:55 / Sodium Chloride IVPB 12/09/18 12:01 100 mls/hr DAILY EVELYNE Administration Insulin Aspart 0 unit 11/30/18 07:30 12/08/18 06:49 Novolog SQ 1 unit ACHS EVELYNE Administration Protocol Loratadine 10 mg 11/30/18 12:30 12/07/18 13:18 Claritin PO 10 mg W/LUNCH EVELYNE Administration Mirtazapine 7.5 mg 12/07/18 21:00 12/07/18 22:21 Remeron PO 7.5 mg HS EVELYNE Administration Naloxone HCl 0.2 mg 12/02/18 16:24 Narcan IV Q2M PRN Opioid Reversal Finasteride 1 Mg 1 mg 11/30/18 17:30 12/07/18 18:42 PO 1 mg W/SUPPER EVELYNE Administration Nystatin 500,000 unit 12/04/18 18:00 12/08/18 08:18 Mycostatin Oral Susp PO 500,000 unit QID EVELYNE Administration Pantoprazole Sodium 40 mg 11/29/18 23:00 12/07/18 18:41 Protonix PO 40 mg W/SUPPER EVELYNE Administration Sertraline HCl 50 mg 12/08/18 09:00 12/08/18 08:21 Zoloft PO 50 mg DAILY EVELYNE Administration Tamsulosin HCl 0.4 mg 11/30/18 09:00 12/08/18 08:17 Flomax PO 0.4 mg QAM EVELYNE Administration Intake and Output 12/07/18 12/08/18 12/08/18 22:59 06:59 14:59 Intake Total 25 55 Output Total 3050 60 Balance -3025 -5 Intake: IV 25 55 0.9 25 55 Output: Urine 50 60 Hemodialysis 3000 Other: Voiding Method Indwelling Catheter Indwelling Catheter # Voids 0 12/08/18 04:45 12/08/18 04:45
--- NOTE | 2018-12-08 11:40 | P.PN ---
Subjective Progress Note Date: 12/08/18 Principal diagnosis: Diastolic congestive heart failure, possible community-acquired pneumonia failed outpatient treatment. Morbidly obese 68-year-old here patient with known history of COPD and previous history of right hemidiaphragmatic paralysis requiring surgical repair mild addition to morbid obesity, diabetes mellitus, chronic stage III kidney disease, chronic hypoxic respiratory failure, hypertension. The patient's based on pulmonary function test shows an FEV1 of 5 2% of predicted in addition to a total lung capacity of 73% of predicted and diffusion capacity of 77% of predicted. This is based on the pulmonary function test as well as some back in 2015. The patient came in yesterday to Dr. Sheridan's office complaining of worsening shortness of breath. Apparently received antibiotics to the primary care and the patient received 2 rounds of antibiotics without any much relief. For that reason he came into Dr. Sheridan's office and he was admitted to the [facility] for further evaluation. There is some limited infiltration lung bases bilaterally. The patient had at least 20 pounds weight gain and he had increased lower extremity edema. On his blood work, the patient had developed an acute on top of his chronic kidney injury and his GFR was down to 50 with a creatinine of 3.8. He was started on IV Zosyn. He was started on IV Lasix. His proBNP level was elevated. No chest pain. Altered mentation. He has difficulty with mobility and gait. He has a congested cough. Unable to bring up much sputum. No chest pain. No pleurisy. No altered mentation. On today's evaluation of 12/02/2018 the patient got transferred to the intensive care unit in the institutional research director hours. The patient was becoming progressively more obtunded and short of breath and lethargic. He was not producing any urine output. The blood work from this morning were markedly abnormal. Woody being on Lasix. The patient was not producing any urine output. A blood gas was done that showed a pH of 7.15 with a pCO2 of 71 and pO2 of 61. The blood work from this morning showed a potassium level of 6.2 with a BUN of 142 and a creatinine of 6.8. The patient also had a anion gap of 19. Chest x-ray showed small lung volumes and atelectatic changes small effusion the lung bases. He had increased lower extremity edema. At this point, the patient got transferred to the intensive care unit and he was placed on BiPAP for respiratory support. Currently on a BiPAP pressure of 12/5 cm of water. Based on this, the patient got transferred to the intensive care unit. The patient had a triple lumen catheter inserted in the left subclavian. A dialysis catheter was inserted in the right femoral vein and the patient was started on hemodialysis. A total of 2 L of fluid was pulled off during the dialysis. Following that the patient was weaned off the BiPAP and he was placed on oxygen at 2 L per minute nasal cannula. He seems to much more alert and communicating at this point in time. No significant urine output. No fever. No chills. No chest pain. He does have a hematoma formation in the right groin area the site of the puncture and we have a fem stop in the hematomas controllable at this point in time. The patient is on empiric antibiotic coverage with IV cefepime. The patient on DuoNeb nebulized treatments around the clock. Blood sugar is at 180 and the patient is currently septic. Insulin by serial coverage. Family has been updated on his condition. On today's evaluation of 12/03/2018, the patient is awake and alert. He is not very much happy with his condition. He is not happy with dialysis. A second dialysis session is being done today. The goal is to remove 2-3 L and he is going to use a 2K bath as the patient's potassium level is again elevated at 6.2. His chest x-ray still showing fluid overload most on the right. Is currently on oxygen at 12 L high flow and his pulse ox is 91%. No major edema lower extremities. No fever. No chills. He is off the BiPAP this morning and he uses overnight at the pressure of 12/5 cm of water and FiO2 of 40%. He has a subclavian triple-lumen catheter. His dialysis catheter is in the groin. No chest pain. He is moving all 4 extremities without any limitation. Today's evaluation of 12/04/2018, the patient is somewhat depressed. He does not like the fact that he is going to be on dialysis on a chronic basis. He feels that this is likely a sentence. He underwent 2 sessions of hemodialysis, during yesterday's session a total of 3 L of fluid was removed and is currently undergoing another session of dialysis. He is awake and alert. No significant respiratory difficulties. In oxygen 10 L high flow. He is having difficulties in laying down flat. Note that yesterday she was on 12 L of oxygen. No altered mentation. No chest pain. He is having no cough or sputum production. Edema in general is improving. The sodium level is at 132. Potassium level from this morning was at 5.7 after having issues with hyperkalemia today before. Coagulation profile is within normal. Hemoglobin is at 7.8. Patient has a hematoma in his hemodialysis catheter site insertion. He'll be given DDAVP and his hemoglobin is down to 7.8. Patient was reevaluated today on 12/05/2018, patient feels depressed, has a psychiatric consultation was initiated. He keeps saying I am dying and let me . Patient is presently on hemodialysis, discussed briefly the CODE STATUS with him, patient is agreeable to no CODE STATUS, and I will confirm this with his sometime today. Patient remains on high flow nasal cannula, receiving dialysis, he looks very comfortable, in no distress. His labs were all reviewed, potassium is a bit elevated at 5.3 BUN is 90 creatinine 4.44 hemoglobin is 7.6. WBC count is 10.8. Chest x-ray is showing evidence of bibasilar interstitial densities, correlate for possible congestive heart failure, doubt pneumonia. Reevaluated today on 12/06/2018, patient is obviously very depressed, wishing that he is left alone and let him . Patient is refusing to take his oral medication/Zoloft which was recommended by psychiatry. He is presently undergoing hemodialysis. I discussed his condition with the yesterday, and agreeable to DO NOT RESUSCITATE CODE STATUS. Patient is breathing easier, chest x-ray is showing interval improvement in aeration and volume status of both lungs. Labs were all reviewed hemoglobin is 7.3 BUN is 77 creatinine 4.25 electrolytes are normal. Patient was reevaluated today on 12/07/2018, remains depressed, refusing his antidepressants again, patient is again requesting to be left alone and let him . CODE STATUS is DO NOT RESUSCITATE, however according to the , hospice is not an option at this point. Patient is still undergoing hemodialysis, and agreeable to continue hemodialysis. His chest x-ray showed improvement in his fluid status yesterday. Patient is being followed by psychiatry. All labs today were reviewed including his CBC and complete metabolic profile. Patient was reevaluated today on 12/04/2018, basically the same, no changes over the last 24 hours. Apparently the is now considering hospice because the patient and the are against the idea of outpatient hemodialysis. Patient is taking his Zoloft, but now the idea of no dialysis on outpatient basis is new. Labs were all reviewed including CBC and basic metabolic profile. I guess no plans for dialysis at this point. Since the patient and the will be refusing further dialysis down the line. Patient denies any shortness of breath no cough no wheezing no chest pain. Still being followed by many consultants. He is presently an overflow in the ICU. Objective - Vital Signs Vital signs: Vital Signs Temp 98.2 F 12/08/18 06:55 Pulse 72 12/08/18 06:55 Resp 18 12/08/18 06:55 BP 99/81 12/08/18 06:55 Pulse Ox 94 L 12/08/18 06:55 Intake & Output 12/07/18 12/08/18 12/08/18 18:59 06:59 18:59 Intake Total 500 60 Output Total 3110 60 Balance -2610 0 Weight 126.1 kg Intake: IV 60 60 0.9 60 60 Intake, IV Titration 200 Amount Cefepime 2 gm In Sodium 100 Chloride 0.9% 100 ml @ 200 mls/hr IVPB DAILY EVELYNE Rx#:[id number] Sodium Ferric Gluconat- 100 Sucrose 125 mg In Sodium Chloride 0.9% 100 ml @ 100 mls/hr IVPB DAILY EVELYNE Rx#:[id number] Oral 240 Output: Urine 110 60 Hemodialysis 3000 Other: Voiding Method Indwelling Catheter Indwelling Catheter # Voids 0 - Exam Physical Exam: Revealed 68-year-old white male in no form of respiratory distress. Head: Atraumatic normocephalic. HEENT:[Neck is supple.] [No neck masses.] [No thyromegaly.] [No JVD.] Dry mucous membranes. Chest: [Symmetrical chest expansion, diminished breath sounds at the bases no crackles or rhonchi or wheezes..] Cardiac Exam: [Normal S1 and S2, no S3 gallop, no murmur.] Abdomen: [Obese, Soft, nontender, no megaly, no rebound, no guarding, normal bowel sounds.] Extremities: [No clubbing, 1+ bipedal edema, no cyanosis.] Neurological Exam: [No focal neurologic deficit.] Alert oriented 3. Psychiatric: Depressed mood, blunt affect, otherwise normal mental status examination. Skin: No rashes. - Labs CBC & Chem 7: 12/08/18 04:45 12/08/18 04:45 Labs: Abnormal Lab Results - Last 24 Hours (Table) 12/07/18 12/07/18 12/07/18 Range/Units 11:47 17:01 20:05 WBC (3.8-10.6) k/uL RBC (4.30-5.90) m/uL Hgb (13.0-17.5) gm/dL Hct (39.0-53.0) % RDW (11.5-15.5) % BUN (9-20) mg/dL Creatinine (0.66-1.25) mg/dL Glucose (74-99) mg/dL POC Glucose (mg/dL) 163 H 137 H 152 H (75-99) mg/dL Total Protein (6.3-8.2) g/dL Albumin (3.5-5.0) g/dL 12/08/18 12/08/18 12/08/18 Range/Units 04:45 04:45 06:44 WBC 17.8 H (3.8-10.6) k/uL RBC 2.87 L (4.30-5.90) m/uL Hgb 8.0 L (13.0-17.5) gm/dL Hct 25.5 L (39.0-53.0) % RDW 17.4 H (11.5-15.5) % BUN 56 H (9-20) mg/dL Creatinine 3.75 H (0.66-1.25) mg/dL Glucose 146 H (74-99) mg/dL POC Glucose (mg/dL) 143 H (75-99) mg/dL Total Protein 5.7 L (6.3-8.2) g/dL Albumin 3.0 L (3.5-5.0) g/dL Assessment and Plan Assessment: Impression: Acute on chronic hypoxic respiratory failure secondary to acute on chronic diastolic congestive heart failure, possible superimposed pneumonia/community- acquired, supposedly failed outpatient therapy. However considering the dramatic improvement with hemodialysis, I believe the findings on the chest x- ray are mostly cardiogenic in nature and related to acute on chronic systolic and diastolic congestive heart failure. Strongly doubt pneumonia. Acute on chronic stage III kidney disease, presently patient is on hemodialysis. Chronic hypoxic respiratory failure and previous history of right hemidiaphragm paralysis requiring surgical repair Morbid obesity Multiple comorbidities including hypertension, peripheral neuropathy, degenerative joint disease, and glaucoma, gout, and type 2 diabetes. Major affective disorder. Being followed by psychiatry. Recommendation: Continue present supportive care measures, however if the patient and the are refusing outpatient dialysis, I think hospice would be of value at this point, and I have no objection to hospice. We will sign off an d see the patient on when necessary basis. Time with Patient: Less than 30
[2018-12-08 12:00] LABS: Glucose,Whole Blood 172 mg/dL (75-99)
[2018-12-08] MEDS: amLODIPine 10 MG TAB PO SCH (12:24)
[2018-12-08] MEDS: LORATADINE 10 MG TAB PO SCH (12:24)
[2018-12-08 16:53] LABS: Glucose,Whole Blood 176 mg/dL (75-99)
--- NOTE | 2018-12-08 17:28 | P.PN ---
Progress Note - Text Progress Note Date: 12/08/18 Interval history: This is a 68-year-old patient of Dr. bonilla from [place] whose chronic st able medical conditions include primary osteoarthritis, chronic kidney dysfunction uses a walker, diabetes mellitus on insulin, GERD, essential hypertension, diabetic peripheral neuropathy, chronic kidney disease stage III, chronic hypoxic respiratory failure. Presented with increasing shortness of breath, Center by Dr. rossi for possible pneumonia. Patient has been bringing up yellow-green sputum. Also very short of breath and wheezing. Distended abdomen increasing edema. Started on IV antibiotics. Admitted with pneumonia, CHF exacerbation, COPD exacerbation. On November 30 was put on a Lasix drip. Kidney function was worsening. On December 02, moved to ICU and hemodialysis catheter was placed. And hemodialysis was started. Patient very depressed. Has sitters the bedside. Patient has been getting daily hemodialysis since December 02. Today-. Patient refusing to eat. Not even take his medications at times. Hemodialysis was held today. We will wake up to answer questions. Otherwise lethargic.. Sit at the bedside. I tried myself to feed the patient. He refused to eat. Also spit the food out. Review of systems: Was attempted for constitutional, cardiovascular, GI, pulmonary. Psychiatry, relevant finding as above Active Medications Hydrocodone Bitart/Acetaminophen (Gary 7.5-325) 1 each PO Q8H PRN PRN Reason: Pain Last Admin: 12/03/18 14:56 Dose: 1 each Documented by: Albuterol/Ipratropium (Duoneb 0.5 Mg-3 Mg/3 Ml Soln) 3 ml INHALATION RT-QID PRN PRN Reason: Shortness Of Breath Or Wheezing Amlodipine Besylate (Norvasc) 5 mg PO W/LUNCH [facility] Last Admin: 12/08/18 12:24 Dose: Not Given Documented by: Aspirin (Aspirin) 81 mg PO HS [facility] Last Admin: 12/07/18 22:21 Dose: 81 mg Documented by: Atorvastatin Calcium (Lipitor) 40 mg PO HS [facility] Last Admin: 12/07/18 22:21 Dose: 40 mg Documented by: Calcitriol (Rocaltrol) 0.25 mcg PO Q48H [facility] Last Admin: 12/08/18 08:18 Dose: 0.25 mcg Documented by: Carvedilol (Coreg) 3.125 mg PO BID-W/MEALS [facility] Last Admin: 12/08/18 06:55 Dose: Not Given Documented by: Darbepoetin Jaswinder (Aranesp) 40 mcg SQ Q7D [facility] Last Admin: 12/04/18 13:53 Dose: 40 mcg Documented by: Ferrous Sulfate (Feosol) 325 mg PO BID [facility] Last Admin: 12/08/18 08:17 Dose: 325 mg Documented by: Furosemide (Lasix) 80 mg PO BID@0900,1600 [facility] Last Admin: 12/08/18 08:18 Dose: 80 mg Documented by: Gabapentin (Neurontin) 300 mg PO BID [facility] Last Admin: 12/08/18 08:17 Dose: 300 mg Documented by: Heparin Sodium (Porcine) (Heparin) 5,000 unit SQ Q8HR [facility] Last Admin: 12/08/18 08:17 Dose: 5,000 unit Documented by: Cefepime HCl 2 gm/ Sodium (Chloride) 100 mls @ 200 mls/hr IVPB DAILY [facility] Last Admin: 12/08/18 08:16 Dose: 200 mls/hr Documented by: Ferric Sodium Gluconate 125 mg (/ Sodium Chloride) 110 mls @ 100 mls/hr IVPB DAILY [facility] Stop: 12/09/18 12:01 Last Admin: 12/08/18 09:55 Dose: 100 mls/hr Documented by: Insulin Aspart (Novolog) 0 unit SQ ACHS [facility]; Protocol Last Admin: 12/08/18 12:23 Dose: 2 unit Documented by: Loratadine (Claritin) 10 mg PO W/LUNCH [facility] Last Admin: 12/08/18 12:24 Dose: Not Given Documented by: Mirtazapine (Remeron) 7.5 mg PO HS [facility] Last Admin: 12/07/18 22:21 Dose: 7.5 mg Documented by: Naloxone HCl (Narcan) 0.2 mg IV Q2M PRN PRN Reason: Opioid Reversal Finasteride 1 Mg 1 mg PO W/SUPPER [facility] Last Admin: 12/07/18 18:42 Dose: 1 mg Documented by: Nystatin (Mycostatin Oral Susp) 500,000 unit PO QID [facility] Last Admin: 12/08/18 12:24 Dose: Not Given Documented by: Pantoprazole Sodium (Protonix) 40 mg PO W/SUPPER [facility] Last Admin: 12/07/18 18:41 Dose: 40 mg Documented by: Sertraline HCl (Zoloft) 50 mg PO DAILY [facility] Last Admin: 12/08/18 08:21 Dose: 50 mg Documented by: Tamsulosin HCl (Flomax) 0.4 mg PO QAM [facility] Last Admin: 12/08/18 08:17 Dose: 0.4 mg Documented by: Physical examination: VITAL SIGNS: 98.2, 72, 18, and 99 x 81, 94% on 3 L GENERAL: , Laying in bed tired lethargic but arousable EYES: Pupils equal. Conjunctiva pale HEENT: External appearance of nose and ears normal, oral cavity grossly normal. NECK: JVD unable to assess, no masses palpable HEART: First and second heart sounds are normal; edema decreased LUNGS: Respiratory rate increased, , diminished breath sounds prolonged expiration. ABDOMEN: Soft, distended, nontender, liver spleen not palpable, no masses palpable. Right groin hemodialysis catheter PSYCH: Lethargic but will answer occasional question INVESTIGATIONS, reviewed in the clinical context: White count 7.8 hemoglobin 8 potassium 4.6 Accu-Cheks 143, 172 Previous testing: White count 6.5 hemoglobin 9.3 potassium 4.4 bun 113 creatine 4.15 Glucose 258 EKG tracing personally reviewed by me-right bundle-branch block Chest x-ray film personally reviewed by me-possibly fluid overload and infiltrate 2-D echocardiogram-shows EF of 40-45%, severe concentric left ventricular hypertrophy, moderate aortic stenosis Assessment: -Pneumonia, suspect gram-negative organism, i -Acute on chronic congestive heart failure exacerbation from systolic and diastolic dysfunction EF 40-45%, -Hypertensive heart disease -Acute COPD exacerbation in an ex-smoker, -Primary osteoarthritis -Chronic gait dysfunction uses a walker -Diabetes mellitus type 2, uncontrolled with hypoglycemia, chronically on insulin -Moderate aortic stenosis, non- rheumatic -GERD -Essential hypertension -Diabetic peripheral neuropathy -Chronic kidney disease stage III from diabetic nephropathy and hypertensive nephrosclerosis -Acute kidney injury, could be prerenal, new onset, requiring renal replacement therapy -Hyperkalemia secondary to renal failure, -Morbid obesity BMI 40.3 -Mineral bone disease -Acute metabolic encephalopathy from worsening renal failure, improving -Metabolic acidosis from renal failure -Major depression, worsening -CODE STATUS DO NOT RESUSCITATE Plan: He has been refusing most of the treatment and food. Blood pressure started to run low. Hemodialysis will not done today. I did also a family meeting later today. .Advanced care planning: Had a family meeting in the room with the present, daughter present, and son-in-law. Also's present the nurse and nurse Marquez from [facility]. They did express that the patient wanted a dialysis to some family members come in over the weekend. Otherwise they're okay with the fact that patient has decided to not get anymore treatment. I did talk about patient's wishes that he may want to go home. And family will decide about the same. Several questions were answered. Patient's one daughter is coming in tonight. Patient may get dialyzed tomorrow morning. And they can take the patient home for hospice. All different medications were discussed and what care may be follows also discussed. Patient is already a DO NOT RESUSCITATE. They may get out of bed at home if the decided to take him home tomorrow. Family repeat meeting again tonight and coming to a final conclusion about that. Total time spent with ACP was 30 minutes
[2018-12-08] MEDS: PANTOPRAZOLE 40 MG TABLET PO SCH (18:53)
[2018-12-08 20:48] LABS: Glucose,Whole Blood 154 mg/dL (75-99)
[2018-12-08] MEDS: ATORVASTATIN 40 MG TAB PO SCH (21:14)
[2018-12-08] MEDS: MIRTAZAPINE 15 MG TAB PO SCH (21:14)
[2018-12-08] MEDS: ASPIRIN 81 MG PO SCH (21:14)
[2018-12-08 21:30] LABS: Glucose,Whole Blood 154 mg/dL (75-99)
[2018-12-09 07:32] LABS: Glucose,Whole Blood 138 mg/dL (75-99)
--- NOTE | 2018-12-09 08:34 | XR ---
EXAMINATION TYPE: XR chest 1V DATE OF EXAM: 12/09/2018 COMPARISON: Prior chest x-ray 12/06/2018 HISTORY: Dyspnea TECHNIQUE: Single frontal view of the chest is obtained. FINDINGS: Left subclavian central venous catheter is again noted, distal tip is overlying superior v rosalina cava. Lung volumes are low and the patient is rotated. Bibasilar airspace disease suspected, hear t remains enlarged. Central vascularity is prominent. No pneumothorax. IMPRESSION: Findings are similar to prior exam, correlate for congestive heart failure, exam is expi ratory and rotated. Cardiac megaly. Follow-up recommended.
[2018-12-09 08:35] LABS: Calcium 8.9 mg/dL (8.4-10.2); Phosphorus 7.1 mg/dL (2.5-4.5)
--- NOTE | 2018-12-09 08:46 | P.PN ---
Subjective Patient is seen in follow-up for acute kidney injury on chronic kidney disease. 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 Patient presented with dyspnea. Currently hemodialysis dependent. Urine output about 290 mL in the last 24 hours. Vital signs are stable. General: The patient appeared well nourished and normally developed. HEENT: Head exam is unremarkable. Neck is without jugular venous distension. LUNGS: Breath sounds decreased. HEART: Rate and Rhythm are regular. First and second heart sounds normal. No murmurs, rubs or gallops. ABDOMEN: Abdominal exam reveals normal bowel sounds. Non-tender and non- distended. EXTREMITITES: Trace edema. Objective - Vital Signs Vital signs: Vital Signs Temp 98.5 F 12/09/18 07:00 Pulse 74 12/09/18 07:00 Resp 15 12/09/18 07:00 BP 122/64 12/09/18 07:00 Pulse Ox 96 12/09/18 07:00 Intake & Output 12/08/18 12/09/18 12/09/18 18:59 06:59 18:59 Intake Total 40 Output Total 50 240 Balance -10 -240 Intake: IV 40 0.9 40 Output: Urine 50 240 Other: Voiding Method Indwelling Catheter Indwelling Catheter - Labs CBC & Chem 7: 12/08/18 04:45 12/09/18 07:45 Labs: Abnormal Lab Results - Last 24 Hours (Table) 12/08/18 12/08/18 12/08/18 Range/Units 11:49 16:42 20:37 BUN (9-20) mg/dL Creatinine (0.66-1.25) mg/dL Glucose (74-99) mg/dL POC Glucose (mg/dL) 172 H 176 H 154 H (75-99) mg/dL Phosphorus (2.5-4.5) mg/dL 12/08/18 12/09/18 12/09/18 Range/Units 21:19 07:19 07:45 BUN 76 H (9-20) mg/dL Creatinine 5.51 H (0.66-1.25) mg/dL Glucose 133 H (74-99) mg/dL POC Glucose (mg/dL) 154 H 138 H (75-99) mg/dL Phosphorus 7.1 H (2.5-4.5) mg/dL Assessment and Plan Plan: Assessment: 1. Acute kidney injury secondary to ATN secondary to cardiorenal syndrome. Currently hemodialysis dependent. Remains oliguric. Diuretic unresponsive. 2. Hyperkalemia secondary to acute kidney injury. Improved postdialysis. 3. Volume overload. Improving with ultrafiltration. 4. Chronic kidney disease stage IV secondary to diabetic kidney disease with baseline creatinine in the range of 3-3.5. 5. Insulin-dependent diabetes mellitus. 6. Chronic kidney disease mineral bone disease maintained on calcitriol. 7. Acute on chronic systolic CHF with ejection fraction of 40-45%. 8. Pneumonia maintained on antibiotics. 9. Anemia of chronic kidney disease maintained on Aranesp. Iron deficiency noted. Status post 2 doses of IV iron. 10. Hypervolemic hyponatremia. Better. Plan: Discussed the case with the attending physician yesterday. Family meeting was held. Patient has decided to go with hospice. I discussed with him getting hemodialysis today prior to potential discharge home but the patient is refusing. Avoid nephrotoxins. Maintain oral Lasix 80 mg twice daily. Hold amlodipine for systolic blood pressure less than 120.
[2018-12-09] MEDS: INSULIN ASPART (NovoLOG) 100 UNIT/ML VIAL SQ SCH ×2 (10:31→12:43)
[2018-12-09] MEDS: CEFEPIME 2 GM in SODIUM CHLORIDE 0.9% 100 ML IVPB SCH (10:45)
[2018-12-09] MEDS: GABAPENTIN 300 MG CAP PO SCH (10:47)
[2018-12-09] MEDS: TAMSULOSIN 0.4 MG CAP.ER.24H PO SCH (10:47)
[2018-12-09] MEDS: FERROUS SULFATE 325 MG TAB PO SCH (10:47)
[2018-12-09] MEDS: CARVEDILOL 3.125 MG TAB PO SCH (10:47)
[2018-12-09] MEDS: HEPARIN SODIUM,PORCINE 5,000 UNIT/ML 1 ML VIAL SQ SCH (10:47)
[2018-12-09] MEDS: SERTRALINE 50 MG TAB PO SCH (10:47)
[2018-12-09] MEDS: NYSTATIN 100,000 UNIT/ML SUSP 500,000 UNIT/5 ML CUP PO SCH ×2 (10:48→14:16)
[2018-12-09] MEDS: FUROSEMIDE 80 MG TAB PO SCH ×2 (10:49→15:42)
--- NOTE | 2018-12-09 11:26 | P.PN ---
Progress Note - Text Progress Note Date: 12/09/18 Chief complaint: "I am dealing with it 1 day at a time" Subjective: patient was seen in medical floor. Patient was transferred from ICU to medical floor yesterday. Discussed the case with the attending physician Dr. Rivera who reported that the plan would be sending the patient home with hospice care. Patient has been refusing dialysis and as per Dr. Rivera but wouldn't support his survival for long period. Patient was taking his medications including psychiatric medications with encouragement from his family. Family are supportive and understanding the patient's choice. Patient does not have any current thoughts to hurt himself or end his life, and he denies any plans or intention to end his life. He reports that he wants to go home and stay with his family and will deal with the current life changes 1 day at a time. He reports doesn't want to have dialysis because that would be burden to his family. As per family the patient is not candidate for kidney transplantation and as per medical team here will be lifelong on dialysis. Family was educated about signs of self-harm or if if the patient developed any behavior to be danger to himself or others to bring him back to the hospital or 911. Recommended to the family and the treatment team that to request counseling from hospice service. Patient presents today less distressed and was feeling relatively better because he is going home with his family. Patient has been taking his medications in cluding psychiatric medications. He reports continued to have poor sleep and diminished appetite. He denies any manic or psychotic symptoms. He continued to report feeling tired. Mental status examination; Appearance: Appears older than stated age, lying in hospital bed and dressed in hospital gown. Gait/ posture: Not assessed. Attitude and Behavior: More engagement and more cooperative, better eye contact during course of interview Motor Activity: Less psychomotor retardation Speech: Slow rate,and sometimes. None pressured Mood: "depressed" Affect:Constricted. Thought form: Linear and goal directed. Thought content: No delusions elicited, denies active suicidal, denies homicidal thoughts, intentions, or plans. Perception: No report of auditory/ visual or tactile hallucinations. Attention: Responding and answering questions. Orientation: Patient is oriented to place, person, and situation, and not fully oriented to time. Insight: Fair Judgment: Fair Assessment: Major depressive disorder, single episode, without psychotic features. Plan: Discontinue one-to-one. Patient will be discharged to the care of his family [facility] hospice service at home. Patient denies any active suicidal thoughts and has no intent or plan to end his life. Patient is not meeting criteria for inpatient psychiatric service. Family was educated about signs of self harming behavior and to bring the patient to ER or call 911 if he develops any behavior of self-harm. Family was educated to secure any guns at home. Medication Management: Continue Zoloft 50 mg daily for depression symptoms. Increase Remeron 15 mg at bedtime to help was a depression and poor sleep and appetite. Encourage the patient to take medications. Discussed the treatment plan with requesting physician/service. Thank you for permitting me to assist in this patients treatment.
[2018-12-09 11:43] LABS: Glucose,Whole Blood 171 mg/dL (75-99)
[2018-12-09] MEDS: SODIUM FERRIC GLUCONAT-SUCROSE 125 MG in SODIUM CHLORIDE 0.9% 100 ML IVPB SCH (12:23)
[2018-12-09] MEDS: HYDROcodone/APAP 7.5-325MG 1 EACH TAB PO PRN (12:42)
[2018-12-09] MEDS: amLODIPine 10 MG TAB PO SCH (12:43)
[2018-12-09] MEDS: LORATADINE 10 MG TAB PO SCH (12:43)
[2018-12-09 14:34] VITALS: BP 96/56; PULSE 66; RESP 16; TEMP 97.5
--- NOTE | 2018-12-09 21:13 | P.DS ---
Providers Date of admission: 11/29/18 20:10 Expected date of discharge: 12/09/18 Attending physician: Andre Rivera Consults: 11/29/18 20:10 Consult Physician Routine Consulting Provider: [facility] Consult Reason/Comments: Acute pulmonary edema Do you want consulting provider notified?: Yes 11/29/18 20:14 Consult Physician Routine Consulting Provider: Bharti Tello Consult Reason/Comments: Pneumonia Do you want consulting provider notified?: Yes 11/30/18 16:06 Consult Physician Stat Consulting Provider: Prabhjot Oswald Consult Reason/Comments: elevated creatinine. on iv lasix, poor urine output Do you want consulting provider notified?: Yes 12/02/18 11:44 Consult Physician Stat Consulting Provider: Nabil Baeza Consult Reason/Comments: dialysis catheter insertion. Do you want consulting provider notified?: Already Contacted 12/05/18 13:55 Consult Physician Urgent Consulting Provider: Maxx Enriquez Consult Reason/Comments: focused on Do you want consulting provider notified?: Already Contacted Primary care physician: Derrick Yin [facility] Course: Hospital course: This is a 68-year-old patient of Dr. yin from [place] whose chronic stable medical conditions include primary osteoarthritis, chronic kidney dysfunction uses a walker, diabetes mellitus on insulin, GERD, essential hypertension, diabetic peripheral neuropathy, chronic kidney disease stage III, chronic hypoxic respiratory failure. Presented with increasing shortness of breath, Center by Dr. rossi for possible pneumonia. Patient has been bringing up yellow-green sputum. Also very short of breath and wheezing. Distended abdomen increasing edema. Started on IV antibiotics. Admitted with pneumonia, CHF exacerbation, COPD exacerbation. On November 30 was put on a Lasix drip. Kidney function was worsening. On December 02, moved to ICU and hemodialysis catheter was placed. And hemodialysis was started. Patient very depressed. Has sitters the bedside. Patient has been getting daily hemodialysis since December 02. Patient's improvement was slow. Patient and the family decided to go into hospice. Today- Patient refused dialysis. Met with patient's , 2 daughters's morning. They will be taking the patient home. Hospice is making arrangements at home. Care was also discussed with the patient. Was more awake today. He does wish to go with hospice. Discussion discharge planning more than 45 minutes Consultation: Dr. Oswald from nephrology Dr. moon from pulmonary Dr. Kings Fang from cardiology Physical examination: VITAL SIGNS: 97.5, 66, 16, 36/56, 95% room air GENERAL: , Laying in bed tired but awake EYES: Pupils equal. Conjunctiva pale HEENT: External appearance of nose and ears normal, oral cavity grossly normal. NECK: JVD unable to assess, no masses palpable HEART: First and second heart sounds are normal; edema decreased LUNGS: Respiratory rate increased, , diminished breath sounds prolonged expiration. ABDOMEN: Soft, distended, nontender, liver spleen not palpable, no masses palpable. Right groin hemodialysis catheter PSYCH: Tired but answering questions, more affect with no INVESTIGATIONS, reviewed in the clinical context: Potassium 5 Accu-Cheks 171 Previous testing: White count 6.5 hemoglobin 9.3 potassium 4.4 bun 113 creatine 4.15 Glucose 258 EKG tracing personally reviewed by me-right bundle-branch block Chest x-ray film personally reviewed by me-possibly fluid overload and infiltrate 2-D echocardiogram-shows EF of 40-45%, severe concentric left ventricular hypertrophy, moderate aortic stenosis Assessment: -Pneumonia, suspect gram-negative organism, -Acute on chronic congestive heart failure exacerbation from systolic and diastolic dysfunction EF 40-45%, -Hypertensive heart disease -Acute COPD exacerbation in an ex-smoker, -Primary osteoarthritis -Chronic gait dysfunction uses a walker -Diabetes mellitus type 2, uncontrolled with hypoglycemia, chronically on insulin -Moderate aortic stenosis, non- rheumatic -GERD -Essential hypertension -Diabetic peripheral neuropathy -Chronic kidney disease stage III from diabetic nephropathy and hypertensive nephrosclerosis -Acute kidney injury, could be prerenal, new onset, requiring renal replacement therapy -Hyperkalemia secondary to renal failure, -Morbid obesity BMI 40.3 -Mineral bone disease -Acute metabolic encephalopathy from worsening renal failure, improving -Metabolic acidosis from renal failure -Major depression, worsening -CODE STATUS DO NOT RESUSCITATE Plan: Patient is going home with hospice. Hospital bed is being arranged. Medications were done. Questions answered to the family. Patient Condition at Discharge: Poor Plan - Discharge Summary Discharge Rx Participant: No New Discharge Prescriptions: New Carvedilol [Coreg] 3.125 mg PO BID-W/MEALS #60 tab Furosemide [Lasix] 80 mg PO BID@0900,1600 #60 tab INSULIN ASPART (NovoLOG) [NovoLOG (formulary)] 0 unit SQ ACHS vial Mirtazapine [Remeron] 15 mg PO HS #14 tab Sertraline [Zoloft] 50 mg PO DAILY #14 tab Continue Insulin Lispro [humaLOG Kwikpen] 4 - 15 unit SQ DAILY Mometasone/Formoterol [Dulera 200 Mcg/5 Mcg Inhaler] 2 puff INHALATION RT-BID HYDROcodone/APAP 7.5-325MG [[place] 7.5-325] 1 tab PO Q8H PRN PRN Reason: Pain Allopurinol [Zyloprim] 200 mg PO QAM Omeprazole [PriLOSEC] 20 mg PO W/SUPPER Finasteride 1 mg PO W/SUPPER Aspirin 81 mg PO HS SILVER sulfADIAZINE CREAM [Silvadene Cream] 1 applic TOPICAL DAILY PRN PRN Reason: LEG IRRITATIONS Ipratropium-Albuterol Nebulize [Duoneb 0.5 mg-3 mg/3 ml Soln] 3 ml INHALATION RT-Q4H PRN PRN Reason: Dyspnea Gabapentin [Neurontin] 300 mg PO BID Nystatin 100,000 Unit/ml Susp [Mycostatin Oral Susp] 500,000 unit PO QID PRN PRN Reason: MOUTH YEAST INFECTION Sodium Bicarbonate Tab 650 mg PO QAM Tamsulosin [Flomax] 0.4 mg PO QAM Soothe Lubricant Eye Drops 1 drop BOTH EYES DAILY PRN PRN Reason: Dry Eye(S) Changed amLODIPine [Norvasc] 5 mg PO W/LUNCH #0 Discontinued Insulin Lispro Protamin/Lispro [humaLOG Mix 75-25 Kwikpen] 15 - 25 unit SQ PC-BID Promethazine/Phenyleph/Codeine [Promethazine Vc-Codeine Syrup] 5 ml PO QID PRN PRN Reason: cough/congestion Calcitriol 0.25 mcg PO Q48H Cholecalciferol (Vitamin D3) [Vitamin D3] 2,000 units PO W/LUNCH Magnesium Oxide 400 mg PO QAM Metoprolol Succinate (ER) [Toprol XL] 25 mg PO BID guaiFENesin-DM 600/30MG [Mucinex Dm] 1 tab PO Q12H PRN PRN Reason: Congestion Clotrimazole [Clotrimazole 1%] 1 cream TOPICAL DAILY PRN PRN Reason: FUNGUS FEET Clobetasol Propionate/Emoll [Olux-E 0.05% Foam] 1 applic TOPICAL DAILY PRN PRN Reason: Rash/Itchy Ferrous Sulfate [Feosol] 325 mg PO BID Insulin Lispro Protamin/Lispro [humaLOG Mix 75-25 Kwikpen] 20 - 25 unit SQ AC-BID Lactulose [Cephulac] 20 gm PO DAILY PRN #200 ml PRN Reason: Constipation Cetirizine HCl [Zyrtec] 10 mg PO W/LUNCH Atorvastatin [Lipitor] 20 mg PO HS Ergocalciferol [Vitamin D2] 50,000 unit PO Q14D Furosemide [Lasix] 40 mg PO QAM Discharge Medication List Allopurinol [Zyloprim] 200 mg PO QAM 08/03/16 [History] Aspirin 81 mg PO HS 08/03/16 [History] Finasteride 1 mg PO W/SUPPER 08/03/16 [History] HYDROcodone/APAP 7.5-325MG [[place] 7.5-325] 1 tab PO Q8H PRN 08/03/16 [History] Insulin Lispro [humaLOG Kwikpen] 4 - 15 unit SQ DAILY 08/03/16 [History] Ipratropium-Albuterol Nebulize [Duoneb 0.5 mg-3 mg/3 ml Soln] 3 ml INHALATION RT-Q4H PRN 08/03/16 [History] Mometasone/Formoterol [Dulera 200 Mcg/5 Mcg Inhaler] 2 puff INHALATION RT-BID 08/03/16 [History] Omeprazole [PriLOSEC] 20 mg PO W/SUPPER 08/03/16 [History] SILVER sulfADIAZINE CREAM [Silvadene Cream] 1 applic TOPICAL DAILY PRN 08/03/16 [History] Gabapentin [Neurontin] 300 mg PO BID 04/13/17 [History] Nystatin 100,000 Unit/ml Susp [Mycostatin Oral Susp] 500,000 unit PO QID PRN 11/29/18 [History] Sodium Bicarbonate Tab 650 mg PO QAM 11/29/18 [History] Soothe Lubricant Eye Drops 1 drop BOTH EYES DAILY PRN 11/29/18 [History] Tamsulosin [Flomax] 0.4 mg PO QAM 11/29/18 [History] Carvedilol [Coreg] 3.125 mg PO BID-W/MEALS #60 tab 12/09/18 [Rx] Furosemide [Lasix] 80 mg PO BID@0900,1600 #60 tab 12/09/18 [Rx] INSULIN ASPART (NovoLOG) [NovoLOG (formulary)] 0 unit SQ ACHS vial 12/09/18 [Rx] Mirtazapine [Remeron] 15 mg PO HS #14 tab 12/09/18 [Rx] Sertraline [Zoloft] 50 mg PO DAILY #14 tab 12/09/18 [Rx] amLODIPine [Norvasc] 5 mg PO W/LUNCH #0 12/09/18 [Rx] Follow up Appointment(s)/Referral(s): Derrick Yin MD [Primary Care Provider] - 1-2 days Patient Instructions/Handouts: COPD (Chronic Obstructive Pulmonary Disease) (DC), End Stage Kidney Disease (DC) Discharge Disposition: HOME WITH HOSPICE
--- NOTE | 2018-12-13 09:48 | CDI ---
Documentation Clarification Form Date: 12/13/18 From: Dina Valencia Phone: If you have a question about this query, please contact Sol Becker, Financial Reporting Director at [phone] between 8am and 5pm. Admit Date: 11/29/18 Discharge Date: 12/09/18 Patient Name: Garcia Huff Visit Number: [id number] ATTENTION: The Clinical Documentation Specialists (CDI) and [facility] Coding Staff appreciate your assistance in clarifying documentation. Please respond to the clarification below the line at the bottom and electronically sign. The CDI & [facility] Coding staff will review the response and follow-up if needed. Please note: Queries are made part of the Legal Health Record. If you have any questions, please contact the author of this message via ITS. Dear Dr Nabil Baeza, Hematoma formation in the right groin area the site of the puncture is documented in the 12/[address] Tello. Pre-Operative Diagnosis: Acute renal failure with need for urgent hemodialysis Post-Operative Diagnosis: Same Procedure performed: Insertion of a non-tunneled hemodialysis catheter via the right femoral vein approach with US guidance History/Risk Factors: Pneumonia, Acute on chronic HTN/CHF -systolic/diastolic, Stage IV CKD, acute & chronic hypoxic respiratory failure, metabolic encephalopathy Clinical Indicators: CKD stage IV with worsening acute kidney failure with tubular necrosis, placement of dialysis catheter with hemodialysis Cr: 3.80, 4.15, 5.33, 6.86, 6.24, 5.56, 4.44, 4.25, 3.96, 3.75, 5.51 Hgb: Dropped from 9.3 to 7.3 Treatment: dialysis, IV Lasix, IV antibiotics Consult: Pulm, cardio, renal In order to accurately reflect this patients severity of illness, please clarify if the hematoma is a postop complication: An expected post-procedural or post-surgical condition An unexpected post-procedural or post-surgical condition related to surgical care (a complication of care) An unexpected post-procedural or post-surgical condition, related to the patients underlying medical comorbidities Other, please specify ____ Unable to determine unexpected, relating to patients underlying medical comorbidities. MTDD
== END 2018-12-09 15:52 | disposition hospice, home (50) | DRG 291 ==
LOC: EC 16:44 → 3SCARD 20:10 → 2SICU 12-02 08:01 → 4SSUR 12-08 23:29
PROVIDERS: ADMIT Hospitalist; ATTEND Hospitalist
PROC: 06HY33Z Insertion of Infusion Device into Lower Vein, Percutaneous Approach (ICD-10-PCS; principal; 2018-12-02)
PROC: 02HV33Z Insertion of Infusion Device into Superior Vena Cava, Percutaneous Approach (ICD-10-PCS; 2018-12-02)
PROC: 5A1D70Z Performance of Urinary Filtration, Intermittent, Less than 6 Hours Per Day (ICD-10-PCS; 2018-12-02)
PROC: 5A09557 Assistance with Respiratory Ventilation, Greater than 96 Consecutive Hours, Continuous Positive Airway Pressure (ICD-10-PCS; 2018-12-02)
DX: I13.0 Hypertensive heart and chronic kidney disease with heart failure and stage 1 through stage 4 chronic kidney disease, or unspecified chronic kidney disease (principal); J15.6 Pneumonia due to other Gram-negative bacteria; J96.21 Acute and chronic respiratory failure with hypoxia; N17.0 Acute kidney failure with tubular necrosis; I50.43 Acute on chronic combined systolic (congestive) and diastolic (congestive) heart failure; G93.41 Metabolic encephalopathy; J44.0 Chronic obstructive pulmonary disease with (acute) lower respiratory infection; J44.1 Chronic obstructive pulmonary disease with (acute) exacerbation; N18.4 Chronic kidney disease, stage 4 (severe); Z68.42 Body mass index [BMI] 45.0-49.9, adult; E87.1 Hypo-osmolality and hyponatremia; I47.1 Supraventricular tachycardia; E87.4 Mixed disorder of acid-base balance; I42.9 Cardiomyopathy, unspecified; E66.01 Morbid (severe) obesity due to excess calories; Z66 Do not resuscitate; Z51.5 Encounter for palliative care; E11.22 Type 2 diabetes mellitus with diabetic chronic kidney disease; E11.65 Type 2 diabetes mellitus with hyperglycemia; I48.0 Paroxysmal atrial fibrillation; E11.42 Type 2 diabetes mellitus with diabetic polyneuropathy; D69.6 Thrombocytopenia, unspecified; E11.649 Type 2 diabetes mellitus with hypoglycemia without coma; E87.5 Hyperkalemia; E83.9 Disorder of mineral metabolism, unspecified; J98.6 Disorders of diaphragm; E11.36 Type 2 diabetes mellitus with diabetic cataract; E11.39 Type 2 diabetes mellitus with other diabetic ophthalmic complication; I45.10 Unspecified right bundle-branch block; I35.0 Nonrheumatic aortic (valve) stenosis; D63.1 Anemia in chronic kidney disease; D50.9 Iron deficiency anemia, unspecified; F32.9 Major depressive disorder, single episode, unspecified; K46.9 Unspecified abdominal hernia without obstruction or gangrene; S80.821A Blister (nonthermal), right lower leg, initial encounter; S80.822A Blister (nonthermal), left lower leg, initial encounter; R41.843 Psychomotor deficit; H26.9 Unspecified cataract; H40.9 Unspecified glaucoma; H42 Glaucoma in diseases classified elsewhere; K21.9 Gastro-esophageal reflux disease without esophagitis; M19.91 Primary osteoarthritis, unspecified site; R26.9 Unspecified abnormalities of gait and mobility; S30.1XXA Contusion of abdominal wall, initial encounter; M10.9 Gout, unspecified; Z91.15 Patient's noncompliance with renal dialysis; Z99.2 Dependence on renal dialysis; Z99.81 Dependence on supplemental oxygen; Z79.82 Long term (current) use of aspirin; Z79.4 Long term (current) use of insulin; Z79.51 Long term (current) use of inhaled steroids; Z79.899 Other long term (current) drug therapy; Z88.6 Allergy status to analgesic agent; Z87.01 Personal history of pneumonia (recurrent); Z98.890 Other specified postprocedural states; Z87.891 Personal history of nicotine dependence; Z71.3 Dietary counseling and surveillance; Z83.3 Family history of diabetes mellitus; Z81.1 Family history of alcohol abuse and dependence; Z83.79 Family history of other diseases of the digestive system; Z82.3 Family history of stroke
CPT/HCPCS: 36415; 36600; 71045; 71046; 80048; 80053; 80074; 81001; 82728; 82805; 83540; 83550; 83605; 83735; 83880; 84100; 84132; 84439; 84443; 84484; 85025; 85027; 85610; 85730; 86704; 86706; 87040; 87340; 90935; 93005; 93306; 94640; 94660; 94760; 96365; 96366; 96375; 99291